=== PATIENT | female | born 1940 | race Caucasian/White ===

== ENCOUNTER 2016-11-10 22:40 | Emergency (ER) | payer MEDICARE ==
[2016-11-10 23:08] VITALS: RESP 18
[2016-11-11 00:11] LABS: Basophils # (A) 0.1 k/uL (0-0.2); Basophils % (A) 1 %; CH 30.5; CHCM 32.9; Eosinophils # (A) 0.1 k/uL (0-0.7); Eosinophils % (A) 1 %; HCT 41.8 % (34.0-46.0); HDW 2.67; HGB 13.3 gm/dL (11.4-16.0); Luc # (Auto) 0.13; Luc % (Auto) 1; Lymphocytes # (A) 2.3 k/uL (1.0-4.8); Lymphocytes % (A) 25 %; MCH 29.6 pg (25.0-35.0); MCHC 31.8 g/dL (31.0-37.0); MCV 93.1 fL (80.0-100.0); Mean Platelet Volume 7.9; Monocytes # (A) 0.7 k/uL (0-1.0); Monocytes % (A) 7 %; Neutrophils % (A) 65 %; RBC 4.49 m/uL (3.80-5.40); RDW 15.8 % (11.5-15.5); WBC 9.3 k/uL (3.8-10.6); WBC (Perox) 9.52
[2016-11-11 00:19] LABS: Appearance,Urine Clear (Clear); Bilirubin,Urine Negative (Negative); Glucose,Urine (UA) Negative (Negative); Ketones,Urine 1+ (Negative); Leukocyte Esterase,Urine Moderate (Negative); Mucus,Urine Rare /hpf; Nitrite,Urine Negative (Negative); PH, Urine 5.5 (5.0-8.0); Particle Count 470; Protein,Urine Negative (Negative); RBC,Urine <1 /hpf (0-5); Specific Gravity,Urine 1.011 (1.001-1.035); Squamous Epithelial Cell,Urine <1 /hpf (0-4); UA Billing (MACRO vs. MICRO) MICRO; Urobilinogen,Urine <2.0 mg/dL (<2.0); WBC,Urine 10 /hpf (0-5)
[2016-11-11 00:20] LABS: ALT 35 U/L (9-52); AST 20 U/L (14-36); Alkaline Phosphatase 92 U/L (38-126); Anion Gap 10 mmol/L; Blood Urea Nitrogen 16 mg/dL (7-17); Calcium 9.2 mg/dL (8.4-10.2); Carbon Dioxide 26 mmol/L (22-30); Chloride 103 mmol/L (98-107); Glucose 209 mg/dL (74-99); Non-African American GFR(MDRD) >60 (>60 ml/min/1.73 sqM); Potassium 4.8 mmol/L (3.5-5.1); Sodium 139 mmol/L (137-145); Total Bilirubin 0.3 mg/dL (0.2-1.3); Total Protein 6.2 g/dL (6.3-8.2)
[2016-11-11 00:30] LABS: Creatine Kinase 25 U/L (30-135)
[2016-11-11 00:43] LABS: Creatine Kinase MB 0.5 ng/mL (0.0-2.4); Troponin I <0.012 ng/mL (0.000-0.034)
--- NOTE | 2016-11-11 00:57 | XR ---
EXAM: XR Chest, 2 Views CLINICAL HISTORY: Reason: Pain TECHNIQUE: Frontal and lateral views of the chest. COMPARISON: 10/11/16 FINDINGS: Cardiac and mediastinal silhouette stable. No evidence for edema, consolidation or other acute cardiopulmonary process. IMPRESSION: No acute cardiopulmonary findings.
--- NOTE | 2016-11-11 01:38 | ED ---
Psych HPI - General Chief Complaint: Psychiatric Symptoms Stated Complaint: poss med reaction Time Seen by Provider: 11/10/16 23:21 Source: patient, family Mode of arrival: wheelchair - History of Present Illness Initial Comments: 76-year-old female patient presents with for evaluation of increased anxiety and restlessness today. Patient states that she feels very "uptight "and she feels like she is going to "explode". states that she has had episodes similar to this in the past. States that she has a history of anxiety and depression. States that she is taking medications for this however he feels that they are not right for her symptoms. Patient states that she is having increased anxiety and nervousness. She did ask her to hide the guns from her because she did not want to know where they're located. When asked if she was feeling suicidal or homicidal she denied having these feelings. She denies drinking alcohol or doing any drugs. She states that she has been taking her medications as directed. She states that she is unable to sleep at night, states that she falls asleep around 0400 and sleeps through the day. She states that she does hear voices late at night, states that it sounds like many people. She states that they don't tell her to do things or see anything specific it just sounds like noise. Patient states he does have some mild left-sided chest discomfort however feels like it is in her breast. She states that it does increase when she becomes more nervous. Patient denies any recent fever, chills, shortness breath, abdominal pain, nausea, vomiting, diarrhea, constipation, back pain, numbness, tingling, dizziness, weakness, hematuria, dysuria, urinary urgency, urinary frequency, headache, visual changes , or any other complaints. - Related Data Home Medications Medication Instructions Recorded Confirmed Atorvastatin [Lipitor] 40 mg PO HS 10/16/13 11/10/16 Divalproex [Depakote] 500 mg PO BID 10/16/13 11/10/16 Omeprazole [PriLOSEC] 20 mg PO AC-BRKFST 10/16/13 11/10/16 metFORMIN HCL [Glucophage] 1,000 tab PO BID 10/16/13 11/10/16 Glimepiride [Amaryl] 4 mg PO DAILY 06/30/16 11/10/16 Linagliptin [Tradjenta] 5 mg PO DAILY 06/30/16 11/10/16 Citalopram Hydrobromide [CeleXA] 20 mg PO DAILY 11/10/16 11/10/16 Levothyroxine Sodium [Synthroid] 137 mcg PO DAILY 11/10/16 11/10/16 Spironolactone [Aldactone] 12.5 mg PO DAILY 11/10/16 11/10/16 Zolpidem [Ambien] 10 mg PO HS PRN 11/10/16 11/10/16 Previous Rx's Medication Instructions Recorded ALPRAZolam [Xanax] 0.5 mg PO DAILY PRN #1 tablet 11/11/16 Allergies Allergy/AdvReac Type Severity Reaction Status Date / Time budesonide [From Symbicort] AdvReac Unknown Verified 11/10/16 23:25 codeine AdvReac Unknown Verified 11/10/16 23:25 fluoxetine [From Prozac] AdvReac Unknown Verified 11/10/16 23:25 formoterol [From Symbicort] AdvReac Unknown Verified 11/10/16 23:25 Review of Systems ROS Statement: Those systems with pertinent positive or pertinent negative responses have been documented in the HPI. ROS Other: All systems not noted in ROS Statement are negative. Past Medical History Past Medical History: Cancer, Diabetes Mellitus, GERD/Reflux, Hyperlipidemia, Thyroid Disorder Additional Past Medical History / Comment(s): emotional disorder History of Any Multi-Drug Resistant Organisms: None Reported Past Surgical History: Breast Surgery, Cholecystectomy, Hysterectomy Past Anesthesia/Blood Transfusion Reactions: No Reported Reaction Past Psychological History: Anxiety, Depression, PTSD Smoking Status: Never smoker General Exam Limitations: no limitations General appearance: alert, anxious, other (This is a well-developed, well- nourished female in no acute distress. Vital signs upon presentation were temperature 90.7F, pulse 82, respirations 18, blood pressure 136/66, pulse ox 96% on room air.) Head exam: Present: atraumatic, normocephalic, normal inspection Eye exam: Present: normal appearance, PERRL, EOMI. Absent: scleral icterus, conjunctival injection, periorbital swelling ENT exam: Present: normal exam, normal oropharynx, mucous membranes moist Neck exam: Present: normal inspection. Absent: tenderness, meningismus, lymphadenopathy Respiratory exam: Present: normal lung sounds bilaterally, chest wall tenderness (Over the sternum; over the left breast). Absent: respiratory distress, wheezes, rales, rhonchi, stridor Cardiovascular Exam: Present: regular rate, normal rhythm, normal heart sounds. Absent: systolic murmur, diastolic murmur, rubs, gallop, clicks GI/Abdominal exam: Present: soft, normal bowel sounds. Absent: distended, tenderness, guarding, rebound, rigid Back exam: Present: normal inspection Neurological exam: Present: alert, oriented X3, CN II-XII intact Psychiatric exam: Present: normal affect, normal mood Skin exam: Present: warm, dry, intact, normal color. Absent: rash Course Vital Signs 11/10/16 11/11/16 23:00 04:28 Temperature 97 F L 97.4 F L Pulse Rate 82 75 Respiratory 18 18 Rate Blood Pressure 136/66 158/70 O2 Sat by Pulse 96 95 Oximetry - Reevaluation(s) Reevaluation #1: 11/11/16 01:37 Patient labs, x-ray, and EKG reviewed. Patient has been cleared medically and will have an evaluation from emergency psych services. 11/11/16 03:51 Medical Decision Making - Medical Decision Making 76-year-old female patient presented for evaluation of increased anxiety and panic. Physical examination was unremarkable. Lab work, EKG, and chest x-ray were performed for medical clearance. Blood work was unremarkable. Urine did show 1+ ketones, moderate leukocyte esterase, 10 white blood cells, and rare mucous this has been sent for culture. EKG was unremarkable. Chest x-ray was negative for any acute cardiopulmonary process. Patient was evaluated by emergency psych services who state that she does not meet admission criteria. They state that she has increased anxiety, does have an appointment with her primary care physician who recommends her seeing a psychiatrist. They recommend that she be given Xanax a dose for tonight and a dose for tomorrow. Patient will be discharged home with a list of outpatient referrals. She is instructed to follow-up with her primary care physician for recheck in 1-2 days. She is instructed to return here immediately for any new, worsening, or concerning symptoms. Patient and verbalize understanding and agree with this plan. - Lab Data Result diagrams: 11/11/16 00:00 11/11/16 00:00 Lab Results 11/11/16 11/11/16 11/11/16 Range/Units 00:00 00:00 00:00 WBC 9.3 (3.8-10.6) k/uL RBC 4.49 (3.80-5.40) m/uL Hgb 13.3 (11.4-16.0) gm/dL Hct 41.8 (34.0-46.0) % MCV 93.1 (80.0-100.0) fL MCH 29.6 (25.0-35.0) pg MCHC 31.8 (31.0-37.0) g/dL RDW 15.8 H (11.5-15.5) % Plt Count 239 (150-450) k/uL Neutrophils % 65 % Lymphocytes % 25 % Monocytes % 7 % Eosinophils % 1 % Basophils % 1 % Neutrophils # 6.0 (1.3-7.7) k/uL Lymphocytes # 2.3 (1.0-4.8) k/uL Monocytes # 0.7 (0-1.0) k/uL Eosinophils # 0.1 (0-0.7) k/uL Basophils # 0.1 (0-0.2) k/uL Sodium (137-145) mmol/L Potassium (3.5-5.1) mmol/L Chloride (98-107) mmol/L Carbon Dioxide (22-30) mmol/L Anion Gap mmol/L BUN (7-17) mg/dL Creatinine (0.52-1.04) mg/dL Est GFR (MDRD) Af Amer (>60 ml/min/1.73 sqM) Est GFR (MDRD) Non-Af (>60 ml/min/1.73 sqM) Glucose (74-99) mg/dL Calcium (8.4-10.2) mg/dL Total Bilirubin (0.2-1.3) mg/dL AST (14-36) U/L ALT (9-52) U/L Alkaline Phosphatase (38-126) U/L Total Creatine Kinase 25 L (30-135) U/L CK-MB (CK-2) 0.5 (0.0-2.4) ng/mL CK-MB (CK-2) Rel Index 2.0 Troponin I <0.012 (0.000-0.034) ng/mL Total Protein (6.3-8.2) g/dL Albumin (3.5-5.0) g/dL Urine Color Yellow Urine Appearance Clear (Clear) Urine pH 5.5 (5.0-8.0) Ur Specific [place] 1.011 (1.001-1.035) Urine Protein Negative (Negative) Urine Glucose (UA) Negative (Negative) Urine Ketones 1+ H (Negative) Urine Blood Negative (Negative) Urine Nitrite Negative (Negative) Urine Bilirubin Negative (Negative) Urine Urobilinogen <2.0 (<2.0) mg/dL Ur Leukocyte Esterase Moderate H (Negative) Urine RBC <1 (0-5) /hpf Urine WBC 10 H (0-5) /hpf Ur Squamous Epith Cells <1 (0-4) /hpf Urine Mucus Rare H (None) /hpf Urine Opiates Screen Not Detected (NotDetected) Ur Oxycodone Screen Not Detected (NotDetected) Urine Methadone Screen Not Detected (NotDetected) Ur Propoxyphene Screen Not Detected (NotDetected) Ur Barbiturates Screen Not Detected (NotDetected) U Tricyclic Antidepress Not Detected (NotDetected) Ur Phencyclidine Scrn Not Detected (NotDetected) Ur Amphetamines Screen Not Detected (NotDetected) U Methamphetamines Scrn Not Detected (NotDetected) U Benzodiazepines Scrn Detected H (NotDetected) Urine Cocaine Screen Not Detected (NotDetected) U Marijuana (THC) Screen Not Detected (NotDetected) 11/11/16 Range/Units 00:00 WBC (3.8-10.6) k/uL RBC (3.80-5.40) m/uL Hgb (11.4-16.0) gm/dL Hct (34.0-46.0) % MCV (80.0-100.0) fL MCH (25.0-35.0) pg MCHC (31.0-37.0) g/dL RDW (11.5-15.5) % Plt Count (150-450) k/uL Neutrophils % % Lymphocytes % % Monocytes % % Eosinophils % % Basophils % % Neutrophils # (1.3-7.7) k/uL Lymphocytes # (1.0-4.8) k/uL Monocytes # (0-1.0) k/uL Eosinophils # (0-0.7) k/uL Basophils # (0-0.2) k/uL Sodium 139 (137-145) mmol/L Potassium 4.8 (3.5-5.1) mmol/L Chloride 103 (98-107) mmol/L Carbon Dioxide 26 (22-30) mmol/L Anion Gap 10 mmol/L BUN 16 (7-17) mg/dL Creatinine 0.70 (0.52-1.04) mg/dL Est GFR (MDRD) Af Amer >60 (>60 ml/min/1.73 sqM) Est GFR (MDRD) Non-Af >60 (>60 ml/min/1.73 sqM) Glucose 209 H (74-99) mg/dL Calcium 9.2 (8.4-10.2) mg/dL Total Bilirubin 0.3 (0.2-1.3) mg/dL AST 20 (14-36) U/L ALT 35 (9-52) U/L Alkaline Phosphatase 92 (38-126) U/L Total Creatine Kinase (30-135) U/L CK-MB (CK-2) (0.0-2.4) ng/mL CK-MB (CK-2) Rel Index Troponin I (0.000-0.034) ng/mL Total Protein 6.2 L (6.3-8.2) g/dL Albumin 3.5 (3.5-5.0) g/dL Urine Color Urine Appearance (Clear) Urine pH (5.0-8.0) Ur Specific [place] (1.001-1.035) Urine Protein (Negative) Urine Glucose (UA) (Negative) Urine Ketones (Negative) Urine Blood (Negative) Urine Nitrite (Negative) Urine Bilirubin (Negative) Urine Urobilinogen (<2.0) mg/dL Ur Leukocyte Esterase (Negative) Urine RBC (0-5) /hpf Urine WBC (0-5) /hpf Ur Squamous Epith Cells (0-4) /hpf Urine Mucus (None) /hpf Urine Opiates Screen (NotDetected) Ur Oxycodone Screen (NotDetected) Urine Methadone Screen (NotDetected) Ur Propoxyphene Screen (NotDetected) Ur Barbiturates Screen (NotDetected) U Tricyclic Antidepress (NotDetected) Ur Phencyclidine Scrn (NotDetected) Ur Amphetamines Screen (NotDetected) U Methamphetamines Scrn (NotDetected) U Benzodiazepines Scrn (NotDetected) Urine Cocaine Screen (NotDetected) U Marijuana (THC) Screen (NotDetected) - Radiology Data Radiology results: report reviewed, image reviewed Frontal and lateral views of the chest are obtained and show the cardiac and mediastinal silhouette is stable. No evidence for edema, consolidation or other acute cardiopulmonary process. Impression by Dr. Bob shows no acute cardiopulmonary findings. Disposition Clinical Impression: Generalized anxiety disorder Disposition: HOME SELF-CARE Condition: Good Instructions: Anxiety (ED) Additional Instructions: Take medication as directed. Follow-up with primary care physician for recheck in 1-2 days. Return here immediately for any new, worsening, or concerning symptoms. Prescriptions: ALPRAZolam [Xanax] 0.5 mg PO DAILY PRN #1 tablet PRN Reason: Anxiety Referrals: Tammi Rosenberg III, MD [Primary Care Provider] - 1-2 days Time of Disposition: 03:57
[2016-11-11] MEDS ORDERED: ALPRAZolam 0.5 MG TAB PO STA (04:07)
[2016-11-11 04:30] VITALS: BP 158/70; PULSE 75; TEMP 97.4
== END 2016-11-11 04:28 | disposition home or self-care (01) ==
LOC: EC 22:40
DX: F41.1 Generalized anxiety disorder (principal); R07.89 Other chest pain; R44.0 Auditory hallucinations; E78.5 Hyperlipidemia, unspecified; K21.9 Gastro-esophageal reflux disease without esophagitis; E11.9 Type 2 diabetes mellitus without complications; E07.9 Disorder of thyroid, unspecified; F32.9 Major depressive disorder, single episode, unspecified; Z79.84 Long term (current) use of oral hypoglycemic drugs; Z79.899 Other long term (current) drug therapy; Z88.5 Allergy status to narcotic agent; Z88.8 Allergy status to other drugs, medicaments and biological substances
CPT/HCPCS: 36415; 71020; 80053; 80306; 81001; 82075; 82550; 82553; 84484; 85025; 87086; 93005; 99284

== ENCOUNTER 2017-09-10 15:29 | Emergency (ER) | payer MEDICARE ==
[2017-09-10 15:37] VITALS: RESP 18
[2017-09-10] MEDS ORDERED: IBUPROFEN 600 MG TAB PO STA (15:47)
--- NOTE | 2017-09-10 15:52 | ED ---
Fall HPI - General Chief Complaint: Fall Stated Complaint: Fall/Back Pain Time Seen by Provider: 09/10/17 15:38 Source: patient, family Mode of arrival: wheelchair - History of Present Illness Initial Comments: 77 yoF presenting after a mechanical fall that occurred on Monday. Patient normally ambulates with a walker secondary to chronic balance problems. She let go of the walker to reach up to grab something and fell backwards landing on her bottom. She denies striking her head or neck and denies LOC or anticoagulation use. She was able to ambulate after but since then has been having worsening tailbone pain and bilateral lumbar paraspinal pain. She has been using a massage chair at home as well as Advil and Tylenol with some improvement but no relief. She denies bowel or bladder incontinence, lower extremity weakness or numbness, or saddle anesthesia. - Related Data Home Medications Medication Instructions Recorded Confirmed Atorvastatin [Lipitor] 40 mg PO HS 10/16/13 11/10/16 Divalproex [Depakote] 500 mg PO BID 10/16/13 11/10/16 Omeprazole [PriLOSEC] 20 mg PO AC-BRKFST 10/16/13 11/10/16 metFORMIN HCL [Glucophage] 1,000 tab PO BID 10/16/13 11/10/16 Glimepiride [Amaryl] 4 mg PO DAILY 06/30/16 11/10/16 Linagliptin [Tradjenta] 5 mg PO DAILY 06/30/16 11/10/16 Citalopram Hydrobromide [CeleXA] 20 mg PO DAILY 11/10/16 11/10/16 Levothyroxine Sodium [Synthroid] 137 mcg PO DAILY 11/10/16 11/10/16 Spironolactone [Aldactone] 12.5 mg PO DAILY 11/10/16 11/10/16 Zolpidem [Ambien] 10 mg PO HS PRN 11/10/16 11/10/16 Previous Rx's Medication Instructions Recorded ALPRAZolam [Xanax] 0.5 mg PO DAILY PRN #1 tablet 11/11/16 Allergies Allergy/AdvReac Type Severity Reaction Status Date / Time trazodone Allergy Unknown Verified 09/10/17 15:33 budesonide [From Symbicort] AdvReac Unknown Verified 11/10/16 23:25 codeine AdvReac Unknown Verified 11/10/16 23:25 fluoxetine [From Prozac] AdvReac Unknown Verified 11/10/16 23:25 formoterol [From Symbicort] AdvReac Unknown Verified 11/10/16 23:25 Review of Systems ROS Statement: Those systems with pertinent positive or pertinent negative responses have been documented in the HPI. Review of Systems Constitutional: Denies fever, chills Eyes: Denies change in vision, Denies pain Ears, nose, mouth, throat: Denies headaches, Denies sore throat Cardiovascular: Denies chest pain. Denies palpitations Respiratory: Denies shortness of breath, Denies cough Gastrointestinal: Denies abdominal pain. Denies nausea, vomiting, diarrhea. Genitourinary: Denies hematuria, Denies infections Musculoskeletal: Positive tailbone pain and lumbar pain Denies swelling Integumentary: Denies rash Neurological: Denies headache, focal weakness, focal numbness Psychiatric: Denies anxiety, Denies depression Hematologic/Lymphatic: Denies easy bleeding or bruising ROS Other: All systems not noted in ROS Statement are negative. Past Medical History Past Medical History: Cancer, Diabetes Mellitus, GERD/Reflux, Hyperlipidemia, Thyroid Disorder Additional Past Medical History / Comment(s): emotional disorder, tremors History of Any Multi-Drug Resistant Organisms: None Reported Past Surgical History: Breast Surgery, Cholecystectomy, Hysterectomy Past Anesthesia/Blood Transfusion Reactions: No Reported Reaction Past Psychological History: Anxiety, Depression, PTSD Smoking Status: Never smoker Past Alcohol Use History: None Reported Past Drug Use History: None Reported General Exam - General Exam Comments Initial Comments: General: Awake, alert, No acute Distress HENT: Normocephalic. Atraumatic Eyes: PERRL. EOMI. No scleral icterus. No injected conjunctiva Neck: Full ROM Chest/Lungs: Clear to auscultation bilaterally. No wheezing, rhonchi, or rales Cardiac: Regular rate, rhythm. No murmurs or rubs Abdomen/GI: Soft, nontender, nondistended. No rebound, guarding, or rigidity. Musculoskeletal: Full ROM. TTP of midline of sacrum and sacroiliac area. No cervical or thoracic midline tenderness. L3-S1 intact bilaterally. Skin: Warm, dry, intact Neurologic: A/Ox3, no weakness, no sensory deficit, no abdnormal gait, no coordination deficit Limitations: no limitations Course Vital Signs 09/10/17 15:34 Temperature 97.8 F Pulse Rate 70 Respiratory 18 Rate Blood Pressure 131/59 O2 Sat by Pulse 93 L Oximetry Medical Decision Making - Medical Decision Making 77 yoF presenting after a fall on Monday. On initial exam the patient is awake , alert, and in NAD. VSS. She is not on blood thinners and had no head injury. She has been ambulating at home without issue. Patient's XRs here are negative. Her pain improved while in the department. Offered the patient CT imaging for her pain in case a fracture was missed by XR. They declined and would prefer to follow up with her primary care doctor later this week for a recheck. She was instructed to discuss physical therapy with her primary care doctor as the patient and her state they are concerned about her slowly worsening generalized weakness. They were agreeable to plan. No further emergent workup indicated. The patient was given return to ED instructions. They were instructed to follow up with their primary care provider. Stable for discharge at this time. Disposition Clinical Impression: Fall, Coccygeal pain, acute Disposition: HOME SELF-CARE Condition: Good Instructions: Fall Prevention for Older Adults (ED), Coccyx Injury (ED) Is patient prescribed a controlled substance at d/c from ED?: No
--- NOTE | 2017-09-10 16:42 | XR ---
Pelvis single view. History fall. Pain. Comparison 03/22/2009. FINDINGS: Pelvic ring is intact. There is some osteosclerosis in the left femoral head. Sacroiliac joints are i ntact. I see no acute fracture. 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 No change. No acute fract ure seen.
--- NOTE | 2017-09-10 16:49 | XR ---
EXAMINATION TYPE: XR lumbar spine 2 or 3V DATE OF EXAM: 09/10/2017 COMPARISON: NONE HISTORY: Fall and back pain TECHNIQUE: 3 views FINDINGS: Vertebra have normal alignment. There is 10% anterior wedging of T12 that is probably old. Sacroiliac joints are intact. Abdominal aorta is atheromatous. IMPRESSION: No acute around the of the lumbar spine. Mild spondylotic changes.
--- NOTE | 2017-09-10 16:50 | XR ---
EXAMINATION TYPE: XR sacrum coccyx DATE OF EXAM: 09/10/2017 COMPARISON: NONE HISTORY: Pain TECHNIQUE: 3 views FINDINGS: Segments have normal alignment. Sacroiliac joints are intact. I see no fracture. IMPRESSION: Negative sacrum and coccyx exam.
[2017-09-10 17:47] VITALS: BP 157/74; PULSE 68; TEMP 98
== END 2017-09-10 17:47 | disposition home or self-care (01) ==
LOC: EC 15:29
DX: M53.3 Sacrococcygeal disorders, not elsewhere classified (principal); M54.5 Low back pain; E11.9 Type 2 diabetes mellitus without complications; K21.9 Gastro-esophageal reflux disease without esophagitis; E78.5 Hyperlipidemia, unspecified; E07.9 Disorder of thyroid, unspecified; F41.9 Anxiety disorder, unspecified; F32.9 Major depressive disorder, single episode, unspecified; F43.10 Post-traumatic stress disorder, unspecified; Z85.9 Personal history of malignant neoplasm, unspecified; Z79.84 Long term (current) use of oral hypoglycemic drugs; Z79.899 Other long term (current) drug therapy; Z88.5 Allergy status to narcotic agent; Z88.8 Allergy status to other drugs, medicaments and biological substances; W18.39XA Other fall on same level, initial encounter; Y92.000 Kitchen of unspecified non-institutional (private) residence as the place of occurrence of the external cause
CPT/HCPCS: 72100; 72220; 99283

== ENCOUNTER 2017-09-19 03:56 | Inpatient (IN) | payer MEDICARE ==
[2017-09-19] MEDS ORDERED: IPRATROPIUM-ALBUTEROL 3 ML NEB INHALATION STA (04:19)
[2017-09-19] MEDS ORDERED: methylPREDNISolone SOD SUCCI 125 MG/2 ML VIAL IV STA (04:19)
--- NOTE | 2017-09-19 04:22 | ED ---
General Adult HPI - General Chief complaint: Fall Stated complaint: fall,LOKSEH Time Seen by Provider: 09/19/17 04:11 Source: patient, family, RN notes reviewed Mode of arrival: wheelchair Limitations: no limitations - History of Present Illness Initial comments: Patient is a pleasant 77-year-old female presenting to the emergency department with complaints of difficulty breathing. Patient has known history of COPD. Patient did have a fall 1 week ago and has been more short of breath since that time. Patient has continued discomfort in her tailbone. Patient did have x- rays done. Patient has had an upset stomach. Patient has had some tightness in her chest. - Related Data Home Medications Medication Instructions Recorded Confirmed Atorvastatin [Lipitor] 40 mg PO HS 10/16/13 09/19/17 Divalproex [Depakote] 500 mg PO BID 10/16/13 09/19/17 Omeprazole [PriLOSEC] 20 mg PO AC-BRKFST 10/16/13 09/19/17 metFORMIN HCL [Glucophage] 1,000 tab PO BID 10/16/13 09/19/17 Glimepiride [Amaryl] 4 mg PO DAILY 06/30/16 09/19/17 Linagliptin [Tradjenta] 5 mg PO DAILY 06/30/16 09/19/17 Citalopram Hydrobromide [CeleXA] 20 mg PO DAILY 11/10/16 09/19/17 Levothyroxine Sodium [Synthroid] 137 mcg PO DAILY 11/10/16 09/19/17 Spironolactone [Aldactone] 12.5 mg PO DAILY 11/10/16 09/19/17 Zolpidem [Ambien] 10 mg PO HS PRN 11/10/16 09/19/17 Previous Rx's Medication Instructions Recorded ALPRAZolam [Xanax] 0.5 mg PO DAILY PRN #1 tablet 11/11/16 Allergies Allergy/AdvReac Type Severity Reaction Status Date / Time trazodone Allergy Unknown Verified 09/19/17 04:05 budesonide [From Symbicort] AdvReac Unknown Verified 09/19/17 04:05 codeine AdvReac Unknown Verified 09/19/17 04:05 fluoxetine [From Prozac] AdvReac Unknown Verified 09/19/17 04:05 formoterol [From Symbicort] AdvReac Unknown Verified 09/19/17 04:05 Review of Systems ROS Statement: Those systems with pertinent positive or pertinent negative responses have been documented in the HPI. ROS Other: All systems not noted in ROS Statement are negative. Constitutional: Denies: fever Eyes: Denies: eye pain ENT: Denies: ear pain Respiratory: Reports: cough, dyspnea Cardiovascular: Reports: chest pain Endocrine: Reports: fatigue Gastrointestinal: Reports: abdominal pain, nausea. Denies: vomiting Genitourinary: Denies: dysuria Musculoskeletal: Reports: other (Pain in her tailbone) Skin: Denies: rash Neurological: Denies: weakness Past Medical History Past Medical History: Cancer, Diabetes Mellitus, GERD/Reflux, Hyperlipidemia, Thyroid Disorder Additional Past Medical History / Comment(s): emotional disorder, tremors History of Any Multi-Drug Resistant Organisms: None Reported Past Surgical History: Breast Surgery, Cholecystectomy, Hysterectomy Past Anesthesia/Blood Transfusion Reactions: No Reported Reaction Past Psychological History: Anxiety, Depression, PTSD Smoking Status: Never smoker Past Alcohol Use History: None Reported Past Drug Use History: None Reported General Exam Limitations: no limitations General appearance: alert, in no apparent distress Head exam: Present: atraumatic Eye exam: Present: normal appearance, PERRL ENT exam: Present: normal oropharynx Neck exam: Present: normal inspection Respiratory exam: Present: rhonchi, decreased breath sounds Cardiovascular Exam: Present: regular rate, normal rhythm GI/Abdominal exam: Present: soft. Absent: distended, tenderness Extremities exam: Present: normal inspection Back exam: Present: other (Mild tenderness in the sacrum). Absent: vertebral tenderness Neurological exam: Present: alert. Absent: motor sensory deficit Psychiatric exam: Present: normal affect, normal mood Skin exam: Present: normal color Course Vital Signs 09/19/17 09/19/17 09/19/17 04:02 04:52 05:02 Temperature 98.3 F Pulse Rate 84 75 75 Respiratory 20 Rate Blood Pressure 136/83 O2 Sat by Pulse 92 L Oximetry EKG Findings - EKG Comments: EKG Findings:: Normal sinus rhythm 77. OH 150. QRS 64. QT 370. QTc 418. Left axis. Inferior Q waves. Nonspecific T waves. Medical Decision Making - Medical Decision Making Patient reevaluated and somewhat improved. Lung sounds have improved. Patient and family updated on results and plan. Case discussed with practitioner Byrno , covering for Dr. Hill, who will admit for Dr. Rosenberg. - Lab Data Result diagrams: 09/19/17 04:30 09/19/17 04:30 Lab Results 09/19/17 09/19/17 09/19/17 Range/Units 04:30 04:30 04:30 WBC 13.2 H (3.8-10.6) k/uL RBC 5.24 (3.80-5.40) m/uL Hgb 14.6 (11.4-16.0) gm/dL Hct 46.7 H (34.0-46.0) % MCV 89.0 (80.0-100.0) fL MCH 27.9 (25.0-35.0) pg MCHC 31.3 (31.0-37.0) g/dL RDW 14.8 (11.5-15.5) % Plt Count 329 (150-450) k/uL Neutrophils % 64 % Lymphocytes % 24 % Monocytes % 9 % Eosinophils % 1 % Basophils % 0 % Neutrophils # 8.4 H (1.3-7.7) k/uL Lymphocytes # 3.2 (1.0-4.8) k/uL Monocytes # 1.2 H (0-1.0) k/uL Eosinophils # 0.1 (0-0.7) k/uL Basophils # 0.1 (0-0.2) k/uL PT (9.0-12.0) sec INR (<1.2) APTT (22.0-30.0) sec Sodium 135 L (137-145) mmol/L Potassium 5.3 H (3.5-5.1) mmol/L Chloride 101 (98-107) mmol/L Carbon Dioxide 23 (22-30) mmol/L Anion Gap 11 mmol/L BUN 21 H (7-17) mg/dL Creatinine 0.60 (0.52-1.04) mg/dL Est GFR (CKD-EPI)AfAm >90 (>60 ml/min/1.73 sqM) Est GFR (CKD-EPI)NonAf 89 (>60 ml/min/1.73 sqM) Glucose 237 H (74-99) mg/dL Calcium 9.3 (8.4-10.2) mg/dL Total Bilirubin 0.7 (0.2-1.3) mg/dL AST 18 (14-36) U/L ALT 30 (9-52) U/L Alkaline Phosphatase 125 (38-126) U/L Total Creatine Kinase 23 L (30-135) U/L CK-MB (CK-2) 0.6 (0.0-2.4) ng/mL CK-MB (CK-2) Rel Index 2.6 Troponin I <0.012 (0.000-0.034) ng/mL Total Protein 7.0 (6.3-8.2) g/dL Albumin 4.2 (3.5-5.0) g/dL 09/19/17 Range/Units 04:30 WBC (3.8-10.6) k/uL RBC (3.80-5.40) m/uL Hgb (11.4-16.0) gm/dL Hct (34.0-46.0) % MCV (80.0-100.0) fL MCH (25.0-35.0) pg MCHC (31.0-37.0) g/dL RDW (11.5-15.5) % Plt Count (150-450) k/uL Neutrophils % % Lymphocytes % % Monocytes % % Eosinophils % % Basophils % % Neutrophils # (1.3-7.7) k/uL Lymphocytes # (1.0-4.8) k/uL Monocytes # (0-1.0) k/uL Eosinophils # (0-0.7) k/uL Basophils # (0-0.2) k/uL PT 10.7 (9.0-12.0) sec INR 1.1 (<1.2) APTT 23.4 (22.0-30.0) sec Sodium (137-145) mmol/L Potassium (3.5-5.1) mmol/L Chloride (98-107) mmol/L Carbon Dioxide (22-30) mmol/L Anion Gap mmol/L BUN (7-17) mg/dL Creatinine (0.52-1.04) mg/dL Est GFR (CKD-EPI)AfAm (>60 ml/min/1.73 sqM) Est GFR (CKD-EPI)NonAf (>60 ml/min/1.73 sqM) Glucose (74-99) mg/dL Calcium (8.4-10.2) mg/dL Total Bilirubin (0.2-1.3) mg/dL AST (14-36) U/L ALT (9-52) U/L Alkaline Phosphatase (38-126) U/L Total Creatine Kinase (30-135) U/L CK-MB (CK-2) (0.0-2.4) ng/mL CK-MB (CK-2) Rel Index Troponin I (0.000-0.034) ng/mL Total Protein (6.3-8.2) g/dL Albumin (3.5-5.0) g/dL - Radiology Data Radiology results: image reviewed (Chest x-ray shows no acute process. Abdominal x-ray shows no acute process.) Disposition Clinical Impression: Sacral contusion, Chest pain Disposition: ADMITTED IP TO THIS HOSP Is patient prescribed a controlled substance at d/c from ED?: No Referrals: Tammi Rosenberg III, MD [Primary Care Provider] - 1-2 days Decision Time: 06:40
[2017-09-19] MEDS ORDERED: MORPHINE SULFATE 4 MG/ML SYRINGE IVP STA (04:57)
[2017-09-19 05:14] LABS: Basophils # (A) 0.1 k/uL (0-0.2); Basophils % (A) 0 %; Eosinophils # (A) 0.1 k/uL (0-0.7); Eosinophils % (A) 1 %; HCT 46.7 % (34.0-46.0); HGB 14.6 gm/dL (11.4-16.0); Lymphocytes # (A) 3.2 k/uL (1.0-4.8); Lymphocytes % (A) 24 %; MCH 27.9 pg (25.0-35.0); MCHC 31.3 g/dL (31.0-37.0); Mean Platelet Volume 6.8; Monocytes # (A) 1.2 k/uL (0-1.0); Monocytes % (A) 9 %; Neutrophils # (A) 8.4 k/uL (1.3-7.7); Neutrophils % (A) 64 %; Platelet Count 329 k/uL (150-450); RBC 5.24 m/uL (3.80-5.40); RDW 14.8 % (11.5-15.5); WBC 13.2 k/uL (3.8-10.6)
[2017-09-19 05:25] LABS: ALT 30 U/L (9-52); AST 18 U/L (14-36); Albumin 4.2 g/dL (3.5-5.0); Alkaline Phosphatase 125 U/L (38-126); Anion Gap 11 mmol/L; Blood Urea Nitrogen 21 mg/dL (7-17); Calcium 9.3 mg/dL (8.4-10.2); Carbon Dioxide 23 mmol/L (22-30); Chloride 101 mmol/L (98-107); Glucose 237 mg/dL (74-99); Potassium 5.3 mmol/L (3.5-5.1); Sodium 135 mmol/L (137-145); Total Bilirubin 0.7 mg/dL (0.2-1.3)
[2017-09-19 05:38] LABS: INR 1.1 (<1.2); Partial Thromboplastin Time 23.4 sec (22.0-30.0); Prothrombin Time 10.7 sec (9.0-12.0)
--- NOTE | 2017-09-19 05:41 | XR ---
EXAM: XR Abdomen, 2 Views CLINICAL HISTORY: Pain TECHNIQUE: Supine views of the abdomen. COMPARISON: CT January 2016. FINDINGS/IMPRESSION: Flanks are clipped. Bowel gas pattern is nonobstructive. Postop changes. There are calcified densities in pelvis likely phleboliths. On the previous study there was a nonobstructive renal stone. To the right of the superior L3 vertebral body density which may represent calcification though suspect this is more lateral than the right ureter. Difficult to exclude urinary tract calculi on this exam given limited sensitivity of plain film and summation. If there is hematuria/suspicion for urolithiasis, ultrasound and/or CT could be obtained, as indicated. Findings suggesting femoral avascular necrosis which has been demonstrated on previous exams, as well.
--- NOTE | 2017-09-19 05:48 | XR ---
EXAM: XR Chest, 2 Views CLINICAL HISTORY: ITS.REASON XR Reason: difficulty breathing TECHNIQUE: Frontal and lateral views of the chest. COMPARISON: 11/11/16 FINDINGS: Stable cardiac and mediastinal silhouette. No evidence for overt edema, consolidation or other acute cardiopulmonary process. Age indeterminate compression L1 without retropulsion. IMPRESSION: No acute cardiopulmonary findings.
[2017-09-19 06:04] LABS: Creatine Kinase 23 U/L (30-135)
[2017-09-19 06:17] LABS: Creatine Kinase MB 0.6 ng/mL (0.0-2.4); Troponin I <0.012 ng/mL (0.000-0.034)
[2017-09-19] MEDS ORDERED: NITROGLYCERIN SL TABS 0.4 MG TAB SUBLINGUAL PRN (06:40)
[2017-09-19] MEDS ORDERED: ASPIRIN 81 MG PO STA (06:40)
[2017-09-19] MEDS ORDERED: IPRATROPIUM-ALBUTEROL 3 ML NEB INHALATION PRN (06:40)
[2017-09-19 08:09] VITALS: BMI 29.1
[2017-09-19] MEDS: IPRATROPIUM-ALBUTEROL 3 ML NEB INHALATION SCH ×4 (08:26→18:59)
--- NOTE | 2017-09-19 09:53 | CONS ---
CONSULTATION CHIEF COMPLAINT: Chest pain. This is a 77-year-old lady with multiple medical problems including hypothyroidism, non- insulin-dependent diabetes and dyslipidemia who presented to hospital having had a fall at home. She states that she was standing and fell backwards, did not lose consciousness, did not have bladder or bowel incontinence. Did not have focal neurological deficits. She subsequently felt achy all over her body and felt unwell. Patient also has history of anxiety and currently is on Prozac and Klonopin. Since being admitted to the hospital, she is doing well. Did not have any documented cardiac arrhythmia. EKG shows sinus rhythm with evidence of prior inferior wall myocardial infarction with nonspecific ST-T wave changes. One set of troponin is negative. Her creatinine is normal at 0.6 potassium is 5.3. White cell count is mildly elevated. Patient's chest discomfort seems atypical and probably musculoskeletal. I am going to obtain cardiac enzymes to rule out myocardial infarction, obtain a 2D echo and obtain a stress test on her tomorrow. Some of her symptoms seem to be related to anxiety and if she has any documented tachyarrhythmias, I will start her on beta blockers. PAST MEDICAL HISTORY: Significant for non-insulin diabetes, hypertension, hypothyroidism and dyslipidemia. MEDICATIONS: Include metformin, Ambien, Klonopin, Synthroid, Prilosec, Amaryl, Prozac, Depakote, Lipitor, Fosamax. Patient is allergic to TRAZODONE, SYMBICORT, CODEINE, and PROZAC. FAMILY HISTORY: Negative for premature coronary artery disease. SOCIAL HISTORY: Negative for smoking, EtOH abuse or drug abuse. REVIEW OF SYSTEMS: HEENT: Unremarkable. CARDIAC: As described above. RESPIRATORY: As described above. GI: Negative. GENITOURINARY: Negative. ALLERGY/IMMUNOLOGY: Negative. SKIN: Negative. MUSCULOSKELETAL: Significant for fall. PSYCHOSOCIAL: Negative. ENDOCRINE: Negative. HEMATOLOGIC: Negative. DERM: Negative. CONSTITUTIONAL: Negative. ONCOLOGICAL: Negative. Rest of the system review is not relevant. PHYSICAL EXAM: Heart rate is 76 beats per minute. Blood pressure is 148/76, respiratory rate is 18. There is no jugular venous distention. Carotid upstroke is normal. There is no bruit. Chest exam reveals diminished air entry at the bases. Heart exam reveals first and second heart sounds. No gallop. No murmur. No rub. Abdomen is soft, nontender. Exam of extremities did not reveal any edema. Peripheral pulses are felt. INSTRUMENT AND CONTROL TECHNICIAN exam did not reveal focal neurological deficits. LABS: Show that the hemoglobin is 14.6, creatinine is 0.6, potassium is 5.3. First set of troponin is negative. ASSESSMENT: 1. Atypical chest pain. 2. History of non-insulin diabetes. 3. Palpitations. PLAN: I am going to obtain a 2D echo, feed her, ambulate her and consider a dobutamine echo on her tomorrow. MMODL / IJN: [id number] /
--- NOTE | 2017-09-19 10:51 | ECHOF ---
Referral Reason: MEASUREMENTS -------- HEIGHT: 165.1 cm WEIGHT: 79.4 kg BP: 148/68 IVSd: 1.4 cm (0.6 - 1.1) LVIDd: 4.1 cm (3.9 - 5.3) LVPWd: 1.3 cm (0.6 - 1.1) IVSs: 1.6 cm LVIDs: 2.9 cm LVPWs: 1.1 cm LA Diam: 3.8 cm (2.7 - 3.8) LAESV Index (A-L): 30.55 ml/m Ao Diam: 3.0 cm (2.0 - 3.7) AV Cusp: 1.6 cm (1.5 - 2.6) LA Diam: 3.7 cm (2.7 - 3.8) MV EXCURSION: 20.130 mm (> 18.000) MV EF SLOPE: 90 mm/s (70 - 150) EPSS: 1.2 cm MV E Antonio: 0.81 m/s MV DecT: 182 ms MV A Antonio: 0.84 m/s MV E/A Ratio: 0.97 RAP: 5.00 mmHg RVSP: 35.44 mmHg FINDINGS -------- Sinus rhythm. This was a technically adequate study. The left ventricular size is normal. There is borderline concentric left ventricular hypertrophy. Overall left ventricular systolic function is low-normal with, an EF between 50 - 55 %. The right ventricle is normal in size. The left atrial size is normal. LA is midly dilated 29-33ml/m2. The right atrial size is normal. The aortic valve is trileaflet, and appears structurally normal. No aortic stenosis or regurgitation. Mild mitral regurgitation is present. Mild tricuspid regurgitation present. There is no evidence of pulmonary hypertension. The right v entricular systolic pressure, as measured by Doppler, is 35.44mmHg. There is no pulmonic regurgitation present. The aortic root size is normal. There is no pericardial effusion. CONCLUSIONS -------- 1. The left ventricular size is normal. 2. There is borderline concentric left ventricular hypertrophy. 3. Overall left ventricular systolic function is low-normal with, an EF between 50 - 55 %. 4. The right ventricle is normal in size. 5. The left atrial size is normal. 6. LA is midly dilated 29-33ml/m2. 7. The right atrial size is normal. 8. The aortic valve is trileaflet, and appears structurally normal. No aortic stenosis or regurgitati on. 9. Mild mitral regurgitation is present. 10. Mild tricuspid regurgitation present. 11. There is no evidence of pulmonary hypertension. 12. The right ventricular systolic pressure, as measured by Doppler, is 35.44mmHg. 13. There is no pulmonic regurgitation present. 14. The aortic root size is normal. 15. There is no pericardial effusion. SURVEILLANCE SENSOR OPERATOR: Rina Albright RDCS
[2017-09-19] MEDS ORDERED: ALBUTEROL NEBULIZED 2.5 MG/3 ML INHALATION PRN (11:02)
[2017-09-19 11:03] LABS: Creatine Kinase <20 U/L (30-135)
[2017-09-19] MEDS ORDERED: DIVALPROEX 500 MG TABLET.DR PO SCH (11:15)
[2017-09-19 11:16] LABS: Creatine Kinase MB 0.6 ng/mL (0.0-2.4); Troponin I <0.012 ng/mL (0.000-0.034)
[2017-09-19] MEDS: FLUoxetine HCL 20 MG CAP PO SCH ×2 (11:33→20:29)
[2017-09-19] MEDS: HYDROcodone/APAP 5-325MG 1 EACH TAB PO PRN ×3 (11:35→23:15)
[2017-09-19] MEDS: PANTOPRAZOLE 40 MG/10 ML VIAL IVP SCH (11:38)
[2017-09-19] MEDS ORDERED: ZOLPIDEM 10 MG TAB PO PRN (11:45)
[2017-09-19] MEDS ORDERED: clonazePAM 0.5 MG TAB PO PRN (11:45)
[2017-09-19] MEDS ORDERED: methylPREDNISolone SOD SUCCI 125 MG/2 ML VIAL IV SCH (12:00)
[2017-09-19 12:19] VITALS: RESP 18
[2017-09-19 12:25] LABS: Glucose,Whole Blood 398 mg/dL (75-99)
--- NOTE | 2017-09-19 12:46 | P.CONS ---
History of Present Illness - Reason for Consult Consult date: 09/19/17 Dysphagia Requesting physician: Ann Willis - History of Present Illness 77 year old female the history of dysphagia, sigmoid diverticulosis, diabetes, internal hemorrhoids, Zenker's diverticulum, and GERD. EGD colonoscopy October 2013 reported findings of proximal cervical esophagus Zenker's diverticulum 1-1.5 cm as well as scattered sigmoid diverticulosis small internal hemorrhoids and cecal polypectomy. She saw a surgeon in the past in regards to the Zenker's diverticulum but chose not to pursue with surgical removal. Admitted status post fall generalized achiness. Troponin negative. Consult requested for dysphagia. Patient states over the last few weeks she's had decreased appetite and difficulty with more solid foods. Experiencing foods medications being stuck in the upper esophageal region as well as distally without violent emesis. She intermittently gags regurgitates thin phlegm-like fluid. She has been on a mostly liquid soft pured diet since her diagnosis of Zenker's diverticulum in 2013. Denies hematemesis hematochezia melena. She is lost about 20 pounds over the last few years gradually. No fever or chills. Seen by cardiology earlier today albumin stress test ordered tomorrow. White count 13.2. Hemoglobin 14.6. INR 1.1. Platelet 329. Review of Systems Constitutional: Denies fever, chills, sweats, weight gain, or loss. Admitted with weakness fell. HEENT: Negative for migraines, blurred vision or loss, earaches, drainage, tinnitus, oral mucosal lesions, dysphagia, or odynophagia. CARDIAC: Negative for chest pain, arrhythmias, or palpitation. RESPIRATORY: Negative for shortness of breath, hemoptysis, cough, or sputum production. GI: See HPI for pertinent findings. : Negative for hematuria, urgency, frequency, polyuria, or dysuria. GYNc: Negative vaginal discharge. MUSCULOSKELETAL: Negative for muscle aches, swelling, arthritis, and arthralgias. NEUROLOGIC: Negative for stroke or TIA. ENDOCRINE: Negative for thyroid problems. SKIN: Negative for rash or itching. PSYCHIATRIC: Negative history for depression and anxiety Past Medical History Past Medical History: Cancer, COPD, Diabetes Mellitus, GERD/Reflux, Hyperlipidemia, Thyroid Disorder Additional Past Medical History / Comment(s): emotional disorder, tremors, type 2 DM, osteitis left leg, hypothyroid, IBS, right breast CA with radiation, chemo , partial mastectomy, bilat catarcts removal, insomnia. History of Any Multi-Drug Resistant Organisms: None Reported Past Surgical History: Breast Surgery, Cholecystectomy, Hysterectomy Additional Past Surgical History / Comment(s): bladder suspension Past Anesthesia/Blood Transfusion Reactions: No Reported Reaction Past Psychological History: Anxiety, Depression, Panic Disorder Smoking Status: Never smoker Past Alcohol Use History: None Reported Past Drug Use History: None Reported Medications and Allergies Home Medications Medication Instructions Recorded Confirmed Type Atorvastatin [Lipitor] 40 mg PO HS 10/16/13 09/19/17 History Divalproex [Depakote] 500 mg PO BID 10/16/13 09/19/17 History Omeprazole [PriLOSEC] 20 mg PO DAILY 10/16/13 09/19/17 History metFORMIN HCL [Glucophage] 1,000 tab PO BID 10/16/13 09/19/17 History Levothyroxine Sodium [Synthroid] 137 mcg PO DAILY 11/10/16 09/19/17 History Zolpidem [Ambien] 10 mg PO HS PRN 11/10/16 09/19/17 History Albuterol Sulfate [Proair Hfa] 2 puff INHALATION RT-Q4H PRN 09/19/17 09/19/17 History Alendronate Sodium [Fosamax] 70 mg PO TH 09/19/17 09/19/17 History FLUoxetine HCL [PROzac] 20 mg PO BID 09/19/17 09/19/17 History Glimepiride [Amaryl] 2 mg PO BID 09/19/17 09/19/17 History HYDROcodone/APAP 5-325MG [Allamuchy 0.5 tab PO Q6H PRN 09/19/17 09/19/17 History 5-325] clonazePAM [KlonoPIN] 0.5 mg PO HS 09/19/17 09/19/17 History metFORMIN HCL [Glucophage] 500 mg PO DAILY@1200 09/19/17 09/19/17 History Allergies Allergy/AdvReac Type Severity Reaction Status Date / Time trazodone Allergy PSYCHOSIS Verified 09/19/17 07:16 budesonide [From Symbicort] AdvReac Unknown Verified 09/19/17 07:16 codeine AdvReac angry/mad Verified 09/19/17 07:16 formoterol [From Symbicort] AdvReac Chest Pain Verified 09/19/17 07:16 Physical Exam Vitals: Vital Signs Temp Pulse Pulse Resp BP BP Pulse Ox 09/19/17 12:00 97.3 F L 80 18 158/91 93 L 09/19/17 08:34 76 09/19/17 08:25 76 09/19/17 08:00 77 14 09/19/17 07:43 97.5 F L 77 14 148/76 97 09/19/17 07:18 97.4 F L 09/19/17 06:41 68 18 175/75 98 09/19/17 05:02 75 09/19/17 04:52 75 09/19/17 04:02 98.3 F 84 20 136/83 92 L Intake and Output 09/18/17 09/19/17 09/19/17 22:59 06:59 14:59 Other: Voiding Method Toilet Weight 79.379 kg 79.379 kg General appearance: The patient is alert, oriented, in no acute distress. HET: Head is normocephalic and atraumatic. Pupils are equal and reactive. Oropharynx is clear without lesions. Neck: Supple without lymphadenopathy. Trachea midline. Heart: S1 S2. Regular rate and rhythm. Lungs: No crackles or wheezes are heard. Abdomen: Soft, nontender, nondistended with bowel sounds. No peritoneal signs. No palpable organomegaly or masses. Extremities: Normal skin color and turgor. No cyanosis, rash, ulceration, clubbing, or edema. Radial and pedal pulses are 2/4 bilaterally. Neurological: No focal deficits. Strength and sensation are grossly intact. Results CBC & Chem 7: 09/19/17 04:30 09/19/17 04:30 Labs: Abnormal Lab Results - Last 24 Hours (Table) 09/19/17 09/19/17 09/19/17 Range/Units 04:30 04:30 04:30 WBC 13.2 H (3.8-10.6) k/uL Hct 46.7 H (34.0-46.0) % Neutrophils # 8.4 H (1.3-7.7) k/uL Monocytes # 1.2 H (0-1.0) k/uL Sodium 135 L (137-145) mmol/L Potassium 5.3 H (3.5-5.1) mmol/L BUN 21 H (7-17) mg/dL Glucose 237 H (74-99) mg/dL POC Glucose (mg/dL) (75-99) mg/dL Total Creatine Kinase 23 L (30-135) U/L 09/19/17 09/19/17 Range/Units 10:12 12:22 WBC (3.8-10.6) k/uL Hct (34.0-46.0) % Neutrophils # (1.3-7.7) k/uL Monocytes # (0-1.0) k/uL Sodium (137-145) mmol/L Potassium (3.5-5.1) mmol/L BUN (7-17) mg/dL Glucose (74-99) mg/dL POC Glucose (mg/dL) 398 H (75-99) mg/dL Total Creatine Kinase <20 L (30-135) U/L Assessment and Plan (1) Dysphagia Current Visit: Yes Status: Acute Code(s): R13.10 - DYSPHAGIA, UNSPECIFIED SNOMED Code(s): 17303971 (2) Zenkers diverticulum Current Visit: Yes Status: Acute Code(s): K22.5 - DIVERTICULUM OF ESOPHAGUS , ACQUIRED SNOMED Code(s): 432660761 (3) GERD (gastroesophageal reflux disease) Current Visit: Yes Status: Acute Code(s): K21.9 - GASTRO-ESOPHAGEAL REFLUX DISEASE WITHOUT ESOPHAGITIS SNOMED Code(s): 565597909 (4) Fall Current Visit: No Status: Acute Code(s): W19.XXXA - UNSPECIFIED FALL, INITIAL ENCOUNTER SNOMED Code(s): 9059753 Plan: 1. EGD evaluation tomorrow after dobutamine stress test rule out stricture disease. 2. Liquid diet tonight and nothing by mouth after midnight. The telemetry registered nurse has discussed the risks, benefits and alternative therapies for the above-mentioned procedure and for both sedation/analgesia as well as necessary blood product administration, if indicated, as they pertain to this patient. The patient has indicated understanding and acceptance of the risks and procedures discussed. Thank you for this kind referral and the opportunity to participate in the care of your patient. This consultation was discussed with Dr. Osman. The impression and plan of care have been directed as dictated.
[2017-09-19] MEDS: VALPROIC ACID ORAL SOLN 250 MG/5 ML CUP PO SCH ×2 (13:14→20:32)
--- NOTE | 2017-09-19 13:29 | P.HPIM ---
History of Present Illness 77-year-old pleasant female came in because of her back pain after a fall did not lose consciousness quite weak. Her other main symptom is dysphagia and acid reflux. Patient was admitted to rule out a concurrent syndromes patient was already evaluated by cardiology please refer to the dictation regarding their assessment. Patient does have history of seizure disorder and stopped taking her antiseizure medications as she is unable to swallow. Patient does have history of Zenker's diverticulum. Patient will be started on Protonix gastroneurology will be consulted. We will also consult PT and OT as patient is quite weak and the we'll do pain management for her back pain. Patient was started on systemic steroids as have history of asthma patient is not wheezing at this time systemic steroids will be discontinued and patient will continued on inhalational treatments. Patient will be given house and twice a day of Depakote liquid today followed by find it twice a day which she takes normally and will also order Depakote levels tomorrow morning patient wanted to defer stress test if she can. We will discuss with cardiology regarding this and probably can get an outpatient stress test down the line. Review of Systems REVIEW OF SYSTEMS: CONSTITUTIONAL: No fever, no malaise, no fatigue. HEENT: No recent visual problems or hearing problems. Denied any sore throat. CARDIOVASCULAR: No orthopnea, PND, no palpitations, no syncope. PULMONARY: No shortness of breath, no cough, no hemoptysis. GASTROINTESTINAL: As mentioned in HPI NEUROLOGICAL: No headaches, no weakness, no numbness. HEMATOLOGICAL: Denies any bleeding or petechiae. GENITOURINARY: Denies any burning micturition, frequency, or urgency. MUSCULOSKELETAL/RHEUMATOLOGICAL: Denies any joint pain, swelling, or any muscle pain. ENDOCRINE: Denies any polyuria or polydipsia. The rest of the 14-point review of systems is negative. Past Medical History Past Medical History: Cancer, COPD, Diabetes Mellitus, GERD/Reflux, Hyperlipidemia, Thyroid Disorder Additional Past Medical History / Comment(s): emotional disorder, tremors, type 2 DM, osteitis left leg, hypothyroid, IBS, right breast CA with radiation, chemo , partial mastectomy, bilat catarcts removal, insomnia. History of Any Multi-Drug Resistant Organisms: None Reported Past Surgical History: Breast Surgery, Cholecystectomy, Hysterectomy Additional Past Surgical History / Comment(s): bladder suspension Past Anesthesia/Blood Transfusion Reactions: No Reported Reaction Past Psychological History: Anxiety, Depression, Panic Disorder Smoking Status: Never smoker Past Alcohol Use History: None Reported Past Drug Use History: None Reported Medications and Allergies Home Medications Medication Instructions Recorded Confirmed Type Atorvastatin [Lipitor] 40 mg PO HS 10/16/13 09/19/17 History Divalproex [Depakote] 500 mg PO BID 10/16/13 09/19/17 History Omeprazole [PriLOSEC] 20 mg PO DAILY 10/16/13 09/19/17 History metFORMIN HCL [Glucophage] 1,000 tab PO BID 10/16/13 09/19/17 History Levothyroxine Sodium [Synthroid] 137 mcg PO DAILY 11/10/16 09/19/17 History Zolpidem [Ambien] 10 mg PO HS PRN 11/10/16 09/19/17 History Albuterol Sulfate [Proair Hfa] 2 puff INHALATION RT-Q4H PRN 09/19/17 09/19/17 History Alendronate Sodium [Fosamax] 70 mg PO TH 09/19/17 09/19/17 History FLUoxetine HCL [PROzac] 20 mg PO BID 09/19/17 09/19/17 History Glimepiride [Amaryl] 2 mg PO BID 09/19/17 09/19/17 History HYDROcodone/APAP 5-325MG [[place] 0.5 tab PO Q6H PRN 09/19/17 09/19/17 History 5-325] clonazePAM [KlonoPIN] 0.5 mg PO HS 09/19/17 09/19/17 History metFORMIN HCL [Glucophage] 500 mg PO DAILY@1200 09/19/17 09/19/17 History Allergies Allergy/AdvReac Type Severity Reaction Status Date / Time trazodone Allergy PSYCHOSIS Verified 09/19/17 07:16 budesonide [From Symbicort] AdvReac Unknown Verified 09/19/17 07:16 codeine AdvReac angry/mad Verified 09/19/17 07:16 formoterol [From Symbicort] AdvReac Chest Pain Verified 09/19/17 07:16 Physical Exam Vitals: Vital Signs Temp Pulse Pulse Resp BP BP Pulse Ox 09/19/17 12:00 97.3 F L 80 18 158/91 93 L 09/19/17 08:34 76 07/31/18 08:25 76 09/19/17 08:00 77 14 09/19/17 07:43 97.5 F L 77 14 148/76 97 09/19/17 07: 97.4 F L 09/19/17 06:41 68 18 175/75 98 09/19/17 05:02 75 09/19/17 04:52 75 09/19/17 04:02 98.3 F 84 20 136/83 92 L Intake and Output 09/18/17 09/19/17 09/19/17 22:59 06:59 14:59 Other: Voiding Method Toilet Weight 79.379 kg 79.379 kg PHYSICAL EXAMINATION: GENERAL: The patient is alert and oriented x3, not in any acute distress. Well developed, well nourished. HEENT: Pupils are round and equally reacting to light. EOMI. No scleral icterus. No conjunctival pallor. Normocephalic, atraumatic. No pharyngeal erythema. No thyromegaly. CARDIOVASCULAR: S1 and S2 present. No murmurs, rubs, or gallops. PULMONARY: Chest is clear to auscultation, no wheezing or crackles. ABDOMEN: Soft, nontender, nondistended, normoactive bowel sounds. No palpable organomegaly. MUSCULOSKELETAL: No joint swelling or deformity. EXTREMITIES: No cyanosis, clubbing, or pedal edema. NEUROLOGICAL: Gross neurological examination did not reveal any focal deficits. SKIN: No rashes. Results CBC & Chem 7: 09/19/17 04:30 09/19/17 04:30 Labs: Abnormal Lab Results - Last 24 Hours (Table) 09/19/17 09/19/17 09/19/17 Range/Units 04:30 04:30 04:30 WBC 13.2 H (3.8-10.6) k/uL Hct 46.7 H (34.0-46.0) % Neutrophils # 8.4 H (1.3-7.7) k/uL Monocytes # 1.2 H (0-1.0) k/uL Sodium 135 L (137-145) mmol/L Potassium 5.3 H (3.5-5.1) mmol/L BUN 21 H (7-17) mg/dL Glucose 237 H (74-99) mg/dL POC Glucose (mg/dL) (75-99) mg/dL Total Creatine Kinase 23 L (30-135) U/L 09/19/17 09/19/17 Range/Units 10:12 12:22 WBC (3.8-10.6) k/uL Hct (34.0-46.0) % Neutrophils # (1.3-7.7) k/uL Monocytes # (0-1.0) k/uL Sodium (137-145) mmol/L Potassium (3.5-5.1) mmol/L BUN (7-17) mg/dL Glucose (74-99) mg/dL POC Glucose (mg/dL) 398 H (75-99) mg/dL Total Creatine Kinase <20 L (30-135) U/L Thrombosis Risk Factor Assmnt - Choose All That Apply Any of the Below Risk Factors Present?: No Other Risk Factors: No Thrombosis Risk Factor Assessment Level: Very Low Risk Assessment and Plan Plan: -Chest pain: Appears to be noncardiac ruled out acute coronary syndromes, echo cardiac murmur essentially within normal limits secondary to gastroesophageal reflux disease -Gastroesophageal reflux disease and dysphagia: Patient does have history of Zenker's diverticulum, consult and gastroenterology patient was started on Protonix. -COPD without any acute exacerbation: Systemic steroids will be discontinued -Type 2 diabetes mellitus #Hypothyroidism -Hyperlipidemia -Seizure disorder: Patient will be resumed on liquid Depakote For above-mentioned chronic medical problems patient will resumed and continued on appropriate home medications.
[2017-09-19 17:06] LABS: Creatine Kinase 22 U/L (30-135)
[2017-09-19 17:08] LABS: Glucose,Whole Blood 295 mg/dL (75-99)
[2017-09-19 17:15] LABS: Creatine Kinase MB 0.7 ng/mL (0.0-2.4); Troponin I <0.012 ng/mL (0.000-0.034)
[2017-09-19 17:39] LABS: Hemoglobin A1C 8.6 % (4.0-6.0)
[2017-09-19] MEDS: INSULIN ASPART 100 UNIT/ML 1 ML 10 ML VIAL SQ SCH ×2 (18:23→20:31)
[2017-09-19] MEDS ORDERED: ONDANSETRON 4 MG/2 ML VIAL IVP PRN (20:14)
[2017-09-19 20:20] LABS: Glucose,Whole Blood 343 mg/dL (75-99)
[2017-09-19] MEDS: MORPHINE SULFATE 4 MG/ML SYRINGE IV PRN (20:30)
[2017-09-19] MEDS: GLIMEPIRIDE 2 MG TAB PO SCH (20:30)
[2017-09-19] MEDS ORDERED: ATORVASTATIN 40 MG TAB PO SCH (21:00)
[2017-09-19] MEDS ORDERED: FLUoxetine HCL 20 MG CAP PO SCH (21:00)
[2017-09-19 22:14] LABS: Glucose,Whole Blood 257 mg/dL (75-99)
[2017-09-20] MEDS ORDERED: LEVOTHYROXINE 137 MCG TAB PO SCH (06:30)
[2017-09-20 06:50] LABS: Glucose,Whole Blood 147 mg/dL (75-99)
[2017-09-20 07:32] LABS: HCT 42.8 % (34.0-46.0); HGB 13.5 gm/dL (11.4-16.0); MCH 28.1 pg (25.0-35.0); MCHC 31.6 g/dL (31.0-37.0); MCV 89.2 fL (80.0-100.0); Mean Platelet Volume 6.6; Platelet Count 345 k/uL (150-450); WBC 15.6 k/uL (3.8-10.6)
[2017-09-20 07:47] LABS: Anion Gap 12 mmol/L; Blood Urea Nitrogen 21 mg/dL (7-17); Calcium 8.8 mg/dL (8.4-10.2); Carbon Dioxide 26 mmol/L (22-30); Chloride 99 mmol/L (98-107); Cholesterol 113 mg/dL (<200); Glucose 159 mg/dL (74-99); HDL Cholesterol 48 mg/dL (40-60); LDL Cholesterol,Calculated 27 mg/dL (0-99); Potassium 5.9 mmol/L (3.5-5.1); Sodium 137 mmol/L (137-145); Triglycerides 192 mg/dL (<150)
[2017-09-20] MEDS: INSULIN ASPART 100 UNIT/ML 1 ML 10 ML VIAL SQ SCH ×2 (08:15→12:59)
[2017-09-20] MEDS: IPRATROPIUM-ALBUTEROL 3 ML NEB INHALATION SCH ×2 (08:17→12:00)
[2017-09-20] MEDS ORDERED: ASPIRIN 325 MG TAB PO SCH (09:00)
[2017-09-20] MEDS ORDERED: VALPROIC ACID ORAL SOLN 250 MG/5 ML CUP PO SCH (09:00)
[2017-09-20] MEDS ORDERED: DOBUTamine DRIP for NUC MED 500 MG in DEXTROSE/WATER 1 250ML.BAG IV ONE (09:00)
[2017-09-20] MEDS: PANTOPRAZOLE 40 MG/10 ML VIAL IVP SCH (09:27)
[2017-09-20] MEDS: FLUoxetine HCL 20 MG CAP PO SCH (09:27)
[2017-09-20] MEDS: HYDROcodone/APAP 5-325MG 1 EACH TAB PO PRN (09:36)
[2017-09-20] MEDS: GLIMEPIRIDE 2 MG TAB PO SCH (10:17)
[2017-09-20] MEDS: MORPHINE SULFATE 4 MG/ML SYRINGE IV PRN (11:02)
[2017-09-20] MEDS ORDERED: SODIUM POLYSTYRENE SULFONATE 15 GM/60 ML BOTTLE PO STA ×2 (11:16→15:54)
[2017-09-20 11:44] VITALS: TEMP 97.6
[2017-09-20 12:14] LABS: Glucose,Whole Blood 160 mg/dL (75-99)
[2017-09-20] MEDS ORDERED: PROPOFOL 10 MG/ML 20 ML VIAL IV ONE (13:49)
[2017-09-20] MEDS ORDERED: IV FLUID CONTINUATION 1,000 ML IV ONE (13:51)
--- NOTE | 2017-09-20 14:01 | P.PCN ---
Date of Procedure: 09/20/17 Procedure(s) Performed: BRIEF HISTORY: Patient is a 77-year-old, pleasant, white female, scheduled for an upper endoscopy as a part of evaluation of progressive dysphagia to solids for the last few weeks duration. She also complains of epigastric pain and chest pain.. PROCEDURE PERFORMED: Esophagogastroduodenoscopy with biopsy. PREOPERATIVE DIAGNOSIS: Dysphagia/chest pain and epigastric pain. IV sedation per anesthesia. PROCEDURE: After informed consent was obtained, the patient was brought into the endoscopy unit. IV sedation was administered by Anesthesia under continuous monitoring. Initially the Olympus GIF-140 video endoscope was inserted into the mouth. Esophagus intubated without any difficulty. It was gradually advanced into the stomach and duodenum and carefully examined. The bulb and the second part of the duodenum appeared normal. The scope at this time was withdrawn to the stomach, adequately insufflated with air, and upon careful examination, mucosa of the antrum, had a small gastric polyp and this was biopsied. The body , cardia and the fundus appeared normal. The scope was then withdrawn into the esophagus. The GE junction was located at 39 cm from the incisors. The esophagus appeared normal. There were no erosions or ulcerations seen. In the proximal to evaluate the esophagus there was a 1.5 cm Zenker's diverticulum identified and the patient tolerated the procedure well. IMPRESSION: 1. 1.5 cm Zenker's diverticulum in the proximal cervical esophagus. 2. Small gastric polyps status post biopsy. RECOMMENDATIONS: The findings of this examination were discussed with the patient as well as a family. She'll be continued on a soft diet. If she continues to have persistent dysphagia, surgical consultation with Dr. Solorio for Zenker's diverticulectomy can be considered.
--- NOTE | 2017-09-20 14:39 | P.PN ---
Subjective Mrs. Marina is seen and examined. She denies any further symptoms of chest pain or palpitations. Only complaint is of epigastric and abdominal discomfort. We had recommended she undergo dobutamine stress test today once an acute coronary event had been ruled out. She has discussed this with her family and is declining this exam. She is scheduled for upper endoscopy to assess for dysphagia. Blood pressure 146/87 hear rate 67 afebrile and maintaining oxygen saturation on room air. Laboratory data reviewed, WBC 15.6, hemoglobin 13.5, platelets 345, sodium 137, potassium 5.9, creatinine 0.6, LDL 27. Echocardiogram obtained yesterday reveals preserved left ventricular systolic function with low-normal EF 50-55%, mildly dilated left atrium, mild MR and mild TR. She is currently maintained on aspirin and atorvastatin. Objective - Vital Signs Vital signs: Vital Signs Temp 97.6 F 09/20/17 11:30 Pulse 68 09/20/17 12:00 Resp 18 09/20/17 12:00 BP 146/72 09/20/17 11:30 Pulse Ox 92 L 09/20/17 11:30 Intake & Output 09/19/17 09/20/17 09/20/17 18:59 06:59 18:59 Intake Total 340 850 Balance 340 850 Weight 79.379 kg Intake: IV 850 Oral 240 Other 100 Other: Voiding Method Toilet Toilet Toilet # Voids 2 - Exam GENERAL: Well-appearing, well-nourished and in no acute distress. NECK: Supple without JVD or thyromegaly. LUNGS: Breath sounds clear to auscultation bilaterally. Respiration equal and unlabored. No wheezes, rales or rhonchi. HEART: Regular rate and rhythm without murmurs, rubs or gallops. S1 and S2 heard. EXTREMITIES: Normal range of motion, no edema. No clubbing or cyanosis. Peripheral pulses intact. - Labs CBC & Chem 7: 09/20/17 07:11 09/20/17 07:11 Labs: Abnormal Lab Results - Last 24 Hours (Table) 09/19/17 09/19/17 09/19/17 Range/Units 08:28 16:09 17:06 WBC (3.8-10.6) k/uL Potassium (3.5-5.1) mmol/L BUN (7-17) mg/dL Glucose (74-99) mg/dL POC Glucose (mg/dL) 295 H (75-99) mg/dL Hemoglobin A1c 8.6 H (4.0-6.0) % Total Creatine Kinase 22 L (30-135) U/L Triglycerides (<150) mg/dL 09/19/17 09/19/17 09/20/17 Range/Units 20:12 22:12 06:47 WBC (3.8-10.6) k/uL Potassium (3.5-5.1) mmol/L BUN (7-17) mg/dL Glucose (74-99) mg/dL POC Glucose (mg/dL) 343 H 257 H 147 H (75-99) mg/dL Hemoglobin A1c (4.0-6.0) % Total Creatine Kinase (30-135) U/L Triglycerides (<150) mg/dL 09/20/17 09/20/17 09/20/17 Range/Units 07:11 07:11 12:10 WBC 15.6 H (3.8-10.6) k/uL Potassium 5.9 H (3.5-5.1) mmol/L BUN 21 H (7-17) mg/dL Glucose 159 H (74-99) mg/dL POC Glucose (mg/dL) 160 H (75-99) mg/dL Hemoglobin A1c (4.0-6.0) % Total Creatine Kinase (30-135) U/L Triglycerides 192 H (<150) mg/dL Assessment and Plan Assessment: ASSESSMENT Chest pain, atypical. An acute coronary event has been ruled out. Diabetes mellitus Palpitations PLAN Patient has declined any further cardiac testing during this admission. She has gone for an EGD per GI services. She can follow-up as an outpatient for stress testing. Nurse Practitioner note has been reviewed, I agree with a documented findings and plan of care. Patient was seen and examined.
--- NOTE | 2017-09-20 14:58 | P.DS ---
Providers Date of admission: 09/20/17 14:24 Attending physician: Donnie Hill Consults: 09/19/17 06:41 Consult Physician Urgent Consulting Provider: Trisha Damian Consult Reason/Comments: cp Do you want consulting provider notified?: Yes 09/19/17 12:03 Consult Physician Routine Consulting Provider: Sara Osman Consult Reason/Comments: issues swallowing Do you want consulting provider notified?: Yes Primary care physician: Tammi Titus [facility] Course: Patient was admitted mostly for dysphagia and gastroesophageal reflux disease rule out acute coronary syndromes patient declined any further cardiac workup which I believe is appropriate. Patient underwent upper GI endoscopy found to have Zenker's diverticulum which is probably responsible for her dysphagia. Patient is able to tolerate soft diet patient was cleared for discharge from gastric gastroneurology perspective. Patient had a recent fall due to generalized weakness PT and OT evaluated the recommending a walker and can be discharged home. Patient is hyperkalemic etiology is unclear probably due to elevated blood sugars. Patient was on IV steroids, which I do not believe is necessary which were discontinued yesterday which are responsible for her leukocytosis as well. Patient will be given a dose of Kayexalate and if her potassium comes down patient will be discharged today. PHYSICAL EXAMINATION: GENERAL: The patient is alert and oriented x3, not in any acute distress. Well developed, well nourished. HEENT: Pupils are round and equally reacting to light. EOMI. No scleral icterus. No conjunctival pallor. Normocephalic, atraumatic. No pharyngeal erythema. No thyromegaly. CARDIOVASCULAR: S1 and S2 present. No murmurs, rubs, or gallops. PULMONARY: Chest is clear to auscultation, no wheezing or crackles. ABDOMEN: Soft, nontender, nondistended, normoactive bowel sounds. No palpable organomegaly. MUSCULOSKELETAL: No joint swelling or deformity. EXTREMITIES: No cyanosis, clubbing, or pedal edema. NEUROLOGICAL: Gross neurological examination did not reveal any focal deficits. SKIN: No rashes. Assessment and Plan Plan: -Chest pain: Appears to be noncardiac ruled out acute coronary syndromes, echocardiogram essentially within normal limits secondary to gastroesophageal reflux disease -Gastroesophageal reflux disease and dysphagia: Patient does have history of Zenker's diverticulum, status post upper GI endoscopy which showed Zenker's diverticulum -COPD without any acute exacerbation: Systemic steroids will be discontinued -Type 2 diabetes mellitus #Hypothyroidism -Hyperlipidemia -Seizure disorder: Patient will be discharged on Depakene syrup, her Depakote levels are close to therapeutic Hyperkalemia: Etiology is not clear if her potassium comes down with Rate patient will be discharged today low potassium diet was advised Plan - Discharge Summary Discharge Rx Participant: No New Discharge Prescriptions: New Valproic Acid (As Sodium Salt) [Depakene Syrup] 500 mg PO BID #100 ml Continue Omeprazole [PriLOSEC] 20 mg PO DAILY Atorvastatin [Lipitor] 40 mg PO HS metFORMIN HCL [Glucophage] 1,000 tab PO BID Zolpidem [Ambien] 10 mg PO HS PRN PRN Reason: Insomnia Levothyroxine Sodium [Synthroid] 137 mcg PO DAILY Albuterol Sulfate [Proair Hfa] 2 puff INHALATION RT-Q4H PRN PRN Reason: Shortness Of Breath Alendronate Sodium [Fosamax] 70 mg PO TH clonazePAM [KlonoPIN] 0.5 mg PO HS FLUoxetine HCL [PROzac] 20 mg PO BID Glimepiride [Amaryl] 2 mg PO BID metFORMIN HCL [Glucophage] 500 mg PO DAILY@1200 HYDROcodone/APAP 5-325MG [[place] 5-325] 0.5 tab PO Q6H PRN PRN Reason: Pain Discontinued Divalproex [Depakote] 500 mg PO BID Discharge Medication List Atorvastatin [Lipitor] 40 mg PO HS 10/16/13 [History] Omeprazole [PriLOSEC] 20 mg PO DAILY 10/16/13 [History] metFORMIN HCL [Glucophage] 1,000 tab PO BID 10/16/13 [History] Levothyroxine Sodium [Synthroid] 137 mcg PO DAILY 11/10/16 [History] Zolpidem [Ambien] 10 mg PO HS PRN 11/10/16 [History] Albuterol Sulfate [Proair Hfa] 2 puff INHALATION RT-Q4H PRN 09/19/17 [History] Alendronate Sodium [Fosamax] 70 mg PO TH 09/19/17 [History] FLUoxetine HCL [PROzac] 20 mg PO BID 09/19/17 [History] Glimepiride [Amaryl] 2 mg PO BID 09/19/17 [History] HYDROcodone/APAP 5-325MG [[place] 5-325] 0.5 tab PO Q6H PRN 09/19/17 [History] clonazePAM [KlonoPIN] 0.5 mg PO HS 09/19/17 [History] metFORMIN HCL [Glucophage] 500 mg PO DAILY@1200 09/19/17 [History] Valproic Acid (As Sodium Salt) [Depakene Syrup] 500 mg PO BID #100 ml 09/20/17 [ Rx] Follow up Appointment(s)/Referral(s): Maria Teresa Plunkett MD [STAFF PHYSICIAN] - 2 Weeks Tammi Rosenberg III, MD [Primary Care Provider] - 3 Days Sara Osman MD [STAFF PHYSICIAN] - 1 Week
[2017-09-20 15:49] VITALS: BP 165/72; PULSE 64
[2017-09-21] MEDS ORDERED: ASPIRIN 81 MG PO SCH (09:00)
== END 2017-09-20 16:40 | disposition home or self-care (01) | DRG 313 ==
LOC: EC 03:56 → 3OBS 06:41 → OBSVTOIN 09-20 14:24
PROVIDERS: ADMIT Hospitalist; ATTEND Hospitalist
PROC: 0DB68ZX Excision of Stomach, Via Natural or Artificial Opening Endoscopic, Diagnostic (ICD-10-PCS; principal; 2017-09-20 13:35)
DX: R07.89 Other chest pain (principal); E11.65 Type 2 diabetes mellitus with hyperglycemia; E87.5 Hyperkalemia; J44.9 Chronic obstructive pulmonary disease, unspecified; R13.10 Dysphagia, unspecified; I08.1 Rheumatic disorders of both mitral and tricuspid valves; I25.2 Old myocardial infarction; G40.909 Epilepsy, unspecified, not intractable, without status epilepticus; D72.829 Elevated white blood cell count, unspecified; E03.9 Hypothyroidism, unspecified; E78.5 Hyperlipidemia, unspecified; F32.9 Major depressive disorder, single episode, unspecified; F41.0 Panic disorder [episodic paroxysmal anxiety]; F43.10 Post-traumatic stress disorder, unspecified; I10 Essential (primary) hypertension; K21.9 Gastro-esophageal reflux disease without esophagitis; K22.5 Diverticulum of esophagus, acquired; K31.7 Polyp of stomach and duodenum; K57.30 Diverticulosis of large intestine without perforation or abscess without bleeding; K58.9 Irritable bowel syndrome, unspecified; S30.0XXA Contusion of lower back and pelvis, initial encounter; G47.00 Insomnia, unspecified; K64.8 Other hemorrhoids; R25.1 Tremor, unspecified; M54.9 Dorsalgia, unspecified; R00.2 Palpitations; R53.1 Weakness; Z79.83 Long term (current) use of bisphosphonates; Z79.899 Other long term (current) drug therapy; Z79.890 Hormone replacement therapy; Z79.84 Long term (current) use of oral hypoglycemic drugs; Z88.5 Allergy status to narcotic agent; Z88.8 Allergy status to other drugs, medicaments and biological substances; Z90.710 Acquired absence of both cervix and uterus; Z85.3 Personal history of malignant neoplasm of breast; Z90.11 Acquired absence of right breast and nipple; Z90.49 Acquired absence of other specified parts of digestive tract; Z86.010 Personal history of colon polyps; Z92.21 Personal history of antineoplastic chemotherapy; Z92.3 Personal history of irradiation; W18.30XA Fall on same level, unspecified, initial encounter; Y92.009 Unspecified place in unspecified non-institutional (private) residence as the place of occurrence of the external cause
CPT/HCPCS: 36415; 43239; 71046; 74018; 80048; 80053; 80061; 80164; 82550; 82553; 83036; 84132; 84484; 85025; 85027; 85610; 85730; 88305; 88342; 93306; 94640; 96374; 96375; 99284

== ENCOUNTER 2018-03-13 13:02 | Inpatient (IN) | payer MEDICARE ==
[2018-03-13] MEDS ORDERED: AZITHROMYCIN 500 MG in SODIUM CHLORIDE 0.9% 250 ML IVPB STA (14:42)
[2018-03-13] MEDS ORDERED: PNEUMONIA PROTOCOL UTILIZED 1 EACH MISC PO PRN (14:42)
--- NOTE | 2018-03-13 15:43 | XR ---
EXAMINATION TYPE: XR chest 2V DATE OF EXAM: 03/13/2018 COMPARISON: Chest x-ray September 19, 2017. HISTORY: Pneumonia per order. TECHNIQUE: Frontal and lateral views of the chest are obtained. FINDINGS: The cardiac silhouette size remains enlarged with slightly ectatic thoracic aorta. There i s chronic parenchymal changes bilaterally with new left basilar opacity identified seen best on front al view likely anterior in position on lateral view. No silhouetting of left heart border hemidiaphra gm is seen. No pleural effusion or pneumothorax is noted bilaterally. The osseous structures remain d emineralized. There is interval slight progression of mild to borderline moderate compression fractur e at roughly T12 level felt present. Surgical clip in the abdomen with overlying sutures is noted on lateral view. IMPRESSION: Cardiomegaly and chronic parenchymal changes with suspected developing acute infiltrate and/or atelectasis in the lingula.
[2018-03-13] MEDS ORDERED: ALBUTEROL NEBULIZED 2.5 MG/3 ML INHALATION PRN (15:56)
[2018-03-13] MEDS: IPRATROPIUM-ALBUTEROL 3 ML NEB INHALATION SCH ×3 (15:56→19:57)
[2018-03-13] MEDS ORDERED: ZOLPIDEM 10 MG TAB PO PRN (15:56)
--- NOTE | 2018-03-13 16:06 | P.HPIM ---
History of Present Illness 78-year-old female was seen in Dr. Rosenberg's office for your leg symptoms has been going on for about a week. Patient is found to be hypoxemic with saturations going down to mid to high 80s because of which I received a call from the office for possibility of direct admission. Patient was directly admitted with admitted to the hospital. Patient does have crackles in the left the upper lung luis on exam. Patient is found to have irregular infiltrate possibility of pneumonia does have sinusitis. She denied any body aches although we will obtain influenza testing. Patient denied any clear-cut fever I do not have any other labs available at this time clinically patient appears to have pneumonia with cough with greenish sputum production patient will be started on Rocephin and azithromycin treating for healthcare associated pneumonia. 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 Review of Systems REVIEW OF SYSTEMS: CONSTITUTIONAL: No fever, no malaise, no fatigue. HEENT: No recent visual problems or hearing problems. Does have sore throat denied any odynophagia CARDIOVASCULAR: No chest pain, orthopnea, PND, no palpitations, no syncope. PULMONARY: no hemoptysis. GASTROINTESTINAL: No diarrhea, no nausea, no vomiting, no abdominal pain. NEUROLOGICAL: No headaches, no weakness, no numbness. HEMATOLOGICAL: Denies any bleeding or petechiae. GENITOURINARY: Denies any burning micturition, frequency, or urgency. MUSCULOSKELETAL/RHEUMATOLOGICAL: Denies any joint pain, swelling, or any muscle pain. ENDOCRINE: Denies any polyuria or polydipsia. The rest of the 14-point review of systems is negative. Past Medical History Past Medical History: Cancer, COPD, Diabetes Mellitus, GERD/Reflux, Hyperlipidemia, Thyroid Disorder Additional Past Medical History / Comment(s): tremors, type 2 DM, osteoporosis left leg, hypothyroid, IBS, right breast CA with radiation, chemo, partial mastectomy, bilat catarcts removal, insomnia. History of Any Multi-Drug Resistant Organisms: None Reported Past Surgical History: Breast Surgery, Cholecystectomy, Hysterectomy Additional Past Surgical History / Comment(s): bladder suspension Past Anesthesia/Blood Transfusion Reactions: No Reported Reaction Past Psychological History: Anxiety, Depression, Panic Disorder Additional Psychological History / Comment(s): frontal lobal seizures Smoking Status: Never smoker Past Alcohol Use History: None Reported Past Drug Use History: None Reported Medications and Allergies Home Medications Medication Instructions Recorded Confirmed Type Atorvastatin [Lipitor] 40 mg PO HS 10/16/13 03/13/18 History Omeprazole [PriLOSEC] 20 mg PO DAILY 10/16/13 03/13/18 History metFORMIN HCL [Glucophage] 1,000 tab PO BID 10/16/13 03/13/18 History Levothyroxine Sodium [Synthroid] 137 mcg PO DAILY 11/10/16 03/13/18 History Zolpidem [Ambien] 10 mg PO HS PRN 11/10/16 03/13/18 History Albuterol Sulfate [Proair Hfa] 2 puff INHALATION RT-Q4H PRN 09/19/17 03/13/18 History FLUoxetine HCL [PROzac] 40 mg PO DAILY 09/19/17 03/13/18 History Glimepiride [Amaryl] 2 mg PO BID 09/19/17 03/13/18 History clonazePAM [KlonoPIN] 0.5 mg PO HS 09/19/17 03/13/18 History Valproic Acid (As Sodium Salt) 500 mg PO BID #100 ml 09/20/17 03/13/18 Rx [Depakene Syrup] FLUoxetine HCL 20 mg PO HS 03/13/18 03/13/18 History Allergies Allergy/AdvReac Type Severity Reaction Status Date / Time trazodone Allergy PSYCHOSIS Verified 03/13/18 15:09 budesonide [From Symbicort] AdvReac Unknown Verified 03/13/18 15:09 codeine AdvReac angry/mad Verified 03/13/18 15:09 formoterol [From Symbicort] AdvReac Chest Pain Verified 03/13/18 15:09 Physical Exam Vitals: Vital Signs Temp Pulse Resp BP Pulse Ox 03/13/18 15:12 97.4 F L 84 20 141/59 92 L 03/13/18 14:00 97.4 F L 86 20 132/79 94 L Intake and Output 03/13/18 03/13/18 03/13/18 06:59 14:59 22:59 Other: # Voids 0 # Bowel Movements 0 Weight 77.9 kg PHYSICAL EXAMINATION: GENERAL: The patient is alert and oriented x3, not in any acute distress. Well developed, well nourished. Patient does look tired HEENT: Pupils are round and equally reacting to light. EOMI. No scleral icterus. No conjunctival pallor. Normocephalic, atraumatic. . No thyromegaly. Does have significant oral thrush and posterior pharyngeal erythema along with some sinus tenderness CARDIOVASCULAR: S1 and S2 present. No murmurs, rubs, or gallops. PULMONARY: Crackles on the left upper posterior lung luis no wheezing was appreciated fairly good air entry into bilateral lung luis. ABDOMEN: Soft, nontender, nondistended, normoactive bowel sounds. No palpable organomegaly. MUSCULOSKELETAL: No joint swelling or deformity. EXTREMITIES: No cyanosis, clubbing, or pedal edema. NEUROLOGICAL: Gross neurological examination did not reveal any focal deficits. SKIN: No rashes. Assessment and Plan Plan: -Possible community-acquired pneumonia, left lingular bacterial pneumonia along with upper respiratory infection including bacterial sinusitis most probably pneumococcal: Patient was started on antibiotics Rocephin and azithromycin these antibodies will be started after blood cultures, sputum cultures patient does not have any UTI-like symptoms at this time. -Oral thrush patient will be started on oral antifungal agents -Acute hypoxemia: Possibly secondary to pneumonia denied any history of COPD in the past patient was treated for COPD exacerbation -Type 2 diabetes mellitus patient will be on sliding scale insulin patient will not require any systemic steroids at this time patient doesn't have any significant wheezing -Hypothyroidism -Hyperlipidemia -Seizure disorder -Severe depression for which patient on high-dose of Prozac and requesting psychiatric consultation. -Patient will need pharmacologic GI as well as DVT prophylaxis. GI prophylaxis due to infection.
[2018-03-13] MEDS: SODIUM CHLORIDE 0.9% 1,000 ML IV SCH ×2 (16:41→23:27)
[2018-03-13 17:36] LABS: Glucose,Whole Blood 178 mg/dL (75-99)
[2018-03-13] MEDS: INSULIN ASPART 100 UNIT/ML 1 ML 10 ML VIAL SQ SCH ×2 (17:57→22:16)
[2018-03-13] MEDS: HEPARIN SODIUM,PORCINE 5,000 UNIT/ML 1 ML VIAL SQ SCH ×2 (18:02→23:33)
[2018-03-13] MEDS: CLOTRIMAZOLE TROCHE 10 MG TROCHE MUCOUS MEM SCH ×2 (18:02→20:48)
[2018-03-13] MEDS: ATORVASTATIN 40 MG TAB PO SCH (20:48)
[2018-03-13] MEDS: DIVALPROEX 500 MG TABLET.DR PO SCH (20:48)
[2018-03-13] MEDS ORDERED: FAMOTIDINE 20 MG TAB PO SCH (21:00)
[2018-03-13 22:03] LABS: Glucose,Whole Blood 172 mg/dL (75-99)
[2018-03-14 01:48] LABS: Hemoglobin A1C 6.9 % (4.0-6.0)
[2018-03-14 02:55] LABS: Glucose,Whole Blood 74 mg/dL (75-99)
[2018-03-14 03:12] LABS: Glucose,Whole Blood 84 mg/dL (75-99)
[2018-03-14] MEDS: IPRATROPIUM-ALBUTEROL 3 ML NEB INHALATION PRN (03:14)
[2018-03-14 03:25] LABS: Anion Gap 7 mmol/L; Blood Urea Nitrogen 12 mg/dL (7-17); Calcium 8.8 mg/dL (8.4-10.2); Carbon Dioxide 28 mmol/L (22-30); Chloride 104 mmol/L (98-107); Glucose 84 mg/dL (74-99); Potassium 4.2 mmol/L (3.5-5.1); Sodium 139 mmol/L (137-145)
[2018-03-14 03:30] LABS: HCT 34.3 % (34.0-46.0); HGB 11.1 gm/dL (11.4-16.0); MCHC 32.3 g/dL (31.0-37.0); Mean Platelet Volume 7.1; Platelet Count 210 k/uL (150-450); RBC 3.69 m/uL (3.80-5.40); RDW 15.5 % (11.5-15.5); WBC 12.5 k/uL (3.8-10.6)
[2018-03-14] MEDS: LEVOTHYROXINE 137 MCG TAB PO SCH (06:21)
[2018-03-14 07:37] LABS: Glucose,Whole Blood 178 mg/dL (75-99)
[2018-03-14] MEDS: CLOTRIMAZOLE TROCHE 10 MG TROCHE MUCOUS MEM SCH ×4 (08:18→21:47)
[2018-03-14] MEDS: DIVALPROEX 500 MG TABLET.DR PO SCH ×2 (08:18→21:47)
[2018-03-14] MEDS: HEPARIN SODIUM,PORCINE 5,000 UNIT/ML 1 ML VIAL SQ SCH ×2 (08:18→15:30)
[2018-03-14] MEDS: PANTOPRAZOLE 40 MG TABLET PO SCH (08:18)
[2018-03-14] MEDS: INSULIN ASPART 100 UNIT/ML 1 ML 10 ML VIAL SQ SCH ×4 (08:19→21:40)
[2018-03-14] MEDS: SODIUM CHLORIDE 0.9% 1,000 ML IV SCH ×2 (08:19→21:47)
[2018-03-14] MEDS: IPRATROPIUM-ALBUTEROL 3 ML NEB INHALATION SCH ×4 (08:31→20:37)
[2018-03-14] MEDS ORDERED: FLUoxetine HCL 20 MG CAP PO SCH (09:00)
[2018-03-14 12:29] LABS: Glucose,Whole Blood 151 mg/dL (75-99)
--- NOTE | 2018-03-14 14:28 | P.CN ---
Psychiatric Consult - . Consult date: 03/14/18 Consult:: 03/14/18 09:41 Increased depression Assessment and Plan Assessment: 78-year-old female was seen in Dr. Rosenberg's office for leg symptoms has been going on for about a week. Patient is found to be hypoxemic with saturations going down to mid to high 80s because of which I received a call from the office for possibility of direct admission. Patient was directly admitted with admitted to the hospital. Patient does have crackles in the left the upper lung luis on exam. Patient is found to have irregular infiltrate possibility of pneumonia does have sinusitis. She denied any body aches although we will obtain influenza testing. Patient denied any clear-cut fever I do not have any other labs available at this time clinically patient appears to have pneumonia with cough with greenish sputum production patient will be started on Rocephin and azithromycin treating for healthcare associated pneumonia. 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 Past Medical History Past Medical History: Cancer, COPD, Diabetes Mellitus, GERD/Reflux, Hyperlipidemia, Thyroid Disorder Additional Past Medical History / Comment(s): tremors, type 2 DM, osteoporosis left leg, hypothyroid, IBS, right breast CA with radiation, chemo, partial mastectomy, bilat catarcts removal, insomnia. History of Any Multi-Drug Resistant Organisms: None Reported Past Surgical History: Breast Surgery, Cholecystectomy, Hysterectomy Additional Past Surgical History / Comment(s): bladder suspension Past Anesthesia/Blood Transfusion Reactions: No Reported Reaction Past Psychological History: Anxiety, Depression, Panic Disorder Additional Psychological History / Comment(s): frontal lobal seizures Smoking Status: Never smoker Past Alcohol Use History: None Reported Past Drug Use History: None Reported Medications and Allergies Home Medications Medication Instructions Recorded Confirmed Type Atorvastatin [Lipitor] 40 mg PO HS 10/16/13 03/13/18 History Omeprazole [PriLOSEC] 20 mg PO DAILY 10/16/13 03/13/18 History metFORMIN HCL [Glucophage] 1,000 tab PO BID 10/16/13 03/13/18 History Levothyroxine Sodium [Synthroid] 137 mcg PO DAILY 11/10/16 03/13/18 History Zolpidem [Ambien] 10 mg PO HS PRN 11/10/16 03/13/18 History Albuterol Sulfate [Proair Hfa] 2 puff INHALATION RT-Q4H PRN 09/19/17 03/13/18 History FLUoxetine HCL [PROzac] 40 mg PO DAILY 09/19/17 03/13/18 History Glimepiride [Amaryl] 2 mg PO BID 09/19/17 03/13/18 History clonazePAM [KlonoPIN] 0.5 mg PO HS 09/19/17 03/13/18 History Valproic Acid (As Sodium Salt) 500 mg PO BID #100 ml 09/20/17 03/13/18 Rx [Depakene Syrup] FLUoxetine HCL 20 mg PO HS 03/13/18 03/13/18 History Allergies Allergy/AdvReac Type Severity Reaction Status Date / Time trazodone Allergy PSYCHOSIS Verified 03/13/18 15:09 budesonide [From Symbicort] AdvReac Unknown Verified 03/13/18 15:09 codeine AdvReac angry/mad Verified 03/13/18 15:09 formoterol [From Symbicort] AdvReac Chest Pain Verified 03/13/18 15:09 Mental Status Examination - this is a 78-year-old female with her at bedside. Discussed her long psychiatric history in the past 25 years and her losing her psychiatrist worked with the [facility] for another number years. She today looks lethargic inability to swallow poor communication and not a reliable historian. Most of the history was obtained from the who is very detail oriented. She admits to being depressed and usually sees outlines of objects and people. She had a recent loss of a son and has had prolonged grieving. General Appearance: [disheveled, appears older than stated age Speech/Language: [ slow mumbling, halting, monotone,soft, Attitude/Behavior: [cooperative withdrawn, indifferent Mood: [ depressed 9 out of 10, fearful, hopelessness Affect: [flat, blunted constricted Orientation: [time, person, not to place situation] Thought Content: [wnl, denies delusions, obsessions, phobias, other] Risk Factors: [She is not suicidal (ideations, plan), and/or Homicidal ( ideations, plan)] Perception: [ hallucinations ( visual) Thought Processes: [goal-oriented Concentration/Attention Span: [ impaired] [Per observation and interview with the patient] Recent Memory: [ impaired] [0 out of 3 in 3 minutes] Remote Memory: [wnl [past events, as related history] Intelligence: [ average [based on history, based on vocabulary, syntax, grammar , and content] Judgement: [ fair] [per patient's behavior/history of present illness] Insight: [good] [understanding severity of illness/history of present illness] Psychiatric impression: 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 Rule out hypothyroid Psychiatric recommendations: Deep discontinue Prozac since it Appears List and Elderly and since she 78 Inches Contraindicated, will changed to Zoloft 25 mg by mouth daily at bedtime, DC discontinue Ambien, ammonia level and Depakote level as well as T3-T4 to evaluate her somnolence and decreased activity at home. Will add risperidone 1 mg M tab since she has difficulty swallowing and immediately dissolved under time. I will wait further lab values and make further recommendations after these are obtained at which point I'll return and reevaluate the patient. Thank you for the most interesting consult Saurav Givens D.O. PhD (1) Major depression Current Visit: Yes Status: Acute Code(s): F32.9 - MAJOR DEPRESSIVE DISORDER , SINGLE EPISODE, UNSPECIFIED SNOMED Code(s): 743121326 Time with Patient: Greater than 30
--- NOTE | 2018-03-14 17:04 | FL ---
MODIFIED SWALLOW / DEGLUTITION STUDY EXAMINATION TYPE: FL barium swallow w video DATE OF EXAM: 03/14/2018 CLINICAL HISTORY: 78-year-old female with pneumonia, rule out aspiration. TECHNIQUE: Deglutition study is performed utilizing thin liquid barium, honey and nectar thick liqui d barium. Total fluoroscopy time: 2 minutes 4 seconds. Total images: None. Real-time fluoroscopy support was provided to speech pathology. COMPARISON: None. FINDINGS: There is moderate to severe silent aspiration with thin, nectar, and honey liquid consistencies of ba rium. High risk of aspiration of puree consistency occurring after the swallow. There is a moderate to large Zenker's diverticulum noted opposite C5-C6 which progressively fills dur ing swallows and then spontaneously refluxes material back to fill the piriform sinuses. This results in intermittent aspiration of piriform sinus residuals. Decreased laryngeal excursion is noted. IMPRESSION: 1. Moderate to severe silent aspiration of liquids during the swallow. Additional aspiration occurs o f refluxed material located in the piriform sinuses placing the patient at high risk for aspiration o f pureed consistencies as well. 2. Refluxed material originates from a moderate to large Zenker's diverticulum. Consider GI consultat ion to determine potential surgical management of the Zenker's diverticulum. 3. Decreased laryngeal excursion. 4. Please refer to speech therapist notes for further details if necessary.
[2018-03-14] MEDS: AMPICILLIN-SULBACTAM 3 GM in SODIUM CHLORIDE 0.9% 100 ML IVPB SCH (17:54)
[2018-03-14 18:07] LABS: Glucose,Whole Blood 119 mg/dL (75-99)
[2018-03-14 20:56] LABS: Glucose,Whole Blood 118 mg/dL (75-99)
[2018-03-14] MEDS: ATORVASTATIN 40 MG TAB PO SCH (21:46)
[2018-03-14] MEDS: risperiDONE ODT 1 MG TAB PO SCH (21:47)
[2018-03-14] MEDS: SERTRALINE 25 MG TAB PO SCH (21:55)
[2018-03-15] MEDS: AMPICILLIN-SULBACTAM 3 GM in SODIUM CHLORIDE 0.9% 100 ML IVPB SCH ×4 (00:53→18:24)
[2018-03-15] MEDS: HEPARIN SODIUM,PORCINE 5,000 UNIT/ML 1 ML VIAL SQ SCH ×3 (00:54→16:31)
[2018-03-15] MEDS: CLOTRIMAZOLE TROCHE 10 MG TROCHE MUCOUS MEM SCH ×5 (01:16→22:17)
[2018-03-15] MEDS: risperiDONE ODT 1 MG TAB PO SCH ×3 (01:17→22:17)
[2018-03-15] MEDS: ATORVASTATIN 40 MG TAB PO SCH ×2 (01:17→22:37)
[2018-03-15] MEDS: DIVALPROEX 500 MG TABLET.DR PO SCH ×3 (01:17→22:38)
[2018-03-15] MEDS: SERTRALINE 25 MG TAB PO SCH ×2 (01:18→22:05)
[2018-03-15] MEDS ORDERED: ACETAMINOPHEN IV (For NPO) 1,000 MG in EMPTY BAG 1 BAG IVPB ONE (04:00)
[2018-03-15] MEDS: SODIUM CHLORIDE 0.9% 1,000 ML IV SCH ×2 (06:22→17:53)
[2018-03-15] MEDS: LEVOTHYROXINE 137 MCG TAB PO SCH (06:22)
[2018-03-15] MEDS: PANTOPRAZOLE 40 MG TABLET PO SCH (07:38)
[2018-03-15 07:57] LABS: Glucose,Whole Blood 144 mg/dL (75-99)
[2018-03-15] MEDS: INSULIN ASPART 100 UNIT/ML 1 ML 10 ML VIAL SQ SCH ×4 (08:49→22:05)
[2018-03-15] MEDS: IPRATROPIUM-ALBUTEROL 3 ML NEB INHALATION SCH ×4 (09:13→20:59)
--- NOTE | 2018-03-15 09:59 | P.CONS ---
Past Medical History Past Medical History: Cancer, COPD, Diabetes Mellitus, GERD/Reflux, Hyperlipidemia, Thyroid Disorder Additional Past Medical History / Comment(s): tremors, type 2 DM, osteoporosis left leg, hypothyroid, IBS, right breast CA with radiation, chemo, partial mastectomy, bilat catarcts removal, insomnia. History of Any Multi-Drug Resistant Organisms: None Reported Past Surgical History: Breast Surgery, Cholecystectomy, Hysterectomy Additional Past Surgical History / Comment(s): bladder suspension Past Anesthesia/Blood Transfusion Reactions: No Reported Reaction Past Psychological History: Anxiety, Depression, Panic Disorder Additional Psychological History / Comment(s): frontal lobal seizures Smoking Status: Never smoker Past Alcohol Use History: None Reported Past Drug Use History: None Reported Medications and Allergies Home Medications Medication Instructions Recorded Confirmed Type Atorvastatin [Lipitor] 40 mg PO HS 10/16/13 03/13/18 History Omeprazole [PriLOSEC] 20 mg PO DAILY 10/16/13 03/13/18 History metFORMIN HCL [Glucophage] 1,000 tab PO BID 10/16/13 03/13/18 History Levothyroxine Sodium [Synthroid] 137 mcg PO DAILY 11/10/16 03/13/18 History Zolpidem [Ambien] 10 mg PO HS PRN 11/10/16 03/13/18 History Albuterol Sulfate [Proair Hfa] 2 puff INHALATION RT-Q4H PRN 09/19/17 03/13/18 History FLUoxetine HCL [PROzac] 40 mg PO DAILY 09/19/17 03/13/18 History Glimepiride [Amaryl] 2 mg PO BID 09/19/17 03/13/18 History clonazePAM [KlonoPIN] 0.5 mg PO HS 09/19/17 03/13/18 History Valproic Acid (As Sodium Salt) 500 mg PO BID #100 ml 09/20/17 03/13/18 Rx [Depakene Syrup] FLUoxetine HCL 20 mg PO HS 03/13/18 03/13/18 History Allergies Allergy/AdvReac Type Severity Reaction Status Date / Time trazodone Allergy PSYCHOSIS Verified 03/13/18 15:09 budesonide [From Symbicort] AdvReac Unknown Verified 03/13/18 15:09 codeine AdvReac angry/mad Verified 03/13/18 15:09 formoterol [From Symbicort] AdvReac Chest Pain Verified 03/13/18 15:09 Physical Exam Vitals: Vital Signs Temp Pulse Pulse Resp BP Pulse Ox 03/15/18 09:20 80 03/15/18 09:14 88 94 L 03/15/18 07:00 98.8 F 86 18 143/66 94 L 03/15/18 05:04 94 18 94 L 03/14/18 22:53 99.0 F 93 20 156/80 91 L 03/14/18 16:09 92 03/14/18 16:00 88 03/14/18 14:45 98.9 F 83 18 132/65 96 Intake and Output 03/14/18 03/15/18 03/15/18 22:59 06:59 14:59 Other: Voiding Method Bedside Commode # Voids 2 5 Results CBC & Chem 7: 03/14/18 03:05 03/14/18 03:05 Labs: Abnormal Lab Results - Last 24 Hours (Table) 03/14/18 03/14/18 03/14/18 Range/Units 12:22 17:44 20:55 POC Glucose (mg/dL) 151 H 119 H 118 H (75-99) mg/dL 03/15/18 Range/Units 07:54 POC Glucose (mg/dL) 144 H (75-99) mg/dL Microbiology - Last 24 Hours (Table) 03/13/18 15:47 Blood Culture - Preliminary Blood No Growth after 24 hours 03/13/18 16:04 Blood Culture - Preliminary Blood No Growth after 24 hours Assessment and Plan (1) Dysphagia Current Visit: No Status: Acute Code(s): R13.10 - DYSPHAGIA, UNSPECIFIED SNOMED Code(s): 43459303
[2018-03-15 12:03] LABS: Glucose,Whole Blood 171 mg/dL (75-99)
[2018-03-15 17:21] LABS: Glucose,Whole Blood 113 mg/dL (75-99)
--- NOTE | 2018-03-15 17:28 | P.GSCN ---
History of Present Illness Consult date: 03/15/18 Reason for Consult: Zenker's diverticulum Requesting physician: Ann Willis History of present illness: This is a 78-year-old female patient who is followed by Dr. Tacho Rosenberg on an outpatient basis. Patient has past medical history significant for Zenker's diverticulum measuring 1-1.5 cm dating back to 2013, diabetes mellitus type 2, gastroesophageal reflux disease, hyperlipidemia, thyroid disorder, depression due to recent loss of her son, chronic obstructive pulmonary disease with remote smoking history quit over 30 years ago, stress incontinence, breast cancer with history of right mastectomy and radiation and chemotherapy treatments. The patient presented to her primary care physician's office with complaints of progressive shortness of breath, persistent cough with green thick mucus production, lethargy and difficulty swallowing. The patient is having trouble forming her words and is a poor historian with most of the history received from the patient's daughter who is at her bedside. The patient denies any fever, chills, nausea or vomiting. On admission a chest x- ray was completed which showed cardiomegaly and chronic parenchymal changes with suspected developing acute infiltrate and/or atelectasis in the lingula. Her initial lab results showed a WBC count of 12.5, hemoglobin 11.1, BUN 12, creatinine 0.54, hemoglobin A1c 6.9% and a C reactive protein of 225.0. She also had an influenza type A and type B test which were not detected. Due to the patient's complaints of difficulty swallowing a video fluoroscopic swallow test was completed which demonstrated moderate to severe silent aspiration of liquids during the swallow, additionally aspiration occurs of refluxed material located in the piriform sinuses. Refluxed material originates from a moderate to large Zenker's diverticulum, decreased laryngeal excursion. Consultation was placed to Dr. Watters for surgical management Review of Systems Review of systems was completed and was negative except as noted in the HPI. Past Medical History Past Medical History: Cancer, COPD, Diabetes Mellitus, GERD/Reflux, Hyperlipidemia, Thyroid Disorder Additional Past Medical History / Comment(s): tremors, type 2 DM, osteoporosis left leg, hypothyroid, IBS, right breast CA with radiation, chemo, partial mastectomy, bilat catarcts removal, insomnia. History of Any Multi-Drug Resistant Organisms: None Reported Past Surgical History: Breast Surgery, Cholecystectomy, Hysterectomy Additional Past Surgical History / Comment(s): bladder suspension Past Anesthesia/Blood Transfusion Reactions: No Reported Reaction Past Psychological History: Anxiety, Depression, Panic Disorder Additional Psychological History / Comment(s): frontal lobal seizures Smoking Status: Never smoker Past Alcohol Use History: None Reported Past Drug Use History: None Reported Medications and Allergies Home Medications Medication Instructions Recorded Confirmed Type Atorvastatin [Lipitor] 40 mg PO HS 10/16/13 03/13/18 History Omeprazole [PriLOSEC] 20 mg PO DAILY 10/16/13 03/13/18 History metFORMIN HCL [Glucophage] 1,000 tab PO BID 10/16/13 03/13/18 History Levothyroxine Sodium [Synthroid] 137 mcg PO DAILY 11/10/16 03/13/18 History Zolpidem [Ambien] 10 mg PO HS PRN 11/10/16 03/13/18 History Albuterol Sulfate [Proair Hfa] 2 puff INHALATION RT-Q4H PRN 09/19/17 03/13/18 History FLUoxetine HCL [PROzac] 40 mg PO DAILY 09/19/17 03/13/18 History Glimepiride [Amaryl] 2 mg PO BID 09/19/17 03/13/18 History clonazePAM [KlonoPIN] 0.5 mg PO HS 09/19/17 03/13/18 History Valproic Acid (As Sodium Salt) 500 mg PO BID #100 ml 09/20/17 03/13/18 Rx [Depakene Syrup] FLUoxetine HCL 20 mg PO HS 03/13/18 03/13/18 History Allergies Allergy/AdvReac Type Severity Reaction Status Date / Time trazodone Allergy PSYCHOSIS Verified 03/13/18 15:09 budesonide [From Symbicort] AdvReac Unknown Verified 03/13/18 15:09 codeine AdvReac angry/mad Verified 03/13/18 15:09 formoterol [From Symbicort] AdvReac Chest Pain Verified 03/13/18 15:09 Surgical - Exam Vital Signs Temp Pulse Resp BP Pulse Ox 97.4 F L 86 20 132/79 94 L 03/13/18 14:00 03/13/18 14:00 03/13/18 14:00 03/13/18 14:00 03/13/18 14:00 - General well developed, well nourished, no distress, no pain - Eyes PERRL, normal ocular movement - ENT no hearing loss - Neck no masses, no bruits, trachea midline - Respiratory She has crackles heard throughout the lung luis. Respirations even, nonlabored. Currently on 3 L nasal cannula with oxygen saturation 91%. Strong productive cough with green tenacious sputum. - Cardiovascular S1, S2 present. No murmurs, rubs, or gallops. Regular rate and rhythm. Palpable peripheral pulses bilaterally. No edema present. No calf pain or tenderness noted. - Abdomen Abdomen: soft, non tender, bowel sounds - Genitourinary Deferred - Rectum Deferred - Integumentary no rash, no growths, no abnormal pigmentation - Neurologic normal coordination, normal sensation - Musculoskeletal Walks with a walker normal posture - Psychiatric oriented to time, oriented to person, oriented to place, speech is normal, memory intact ((She) Results - Labs 03/14/18 03:05 03/14/18 03:05 Abnormal Lab Results - Last 24 Hours (Table) 03/14/18 03/14/18 03/15/18 Range/Units 17:44 20:55 07:54 POC Glucose (mg/dL) 119 H 118 H 144 H (75-99) mg/dL 03/15/18 Range/Units 12:00 POC Glucose (mg/dL) 171 H (75-99) mg/dL Microbiology - Last 24 Hours (Table) 03/13/18 15:47 Blood Culture - Preliminary Blood No Growth after 24 hours 03/13/18 16:04 Blood Culture - Preliminary Blood No Growth after 24 hours Pituitary panel 03/14/18 Range/Units 14:44 Total T3 68.0 (60.0-180.0) ng/dL - Imaging Chest x-ray: report reviewed, image reviewed Additional studies: Video swallow study reviewed Assessment and Plan (1) Hyperlipidemia Current Visit: Yes Status: Chronic Code(s): E78.5 - HYPERLIPIDEMIA, UNSPECIFIED SNOMED Code(s): 53774155 (2) Dysphagia Current Visit: Yes Status: Acute Code(s): R13.10 - DYSPHAGIA, UNSPECIFIED SNOMED Code(s): 73961531 (3) Major depression Current Visit: Yes Status: Chronic Code(s): F32.9 - MAJOR DEPRESSIVE DISORDER, SINGLE EPISODE, UNSPECIFIED SNOMED Code(s): 999642266 (4) Thrush Current Visit: Yes Status: Acute Code(s): B37.0 - CANDIDAL STOMATITIS SNOMED Code(s): 25071916 (5) GERD (gastroesophageal reflux disease) Current Visit: Yes Status: Chronic Code(s): K21.9 - GASTRO-ESOPHAGEAL REFLUX DISEASE WITHOUT ESOPHAGITIS SNOMED Code(s): 401006974 (6) Zenkers diverticulum Current Visit: Yes Status: Chronic Code(s): K22.5 - DIVERTICULUM OF ESOPHAGUS, ACQUIRED SNOMED Code(s): 389343739 Plan: The patient was seen and examined at the bedside. Chart/diagnostics were reviewed. The case was discussed in detail with Dr. Watters. Recommendation at this time is to maximize medical therapy, continue antibiotic treatment, oxygen support, coughing and deep breathing with use of incentive spirometry, maintain nothing by mouth status. Dr. Watters will discuss with the patient and her family members present at the bedside for recommendations on potential surgical intervention Zenker's diverticulectomy. Medical management of comorbidities per primary care service. Thank you Dr. Willis for this consult. We look forward to working with you in the care of your patient. Time with Patient: Greater than 30
[2018-03-15 21:18] LABS: Glucose,Whole Blood 125 mg/dL (75-99)
[2018-03-15] MEDS ORDERED: LORazepam 2 MG/ML INJ IV PRN (21:57)
[2018-03-15] MEDS: VALPROATE SODIUM 500 MG in SODIUM CHLORIDE 0.9% 50 ML IVPB SCH (22:16)
[2018-03-15] MEDS: PANTOPRAZOLE 40 MG/10 ML VIAL IVP SCH (22:18)
[2018-03-16] MEDS: AMPICILLIN-SULBACTAM 3 GM in SODIUM CHLORIDE 0.9% 100 ML IVPB SCH ×5 (00:42→23:46)
--- NOTE | 2018-03-16 00:52 | P.PN ---
Subjective Progress Note Date: 03/14/18 Interval history:78-year-old female was seen in Dr. Rosenberg's office for your leg symptoms has been going on for about a week. Patient is found to be hypoxemic with saturations going down to mid to high 80s because of which I received a call from the office for possibility of direct admission. Patient was directly admitted with admitted to the hospital. Patient does have crackles in the left the upper lung luis on exam. Patient is found to have irregular infiltrate possibility of pneumonia does have sinusitis. She denied any body aches although we will obtain influenza testing. Patient denied any clear-cut fever I do not have any other labs available at this time clinically patient appears to have pneumonia with cough with greenish sputum production patient will be started on Rocephin and azithromycin treating for healthcare associated pneumonia. 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 03/14/2018 . Patient has a significant history for Zenker's diverticulum 1.5cm in the proximal cervical, worked up outpatient with GI-Dr. Osman previously. Dr. Osman recommended surgical consultation with Dr. Watters for possible Zenker's diverticulectomy if patient continued to have persistent dysphagia. Evaluated by speech therapy regarding difficulty swallowing. Underwent video fluoroscopic swallow reporting moderate to severe silent aspiration of liquids during the swallow, noted aspiration of refluxed material in the pyriform sinuses. Reflux material originates from moderate to large Zenker's diverticulum, decreased laryngeal excursion. Productive cough with green tenacious sputum. Evaluated by psychiatry, recommendations noted including medication adjustments. Maintaining O2 sats of 93% on 4 L nasal cannula. Objective - Vital Signs Vital signs: Vital Signs Temp 98.4 F 03/14/18 07:19 Pulse 88 03/14/18 08:46 Resp 24 03/14/18 07:19 BP 137/71 03/14/18 07:19 Pulse Ox 93 L 03/14/18 07:19 Intake & Output 03/13/18 03/14/18 03/14/18 18:59 06:59 18:59 Intake Total 750 Balance 750 Weight 77.9 kg Intake: Oral 750 Other: Voiding Method Bedside Commode # Voids 0 3 1 # Bowel Movements 0 1 - Exam GENERAL: The patient is alert and oriented x3, no acute distress HEENT: Pupils are round and equally reacting to light. EOMI. No scleral icterus. No conjunctival pallor. Normocephalic, atraumatic. Oral thrush CARDIOVASCULAR: S1 and S2 present. No murmurs, rubs, or gallops. PULMONARY: Unlabored , fair air entry , scattered Crackles throughout the left upper lung field ABDOMEN: Soft, nontender, nondistended, normoactive bowel sounds. No palpable organomegaly. EXTREMITIES: No cyanosis, clubbing, or pedal edema. NEUROLOGICAL: Gross neurological examination did not reveal any focal deficits. SKIN: No rashes. - Labs CBC & Chem 7: 03/14/18 03:05 03/14/18 03:05 Labs: Abnormal Lab Results - Last 24 Hours (Table) 03/13/18 03/13/18 03/13/18 Range/Units 15:09 15:09 17:34 WBC (3.8-10.6) k/uL RBC (3.80-5.40) m/uL Hgb (11.4-16.0) gm/dL POC Glucose (mg/dL) 178 H (75-99) mg/dL Hemoglobin A1c 6.9 H (4.0-6.0) % C-Reactive Protein 225.0 H (<10.0) mg/L 03/13/18 03/14/18 03/14/18 Range/Units 21:56 02:39 03:05 WBC 12.5 H (3.8-10.6) k/uL RBC 3.69 L (3.80-5.40) m/uL Hgb 11.1 L (11.4-16.0) gm/dL POC Glucose (mg/dL) 172 H 74 L (75-99) mg/dL Hemoglobin A1c (4.0-6.0) % C-Reactive Protein (<10.0) mg/L 03/14/18 03/14/18 Range/Units 07:21 12:22 WBC (3.8-10.6) k/uL RBC (3.80-5.40) m/uL Hgb (11.4-16.0) gm/dL POC Glucose (mg/dL) 178 H 151 H (75-99) mg/dL Hemoglobin A1c (4.0-6.0) % C-Reactive Protein (<10.0) mg/L Assessment and Plan Assessment: -Possible community-acquired pneumonia, left lingular bacterial pneumonia, upper respiratory infection, including bacterial sinusitis, most probably pneumococcal: -Oral thrush -Dysphagia, grossly failed MBS, silent aspiration -History of Zenker's diverticulum -Acute hypoxemia: Possibly secondary to pneumonia -Type 2 diabetes mellitus -Hypothyroidism -Hyperlipidemia -Seizure disorder -Severe depression Plan: Continue on current medication regime ,monitoring and symptomatic treatment. Psychiatry recommendations noted and appreciated. Maintain IV antibiotics, nebulized bronchodilators. Aggressive pulmonary toileting with incentive spirometer. NPO. Strict aspiration precautions. Surgery-Dr. Watters consulted. Prognosis guarded given multiple complex medical issues. The impression and plan of care has been dictated as directed. : I performed a history and examination of this patient, discussed the same with the dictator. I agree with the dictator's note ,documented as a scribe. Any additional findings or plans will be noted.
--- NOTE | 2018-03-16 01:04 | P.PN ---
Subjective Progress Note Date: 03/14/18 Interval history:78-year-old female was seen in Dr. Rosenberg's office for your leg symptoms has been going on for about a week. Patient is found to be hypoxemic with saturations going down to mid to high 80s because of which I received a call from the office for possibility of direct admission. Patient was directly admitted with admitted to the hospital. Patient does have crackles in the left the upper lung luis on exam. Patient is found to have irregular infiltrate possibility of pneumonia does have sinusitis. She denied any body aches although we will obtain influenza testing. Patient denied any clear-cut fever I do not have any other labs available at this time clinically patient appears to have pneumonia with cough with greenish sputum production patient will be started on Rocephin and azithromycin treating for healthcare associated pneumonia. 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 03/14/2018 . Patient has a significant history for Zenker's diverticulum 1.5cm in the proximal cervical, worked up outpatient with GI-Dr. Osman previously. Dr. Osman recommended surgical consultation with Dr. Watters for possible Zenker's diverticulectomy if patient continued to have persistent dysphagia. Evaluated by speech therapy regarding difficulty swallowing. Underwent video fluoroscopic swallow reporting moderate to severe silent aspiration of liquids during the swallow, noted aspiration of refluxed material in the pyriform sinuses. Reflux material originates from moderate to large Zenker's diverticulum, decreased laryngeal excursion. Productive cough with green tenacious sputum. Evaluated by psychiatry, recommendations noted including medication adjustments. Maintaining O2 sats of 93% on 4 L nasal cannula. 03/15/2018 antibiotics adjusted, changed to Unasyn yesterday status post MBS results. T-max 99.4.Surgical evaluation in progress regarding potential Zenker' s diverticulectomy. NPO status discussed with significant other. Patient denies chest pain or palpitations. Maintaining O2 sats of 96% on 3 L nasal cannula. Objective - Vital Signs Vital signs: Vital Signs Temp 99.4 F 03/15/18 15:00 Pulse 87 03/15/18 15:00 Resp 18 03/15/18 15:00 BP 138/66 03/15/18 15:00 Pulse Ox 91 L 03/15/18 15:00 Intake & Output 03/14/18 03/15/18 03/15/18 18:59 06:59 18:59 Other: Voiding Method Bedside Commode Toilet # Voids 1 5 3 # Bowel Movements 1 - Exam GENERAL: The patient is alert and oriented x3, no acute distress HEENT: Pupils are round and equally reacting to light. EOMI. No scleral icterus. No conjunctival pallor. Normocephalic, atraumatic. Oral thrush CARDIOVASCULAR: S1 and S2 present. No murmurs, rubs, or gallops. PULMONARY: Unlabored , bilateral bases diminished with scattered Crackles throughout bilateral lungs. ABDOMEN: Soft, nontender, nondistended, normoactive bowel sounds. No palpable organomegaly. EXTREMITIES: No cyanosis, clubbing, or pedal edema. NEUROLOGICAL: Gross neurological examination did not reveal any focal deficits. SKIN: No rashes. - Labs CBC & Chem 7: 03/14/18 03:05 03/14/18 03:05 Labs: Abnormal Lab Results - Last 24 Hours (Table) 03/14/18 03/14/18 03/15/18 Range/Units 17:44 20:55 07:54 POC Glucose (mg/dL) 119 H 118 H 144 H (75-99) mg/dL 03/15/18 Range/Units 12:00 POC Glucose (mg/dL) 171 H (75-99) mg/dL Microbiology - Last 24 Hours (Table) 03/13/18 15:47 Blood Culture - Preliminary Blood No Growth after 24 hours 03/13/18 16:04 Blood Culture - Preliminary Blood No Growth after 24 hours Assessment and Plan Assessment: -Possible community-acquired pneumonia, left lingular bacterial pneumonia, upper respiratory infection, including bacterial sinusitis, most probably pneumococcal: -Oral thrush -Dysphagia, grossly failed MBS, silent aspiration -History of Zenker's diverticulum -Acute hypoxemia: Possibly secondary to pneumonia -Type 2 diabetes mellitus -Hypothyroidism -Hyperlipidemia -Seizure disorder -Severe depression Plan: Continue on current medication regime ,monitoring and symptomatic treatment. Strict NPO, aspiration precautions. As mentioned above surgical consult in place regarding potential Zenker's diverticulectomy. GI consult, regarding potential peg tube. Close monitoring of electrolytes and renal function with repeat labs ordered for a.m. maintain IV antibiotics, follow cultures closely. The impression and plan of care has been dictated as directed. : I performed a history and examination of this patient, discussed the same with the dictator. I agree with the dictator's note ,documented as a scribe. Any additional findings or plans will be noted.
[2018-03-16] MEDS: HEPARIN SODIUM,PORCINE 5,000 UNIT/ML 1 ML VIAL SQ SCH ×4 (04:44→23:45)
[2018-03-16] MEDS: SODIUM CHLORIDE 0.9% 1,000 ML IV SCH ×3 (04:44→21:31)
[2018-03-16] MEDS: LEVOTHYROXINE 137 MCG TAB PO SCH (04:45)
[2018-03-16 07:11] LABS: Glucose,Whole Blood 136 mg/dL (75-99)
[2018-03-16] MEDS: IPRATROPIUM-ALBUTEROL 3 ML NEB INHALATION SCH ×4 (07:15→18:58)
[2018-03-16] MEDS: CLOTRIMAZOLE TROCHE 10 MG TROCHE MUCOUS MEM SCH ×5 (07:25→22:11)
[2018-03-16] MEDS: PANTOPRAZOLE 40 MG/10 ML VIAL IVP SCH (07:36)
[2018-03-16] MEDS: VALPROATE SODIUM 500 MG in SODIUM CHLORIDE 0.9% 50 ML IVPB SCH ×2 (08:03→21:29)
[2018-03-16] MEDS: risperiDONE ODT 1 MG TAB PO SCH ×2 (08:14→21:29)
[2018-03-16] MEDS: INSULIN ASPART 100 UNIT/ML 1 ML 10 ML VIAL SQ SCH ×4 (08:15→21:49)
--- NOTE | 2018-03-16 10:48 | P.CONS ---
History of Present Illness - Reason for Consult Consult date: 03/16/18 Dysphagia Requesting physician: Ann Willis - Chief Complaint Hypoxia - History of Present Illness 78-year-old female admitted with hypoxia possible pneumonia with a history of Zenker's diverticulum confirmed via EGD September 2017. Consultation requested for dysphagia. Patient failed her MBS silent aspiration noted. CV surgery evaluated patient at this time recommending nonsurgical management; outpatient follow-up advised. Presently nothing by mouth. Discussion of PEG tube has been forward. Review of Systems Constitutional: Denies fever, chills, sweats, weight gain, or loss. HEENT: Negative for migraines, blurred vision or loss, earaches, drainage, tinnitus, oral mucosal lesions, dysphagia, or odynophagia. CARDIAC: Negative for chest pain, arrhythmias, or palpitation. RESPIRATORY: Admitted with shortness of breath hypoxia denies, hemoptysis, cough , or sputum production. GI: See HPI for pertinent findings. : Negative for hematuria, urgency, frequency, polyuria, or dysuria. GYNc: Denies possibility of . Negative vaginal discharge. MUSCULOSKELETAL: Negative for muscle aches, swelling, arthritis, and arthralgias. NEUROLOGIC: Negative for stroke or TIA. ENDOCRINE: Negative for thyroid problems. SKIN: Negative for rash or itching. PSYCHIATRIC: Negative history for depression and anxiety Past Medical History Past Medical History: Cancer, COPD, Diabetes Mellitus, GERD/Reflux, Hyperlipidemia, Thyroid Disorder Additional Past Medical History / Comment(s): tremors, type 2 DM, osteoporosis left leg, hypothyroid, IBS, right breast CA with radiation, chemo, partial mastectomy, bilat catarcts removal, insomnia. History of Any Multi-Drug Resistant Organisms: None Reported Past Surgical History: Breast Surgery, Cholecystectomy, Hysterectomy Additional Past Surgical History / Comment(s): bladder suspension Past Anesthesia/Blood Transfusion Reactions: No Reported Reaction Past Psychological History: Anxiety, Depression, Panic Disorder Additional Psychological History / Comment(s): frontal lobal seizures Smoking Status: Never smoker Past Alcohol Use History: None Reported Past Drug Use History: None Reported Medications and Allergies Home Medications Medication Instructions Recorded Confirmed Type Atorvastatin [Lipitor] 40 mg PO HS 10/16/13 03/13/18 History Omeprazole [PriLOSEC] 20 mg PO DAILY 10/16/13 03/13/18 History metFORMIN HCL [Glucophage] 1,000 tab PO BID 10/16/13 03/13/18 History Levothyroxine Sodium [Synthroid] 137 mcg PO DAILY 11/10/16 03/13/18 History Zolpidem [Ambien] 10 mg PO HS PRN 11/10/16 03/13/18 History Albuterol Sulfate [Proair Hfa] 2 puff INHALATION RT-Q4H PRN 09/19/17 03/13/18 History FLUoxetine HCL [PROzac] 40 mg PO DAILY 09/19/17 03/13/18 History Glimepiride [Amaryl] 2 mg PO BID 09/19/17 03/13/18 History clonazePAM [KlonoPIN] 0.5 mg PO HS 09/19/17 03/13/18 History Valproic Acid (As Sodium Salt) 500 mg PO BID #100 ml 09/20/17 03/13/18 Rx [Depakene Syrup] FLUoxetine HCL 20 mg PO HS 03/13/18 03/13/18 History Allergies Allergy/AdvReac Type Severity Reaction Status Date / Time trazodone Allergy PSYCHOSIS Verified 03/13/18 15:09 budesonide [From Symbicort] AdvReac Unknown Verified 03/13/18 15:09 codeine AdvReac angry/mad Verified 03/13/18 15:09 formoterol [From Symbicort] AdvReac Chest Pain Verified 03/13/18 15:09 Physical Exam Vitals: Vital Signs Temp Pulse Pulse Pulse Resp BP BP 03/16/18 07:28 74 03/16/18 07:16 70 03/16/18 05:59 98.2 F 76 20 127/72 03/16/18 02:19 03/15/18 22:52 99.7 F H 86 20 128/70 03/15/18 21:09 82 03/15/18 21:00 77 03/15/18 20:40 78 03/15/18 15:00 99.4 F 87 18 138/66 03/15/18 12:25 80 03/15/18 12:20 84 03/15/18 09:20 80 03/15/18 09:14 88 Pulse Ox 03/16/18 07:28 03/16/18 07:16 03/16/18 05:59 92 L 03/16/18 02:19 91 L 03/15/18 22:52 91 L 03/15/18 21:09 03/15/18 21:00 96 03/15/18 20:40 03/15/18 15:00 91 L 03/15/18 12:25 03/15/18 12:20 03/15/18 09:20 03/15/18 09:14 94 L Intake and Output 03/15/18 03/16/18 03/16/18 22:59 06:59 14:59 Other: # Voids 1 1 General appearance: The patient is alert, oriented, in no acute distress. HET: Head is normocephalic and atraumatic. Pupils are equal and reactive. Oropharynx is clear without lesions. Neck: Supple without lymphadenopathy. Trachea midline. Heart: S1 S2. Regular rate and rhythm. Lungs: No crackles or wheezes are heard. Abdomen: Soft, nontender, nondistended with bowel sounds. No peritoneal signs. No palpable organomegaly or masses. Extremities: Normal skin color and turgor. No cyanosis, rash, ulceration, clubbing, or edema. Radial and pedal pulses are 2/4 bilaterally. Neurological: No focal deficits. Strength and sensation are grossly intact. Results CBC & Chem 7: 03/14/18 03:05 03/14/18 03:05 Labs: Abnormal Lab Results - Last 24 Hours (Table) 03/15/18 03/15/18 03/15/18 Range/Units 12:00 17:19 21:16 POC Glucose (mg/dL) 171 H 113 H 125 H (75-99) mg/dL 03/16/18 Range/Units 07:09 POC Glucose (mg/dL) 136 H (75-99) mg/dL Microbiology - Last 24 Hours (Table) 03/15/18 11:30 Gram Stain - Preliminary Sputum Sputum Culture - Preliminary 03/13/18 15:47 Blood Culture - Preliminary Blood No Growth after 48 hours 03/13/18 16:04 Blood Culture - Preliminary Blood No Growth after 48 hours Comments: MBS results reviewed by Dr. Zavala Assessment and Plan (1) Dysphagia Current Visit: Yes Status: Acute Code(s): R13.10 - DYSPHAGIA, UNSPECIFIED SNOMED Code(s): 03800766 (2) Zenkers diverticulum Current Visit: Yes Status: Acute Code(s): K22.5 - DIVERTICULUM OF ESOPHAGUS , ACQUIRED SNOMED Code(s): 975069071 Plan: 1. GI prophylaxis. CV surgery recommendations appreciated. At this time patient like to speak with her about a PEG tube. No consent has been obtained at this time. We'll be available for PEG tube insertion if patient consents. Thank you for this kind referral and the opportunity to participate in the care of your patient. This consultation was discussed with Dr. Zavala. The impression and plan of care have been directed as dictated.
[2018-03-16 12:17] LABS: Glucose,Whole Blood 127 mg/dL (75-99)
[2018-03-16] MEDS ORDERED: IV FLUID CONTINUATION 1,000 ML IV ONE (16:22)
[2018-03-16] MEDS ORDERED: PROPOFOL 10 MG/ML 20 ML VIAL IV ONE (16:25)
[2018-03-16] MEDS ORDERED: KETAMINE 10 MG/ML 20 ML VIAL ONE (16:25)
[2018-03-16] MEDS ORDERED: MIDAZOLAM 2 MG/2 ML VIAL ONE (16:25)
[2018-03-16] MEDS ORDERED: SODIUM CHLORIDE 0.9% 500 ML IV ONE (16:40)
[2018-03-16 17:28] LABS: Glucose,Whole Blood 123 mg/dL (75-99)
--- NOTE | 2018-03-16 17:31 | P.PCN ---
Date of Procedure: 03/16/18 Description of Procedure: BRIEF HISTORY: 78-year-old female admitted with hypoxia possible pneumonia with a history of Zenker's diverticulum confirmed via EGD September 2017. Consultation requested for dysphagia. Patient failed her MBS silent aspiration noted. CV surgery evaluated patient at this time recommending nonsurgical management; outpatient follow-up advised. Presently nothing by mouth. . PROCEDURE PERFORMED: Aborted Esophagogastroduodenoscopy. PREOPERATIVE DIAGNOSIS: Zenker's diverticulum, aspiration pneumonia. ESTIMATED BLOOD LOSS: Minimal. IV sedation per anesthesia. PROCEDURE: After informed consent was obtained, the patient was brought into the endoscopy unit. IV sedation was administered by Anesthesia under continuous monitoring. Initially the Olympus GIF-190 video endoscope was inserted into the mouth. Esophagus intubated with a Zenker's diverticulum noted in the proximal esophagus measuring approximately 1.5 cm's as previously seen on EGD. At this time the patient was noted to have a desaturation of oxygen level. The procedure was stopped and the patient was given supplemental oxygen with improvement of her saturation. However given the location of the Zenker diverticulum, the size of the esophagus at the level of the diverticulum and the nature of endoscopic PEG tube placement where the internal bumper was pulled through the esophagus, it was decided to abort the procedure due to the risk of perforation. IMPRESSION: 1. Aborted EGD. 2. Zenker diverticulum. RECOMMENDATIONS: The findings of this examination were discussed with the patient and her . At this time would recommend patient remains nothing by mouth. As stated above given the location of the Zenker diverticulum, the size of the esophagus at the level of the diverticulum and the nature of endoscopic PEG tube placement it is felt that the risk of perforation for this procedure is high, and that the patient would benefit from consideration for either TPN therapy or surgical placement of a feeding tube as safer alternatives.
[2018-03-16 18:00] VITALS: BMI 27.7
[2018-03-16 20:58] LABS: Glucose,Whole Blood 128 mg/dL (75-99)
[2018-03-16] MEDS: SERTRALINE 25 MG TAB PO SCH (21:30)
--- NOTE | 2018-03-17 00:20 | P.PN ---
Subjective Progress Note Date: 03/16/18 Interval history:78-year-old female was seen in Dr. Rosenberg's office for your leg symptoms has been going on for about a week. Patient is found to be hypoxemic with saturations going down to mid to high 80s because of which I received a call from the office for possibility of direct admission. Patient was directly admitted with admitted to the hospital. Patient does have crackles in the left the upper lung luis on exam. Patient is found to have irregular infiltrate possibility of pneumonia does have sinusitis. She denied any body aches although we will obtain influenza testing. Patient denied any clear-cut fever I do not have any other labs available at this time clinically patient appears to have pneumonia with cough with greenish sputum production patient will be started on Rocephin and azithromycin treating for healthcare associated pneumonia. 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 03/14/2018 . Patient has a significant history for Zenker's diverticulum 1.5cm in the proximal cervical, worked up outpatient with GI-Dr. Osman previously. Dr. Osman recommended surgical consultation with Dr. Watters for possible Zenker's diverticulectomy if patient continued to have persistent dysphagia. Evaluated by speech therapy regarding difficulty swallowing. Underwent video fluoroscopic swallow reporting moderate to severe silent aspiration of liquids during the swallow, noted aspiration of refluxed material in the pyriform sinuses. Reflux material originates from moderate to large Zenker's diverticulum, decreased laryngeal excursion. Productive cough with green tenacious sputum. Evaluated by psychiatry, recommendations noted including medication adjustments. Maintaining O2 sats of 93% on 4 L nasal cannula. 03/15/2018 antibiotics adjusted, changed to Unasyn yesterday status post MBS results. T-max 99.4.Surgical evaluation in progress regarding potential Zenker' s diverticulectomy. NPO status discussed with significant other. Patient denies chest pain or palpitations. Maintaining O2 sats of 96% on 3 L nasal cannula. 03/16/2018 Dr. Watters CV/thoracic surgeon at bedside, met with both patient and spouse, options discussed. Surgery explained. Currently recommending optimizing patient's respiratory status/ pulmonary function, nutritional support via PEG tube placement, outpatient follow-up with thoracic surgery at [facility], [facility]. Both patient and consented to peg tube placement. Scheduled for today with GI, Dr. Zavala.Maintain NPO. Blood sugars controlled. Continue on IV antibiotics. Afebrile. Objective - Vital Signs Vital signs: Vital Signs Temp 98.2 F 03/16/18 05:59 Pulse 72 03/16/18 11:09 Resp 20 03/16/18 05:59 BP 127/72 03/16/18 05:59 Pulse Ox 92 L 03/16/18 05:59 Intake & Output 03/15/18 03/16/18 03/16/18 18:59 06:59 18:59 Other: Voiding Method Toilet Bedside Commode # Voids 3 1 - Exam GENERAL: The patient is alert and oriented x3, no acute distress HEENT: Pupils are round and equally reacting to light. EOMI. No scleral icterus. No conjunctival pallor. Normocephalic, atraumatic. CARDIOVASCULAR: S1 and S2 present. No murmurs, rubs, or gallops. PULMONARY: Bilateral bases diminished ABDOMEN: Soft, nontender, nondistended, normoactive bowel sounds. No palpable organomegaly. EXTREMITIES: No cyanosis, clubbing, or pedal edema. NEUROLOGICAL: Gross neurological examination did not reveal any focal deficits. SKIN: No rashes. - Microbiology 03/13/18 15:47 Blood Blood Culture - Preliminary No Growth after 72 hours 03/13/18 16:04 Blood Blood Culture - Preliminary No Growth after 72 hours 03/16/18 07:30 Urine,Voided Urine Culture - Preliminary 03/15/18 11:30 Sputum Gram Stain - Preliminary 03/15/18 11:30 Sputum Sputum Culture - Preliminary - Labs CBC & Chem 7: 03/14/18 03:05 03/14/18 03:05 Labs: Abnormal Lab Results - Last 24 Hours (Table) 03/15/18 03/15/18 03/16/18 Range/Units 17:19 21:16 07:09 POC Glucose (mg/dL) 113 H 125 H 136 H (75-99) mg/dL U Random Total Protein (<12) mg/dL 03/16/18 03/16/18 Range/Units 07:30 12:15 POC Glucose (mg/dL) 127 H (75-99) mg/dL U Random Total Protein 15 H (<12) mg/dL Microbiology - Last 24 Hours (Table) 03/16/18 07:30 Urine Culture - Preliminary Urine,Voided 03/15/18 11:30 Gram Stain - Preliminary Sputum Sputum Culture - Preliminary 03/13/18 15:47 Blood Culture - Preliminary Blood No Growth after 48 hours 03/13/18 16:04 Blood Culture - Preliminary Blood No Growth after 48 hours Assessment and Plan Assessment: -Possible community-acquired pneumonia, left lingular bacterial pneumonia, upper respiratory infection, including bacterial sinusitis, most probably pneumococcal: -Oral thrush -Dysphagia, grossly failed MBS, silent aspiration -History of Zenker's diverticulum -Acute hypoxemia: Possibly secondary to pneumonia -Type 2 diabetes mellitus -Hypothyroidism -Hyperlipidemia -Seizure disorder -Severe depression Plan: Continue on current medication regime , GI/DVT prophylaxis ,monitoring and symptomatic treatment. CVA/thoracic surgery recommendations appreciated. Strict NPO, aspiration precautions. GI notified, scheduled for PEG tube placement today. Patient wishes to follow up OP with Jason regarding Zenker' s diverticulectomy. Close monitoring of electrolytes and renal function with repeat labs ordered for a.m. maintain IV antibiotics, follow cultures closely. The impression and plan of care has been dictated as directed. : I performed a history and examination of this patient, discussed the same with the dictator. I agree with the dictator's note ,documented as a scribe. Any additional findings or plans will be noted.
[2018-03-17] MEDS: IPRATROPIUM-ALBUTEROL 3 ML NEB INHALATION PRN (04:13)
[2018-03-17] MEDS: LEVOTHYROXINE 137 MCG TAB PO SCH ×2 (05:17→05:20)
[2018-03-17] MEDS: AMPICILLIN-SULBACTAM 3 GM in SODIUM CHLORIDE 0.9% 100 ML IVPB SCH (05:17)
[2018-03-17 07:42] LABS: Glucose,Whole Blood 164 mg/dL (75-99)
[2018-03-17] MEDS: IPRATROPIUM-ALBUTEROL 3 ML NEB INHALATION SCH ×2 (08:06→12:01)
[2018-03-17] MEDS: INSULIN ASPART 100 UNIT/ML 1 ML 10 ML VIAL SQ SCH (08:10)
[2018-03-17] MEDS: risperiDONE ODT 1 MG TAB PO SCH (08:11)
[2018-03-17 08:12] VITALS: BP 187/121; RESP 22; TEMP 97
[2018-03-17] MEDS: CLOTRIMAZOLE TROCHE 10 MG TROCHE MUCOUS MEM SCH (08:12)
[2018-03-17 08:24] LABS: Basophils % (A) 1 %; Eosinophils # (A) 0.2 k/uL (0-0.7); Eosinophils % (A) 2 %; HCT 38.4 % (34.0-46.0); HGB 11.7 gm/dL (11.4-16.0); Hypochromasia Marked; Lymphocytes # (A) 0.8 k/uL (1.0-4.8); Lymphocytes % (A) 10 %; MCHC 30.4 g/dL (31.0-37.0); Macrocytosis Slight; Mean Platelet Volume 7.2; Monocytes # (A) 0.6 k/uL (0-1.0); Monocytes % (A) 9 %; Neutrophils # (A) 5.7 k/uL (1.3-7.7); Neutrophils % (A) 76 %; Platelet Count 260 k/uL (150-450); RBC 3.89 m/uL (3.80-5.40); RDW 15.2 % (11.5-15.5); WBC 7.5 k/uL (3.8-10.6)
[2018-03-17 08:34] LABS: MCV 98.8 fL (80.0-100.0)
[2018-03-17 08:39] LABS: Anion Gap 9 mmol/L; Blood Urea Nitrogen 11 mg/dL (7-17); Calcium 9.1 mg/dL (8.4-10.2); Carbon Dioxide 30 mmol/L (22-30); Chloride 107 mmol/L (98-107); Glucose 156 mg/dL (74-99); Potassium 3.7 mmol/L (3.5-5.1); Sodium 146 mmol/L (137-145)
[2018-03-17] MEDS: SODIUM CHLORIDE 0.9% 1,000 ML IV SCH (08:48)
[2018-03-17] MEDS: PANTOPRAZOLE 40 MG/10 ML VIAL IVP SCH (08:49)
[2018-03-17] MEDS: HEPARIN SODIUM,PORCINE 5,000 UNIT/ML 1 ML VIAL SQ SCH (08:59)
[2018-03-17] MEDS: VALPROATE SODIUM 500 MG in SODIUM CHLORIDE 0.9% 50 ML IVPB SCH (09:00)
[2018-03-17 12:13] LABS: Glucose,Whole Blood 135 mg/dL (75-99)
[2018-03-17 18:47] LABS: Glucose,Whole Blood 152 mg/dL (75-99)
[2018-03-18 10:25] VITALS: PULSE 88
--- NOTE | 2018-03-18 11:26 | P.DS ---
Providers Date of admission: 03/13/18 13:28 Expected date of discharge: 03/17/18 Attending physician: Ann Willis Consults: 03/13/18 16:06 Consult Physician Routine Consulting Provider: Saurav Givens Consult Reason/Comments: increased depression Do you want consulting provider notified?: Yes 03/14/18 14:05 Consult Physician Routine Consulting Provider: Berny Zavala Consult Reason/Comments: aspiration pne failed swallow study Do you want consulting provider notified?: Yes 03/15/18 12:00 Consult Physician Routine Consulting Provider: Shawn Watters Consult Reason/Comments: zenkers diverticulum Do you want consulting provider notified?: Yes Primary care physician: Tammi Titus [facility] Course: 78-year-old female admitted the for aspiration pneumonia patient is on Zosyn. Patient does has increased diverticulum patient failed swallow evaluation patient remained nothing by mouth for about 5 days patient was evaluated by general surgery as well as a gastroenterology. Initially it was believed that patient is not a surgical candidate for fixing centers diverticulum PEG tube was planned but the with the concerns of rupture of the Zenker's gastroneurology is recommending higher-level facility where the Zenker's diverticulum can be fixed endoscopically. Discussed case with hospitalist in [facility] who agreed and accepted the patient. Patient is quite weak. Thyroid fatigue and hungry. - Exam GENERAL: The patient is alert and oriented x3, no acute distress, fatigued HEENT: Pupils are round and equally reacting to light. EOMI. No scleral icterus. No conjunctival pallor. Normocephalic, atraumatic. CARDIOVASCULAR: S1 and S2 present. No murmurs, rubs, or gallops. PULMONARY: As in right lower lung bases ABDOMEN: Soft, nontender, nondistended, normoactive bowel sounds. No palpable organomegaly. EXTREMITIES: No cyanosis, clubbing, or pedal edema. NEUROLOGICAL: Gross neurological examination did not reveal any focal deficits. SKIN: No rashes. -Aspiration pneumonia leading to acute hypoxic respiratory failure improved now patient is on Unasyn -Oral thrush -Zenker's diverticulum, failed swallow evaluation patient remains nothing by mouth -Type 2 diabetes mellitus -Hypothyroidism -hyperlipidemia -Seizure disorder -Severe depression with recent demise of close family members Plan - Discharge Summary New Discharge Prescriptions: No Action Omeprazole [PriLOSEC] 20 mg PO DAILY Atorvastatin [Lipitor] 40 mg PO HS metFORMIN HCL [Glucophage] 1,000 tab PO BID Zolpidem [Ambien] 10 mg PO HS PRN PRN Reason: Insomnia Levothyroxine Sodium [Synthroid] 137 mcg PO DAILY Albuterol Sulfate [Proair Hfa] 2 puff INHALATION RT-Q4H PRN PRN Reason: Shortness Of Breath clonazePAM [KlonoPIN] 0.5 mg PO HS FLUoxetine HCL [PROzac] 40 mg PO DAILY Glimepiride [Amaryl] 2 mg PO BID Valproic Acid (As Sodium Salt) [Depakene Syrup] 500 mg PO BID #100 ml FLUoxetine HCL 20 mg PO HS Discharge Medication List Atorvastatin [Lipitor] 40 mg PO HS 10/16/13 [History] Omeprazole [PriLOSEC] 20 mg PO DAILY 10/16/13 [History] metFORMIN HCL [Glucophage] 1,000 tab PO BID 10/16/13 [History] Levothyroxine Sodium [Synthroid] 137 mcg PO DAILY 11/10/16 [History] Zolpidem [Ambien] 10 mg PO HS PRN 11/10/16 [History] Albuterol Sulfate [Proair Hfa] 2 puff INHALATION RT-Q4H PRN 09/19/17 [History] FLUoxetine HCL [PROzac] 40 mg PO DAILY 09/19/17 [History] Glimepiride [Amaryl] 2 mg PO BID 09/19/17 [History] clonazePAM [KlonoPIN] 0.5 mg PO HS 09/19/17 [History] Valproic Acid (As Sodium Salt) [Depakene Syrup] 500 mg PO BID #100 ml 09/20/17 [ Rx] FLUoxetine HCL 20 mg PO HS 03/13/18 [History] Activity/Diet/Wound Care/Special Instructions: Follow up with Thoracic Surgeon at [facility], Please call Jason Find a Physician Referral Line @ . Discharge Disposition: TRANSFER TO [facility]
== END 2018-03-17 18:30 | DRG 177 ==
LOC: 4MS4W 13:28
PROVIDERS: ADMIT Internal Medicine; ATTEND Internal Medicine
PROC: 0DJ08ZZ Inspection of Upper Intestinal Tract, Via Natural or Artificial Opening Endoscopic (ICD-10-PCS; principal; 2018-03-16 08:45)
DX: J69.0 Pneumonitis due to inhalation of food and vomit (principal); J96.01 Acute respiratory failure with hypoxia; B37.0 Candidal stomatitis; E03.9 Hypothyroidism, unspecified; E11.9 Type 2 diabetes mellitus without complications; E78.5 Hyperlipidemia, unspecified; F32.9 Major depressive disorder, single episode, unspecified; F41.0 Panic disorder [episodic paroxysmal anxiety]; G40.909 Epilepsy, unspecified, not intractable, without status epilepticus; J44.9 Chronic obstructive pulmonary disease, unspecified; K21.9 Gastro-esophageal reflux disease without esophagitis; K22.5 Diverticulum of esophagus, acquired; K58.9 Irritable bowel syndrome, unspecified; M81.0 Age-related osteoporosis without current pathological fracture; Z79.84 Long term (current) use of oral hypoglycemic drugs; Z79.890 Hormone replacement therapy; Z79.899 Other long term (current) drug therapy; Z85.3 Personal history of malignant neoplasm of breast; Z87.891 Personal history of nicotine dependence; Z90.13 Acquired absence of bilateral breasts and nipples; Z90.710 Acquired absence of both cervix and uterus; Z90.49 Acquired absence of other specified parts of digestive tract; Z88.5 Allergy status to narcotic agent; Z88.8 Allergy status to other drugs, medicaments and biological substances; Z53.09 Procedure and treatment not carried out because of other contraindication
CPT/HCPCS: 43235; 71046; 74230; 80048; 80165; 82140; 83036; 84134; 84156; 84480; 85025; 85027; 86140; 87040; 87070; 87086; 87205; 87502; 94640; 94664; 94760

== ENCOUNTER → 2018-08-17 | Outpatient (CLI) | payer MEDICARE ==
--- NOTE | 2018-08-17 12:42 | US ---
EXAMINATION TYPE: US abdomen complete DATE OF EXAM: 08/17/2018 COMPARISON: None CLINICAL HISTORY: 78-year-old female R10.9 ABD PAIN. RLQ pain noted after turning and twisting body p er patient history; surgery 2019 for Zenker's diverticuli; cholecystectomy; BR CA TECHNIQUE: Multiple sonographic images of the abdomen are obtained. FINDINGS: EXAM MEASUREMENTS: Liver Length: 16.7 cm Gallbladder: surgically removed CBD: 0.4 cm Spleen: 10.2 cm Right Kidney: 10.2 x 6.2 x 4.5 cm Left Kidney: 12.6 x 5.1 x 5.1 cm Pancreas: No gross abnormality. Liver: No focal lesion seen. Gallbladder: surgically absent Evidence for sonographic [place]'s sign: no CBD: wnl Spleen: wnl Right Kidney: Parapelvic cysts are noted measuring up to 1.7 cm. No renal calculi is observed today b y US. Left Kidney: Parapelvic cyst measuring up to 1.6 cm are demonstrated. No hydronephrosis. Upper IVC: wnl Abd Aorta: size is wnl; irregular intimal wall thickening noted mid and distally suggesting atherosc lerotic change. Bowel is seen in RLQ at area of pain. IMPRESSION: 1. Status post cholecystectomy. Bilateral renal parapelvic cyst. No biliary ductal dilatation. 2. Scanning along the right lower quadrant site of patient's pain shows scattered bowel.
== END ==
LOC: RADUSWWP 09:41
PROVIDERS: ATTEND Family Medicine
DX: R10.31 Right lower quadrant pain (principal); Z90.49 Acquired absence of other specified parts of digestive tract
CPT/HCPCS: 76700

== ENCOUNTER 2019-01-19 15:31 | Emergency (ER) | payer MEDICARE ==
[2019-01-19 15:39] VITALS: BP 150/71; PULSE 74; RESP 18; TEMP 97.8
--- NOTE | 2019-01-19 15:51 | ED ---
Upper Extremity HPI - General Source: patient, family Mode of arrival: wheelchair Limitations: no limitations <Chantell Sheridan - Last Filed: 01/19/19 21:18> <Andrea Carroll - Last Filed: 01/20/19 19:23> - General Chief Complaint: Extremity Injury, Upper Stated Complaint: LEFT ARM SWELLING Time Seen by Provider: 01/19/19 15:41 - History of Present Illness Initial Comments: 79-year-old female patient presents to the emergency department today for evaluation of pain and swelling to the left elbow. Patient states that she's been having pain to the area for the last week however started to have swelling 2 days ago. Patient denies any redness, fever, or chills with this. Patient denies any known injury but states she has been using her left arm more since she had surgery 4 weeks ago. States that she's been using it to pull herself in and out of bed. States she also lays on that side. Denies any numbness or tingling to the arm. Denies history of DVT. Does not take any blood thinning medications. States her IV was in the other arm for her procedure. Patient denies any recent rash, shortness breath, chest pain, abdominal pain, nausea, vomiting, diarrhea, constipation, back pain, numbness, tingling, dizziness, weakness, hematuria, dysuria, urinary urgency, urinary frequency, headache, visual changes, or any other complaints. (Chantell Sheridan) - Related Data Home Medications Medication Instructions Recorded Confirmed Atorvastatin [Lipitor] 40 mg PO HS 10/16/13 05/01/18 Levothyroxine Sodium [Synthroid] 137 mcg PO DAILY 11/10/16 05/01/18 Zolpidem [Ambien] 10 mg PO HS PRN 11/10/16 05/01/18 Albuterol Sulfate [Proair Hfa] 2 puff INHALATION RT-Q4H PRN 09/19/17 05/01/18 FLUoxetine HCL [PROzac] 40 mg PO BID 09/19/17 05/01/18 clonazePAM [KlonoPIN] 0.5 mg PO HS 09/19/17 05/01/18 FLUoxetine HCL 20 mg PO HS 03/13/18 03/13/18 Previous Rx's Medication Instructions Recorded Valproic Acid (As Sodium Salt) 500 mg PO BID #100 ml 09/20/17 [Depakene Syrup] Allergies Allergy/AdvReac Type Severity Reaction Status Date / Time trazodone Allergy PSYCHOSIS Verified 01/19/19 15:35 budesonide [From Symbicort] AdvReac Unknown Verified 01/19/19 15:35 codeine AdvReac angry/mad Verified 01/19/19 15:35 formoterol [From Symbicort] AdvReac Chest Pain Verified 01/19/19 15:35 Review of Systems ROS Other: All systems not noted in ROS Statement are negative. <Chantell Sheridan - Last Filed: 01/19/19 21:18> ROS Other: All systems not noted in ROS Statement are negative. <Andrea Carroll - Last Filed: 01/20/19 19:23> ROS Statement: Those systems with pertinent positive or pertinent negative responses have been documented in the HPI. Past Medical History Past Medical History: Cancer, COPD, Diabetes Mellitus, GERD/Reflux, Hyperlipidemia, Thyroid Disorder Additional Past Medical History / Comment(s): tremors, type 2 DM, osteoporosis left leg, hypothyroid, IBS, right breast CA with radiation, chemo, partial mastectomy, bilat catarcts removal, insomnia. History of Any Multi-Drug Resistant Organisms: None Reported Past Surgical History: Breast Surgery, Cholecystectomy, Hysterectomy Additional Past Surgical History / Comment(s): bladder suspension Past Anesthesia/Blood Transfusion Reactions: No Reported Reaction Past Psychological History: Anxiety, Depression, Panic Disorder Smoking Status: Never smoker Past Alcohol Use History: None Reported Past Drug Use History: None Reported <Chantell Sheridan - Last Filed: 01/19/19 21:18> General Exam Limitations: no limitations General appearance: alert, in no apparent distress, other (Is a well-developed, well-nourished elderly female patient in no acute distress. Vital signs upon presentation are temperature 97.8F, pulse 74, respirations 18, blood pressure 150/71, pulse ox 95% on room air.) Respiratory exam: Present: normal lung sounds bilaterally. Absent: respiratory distress, wheezes, rales, rhonchi, stridor Cardiovascular Exam: Present: regular rate, normal rhythm, normal heart sounds. Absent: systolic murmur, diastolic murmur, rubs, gallop, clicks Extremities exam: Present: full ROM, normal capillary refill, other (Swelling over the left elbow. Skin is pink, warm, and dry. Cap refills less than 3 seconds. Radial pulses are 2+ and equal bilaterally.). Absent: tenderness, pedal edema, joint swelling, calf tenderness Neurological exam: Present: alert, oriented X3, CN II-XII intact Psychiatric exam: Present: normal affect, normal mood Skin exam: Present: warm, dry, intact, normal color. Absent: rash <Chantell Sheridan - Last Filed: 01/19/19 21:18> Course <Andrea Carroll - Last Filed: 01/20/19 19:23> Vital Signs 01/19/19 15:35 Temperature 97.8 F Pulse Rate 74 Respiratory 18 Rate Blood Pressure 150/71 O2 Sat by Pulse 95 Oximetry - Reevaluation(s) Reevaluation #1: 01/20/19 19:23 And P supervision: I personally did evaluate this case patient did present with complaints of left elbow pain. She's been using her left upper extremity to pull himself out of bed and putting more strain of the usual. Evaluation is negative for acute fractures. Patient will be discharged to follow-up with her doctor. I do agree with the assessment and plan (Andrea Carroll) Medical Decision Making - Radiology Data Radiology results: report reviewed, image reviewed <Chantell Sheridan - Last Filed: 01/19/19 21:18> - Medical Decision Making 79-year-old female patient presents to the emergency department today for evaluation of left elbow pain and swelling. Physical examination did reveal swelling distal to the left elbow and the upper forearm. No erythema or bursal swelling or tenderness noted. Neurovascular status intact. X-ray was obtained and showed no acute abnormality. Ultrasound of the upper extremity was obtained and showed no evidence for DVT. We did discuss strain as a cause for her symptoms. She was placed in an Aj wrap. She is instructed take Tylenol Motrin for pain control. She is instructed to follow-up with her primary care physician for recheck in 1-2 days. Return parameters discussed in detail. She verbalizes understanding and agrees with this plan. (Chantell Sheridan) - Radiology Data Ultrasound of the left upper extremity was obtained. Report was reviewed in its entirety. Impression by Dr. Ramon shows no ultrasound evidence for acute deep or superficial venous thrombosis in the left upper extremity. 3 views of the left elbow are obtained. Report was reviewed in its entirety. Impression by Dr. Ramon shows no acute fracture./Dislocation evident in the left elbow. No abnormal fat pad signs are seen. (Chantell Sheridan) Disposition Is patient prescribed a controlled substance at d/c from ED?: No Time of Disposition: 17:34 <Chantell Sheridan - Last Filed: 01/19/19 21:18> <Andrea Carroll - Last Filed: 01/20/19 19:23> Clinical Impression: Strain of left elbow Disposition: HOME SELF-CARE Condition: Good Instructions (If sedation given, give patient instructions): Elbow Sprain (ED) Additional Instructions: Wear Aj wrap for comfort and support. Continue Tylenol Motrin for pain control. Follow-up through primary care physician for recheck in 1-2 days. Return to the emergency department immediately for any new, worsening, or concerning symptoms. Referrals: Tammi Rosenberg III, MD [Primary Care Provider] - 1-2 days
--- NOTE | 2019-01-19 16:21 | XR ---
EXAMINATION TYPE: XR elbow complete LT DATE OF EXAM: 01/19/2019 CLINICAL HISTORY: Pain. TECHNIQUE: Frontal, lateral and oblique images of the left elbow are obtained. COMPARISON: None FINDINGS: There is no acute fracture/dislocation evident in the left elbow. No abnormal fat pad sig ns are seen. Overlying blanket material is thought present. IMPRESSION: As above.
--- NOTE | 2019-01-19 17:10 | US ---
EXAMINATION TYPE: US venous doppler duplex UE LT DATE OF EXAM: 01/19/2019 COMPARISON: NONE CLINICAL HISTORY: Pain/swelling. SIDE PERFORMED: Left upper extremity. Left Arm: Negative for DVT Grayscale, color doppler, spectral doppler imaging performed of the deep veins of the left upper extr emity. There is normal flow, compressibility, and vascular waveforms. IMPRESSION: No ultrasound evidence for acute deep or superficial venous thrombosis in the left upper extremity.
== END 2019-01-19 17:40 | disposition home or self-care (01) ==
LOC: EC 15:31
DX: S56.912A Strain of unspecified muscles, fascia and tendons at forearm level, left arm, initial encounter (principal); J44.9 Chronic obstructive pulmonary disease, unspecified; E78.5 Hyperlipidemia, unspecified; E03.9 Hypothyroidism, unspecified; F32.9 Major depressive disorder, single episode, unspecified; F41.0 Panic disorder [episodic paroxysmal anxiety]; Z88.5 Allergy status to narcotic agent; Z88.8 Allergy status to other drugs, medicaments and biological substances; Z79.890 Hormone replacement therapy; Z79.899 Other long term (current) drug therapy; Z85.3 Personal history of malignant neoplasm of breast; Z92.21 Personal history of antineoplastic chemotherapy; Z92.3 Personal history of irradiation; Z90.11 Acquired absence of right breast and nipple; X50.9XXA Other and unspecified overexertion or strenuous movements or postures, initial encounter; Y93.89 Activity, other specified
CPT/HCPCS: 99284

== ENCOUNTER 2019-09-04 23:07 | Emergency (ER) | payer MEDICARE ==
[2019-09-04 23:17] VITALS: BP 188/82; PULSE 78; RESP 16; TEMP 97.4
--- NOTE | 2019-09-04 23:41 | XR ---
EXAMINATION TYPE: XR wrist complete RT DATE OF EXAM: 09/04/2019 COMPARISON: NONE HISTORY: Fall. Pain. TECHNIQUE: 4 views FINDINGS: There is impacted comminuted transverse fracture distal radial metaphysis. Fracture is 1 cm from the wrist joint. There is mild impaction. There is no dislocation. Scaphoid is intact. Carpal b ones appear intact. There is some osteoarthritis at the first carpometacarpal joint. There is possibl e small chip fracture of the ulnar styloid process. IMPRESSION: Impacted acute comminuted distal radius fracture without significant overall displacement .
--- NOTE | 2019-09-04 23:44 | ED ---
Fall HPI - General Chief Complaint: Fall Stated Complaint: Fall Time Seen by Provider: 09/04/19 23:16 Source: patient Mode of arrival: wheelchair - History of Present Illness Initial Comments: Radha is a pleasant 79-year-old female who presents to ER today for right wrist pain. Patient reports she was bending over to pick something up when she lost her balance falling forward onto an outstretched right hand. She immediately felt pain in her right wrist and noted some swelling. He did not lose consciousness she denies other injuries. - Related Data Home Medications Medication Instructions Recorded Confirmed Atorvastatin [Lipitor] 40 mg PO HS 10/16/13 05/01/18 Levothyroxine Sodium [Synthroid] 137 mcg PO DAILY 11/10/16 05/01/18 Zolpidem [Ambien] 10 mg PO HS PRN 11/10/16 05/01/18 Albuterol Sulfate [Proair Hfa] 2 puff INHALATION RT-Q4H PRN 09/19/17 05/01/18 FLUoxetine HCL [PROzac] 40 mg PO BID 09/19/17 05/01/18 clonazePAM [KlonoPIN] 0.5 mg PO HS 09/19/17 05/01/18 FLUoxetine HCL 20 mg PO HS 03/13/18 03/13/18 Previous Rx's Medication Instructions Recorded Valproic Acid (As Sodium Salt) 500 mg PO BID #100 ml 09/20/17 [Depakene Syrup] Allergies Allergy/AdvReac Type Severity Reaction Status Date / Time trazodone Allergy PSYCHOSIS Verified 09/04/19 23:17 budesonide [From Symbicort] AdvReac Unknown Verified 09/04/19 23:17 codeine AdvReac angry/mad Verified 09/04/19 23:17 formoterol [From Symbicort] AdvReac Chest Pain Verified 09/04/19 23:17 Review of Systems ROS Statement: Those systems with pertinent positive or pertinent negative responses have been documented in the HPI. ROS Other: All systems not noted in ROS Statement are negative. Past Medical History Past Medical History: Cancer, COPD, Diabetes Mellitus, GERD/Reflux, Hyperlipidemia, Thyroid Disorder Additional Past Medical History / Comment(s): tremors, type 2 DM, osteoporosis left leg, hypothyroid, IBS, right breast CA with radiation, chemo, partial mastectomy, bilat catarcts removal, insomnia. History of Any Multi-Drug Resistant Organisms: None Reported Past Surgical History: Breast Surgery, Cholecystectomy, Hysterectomy Additional Past Surgical History / Comment(s): bladder suspension Past Anesthesia/Blood Transfusion Reactions: No Reported Reaction Past Psychological History: Anxiety, Depression, Panic Disorder Past Alcohol Use History: None Reported Past Drug Use History: None Reported General Exam - General Exam Comments Initial Comments: Physical Exam GENERAL: Patient is well-developed and well-nourished. Patient is nontoxic and well-hydrated and is in no distress. HENT: Normocephalic, Atraumatic. EYES: PERRL, EOMI PULMONARY: Unlabored respirations. CARDIOVASCULAR: RRR Warm and well perfused extremities ABDOMEN: Non-distended SKIN: No rashes or bruising : Deferred NEUROLOGIC: Alert and oriented Normal speech Normal gait MUSCULOSKELETAL: Deformity of the right wrist, pain to palpation, ROM limited by pain PSYCHIATRIC: No SI/HI Limitations: no limitations Course Vital Signs 09/04/19 23:15 Temperature 97.4 F L Pulse Rate 78 Respiratory 16 Rate Blood Pressure 188/82 O2 Sat by Pulse 98 Oximetry Medical Decision Making - Medical Decision Making Patient seen and evaluated history obtained from patient is an 79-year-old female with an isolated right wrist fracture after a mechanical fall on outstretched hand x-ray confirms an impacted distal radius fracture possible ulnar styloid fracture Patient's neurovascularly intact motion of the wrist is limited by pain but she has normal sensation and range of motion of fingers Patient was placed in a sugar tong splint remained neurovascularly intact after spotting She was given a sling for comfort Patient be discharged home advised to continue taking Motrin or Tylenol at home. Follow-up with orthopedics in next week for casting Disposition Clinical Impression: Closed fracture distal radius and ulna Disposition: HOME SELF-CARE Condition: Stable Instructions (If sedation given, give patient instructions): Splint Care (ED) Is patient prescribed a controlled substance at d/c from ED?: No Referrals: Tammi Rosenberg III, MD [Primary Care Provider] - 1-2 days [facility] [Provider Group] - 1-2 days [facility] [Provider Group] - 1-2 days
== END 2019-09-05 00:12 | disposition home or self-care (01) ==
LOC: EC 23:07
DX: S52.591A Other fractures of lower end of right radius, initial encounter for closed fracture (principal); S52.614A Nondisplaced fracture of right ulna styloid process, initial encounter for closed fracture; E78.5 Hyperlipidemia, unspecified; E07.9 Disorder of thyroid, unspecified; G47.00 Insomnia, unspecified; F41.9 Anxiety disorder, unspecified; F32.9 Major depressive disorder, single episode, unspecified; F41.0 Panic disorder [episodic paroxysmal anxiety]; J44.9 Chronic obstructive pulmonary disease, unspecified; Z79.890 Hormone replacement therapy; Z79.899 Other long term (current) drug therapy; Z85.3 Personal history of malignant neoplasm of breast; Z90.11 Acquired absence of right breast and nipple; Z98.42 Cataract extraction status, left eye; Z98.41 Cataract extraction status, right eye; Z92.3 Personal history of irradiation; Z92.21 Personal history of antineoplastic chemotherapy; Z88.5 Allergy status to narcotic agent; Z88.6 Allergy status to analgesic agent; Z88.8 Allergy status to other drugs, medicaments and biological substances; W01.0XXA Fall on same level from slipping, tripping and stumbling without subsequent striking against object, initial encounter
CPT/HCPCS: 29125; 99283

== ENCOUNTER → 2019-12-30 | Outpatient (CLI) | payer MEDICARE ==
[~2019-12-30] MED LIST: REGADENOSON 0.4 MG/5 ML SYRINGE IV ONE
--- NOTE | 2019-12-30 11:23 | NM ---
EXAMINATION TYPE: NM stress lexiscan cardiolite DATE OF EXAM: 12/30/2019 COMPARISON: NONE HISTORY: History of diabetes and hypercholesterolemia along with COPD presents with chest pain TECHNIQUE: After the intravenous administration of 9.93 mCi Tc 99m Sestamibi - Cardiolite resting SP ECT images acquired 45 minutes post injection. The patient received 0.4mg Lexiscan, 26.2 mCi Tc 99m Sestamibi - Stress images obtained [address] injection FINDINGS: Review of stress and rest SPECT images demonstrates no distinct perfusion abnormality. Gated analysi s shows normal wall motion with an estimated left ventricular ejection fraction of 64 %. IMPRESSION: No scintigraphic evidence for reversible ischemia.
--- NOTE | 2019-12-30 15:46 | P.STRESS ---
- Stress Test Note Stress Test Results/Findings: Exam Performed: NM stress lexiscan cardiolite Exam Date: 12/30/19 Reason for Exam: CHEST PAIN Height: 5 ft 6 in Weight: 81.2 kg Protocol: LEXISCAN Stage: N/A Duration of Exercise: 6 MINUTES Resting Heart Rate: 74 Resting Blood Pressure: 155/78 Maximum Achieved Heart Rate: 104 Maximum Achieved Blood Pressure: 170/68 85% PMHR: 121 100% PMHR: 142 METS: N/A Technologist Comment: Stress Test Results/Findings: Baseline heart rate 74 beats a minute, Baseline blood pressure 155/78 mmHg Baseline 12-lead ECG shows sinus rhythm with nonspecific ST segment abnormalities inferolaterally Patient received Lexiscan infusion per protocol Change in heart rate and blood pressure No definite ECG was for ischemia, no arrhythmias Nuclear portion will be reported separately
== END | disposition home or self-care (01) ==
LOC: RADNMMAIN 08:03
PROVIDERS: ATTEND Family Medicine
DX: R94.31 Abnormal electrocardiogram [ECG] [EKG] (principal); I50.32 Chronic diastolic (congestive) heart failure; R07.9 Chest pain, unspecified; Z88.5 Allergy status to narcotic agent; Z88.8 Allergy status to other drugs, medicaments and biological substances
CPT/HCPCS: 93017; 78452; A9500; J2785

== ENCOUNTER 2020-02-13 22:17 | Emergency (ER) | payer MEDICARE ==
[2020-02-13 22:25] VITALS: RESP 18; TEMP 98.4
--- NOTE | 2020-02-13 22:46 | ED ---
Fall HPI - General Chief Complaint: Fall Stated Complaint: Fall Time Seen by Provider: 02/13/20 22:40 Source: patient, EMS, RN notes reviewed, old records reviewed Mode of arrival: EMS Limitations: no limitations - History of Present Illness Initial Comments: This is a 80-year-old female DF for evaluation patient presents to the ER status post fall. Patient is complaining of right shoulder pain. Patient's brought in by EMS did administer pain control. Patient denies any significant current pain. No loss of consciousness no head or back pain no head and neck pain no hip pain able ambulate without difficulty MD Complaint: fall -: hour(s) Fall From: standing When Fall Occurred: 1 hour [employer] Fall Witnessed: no Place Fall Occurred: home Loss of Consciousness: none Prolonged Down Time?: no Symptoms Prior to Fall: none Location - Extremities: Right: Shoulder Severity: moderate Severity scale (1-10): 4 Quality: sharp Context: tripped/slipped Associated Symptoms: denies - Related Data Home Medications Medication Instructions Recorded Confirmed Atorvastatin [Lipitor] 40 mg PO HS 10/16/13 05/01/18 Levothyroxine Sodium [Synthroid] 137 mcg PO DAILY 11/10/16 05/01/18 Zolpidem [Ambien] 10 mg PO HS PRN 11/10/16 05/01/18 Albuterol Sulfate [Proair Hfa] 2 puff INHALATION RT-Q4H PRN 09/19/17 05/01/18 FLUoxetine HCL [PROzac] 40 mg PO BID 09/19/17 05/01/18 clonazePAM [KlonoPIN] 0.5 mg PO HS 09/19/17 05/01/18 FLUoxetine HCL 20 mg PO HS 03/13/18 03/13/18 Previous Rx's Medication Instructions Recorded Valproic Acid (As Sodium Salt) 500 mg PO BID #100 ml 09/20/17 [Depakene Syrup] Allergies Allergy/AdvReac Type Severity Reaction Status Date / Time trazodone Allergy PSYCHOSIS Verified 02/13/20 22:25 budesonide [From Symbicort] AdvReac Unknown Verified 02/13/20 22:25 codeine AdvReac angry/mad Verified 02/13/20 22:25 formoterol [From Symbicort] AdvReac Chest Pain Verified 02/13/20 22:25 Review of Systems ROS Statement: Those systems with pertinent positive or pertinent negative responses have been documented in the HPI. ROS Other: All systems not noted in ROS Statement are negative. Past Medical History Past Medical History: Cancer, COPD, Diabetes Mellitus, GERD/Reflux, Hyperlipidemia, Thyroid Disorder Additional Past Medical History / Comment(s): tremors, type 2 DM, osteoporosis left leg, hypothyroid, IBS, right breast CA with radiation, chemo, partial mastectomy, bilat catarcts removal, insomnia. History of Any Multi-Drug Resistant Organisms: None Reported Past Surgical History: Breast Surgery, Cholecystectomy, Hysterectomy Additional Past Surgical History / Comment(s): bladder suspension Past Anesthesia/Blood Transfusion Reactions: No Reported Reaction Past Psychological History: Anxiety, Depression, Panic Disorder Smoking Status: Former smoker Past Alcohol Use History: None Reported Past Drug Use History: None Reported General Exam - General Exam Comments Initial Comments: Right shoulder pain, no neurovascular abnormalities, positive deformity of the humerus General appearance: alert, in no apparent distress Head exam: Present: atraumatic, normocephalic, normal inspection Eye exam: Present: normal appearance, PERRL, EOMI. Absent: scleral icterus, conjunctival injection, periorbital swelling ENT exam: Present: normal exam, mucous membranes moist Neck exam: Present: normal inspection. Absent: tenderness, meningismus, lymphadenopathy Respiratory exam: Present: normal lung sounds bilaterally. Absent: respiratory distress, wheezes, rales, rhonchi, stridor Cardiovascular Exam: Present: regular rate, normal rhythm, normal heart sounds. Absent: systolic murmur, diastolic murmur, rubs, gallop, clicks GI/Abdominal exam: Present: soft, normal bowel sounds. Absent: distended, tenderness, guarding, rebound, rigid Extremities exam: Present: normal inspection, full ROM, normal capillary refill. Absent: tenderness, pedal edema, joint swelling, calf tenderness Back exam: Present: normal inspection Neurological exam: Present: alert, oriented X3, CN II-XII intact Psychiatric exam: Present: normal affect, normal mood Skin exam: Present: warm, dry, intact, normal color. Absent: rash Course Vital Signs 02/13/20 22:21 Temperature 98.4 F Pulse Rate 77 Respiratory 18 Rate Blood Pressure 139/93 - Reevaluation(s) Reevaluation #1: 02/13/20 23:46 Medical records reviewed Reevaluation #2: 02/13/20 23:46 Patient family spoke with, given results, questions answered Procedures - Orthopedic Splinting/Casting Injury #1 Side: right Upper Extremity Injury Location: shoulder Upper Extremity Immobilizer: sling/shoulder immobilizer Medical Decision Making - Medical Decision Making 71 female status post trip and fall, patient does have right humerus fracture which is placed in sling. Patient can be discharged home - Radiology Data Radiology results: report reviewed (Chest x-ray x-ray of right shoulder and right humerus show positive right humerus fracture), image reviewed Disposition Clinical Impression: Fall, Right humeral fracture Disposition: HOME SELF-CARE Condition: Good Instructions (If sedation given, give patient instructions): Fall Prevention for Older Adults (ED), Proximal Humerus Fracture (ED) Is patient prescribed a controlled substance at d/c from ED?: No Referrals: Tammi Rosenberg III, MD [Primary Care Provider] - 1-2 days
--- NOTE | 2020-02-13 23:38 | XR ---
EXAM: XR Chest, 1 View CLINICAL HISTORY: ITS.REASON XR Reason: fall TECHNIQUE: Frontal view of the chest. COMPARISON: No previous studies. FINDINGS: Lungs: Unremarkable. No consolidation. Pleural space: Unremarkable. No pneumothorax. Heart: Cardiomegaly. Mediastinum: Unremarkable. Bones/joints: Osteopenia. Soft tissues: Soft tissues are unremarkable. Other findings: Mild hypoaeration. IMPRESSION: 1. Cardiomegaly. 2. Osteopenia.
--- NOTE | 2020-02-13 23:39 | XR ---
EXAM: XR Right Humerus, 2 or More Views CLINICAL HISTORY: ITS.REASON XR Reason: fall TECHNIQUE: Frontal and lateral views of the right humerus. COMPARISON: No previous study. FINDINGS: Bones/joints: Acute spiral fracture of the mid to distal diaphysis of the right humerus. There is anterior medial angulation of the fracture site. Mild to moderate osteoarthritic changes about the right shoulder joint. Mild to moderate osteoarthritic changes about the right sacroiliac joints. Ribs are unremarkable. No dislocation. Soft tissues: Unremarkable. IMPRESSION: 1. Acute fracture of the mid to distal right humerus. 2. Osteopenia.
--- NOTE | 2020-02-13 23:41 | XR ---
EXAM: XR Right Shoulder Complete, 2 or More Views CLINICAL HISTORY: ITS.REASON XR Reason: fall TECHNIQUE: Two or more views of the right shoulder. COMPARISON: No previous studies. FINDINGS: Bones/joints: Mild hypertrophic changes right acromial clavicular joint. Mild to moderate osteoarthritic changes about the right shoulder joint. Calcific tendinopathy of the right shoulder joint. Regional ribs and soft tissues are unremarkable. Osteopenia. No acute fracture. No dislocation. Soft tissues: See above. IMPRESSION: 1. Osteopenia. 2. Osteoarthritic and hypertrophic changes about the right shoulder joint. 3. Calcific tendinopathy of the right shoulder rotator cuff tendon. 4. Magnetic resonance imaging of the right shoulder joint is advised to follow-up for further assessment.
[2020-02-13 23:51] VITALS: BP 153/68; PULSE 78
== END 2020-02-14 00:14 | disposition home or self-care (01) ==
LOC: EC 22:17
DX: S42.491A Other displaced fracture of lower end of right humerus, initial encounter for closed fracture (principal); F41.9 Anxiety disorder, unspecified; F32.9 Major depressive disorder, single episode, unspecified; F41.0 Panic disorder [episodic paroxysmal anxiety]; J44.9 Chronic obstructive pulmonary disease, unspecified; E78.5 Hyperlipidemia, unspecified; E03.9 Hypothyroidism, unspecified; Z79.890 Hormone replacement therapy; Z79.899 Other long term (current) drug therapy; Z88.5 Allergy status to narcotic agent; Z88.8 Allergy status to other drugs, medicaments and biological substances; Z85.3 Personal history of malignant neoplasm of breast; Z90.11 Acquired absence of right breast and nipple; Z98.42 Cataract extraction status, left eye; Z98.41 Cataract extraction status, right eye; Z92.21 Personal history of antineoplastic chemotherapy; Z92.3 Personal history of irradiation; Z87.891 Personal history of nicotine dependence; Z90.49 Acquired absence of other specified parts of digestive tract; Z90.710 Acquired absence of both cervix and uterus; W18.30XA Fall on same level, unspecified, initial encounter; Y92.009 Unspecified place in unspecified non-institutional (private) residence as the place of occurrence of the external cause
CPT/HCPCS: 71045; 99284

== ENCOUNTER 2022-05-09 20:24 | Inpatient (IN) | payer MEDICARE ==
--- NOTE | 2022-05-09 21:11 | ED ---
Recheck HPI - General Chief Complaint: Recheck/Abnormal Lab/Rx Stated Complaint: Abn Labs,Sent by Dr Emerson Time Seen by Provider: 05/09/22 20:44 Source: patient, family Mode of arrival: wheelchair - History of Present Illness Initial Comments: This 82-year-old female presents for hyperkalemia. She apparently just was discharged from the rehabilitation facility today. She has been there for the past several weeks after admission for atrial fibrillation. She had laboratory drawn and her doctor called and told them to come directly to the emergency department as her potassium was 6.6. She overall has been doing well. She is asymptomatic currently. There is no fevers, chills, chest pain, or shortness of breath. No other complaints or modifying factors. The relates that she just recently had COVID while at the rehabilitation facility and is still finishing up medications and that regard. She has had occasional slight cough. She states that she feels very anxious upon arrival and states that they put her on Xanax which doesn't work as well as her normal Klonopin. She is requesting Klonopin. - Related Data Home Medications Medication Instructions Recorded Confirmed Atorvastatin [Lipitor] 40 mg PO HS 10/16/13 04/18/22 Levothyroxine Sodium [Synthroid] 137 mcg PO MOTUWETHFRSA 11/10/16 04/18/22 Albuterol Sulfate [Proair Hfa] 2 puff INHALATION RT-Q4H PRN 09/19/17 04/18/22 FLUoxetine HCL [PROzac] 40 mg PO DAILY 09/19/17 04/18/22 Glimepiride [Amaryl] 2 mg PO AC-BRKFST 12/02/20 04/18/22 Omeprazole 20 mg PO AC-LUNCH 12/02/20 04/18/22 sitaGLIPtin [Januvia] 100 mg PO DAILY 12/02/20 04/18/22 Divalproex Sodium [Divalproex 500 mg PO BID 04/18/22 04/18/22 Sodium ER] Fluticasone Nasal [place] [Flonase 1 spray EA NOSTRIL BID 04/18/22 04/18/22 Nasal [place]] Levothyroxine Sodium 68.5 mcg PO PETERS 04/18/22 04/18/22 Olmesartan [Benicar] 5 mg PO DAILY 04/18/22 04/18/22 metFORMIN HCL 1,000 mg PO BID 04/18/22 04/18/22 Previous Rx's Medication Instructions Recorded Acetaminophen Tab [Tylenol] 650 mg PO Q6HR PRN tab 04/20/22 Apixaban [Eliquis] 2.5 mg PO BID #60 tab 04/20/22 Furosemide [Lasix] 40 mg PO DAILY tab 04/20/22 INSULIN ASPART (NovoLOG) [NovoLOG 0 unit SQ ACHS each 04/20/22 (formulary)] Metoprolol Succinate (ER) [Toprol 100 mg PO DAILY tab 04/20/22 XL] clonazePAM [KlonoPIN] 0.5 mg PO Q12H PRN #4 tab 04/20/22 Allergies Allergy/AdvReac Type Severity Reaction Status Date / Time trazodone Allergy PSYCHOSIS Verified 05/09/22 20:34 budesonide [From Symbicort] AdvReac Unknown Verified 05/09/22 20:34 codeine AdvReac angry/mad Verified 05/09/22 20:34 fluticasone furoate AdvReac tachycardia Verified 05/09/22 20:34 [From Trelegy Ellipta] formoterol [From Symbicort] AdvReac Chest Pain Verified 05/09/22 20:34 mirabegron [From Myrbetriq] AdvReac "didn't Verified 05/09/22 20:34 work" tiotropium AdvReac "felt Verified 05/09/22 20:34 [From Spiriva with wirey" HandiHaler] umeclidinium AdvReac tachycardia Verified 05/09/22 20:34 [From Trelegy Ellipta] vilanterol AdvReac tachycardia Verified 05/09/22 20:34 [From Trelegy Ellipta] Review of Systems ROS Statement: Those systems with pertinent positive or pertinent negative responses have been documented in the HPI. ROS Other: All systems not noted in ROS Statement are negative. Past Medical History Past Medical History: Cancer, COPD, Diabetes Mellitus, GERD/Reflux, Hyperlipidem ia, Seizure Disorder, Thyroid Disorder Additional Past Medical History / Comment(s): tremors, type 2 DM, osteoporosis left leg, hypothyroid, IBS, right breast CA with radiation, chemo, partial rt mastectomy with lymph nodes , bilat catarcts removal, insomnia, kidney stones, frontal lobe seizure- last siezure 30 years ago. History of Any Multi-Drug Resistant Organisms: None Reported Past Surgical History: Bladder Surgery, Breast Surgery, Cholecystectomy, Hysterectomy Additional Past Surgical History / Comment(s): bladder suspension Past Anesthesia/Blood Transfusion Reactions: No Reported Reaction Past Psychological History: Anxiety, Depression, Panic Disorder Smoking Status: Former smoker Past Alcohol Use History: None Reported Past Drug Use History: None Reported - Past Family History Brother(s) Additional Family Medical History / Comment(s): crohns General Exam - General Exam Comments Initial Comments: GENERAL: The patient is well nourished and well hydrated. VITAL SIGNS: Heart rate, blood pressure, respiratory rate reviewed as recorded in nurse's notes. EYES: Pupils are round and reactive. Extraocular movements are intact. No con junctival / lid redness or swelling. ENT: No external evidence of injury, swelling, or ecchymosis. Airway is patent. Throat is clear. NECK: Nontender. No swelling or evidence of injury. No subcutaneous emphysema. Trachea is midline. No thyroid mass. HEART: Regular rate and rhythm. Good peripheral pulses. LUNGS/CHEST: Breath sounds clear and equal bilaterally. No rales, rhonchi, or wheezes. No ecchymosis, subcutaneous emphysema, or tenderness. ABDOMEN: Abdomen soft without tenderness. No palpable masses or organomegaly. No peritoneal signs. No abdominal wall swelling or ecchymosis. EXTREMITIES: No extremity tenderness. Normal muscle tone and function. No thoracolumbar tenderness. NEUROLOGIC: Sensation is grossly intact. Cranial nerve exam reveals face is symmetrical, tongue is midline, speech is clear. SKIN: No abrasions or ecchymosis is noted. No induration or masses noted. PSYCHIATRIC: Alert and oriented. Appropriate behavior and judgment. Course Vital Signs 05/09/22 20:30 Temperature 97.5 F L Pulse Rate 131 H Respiratory 24 Rate Blood Pressure 136/89 O2 Sat by Pulse 98 Oximetry Medical Decision Making - Medical Decision Making Was pt. sent in by a medical professional or institution (, PA, WOOD WEB WEAVING MACHINE OPERATOR, urgent care, hospital, or [place] [facility] care facility...) When possible be specific @ -The patient apparently talked to primary care and they told him to come to the emergency department for further treatment. Did you speak to anyone other than the patient for history (EMS, parent, family, police, friend...)? What history was obtained from this source @ - is present and does give additional history. Did you review nursing and triage notes (agree or disagree)? Why? @ -I reviewed and agree with nursing and triage notes Were old charts reviewed (outside hosp., previous admission, EMS record, old EKG, old radiological studies, urgent care reports/EKG's, [place] [facility] facility records)? Report findings @ -Old records were reviewed and it appears as though patient was just admitted here on April 20 with atrial fibrillation with rapid ventricular response. Differential Diagnosis (chest pain, altered mental status, abdominal pain women, abdominal pain men, vaginal bleeding, weakness, fever, dyspnea, syncope, headache, dizziness, GI bleed, back pain, seizure, CVA, palpatations, mental health, musculoskeletal)? @ -Atrial fibrillation with rapid ventricular response, recent coronavirus, hyperkalemia, anxiety EKG interpreted by me (3pts min.). @ -EKG is interpreted by myself and does show atrial fibrillation with rapid ventricular response at a heart rate of 106. There is nonspecific ST and T wave changes noted primarily in the lateral leads. Intervals do show a QRS duration of 79, and QTc interval of 395. X-rays interpreted by me (1pt min.). @ -X-rays interpreted by myself and this does show some pneumonia in the right upper lobe. Radiologist also agrees. They relate that this is similar slightly worse than the last exam. There is no evidence of heart failure. CT interpreted by me (1pt min.). @ -None done U/S interpreted by me (1pt. min.). @ -None done What testing was considered but not performed or refused? (CT, X-rays, U/S, labs)? Why? @ -None What meds were considered but not given or refused? Why? @ -Antibiotics were considered but it is felt as though they're not necessary at this time as the patient was just diagnosed with coronavirus at the rehabilitation facility and this is likely a viral pneumonia. Did you discuss the management of the patient with other professionals (professionals i.e. , PA, WOOD WEB WEAVING MACHINE OPERATOR, lab, RT, psych nurse, geriatric social work professor, digital circuit designer, teacher, learning officer, clinical case manager)? Give summary @ -Case is discussed with internal medicine advanced practice provider and they agree with admission. Was smoking cessation discussed for >3mins.? @ -No Was critical care preformed (if so, how long)? @ -35 minutes of critical care time was utilized and the treatment of the patient. Were there social determinants of health that impacted care today? How? (Homelessness, low income, unemployed, alcoholism, drug addiction, transportation, low edu. Level, literacy, decrease access to med. care, correction, rehab)? @ -No Was there de-escalation of care discussed even if they declined (Discuss DNR or withdrawal of care, Hospice)? DNR status @ -No What co-morbidities impacted this encounter? (DM, HTN, Smoking, COPD, CAD, Cancer, CVA, ARF, Chemo, Hep., AIDS, mental health diagnosis, sleep apnea, morb id obesity)? @ -Atrial fibrillation, anxiety, cancer Was patient admitted / discharged? Hospital course, mention meds given and route, prescriptions, significant lab abnormalities, going to OR and other pertinent info. @ -The patient was seen and examined. She was placed on the equipment monitor phototypesetting and this does show that her heart rate is going up to 125 or so regularly. It appears to be in a regular rhythm consistent with atrial fibrillation. Her EKG also shows atrial fibrillation with rapid ventricular response. She is placed on a Cardizem drip. The potassium came back significantly elevated at 7.2. She does receive bicarbonate, lokelma, insulin, and glucose. It is felt as though the patient would require admission for further treatment. Patient and are agreeable. She initially appears anxious but this resolves with giving her the Klonopin. Undiagnosed new problem with uncertain prognosis? @ -No Drug Therapy requiring intensive monitoring for toxicity (Heparin, Nitro, Insulin, Cardizem)? @ -No Were any procedures done? @ -No Diagnosis/symptom? @ -Hyperkalemia, atrial fibrillation with rapid ventricular response, pneumonia, coronavirus Acute, or Chronic, or Acute on Chronic? @ -Acute Uncomplicated (without systemic symptoms) or Complicated (systemic symptoms)? @ -Uncomplicated Side effects of treatment? @ -No Exacerbation, Progression, or Severe Exacerbation? @ -Exacerbation Poses a threat to life or bodily function? How? (Chest pain, [place], [place], pneumonia, PE, COPD, DKA, ARF, appy, cholecystitis, CVA, Diverticulitis, Homicidal, Suicidal, threat to staff... and all critical care pts) @ -The hyperkalemia does pose a threat to life. - Lab Data Result diagrams: 05/09/22 20:48 05/09/22 20:49 Lab Results 05/09/22 05/09/22 05/09/22 Range/Units 20:48 20:49 21:11 WBC 8.0 (3.8-10.6) k/uL RBC 4.07 (3.80-5.40) m/uL Hgb 11.9 (11.4-16.0) gm/dL Hct 37.6 (34.0-46.0) % MCV 92.4 (80.0-100.0) fL MCH 29.1 (25.0-35.0) pg MCHC 31.5 (31.0-37.0) g/dL RDW 15.9 H (11.5-15.5) % Plt Count 269 (150-450) k/uL MPV 8.9 Neutrophils % 65 % Lymphocytes % 21 % Monocytes % 10 % Eosinophils % 1 % Basophils % 0 % Neutrophils # 5.2 (1.3-7.7) k/uL Lymphocytes # 1.7 (1.0-4.8) k/uL Monocytes # 0.8 (0-1.0) k/uL Eosinophils # 0.1 (0-0.7) k/uL Basophils # 0.0 (0-0.2) k/uL Sodium 138 (137-145) mmol/L Potassium 7.2 H* (3.5-5.1) mmol/L Chloride 99 (98-107) mmol/L Carbon Dioxide 32 H (22-30) mmol/L Anion Gap 7 mmol/L BUN 45 H (7-17) mg/dL Creatinine 0.77 (0.52-1.04) mg/dL Est GFR (CKD-EPI)AfAm 84 (>60 ml/min/1.73 sqM) Est GFR (CKD-EPI)NonAf 73 (>60 ml/min/1.73 sqM) Glucose 207 H (74-99) mg/dL Calcium 9.3 (8.4-10.2) mg/dL Troponin I 0.014 (0.000-0.034) ng/mL Disposition Clinical Impression: Atrial fibrillation with rapid ventricular response, Hyperkalemia, Anxiety, History of COVID-19, Pneumonia due to COVID-19 virus Disposition: ADMITTED IP TO THIS HOSP Condition: Fair Is patient prescribed a controlled substance at d/c from ED?: No Referrals: Tammi Rosenberg III, MD [Primary Care Provider] - 1-2 days Time of Disposition: 22:06 Decision Date: 05/09/22 Decision Time: 22:06
[2022-05-09] MEDS ORDERED: clonazePAM 0.5 MG TAB PO STA (21:13)
[2022-05-09 21:32] LABS: Basophils % (A) 0 %; Eosinophils # (A) 0.1 k/uL (0-0.7); Eosinophils % (A) 1 %; HCT 37.6 % (34.0-46.0); HGB 11.9 gm/dL (11.4-16.0); Lymphocytes # (A) 1.7 k/uL (1.0-4.8); Lymphocytes % (A) 21 %; MCH 29.1 pg (25.0-35.0); MCHC 31.5 g/dL (31.0-37.0); MCV 92.4 fL (80.0-100.0); Mean Platelet Volume 8.9; Monocytes # (A) 0.8 k/uL (0-1.0); Monocytes % (A) 10 %; Neutrophils # (A) 5.2 k/uL (1.3-7.7); Neutrophils % (A) 65 %; Platelet Count 269 k/uL (150-450); RBC 4.07 m/uL (3.80-5.40); RDW 15.9 % (11.5-15.5)
[2022-05-09 21:37] LABS: Calcium 9.3 mg/dL (8.4-10.2)
[2022-05-09 21:41] LABS: Potassium 7.2 mmol/L (3.5-5.1)
[2022-05-09] MEDS ORDERED: DEXTROSE 50% SYRINGE 50 ML IVP ONE (21:47)
[2022-05-09] MEDS ORDERED: SODIUM BICARB 8.4% 50 ML SYR (1 MEQ/ML) IV ONE (21:47)
[2022-05-09] MEDS ORDERED: INSULIN REGULAR 100 UNIT/ML VIAL (IV) IV ONE (21:47)
[2022-05-09] MEDS ORDERED: SODIUM ZIRCONIUM CYCLOSILICATE 10 GM PACKET PO ONE (21:48)
--- NOTE | 2022-05-09 22:14 | XR ---
EXAMINATION TYPE: XR chest 1V portable DATE OF EXAM: 05/09/2022 COMPARISON: 04/18/2022 HISTORY: Short of breath TECHNIQUE: Single view FINDINGS: Heart is normal. There is some interstitial infiltrate right upper lobe. The other lung fie lds are fairly clear. There is slight coarsening of interstitial markings. There are chest leads. IMPRESSION: There is some pneumonia right upper lobe which is the same or slightly worse than last ex am. No heart failure.
[2022-05-09] MEDS ORDERED: DILTIAZEM 125 MG in SODIUM CHLORIDE 0.9% 100 ML IV SCH ×2 (22:15→22:45)
[2022-05-09 22:21] LABS: Glucose,Whole Blood 179 mg/dL (70-110)
[2022-05-09] MEDS ORDERED: MELATONIN 3 MG TABLET PO PRN (22:24)
[2022-05-09] MEDS ORDERED: ALBUTEROL NEBULIZED 2.5 MG/3 ML INHALATION PRN (22:24)
[2022-05-09] MEDS ORDERED: ZOLPIDEM 5 MG TAB PO PRN (22:24)
[2022-05-09] MEDS ORDERED: LEVOTHYROXINE 137 MCG TAB PO SCH (22:30)
[2022-05-10 05:30] LABS: African American GFR (CKD) >90 (>60 ml/min/1.73 sqM); Anion Gap 3 mmol/L; Blood Urea Nitrogen 40 mg/dL (7-17); Calcium 8.8 mg/dL (8.4-10.2); Carbon Dioxide 39 mmol/L (22-30); Chloride 98 mmol/L (98-107); Glucose 72 mg/dL (74-99); Non-African American GFR(CKD) 84 (>60 ml/min/1.73 sqM); Potassium 5.3 mmol/L (3.5-5.1); Sodium 140 mmol/L (137-145)
[2022-05-10 05:41] LABS: Glucose,Whole Blood 75 mg/dL (70-110)
[2022-05-10] MEDS: GLIMEPIRIDE 2 MG TAB PO SCH (06:41)
[2022-05-10] MEDS: LEVOTHYROXINE 137 MCG TAB PO SCH (06:41)
[2022-05-10] MEDS: DIVALPROEX ER 250 MG TAB.ER.24H PO SCH ×2 (08:48→20:19)
[2022-05-10] MEDS: LINAGLIPTIN 5 MG TABLET PO SCH (08:48)
[2022-05-10] MEDS: FUROSEMIDE 40 MG TAB PO SCH (08:48)
[2022-05-10] MEDS: ASCORBIC ACID 500 MG TAB PO SCH (08:48)
[2022-05-10] MEDS: CHOLECALCIFEROL 25 MCG (1000 IU) TABLET PO SCH (08:49)
[2022-05-10] MEDS: ZINC SULFATE 220 MG CAP PO SCH (08:49)
[2022-05-10] MEDS: metFORMIN 500 MG TAB PO SCH ×2 (08:49→20:18)
[2022-05-10] MEDS: METOPROLOL SUCCINATE (ER) 100 MG TAB.ER.24H PO SCH (08:49)
[2022-05-10] MEDS: APIXABAN 2.5 MG TABLET PO SCH ×2 (08:49→20:18)
[2022-05-10] MEDS: FLUoxetine HCL 20 MG CAP PO SCH (08:49)
[2022-05-10] MEDS: methylPREDNISolone SOD SUCCI 125 MG/2 ML VIAL IV SCH ×3 (08:50→20:19)
[2022-05-10] MEDS: FLUTICASONE 50MCG/SPRAY NASAL 16GM EA NOSTRIL SCH ×2 (08:50→20:19)
[2022-05-10] MEDS ORDERED: LOSARTAN 25 MG TAB PO SCH (09:00)
--- NOTE | 2022-05-10 11:32 | P.CRDCN ---
History of Present Illness Consult date: 05/10/22 History of present illness: HISTORY OF PRESENT ILLNESS: This is a 82-year-old female with a past medical history significant for atrial fibrillation, hypertension, hyperlipidemia, and diabetes, and COPD on home oxygen. Patient follows in the office with Dr. Plunkett. We have been asked to see the patient in consultation for afib with RVR. Patient examined at the bedside. Patient was called by her PCP and notified of abnormal blood work and told to come to the hospital. Patient was found to be hyperkalemic with a potassium of 7.2. Her repeat is 5.3. The patient was also found to be in atrial fibrillation with mild RVR. She was started on IV Cardizem. Patient's heart rates are well controlled this morning. According to ER documentation, the patient was recently diagnosed with Covid while at [facility]. * EKG reveals atrial fibrillation with a heart rate of 106 * Chest xray pneumonia right upper lobe is the same or slightly worse than last exam. No heart failure.. * Laboratory data: WBC 8.0. Hemoglobin 11.9. Platelet count 269. Sodium 140. Potassium 5.3. BUN 40. Creatinine 0.64. Troponin negative 3. * Current home cardiac medications include Eliquis 2.mg BID, Benicar 5mg daily, Lipitor 40 mg at night, Lasix 40 mg daily, metoprolol succinate 100 mg daily * Most recent echocardiogram obtained in March 2022 revealed ejection fr action 50%, [id number] mitral and tricuspid regurgitation. * Cardiac catheterization history: 2001 revealing no obstructive coronary artery disease REVIEW OF SYSTEMS: At the time of my exam: CONSTITUTIONAL: Denies fever or chills. HEENT: Denies blurred vision, vision changes, or eye pain. Denies hemoptysis CARDIOVASCULAR: Denies chest pain. Denies orthopnea. Denies PND. Denies palpitations RESPIRATORY: Denies shortness of breath. GASTROINTESTINAL: Denies abdominal pain. Denies nausea or vomiting. HEMATOLOGIC: Denies bleeding disorders. GENITOURINARY: Denies any blood in urine. SKIN: Denies pruitis. Denies rash. PHYSICAL EXAM: VITAL SIGNS: Reviewed. GENERAL: Well-developed in no acute distress. HEENT: Head is normocephalic. Pupils are equal, round. Sclerae anicteric. Mucous membranes of the mouth are moist. Neck supple. No JVD or thyromegaly LUNGS: Respirations even and unlabored. Lungs essentially clear to auscultation bilaterally. HEART: Irregular rate and rhythm. S1 and S2 heard. ABDOMEN: Soft. Nondistended. Nontender. EXTREMITIES: Normal range of motion. No clubbing or cyanosis. Peripheral pulses intact. No lower extremity edema NEUROLOGIC: Awake and alert. Oriented x 3. ASSESSMENT: Hyperkalemia Persistent atrial fibrillation with mild RVR, recently diagnosed, on Eliquis Recent Covid infection Hypertension Hyperlipidemia Diabetes COPD with home oxygen use PLAN: No need to repeat echocardiogram Discontinue IV Cardizem Continue home cardiac medications Continue telemetry monitoring Monitor potassium Losartan has been DC per nephrology Further recommendations pending patient course Nurse practitioner note has been reviewed by physician. Signing provider agrees with the documented findings, assessment, and plan of care. Past Medical History Past Medical History: Cancer, COPD, Diabetes Mellitus, GERD/Reflux, Hyperlipidemia, Seizure Disorder, Thyroid Disorder Additional Past Medical History / Comment(s): tremors, type 2 DM, osteoporosis left leg, hypothyroid, IBS, right breast CA with radiation, chemo, partial rt mastectomy with lymph nodes , bilat catarcts removal, insomnia, kidney stones, frontal lobe seizure- last siezure 30 years ago. History of Any Multi-Drug Resistant Organisms: None Reported Past Surgical History: Bladder Surgery, Breast Surgery, Cholecystectomy, Hysterectomy Additional Past Surgical History / Comment(s): bladder suspension Past Anesthesia/Blood Transfusion Reactions: No Reported Reaction Past Psychological History: Anxiety, Depression, Panic Disorder Smoking Status: Former smoker Past Alcohol Use History: None Reported Past Drug Use History: None Reported - Past Family History Brother(s) Additional Family Medical History / Comment(s): crohns Medications and Allergies Home Medications Medication Instructions Recorded Confirmed Type Atorvastatin [Lipitor] 40 mg PO HS 10/16/13 05/09/22 History Levothyroxine Sodium [Synthroid] 137 mcg PO MOTUWETHFRSA 11/10/16 05/09/22 History Albuterol Sulfate [Proair Hfa] 2 puff INHALATION RT-Q4H PRN 09/19/17 05/09/22 History FLUoxetine HCL [PROzac] 40 mg PO DAILY 09/19/17 05/09/22 History Glimepiride [Amaryl] 2 mg PO AC-BRKFST 12/02/20 05/09/22 History Omeprazole 20 mg PO AC-LUNCH 12/02/20 05/09/22 History sitaGLIPtin [Januvia] 100 mg PO DAILY 12/02/20 05/09/22 History Divalproex Sodium [Divalproex 500 mg PO BID 04/18/22 05/09/22 History Sodium ER] Fluticasone Nasal [place] [Flonase 1 spray EA NOSTRIL BID 04/18/22 05/09/22 History Nasal [place]] Levothyroxine Sodium 68.5 mcg PO BROWNE 04/18/22 05/09/22 History Olmesartan [Benicar] 5 mg PO DAILY 04/18/22 05/09/22 History metFORMIN HCL 1,000 mg PO BID 04/18/22 05/09/22 History Acetaminophen Tab [Tylenol] 650 mg PO Q6HR PRN tab 04/20/22 05/09/22 Rx Apixaban [Eliquis] 2.5 mg PO BID #60 tab 04/20/22 05/09/22 Rx Furosemide [Lasix] 40 mg PO DAILY tab 04/20/22 05/09/22 Rx Metoprolol Succinate (ER) [Toprol 100 mg PO DAILY tab 04/20/22 05/09/22 Rx XL] clonazePAM [KlonoPIN] 0.5 mg PO Q12H PRN #4 tab 04/20/22 05/09/22 Rx Ascorbic Acid [Vitamin C] 500 mg PO DAILY 05/09/22 05/09/22 History Cholecalciferol [Vitamin D3 (25 50 mcg PO DAILY 05/09/22 05/09/22 History Mcg = 1000 Iu)] Melatonin 3 mg PO HS PRN 05/09/22 05/09/22 History Zinc Gluconate [Zinc] 50 mg PO DAILY 05/09/22 05/09/22 History Zolpidem [Ambien] 5 mg PO HS PRN 05/09/22 05/09/22 History methylPREDNISolone Dose Pack See Taper PO DIRECTED 05/09/22 05/09/22 History [Medrol Dose Pack] Allergies Allergy/AdvReac Type Severity Reaction Status Date / Time trazodone Allergy PSYCHOSIS Verified 05/09/22 22:14 budesonide [From Symbicort] AdvReac Unknown Verified 05/09/22 22:14 codeine AdvReac angry/mad Verified 05/09/22 22:14 fluticasone furoate AdvReac tachycardia Verified 05/09/22 22:14 [From Trelegy Ellipta] formoterol [From Symbicort] AdvReac Chest Pain Verified 05/09/22 22:14 mirabegron [From Myrbetriq] AdvReac "didn't Verified 05/09/22 22:14 work" tiotropium AdvReac "felt Verified 05/09/22 22:14 [From Spiriva with wirey" HandiHaler] umeclidinium AdvReac tachycardia Verified 05/09/22 22:14 [From Trelegy Ellipta] vilanterol AdvReac tachycardia Verified 05/09/22 22:14 [From Trelegy Ellipta] Physical Exam Vitals: Vital Signs Temp Pulse Pulse Resp BP BP Pulse Ox 05/10/22 08:00 97.4 F L 69 18 122/74 100 05/10/22 04:00 96.8 F L 71 18 135/69 100 05/10/22 00:24 97.5 F L 62 18 121/77 99 05/09/22 23:05 82 16 129/101 95 05/09/22 20:30 97.5 F L 131 H 24 136/89 98 Intake and Output 05/09/22 05/10/22 05/10/22 22:59 06:59 14:59 Other: Voiding Method External Catheter # Voids 1 Weight 70.76 kg 72.6 kg Results 05/09/22 20:48 05/10/22 04:44 Cardiac Enzymes 05/09/22 05/10/22 05/10/22 Range/Units 21:11 00:34 04:44 Troponin I 0.014 <0.012 <0.012 (0.000-0.034) ng/mL CBC 05/09/22 Range/Units 20:48 WBC 8.0 (3.8-10.6) k/uL RBC 4.07 (3.80-5.40) m/uL Hgb 11.9 (11.4-16.0) gm/dL Hct 37.6 (34.0-46.0) % Plt Count 269 (150-450) k/uL Comprehensive Metabolic Panel 05/09/22 05/09/22 05/10/22 Range/Units 20:49 22:08 04:44 Sodium 138 140 (137-145) mmol/L Potassium 7.2 H* 7.1 H* 5.3 H (3.5-5.1) mmol/L Chloride 99 98 (98-107) mmol/L Carbon Dioxide 32 H 39 H (22-30) mmol/L BUN 45 H 40 H (7-17) mg/dL Creatinine 0.77 0.64 (0.52-1.04) mg/dL Glucose 207 H 72 L (74-99) mg/dL Calcium 9.3 8.8 (8.4-10.2) mg/dL Current Medications Generic Name Dose Route Start Last Admin Trade Name Freq PRN Reason Stop Dose Admin Acetaminophen 650 mg 05/09/22 22:24 Acetaminophen Tab 325 Mg Tab PO Q6HR PRN Mild Pain or Fever > 100.5 Albuterol Sulfate 2.5 mg 05/09/22 22:24 Albuterol Nebulized 2.5 Mg/3 Ml INHALATION RT-Q4H PRN Shortness Of Breath Apixaban 2.5 mg 05/10/22 09:00 05/10/22 08:49 Apixaban 2.5 Mg Tablet PO 2.5 mg BID DAMIAN Administration Protocol Ascorbic Acid 500 mg 05/10/22 09:00 05/10/22 08:48 Ascorbic Acid 500 Mg Tab PO 500 mg DAILY DAMIAN Administration Atorvastatin Calcium 40 mg 05/10/22 21:00 Atorvastatin 40 Mg Tab PO HS DAMIAN Cholecalciferol 50 mcg 05/10/22 09:00 05/10/22 08:49 Cholecalciferol 25 Mcg (1000 Iu) Tablet PO 50 mcg DAILY DAMIAN Administration Clonazepam 0.5 mg 05/09/22 22:24 Clonazepam 0.5 Mg Tab PO Q12H PRN Anxiety Divalproex Sodium 500 mg 05/10/22 09:00 05/10/22 08:48 Divalproex Er 250 Mg Tab.Er.24h PO 500 mg BID DAMIAN Administration Fluoxetine HCl 40 mg 05/10/22 09:00 05/10/22 08:49 Fluoxetine Hcl 20 Mg Cap PO 40 mg DAILY DAMIAN Administration Fluticasone Propionate 1 spray 05/10/22 09:00 05/10/22 08:50 Fluticasone 50mcg/[place] Nasal 16gm EA NOSTRIL Not Given BID DAMIAN Furosemide 40 mg 05/10/22 09:00 05/10/22 08:48 Furosemide 40 Mg Tab PO 40 mg DAILY DAMIAN Administration Glimepiride 2 mg 05/10/22 07:30 05/10/22 06:41 Glimepiride 2 Mg Tab PO 2 mg AC-BRKFST DAMIAN Administration Levothyroxine Sodium 68.5 mcg 05/15/22 06:30 Levothyroxine 137 Mcg Tab PO [id number] DAMIAN Levothyroxine Sodium 137 mcg 05/09/22 22:58 05/10/22 06:41 Levothyroxine 137 Mcg Tab PO 137 mcg [id number] [facility] Administration Linagliptin 5 mg 05/10/22 09:00 05/10/22 08:48 Linagliptin 5 Mg Tablet PO 5 mg DAILY DAMIAN Administration Losartan Potassium 25 mg 05/10/22 09:00 05/10/22 08:49 Losartan 25 Mg Tab PO 25 mg DAILY DAMIAN Administration Melatonin 3 mg 05/09/22 22:24 Melatonin 3 Mg Tablet PO HS PRN sleep Metformin HCl 1,000 mg 05/10/22 09:00 05/10/22 08:49 Metformin 500 Mg Tab PO 1,000 mg BID DAMIAN Administration Methylprednisolone Sodium Succinate 60 mg 05/10/22 09:00 05/10/22 08:50 Methylprednisolone Sod Succi 125 Mg/2 Ml Vial IV 60 mg TID DAMIAN Administration Metoprolol Succinate 100 mg 05/10/22 09:00 05/10/22 08:49 Metoprolol Succinate (Er) 100 Mg Tab.Er.24h PO 100 mg DAILY DAMIAN Administration Pantoprazole Sodium 40 mg 05/10/22 12:30 Pantoprazole 40 Mg Tablet PO AC-LUNCH [facility] Zinc Sulfate 220 mg 05/10/22 09:00 05/10/22 08:49 Zinc Sulfate 220 Mg Cap PO 220 mg DAILY DAMIAN Administration Zolpidem Tartrate 5 mg 05/09/22 22:24 Zolpidem 5 Mg Tab PO HS PRN Insomnia Intake and Output 05/09/22 05/10/22 05/10/22 22:59 06:59 14:59 Other: Voiding Method External Catheter # Voids 1 Weight 70.76 kg 72.6 kg 05/09/22 20:48 05/10/22 04:44
[2022-05-10 11:41] LABS: Glucose,Whole Blood 279 mg/dL (70-110)
--- NOTE | 2022-05-10 11:50 | P.NPCON ---
History of Present Illness - Reason for Consult hyperkalemia - History of Present Illness Reason for consultation: Hyperkalemia History of present illness: Patient is 82-year-old female seen in consultation for hyperkalemia. Patient was sent to the hospital from rehab facility due to hyperkalemia. She had blood work done there and potassium level was 6.6. Otherwise patient has no complaints. Patient's potassium on admission yesterday was 7.2 and on repeat was 7.1. This was medically treated with IV insulin, sodium bicarb as well as Lokelma. Potassium level this morning was 5.3. GFR is at baseline. Oral intake is fair. In the hospital she is not eating much as she doesn't have her dentures. Blood pressure is stable. She does take losartan outpatient and also received the dose this morning. She has a history of A. fib. Heart rate is currently controlled. She does have history of diabetes. Blood sugars are controlled. She is also on oral Lasix at this time. No vomiting or diarrhea. Denies personal history of kidney disease. No gross hematuria. Vital signs are stable. General: No acute distress. HEENT: Head exam is unremarkable. On nasal cannula. LUNGS: No audible rhonchi or wheezes. HEART: Rate and Rhythm are regular. ABDOMEN: Abdominal exam reveals no distention. EXTREMITITES: No edema. Past Medical History Past Medical History: Cancer, COPD, Diabetes Mellitus, GERD/Reflux, Hyperlipidemia, Seizure Disorder, Thyroid Disorder Additional Past Medical History / Comment(s): tremors, type 2 DM, osteoporosis left leg, hypothyroid, IBS, right breast CA with radiation, chemo, partial rt mastectomy with lymph nodes , bilat catarcts removal, insomnia, kidney stones, frontal lobe seizure- last siezure 30 years ago. History of Any Multi-Drug Resistant Organisms: None Reported Past Surgical History: Bladder Surgery, Breast Surgery, Cholecystectomy, Hyst erectomy Additional Past Surgical History / Comment(s): bladder suspension Past Anesthesia/Blood Transfusion Reactions: No Reported Reaction Past Psychological History: Anxiety, Depression, Panic Disorder Smoking Status: Former smoker Past Alcohol Use History: None Reported Past Drug Use History: None Reported - Past Family History Brother(s) Additional Family Medical History / Comment(s): crohns Medications and Allergies Home Medications Medication Instructions Recorded Confirmed Type Atorvastatin [Lipitor] 40 mg PO HS 10/16/13 05/09/22 History Levothyroxine Sodium [Synthroid] 137 mcg PO MOTUWETHFRSA 11/10/16 05/09/22 History Albuterol Sulfate [Proair Hfa] 2 puff INHALATION RT-Q4H PRN 09/19/17 05/09/22 History FLUoxetine HCL [PROzac] 40 mg PO DAILY 09/19/17 05/09/22 History Glimepiride [Amaryl] 2 mg PO AC-BRKFST 12/02/20 05/09/22 History Omeprazole 20 mg PO AC-LUNCH 12/02/20 05/09/22 History sitaGLIPtin [Januvia] 100 mg PO DAILY 12/02/20 05/09/22 History Divalproex Sodium [Divalproex 500 mg PO BID 04/18/22 05/09/22 History Sodium ER] Fluticasone Nasal [place] [Flonase 1 spray EA NOSTRIL BID 04/18/22 05/09/22 History Nasal [place]] Levothyroxine Sodium 68.5 mcg PO PETERS 04/18/22 05/09/22 History Olmesartan [Benicar] 5 mg PO DAILY 04/18/22 05/09/22 History metFORMIN HCL 1,000 mg PO BID 04/18/22 05/09/22 History Acetaminophen Tab [Tylenol] 650 mg PO Q6HR PRN tab 04/20/22 05/09/22 Rx Apixaban [Eliquis] 2.5 mg PO BID #60 tab 04/20/22 05/09/22 Rx Furosemide [Lasix] 40 mg PO DAILY tab 04/20/22 05/09/22 Rx Metoprolol Succinate (ER) [Toprol 100 mg PO DAILY tab 04/20/22 05/09/22 Rx XL] clonazePAM [KlonoPIN] 0.5 mg PO Q12H PRN #4 tab 04/20/22 05/09/22 Rx Ascorbic Acid [Vitamin C] 500 mg PO DAILY 05/09/22 05/09/22 History Cholecalciferol [Vitamin D3 (25 50 mcg PO DAILY 05/09/22 05/09/22 History Mcg = 1000 Iu)] Melatonin 3 mg PO HS PRN 05/09/22 05/09/22 History Zinc Gluconate [Zinc] 50 mg PO DAILY 05/09/22 05/09/22 History Zolpidem [Ambien] 5 mg PO HS PRN 05/09/22 05/09/22 History methylPREDNISolone Dose Pack See Taper PO DIRECTED 05/09/22 05/09/22 History [Medrol Dose Pack] Allergies Allergy/AdvReac Type Severity Reaction Status Date / Time trazodone Allergy PSYCHOSIS Verified 05/09/22 22:14 budesonide [From Symbicort] AdvReac Unknown Verified 05/09/22 22:14 codeine AdvReac angry/mad Verified 05/09/22 22:14 fluticasone furoate AdvReac tachycardia Verified 05/09/22 22:14 [From Trelegy Ellipta] formoterol [From Symbicort] AdvReac Chest Pain Verified 05/09/22 22:14 mirabegron [From Myrbetriq] AdvReac "didn't Verified 05/09/22 22:14 work" tiotropium AdvReac "felt Verified 05/09/22 22:14 [From Spiriva with wirey" HandiHaler] umeclidinium AdvReac tachycardia Verified 05/09/22 22:14 [From Trelegy Ellipta] vilanterol AdvReac tachycardia Verified 05/09/22 22:14 [From Trelegy Ellipta] Physical Exam Vitals: Vital Signs Temp Pulse Pulse Resp BP BP Pulse Ox 05/10/22 08:00 97.4 F L 69 18 122/74 100 05/10/22 04:00 96.8 F L 71 18 135/69 100 05/10/22 00:24 97.5 F L 62 18 121/77 99 05/09/22 23:05 82 16 129/101 95 05/09/22 20:30 97.5 F L 131 H 24 136/89 98 Intake and Output 05/09/22 05/10/22 05/10/22 22:59 06:59 14:59 Other: Voiding Method External Catheter # Voids 1 Weight 70.76 kg 72.6 kg Results - Lab Results Most recent lab results Calcium 8.8 mg/dL (8.4-10.2) 05/10/22 04:44 05/09/22 20:48 05/10/22 04:44 Assessment and Plan Plan: Assessment: 1. Hyperkalemia secondary to losartan. Also concern for underlying RTA from diabetes. Improved with medical management. Rule out urinary retention. 2. Diabetes mellitus. 3. Chronic systolic CHF with ejection fraction of 45-50% with mild to moderate mitral and tricuspid regurgitation. Plan: Hold losartan for now. Renal diet. Blood sugar control. Maintain Lasix. Repeat labs in the morning. Check bladder scan to make sure no urinary retention. No evidence of obstructive uropathy noted on CAT scan done 03/29/2022. Thank you for the consultation. I will continue to follow the patient with you during her hospital stay.
[2022-05-10] MEDS: PANTOPRAZOLE 40 MG TABLET PO SCH (13:09)
[2022-05-10] MEDS: clonazePAM 0.5 MG TAB PO PRN ×2 (13:09→20:18)
--- NOTE | 2022-05-10 14:50 | HP ---
HISTORY AND PHYSICAL CHIEF COMPLAINT: Abnormal labs. HISTORY OF PRESENT ILLNESS: This is an 82-year-old woman with a past medical history of multiple medical problems including COPD, diabetes mellitus, GERD, being followed by Dr. Emerson in the outpatient, found to have hyperkalemia outpatient. The patient was sent to the ER. The potassium was 7.1. After Lokelma and other measures, the potassium is improving to 5.8 today. The patient also had atrial ablation and fast ventricular rate on admission. There is no history of any fever, rigors, or chills. PAST MEDICAL HISTORY: Reviewed include diabetes mellitus, hypertension, hyperlipidemia, seizure disorder. Rest of the history and rest of the chart is reviewed. HOME MEDICATIONS: Reviewed include Januvia. Dose and rest of medication noted. ALLERGIES: Reviewed include trazodone, rest of the allergies noted. FAMILY HISTORY: History of Crohn's disease. SOCIAL HISTORY: Previous history of smoking. No history of alcohol intake. REVIEW OF SYSTEMS: A 14-point review is negative except as mentioned. PHYSICAL EXAMINATION: VITAL SIGNS: Pulse is 62, blood pressure 120/77, respirations 18. HEENT: Conjunctivae normal. NECK: No JVD. CARDIOVASCULAR: S1, S2 muffled. RESPIRATIONS: Breath sounds diminished at the bases. No rhonchi. No crackles. ABDOMEN: Soft, nontender. LEGS: No edema. NERVOUS SYSTEM: No focal deficits. SKIN: No ulcer, rash, or bleeding. JOINTS: No active deforming arthropathy. LABORATORY DATA: Reviewed. ASSESSMENT: 1. Severe hyperkalemia. 2. Atrial fibrillation with fast ventricular rate. 3. Diabetes mellitus, type 2. 4. Chronic obstructive pulmonary disease. 5. Hyperlipidemia. 6. History of seizures. 7. Multiple medical issues. RECOMMENDATIONS: This is an 82-year-old woman, who presented with multiple complex medical issues. We will monitor the patient closely. Continue the current medications, symptomatic treatment. Avoid MARCELLA inhibitors. Low-potassium diet. Otherwise, Cardiology and Nephrology consultations. Guarded prognosis because of the multiple complex medical issues and further recommendations to follow. We will monitor renal functions closely. MMODL / IJN: [id number] /
[2022-05-10 16:15] LABS: Glucose,Whole Blood 399 mg/dL (70-110)
[2022-05-10] MEDS: INSULIN ASPART (NovoLOG) 100 UNIT/ML VIAL SQ SCH ×2 (17:19→20:20)
[2022-05-10 20:07] LABS: Glucose,Whole Blood 369 mg/dL (70-110)
[2022-05-10] MEDS: ATORVASTATIN 40 MG TAB PO SCH (20:18)
[2022-05-11 05:54] LABS: Glucose,Whole Blood 217 mg/dL (70-110)
[2022-05-11] MEDS: GLIMEPIRIDE 2 MG TAB PO SCH (06:06)
[2022-05-11] MEDS: LEVOTHYROXINE 137 MCG TAB PO SCH (06:06)
[2022-05-11] MEDS: INSULIN ASPART (NovoLOG) 100 UNIT/ML VIAL SQ SCH ×5 (06:06→20:14)
[2022-05-11 09:16] LABS: ALT 22 U/L (4-34); AST 24 U/L (14-36); African American GFR (CKD) >90 (>60 ml/min/1.73 sqM); Albumin 3.6 g/dL (3.5-5.0); Anion Gap 9 mmol/L; Blood Urea Nitrogen 43 mg/dL (7-17); Calcium 9.2 mg/dL (8.4-10.2); Carbon Dioxide 26 mmol/L (22-30); Chloride 98 mmol/L (98-107); Glucose 192 mg/dL (74-99); Magnesium 1.8 mg/dL (1.6-2.3); Non-African American GFR(CKD) 86 (>60 ml/min/1.73 sqM); Sodium 133 mmol/L (137-145); Total Bilirubin 0.6 mg/dL (0.2-1.3); Total Protein 6.5 g/dL (6.3-8.2)
[2022-05-11 09:20] LABS: Alkaline Phosphatase 73 U/L (38-126)
[2022-05-11] MEDS: methylPREDNISolone SOD SUCCI 125 MG/2 ML VIAL IV SCH ×3 (09:29→20:12)
[2022-05-11] MEDS: FLUoxetine HCL 20 MG CAP PO SCH (09:29)
[2022-05-11] MEDS: METOPROLOL SUCCINATE (ER) 100 MG TAB.ER.24H PO SCH (09:29)
[2022-05-11] MEDS: CHOLECALCIFEROL 25 MCG (1000 IU) TABLET PO SCH (09:30)
[2022-05-11] MEDS: LINAGLIPTIN 5 MG TABLET PO SCH (09:30)
[2022-05-11] MEDS: ASCORBIC ACID 500 MG TAB PO SCH (09:30)
[2022-05-11] MEDS: FUROSEMIDE 40 MG TAB PO SCH (09:30)
[2022-05-11] MEDS: APIXABAN 2.5 MG TABLET PO SCH ×2 (09:30→20:13)
[2022-05-11] MEDS: ZINC SULFATE 220 MG CAP PO SCH (09:30)
[2022-05-11] MEDS: metFORMIN 500 MG TAB PO SCH ×2 (09:30→20:13)
[2022-05-11] MEDS: FLUTICASONE 50MCG/SPRAY NASAL 16GM EA NOSTRIL SCH ×2 (09:31→20:14)
[2022-05-11] MEDS: DIVALPROEX ER 250 MG TAB.ER.24H PO SCH ×2 (09:32→20:13)
--- NOTE | 2022-05-11 10:49 | P.PN ---
Subjective Progress Note Date: 05/11/22 HISTORY OF PRESENT ILLNESS: This is a 82-year-old female with a past medical history significant for atrial fibrillation, hypertension, hyperlipidemia, and diabetes, and COPD on home oxygen. Patient follows in the office with Dr. Plunkett. We have been asked to see the patient in consultation for afib with RVR. Patient examined at the bedside. Patient was called by her PCP and notified of abnormal blood work and told to come to the hospital. Patient was found to be hyperkalemic with a potassium of 7.2. Her repeat is 5.3. The patient was also found to be in atrial fibrillation with mild RVR. She was started on IV Cardizem. Patient's heart rates are well controlled this morning. According to ER documentation, the patient was recently diagnosed with Covid while at [facility]. * EKG reveals atrial fibrillation with a heart rate of 106 * Chest xray pneumonia right upper lobe is the same or slightly worse than last exam. No heart failure.. * Laboratory data: WBC 8.0. Hemoglobin 11.9. Platelet count 269. Sodium 140. Potassium 5.3. BUN 40. Creatinine 0.64. Troponin negative 3. * Current home cardiac medications include Eliquis 2.mg BID, Benicar 5mg daily, Lipitor 40 mg at night, Lasix 40 mg daily, metoprolol succinate 100 mg daily * Most recent echocardiogram obtained in March 2022 revealed ejection fraction 50%, [id number] mitral and tricuspid regurgitation. * Cardiac catheterization history: 2001 revealing no obstructive coronary artery disease 05/11/2022 Patient examined this morning at the bedside. Patient denies chest pain or pres sure. Denies SOB. Telemetry reveals atrial fibrillation with controlled ventricular rates. Potassium this morning is 5.0 PHYSICAL EXAM: VITAL SIGNS: Reviewed. GENERAL: Well-developed in no acute distress. HEENT: Head is normocephalic. Pupils are equal, round. Sclerae anicteric. Mucous membranes of the mouth are moist. Neck supple. No JVD or thyromegaly LUNGS: Respirations even and unlabored. Lungs essentially clear to auscultation bilaterally. HEART: Irregular rate and rhythm. S1 and S2 heard. ABDOMEN: Soft. Nondistended. Nontender. EXTREMITIES: Normal range of motion. No clubbing or cyanosis. Peripheral pulses intact. No lower extremity edema NEUROLOGIC: Awake and alert. Oriented x 3. ASSESSMENT: Hyperkalemia Persistent atrial fibrillation with mild RVR, recently diagnosed, on Eliquis Recent Covid infection Hypertension Hyperlipidemia Diabetes COPD with home oxygen use PLAN: Continue current cardiac medications. Losartan on hold secondary to hyperkalemia Continue telemetry monitoring Monitor potassium Further recommendations pending patient course Nurse practitioner note has been reviewed by physician. Signing provider agrees with the documented findings, assessment, and plan of care. Objective - Vital Signs Vital signs: Vital Signs Temp 97.4 F L 05/11/22 07:47 Pulse 78 05/11/22 07:47 Resp 19 05/11/22 07:47 BP 130/48 05/11/22 07:47 Pulse Ox 100 05/11/22 07:47 FiO2 21 05/10/22 19:50 Intake & Output 05/10/22 05/11/22 05/11/22 18:59 06:59 18:59 Intake Total 180 240 Balance 180 240 Intake: Oral 180 240 Other: Voiding Method External Catheter # Voids 2 1 - Labs CBC & Chem 7: 05/09/22 20:48 05/11/22 09:53 Labs: Abnormal Lab Results - Last 24 Hours (Table) 05/10/22 05/10/22 05/10/22 Range/Units 11:40 16:13 20:05 Sodium (137-145) mmol/L Potassium (3.5-5.1) mmol/L BUN (7-17) mg/dL Glucose (74-99) mg/dL POC Glucose (mg/dL) 279 H 399 H 369 H (70-110) mg/dL 05/11/22 05/11/22 Range/Units 05:53 07:22 Sodium 133 L (137-145) mmol/L Potassium 6.0 H (3.5-5.1) mmol/L BUN 43 H (7-17) mg/dL Glucose 192 H (74-99) mg/dL POC Glucose (mg/dL) 217 H (70-110) mg/dL
[2022-05-11 11:42] LABS: Glucose,Whole Blood 305 mg/dL (70-110)
[2022-05-11 11:53] LABS: Basophils # (A) 0.1 k/uL (0-0.2); Basophils % (A) 1 %; Eosinophils % (A) 0 %; HCT 36.7 % (34.0-46.0); HGB 11.9 gm/dL (11.4-16.0); Lymphocytes # (A) 1.2 k/uL (1.0-4.8); Lymphocytes % (A) 14 %; MCH 30.8 pg (25.0-35.0); MCHC 32.5 g/dL (31.0-37.0); MCV 94.7 fL (80.0-100.0); Mean Platelet Volume 10.3; Monocytes # (A) 0.5 k/uL (0-1.0); Monocytes % (A) 6 %; Neutrophils # (A) 6.5 k/uL (1.3-7.7); Neutrophils % (A) 77 %; Platelet Count 219 k/uL (150-450); RBC 3.87 m/uL (3.80-5.40); RDW 15.9 % (11.5-15.5); WBC 8.4 k/uL (3.8-10.6)
[2022-05-11] MEDS: clonazePAM 0.5 MG TAB PO PRN ×2 (12:11→23:44)
[2022-05-11] MEDS: PANTOPRAZOLE 40 MG TABLET PO SCH (12:11)
--- NOTE | 2022-05-11 14:04 | P.PN ---
Subjective Patient is seen in follow-up for hyperkalemia. Potassium level this morning but was hemolyzed. Repeat potassium level normal. Having lunch. No chest pain or shortness of breath. Good urine output. Vital signs are stable. General: No acute distress. HEENT: Head exam is unremarkable. LUNGS: No audible rhonchi or wheezes. HEART: Rate and Rhythm are regular. ABDOMEN: Nontender. EXTREMITITES: No edema. Objective - Vital Signs Vital signs: Vital Signs Temp 97.4 F L 05/11/22 11:44 Pulse 105 H 05/11/22 13:26 Resp 16 05/11/22 11:44 BP 119/67 05/11/22 11:44 Pulse Ox 95 05/11/22 13:26 FiO2 21 05/10/22 19:50 Intake & Output 05/10/22 05/11/22 05/11/22 18:59 06:59 18:59 Intake Total 180 240 Balance 180 240 Intake: Oral 180 240 Other: Voiding Method External Catheter Toilet # Voids 2 1 - Labs CBC & Chem 7: 05/11/22 07:22 05/11/22 09:53 Labs: Abnormal Lab Results - Last 24 Hours (Table) 05/10/22 05/10/22 05/11/22 Range/Units 16:13 20:05 05:53 RDW (11.5-15.5) % Sodium (137-145) mmol/L Potassium (3.5-5.1) mmol/L BUN (7-17) mg/dL Glucose (74-99) mg/dL POC Glucose (mg/dL) 399 H 369 H 217 H (70-110) mg/dL 05/11/22 05/11/22 05/11/22 Range/Units 07:22 07:22 11:38 RDW 15.9 H (11.5-15.5) % Sodium 133 L (137-145) mmol/L Potassium 6.0 H (3.5-5.1) mmol/L BUN 43 H (7-17) mg/dL Glucose 192 H (74-99) mg/dL POC Glucose (mg/dL) 305 H (70-110) mg/dL Assessment and Plan Plan: Assessment: 1. Hyperkalemia secondary to losartan. Also concern for underlying RTA from diabetes. Improved with medical management. 2. Diabetes mellitus. 3. Chronic systolic CHF with ejection fraction of 45-50% with mild to moderate mitral and tricuspid regurgitation. Plan: Continue to hpld losartan for now. Renal diet. Blood sugar control. Maintain Lasix. No evidence of obstructive uropathy noted on CAT scan done 03/29/2022. Follow up outpatient in 1 week post discharge.
[2022-05-11] MEDS ORDERED: DEXTROSE 50% SYRINGE 50 ML IVP PRN ×2 (14:42)
--- NOTE | 2022-05-11 14:45 | P.PN ---
Subjective Progress Note Date: 05/11/22 This is an 82-year-old female who was recently admitted with hyperkalemia and sent here by primary care provider for further evaluation. Potassium was 7.1 and slowly improving after lokelma. Nephrology and cardiology following as patient was also found to be in atrial fibrillation with RVR. Patient's potassium today is 5 after redraw as this morning sample was hemolyzed. Would recommend a low potassium diet and also her ensure supplements are very high in potassium and would recommend discontinuing these. Will continue to hold losartan for now. Patient is maintained on Lasix and will need outpatient follow-up with nephrology. Blood sugars are elevated as patient is diabetic although probably a component of being steroid-induced as well and will add long-acting as well as pre-meal insulins while hospitalized. Patient does take oral diabetic agents as well. Patient is currently afebrile denies chest pain or shortness of breath. Patient chronically wears oxygen the outpatient settin g. Review of systems: Constitutional: No reports of fatigue, fever, or chills Cardiovascular: No reports of chest pain or palpitations Respiratory: No reports of worsening shortness of breath or cough GI: no eports of nausea, no reports of of vomiting, no diarrhea : No reports of dysuria or retention Neurovascular: reports of generalized weakness All medications have been reviewed Active Medications Acetaminophen (Acetaminophen Tab 325 Mg Tab) 650 mg PO Q6HR PRN PRN Reason: Mild Pain or Fever > 100.5 Albuterol Sulfate (Albuterol Nebulized 2.5 Mg/3 Ml) 2.5 mg INHALATION RT-Q4H PRN PRN Reason: Shortness Of Breath Apixaban (Apixaban 2.5 Mg Tablet) 2.5 mg PO BID [facility]; Protocol Last Admin: 05/11/22 09:30 Dose: 2.5 mg Ascorbic Acid (Ascorbic Acid 500 Mg Tab) 500 mg PO DAILY [facility] Last Admin: 05/11/22 09:30 Dose: 500 mg Atorvastatin Calcium (Atorvastatin 40 Mg Tab) 40 mg PO HS [facility] Last Admin: 05/10/22 20:18 Dose: 40 mg Cholecalciferol (Cholecalciferol 25 Mcg (1000 Iu) Tablet) 50 mcg PO DAILY [facility] Last Admin: 05/11/22 09:30 Dose: 50 mcg Clonazepam (Clonazepam 0.5 Mg Tab) 0.5 mg PO Q12H PRN PRN Reason: Anxiety Last Admin: 05/11/22 12:11 Dose: 0.5 mg Divalproex Sodium (Divalproex Er 250 Mg Tab.Er.24h) 500 mg PO BID [facility] Last Admin: 05/11/22 09:32 Dose: 500 mg Fluoxetine HCl (Fluoxetine Hcl 20 Mg Cap) 40 mg PO DAILY [facility] Last Admin: 05/11/22 09:29 Dose: 40 mg Fluticasone Propionate (Fluticasone 50mcg/[place] Nasal 16gm) 1 spray EA NOSTRIL BID [facility] Last Admin: 05/11/22 09:31 Dose: Not Given Furosemide (Furosemide 40 Mg Tab) 40 mg PO DAILY [facility] Last Admin: 05/11/22 09:30 Dose: 40 mg Glimepiride (Glimepiride 2 Mg Tab) 2 mg PO AC-BRKFST [facility] Last Admin: 05/11/22 06:06 Dose: 2 mg Insulin Aspart (Insulin Aspart (Novolog) 100 Unit/Ml Vial) 0 unit SQ ACHS [facility]; Protocol Last Admin: 05/11/22 12:11 Dose: 8 unit Levothyroxine Sodium (Levothyroxine 137 Mcg Tab) 68.5 mcg PO Browne@0630 [facility] Levothyroxine Sodium (Levothyroxine 137 Mcg Tab) 137 mcg PO MoTuWeThFrSa@0630 [facility] Last Admin: 05/11/22 06:06 Dose: 137 mcg Linagliptin (Linagliptin 5 Mg Tablet) 5 mg PO DAILY [facility] Last Admin: 05/11/22 09:30 Dose: 5 mg Melatonin (Melatonin 3 Mg Tablet) 3 mg PO HS PRN PRN Reason: sleep Metformin HCl (Metformin 500 Mg Tab) 1,000 mg PO BID [facility] Last Admin: 05/11/22 09:30 Dose: 1,000 mg Methylprednisolone Sodium Succinate (Methylprednisolone Sod Succi 125 Mg/2 Ml Vial) 60 mg IV TID [facility] Last Admin: 05/11/22 09:29 Dose: 60 mg Metoprolol Succinate (Metoprolol Succinate (Er) 100 Mg Tab.Er.24h) 100 mg PO DAILY [facility] Last Admin: 05/11/22 09:29 Dose: 100 mg Pantoprazole Sodium (Pantoprazole 40 Mg Tablet) 40 mg PO AC-LUNCH [facility] Last Admin: 05/11/22 12:11 Dose: 40 mg Zinc Sulfate (Zinc Sulfate 220 Mg Cap) 220 mg PO DAILY [facility] Last Admin: 05/11/22 09:30 Dose: 220 mg Zolpidem Tartrate (Zolpidem 5 Mg Tab) 5 mg PO HS PRN PRN Reason: Insomnia PHYSICAL EXAMINATION: GENERAL: The patient is alert and oriented x4, Well developed, well nourished. HEENT: Pupils are round and equally reacting to light. EOMI. no scleral icterus. No conjunctival pallor. Normocephalic, atraumatic. No pharyngeal erythema. No thyromegaly. CARDIOVASCULAR: S1 and S2 muffled PULMONARY: diminished breath sounds bilaterally with no wheezing or rhonchi noted. ABDOMEN: soft. Nontender on exam. obese. non-distended, normoactive bowel sounds. No palpable organomegaly. MUSCULOSKELETAL: No joint swelling or deformity. EXTREMITIES: No cyanosis, clubbing, or pedal edema. NEUROLOGICAL: Gross neurological examination did not reveal any focal deficits. Diffuse weakness SKIN: No rashes. Assessment: Severe hyperkalemia Atrial fibrillation with fast ventricular rate Diabetes mellitus, type II, [id number], uncontrolled with hyperglycemia also a component of steroid-induced hyperglycemia Chronic obstructive pulmonary disease, acute exacerbation Chronic hypoxic respiratory failure wears oxygen in the outpatient setting secondary to COPD hyperlipidemia Hypertension History of recent covert infection History of seizures GI prophylaxis DVT prophylaxis Full code Plan: Recommend to continue with current medications and management with cardiology and nephrology following. Patient potassium slightly improved as this morning's specimen was hemolyzed and repeat was 5.0. Recommend continuing holding losartan and continue with low potassium diet. Also found that her ensure supplements have over 300 mg per serving of potassium and will discontinue. Encouraged increased activity as tolerated and will have physical therapy evaluate the patient Cardiology following making medication adjustments and would recommend continue telemetry monitoring Will follow-up with repeat labs in the a.m. Due to multiple couplets medical issues, prognosis is guarded Possible discharge in the next 24-48 hours The impression and plan of care has been dictated by Geetha Davis nurse pract nerisionejamaal as directed. Dr. Sergio MD I have performed a history and examination and MDM of this patient, discussed the same with the dictator, and agree with the dictator's assessment and plan as written ,documented as a scribe. Based on total visit time, I have performed more than 50% of the visit. Any additional findings or plans will be noted. Objective - Vital Signs Vital signs: Vital Signs Temp 97.4 F L 05/11/22 07:47 Pulse 78 05/11/22 07:47 Resp 19 05/11/22 07:47 BP 130/48 05/11/22 07:47 Pulse Ox 100 05/11/22 07:47 FiO2 21 05/10/22 19:50 Intake & Output 05/10/22 05/11/22 05/11/22 18:59 06:59 18:59 Intake Total 180 240 Balance 180 240 Intake: Oral 180 240 Other: Voiding Method External Catheter # Voids 2 1 - Labs CBC & Chem 7: 05/11/22 07:22 05/11/22 09:53 Labs: Abnormal Lab Results - Last 24 Hours (Table) 05/10/22 05/10/22 05/10/22 Range/Units 11:40 16:13 20:05 Sodium (137-145) mmol/L Potassium (3.5-5.1) mmol/L BUN (7-17) mg/dL Glucose (74-99) mg/dL POC Glucose (mg/dL) 279 H 399 H 369 H (70-110) mg/dL 05/11/22 05/11/22 Range/Units 05:53 07:22 Sodium 133 L (137-145) mmol/L Potassium 6.0 H (3.5-5.1) mmol/L BUN 43 H (7-17) mg/dL Glucose 192 H (74-99) mg/dL POC Glucose (mg/dL) 217 H (70-110) mg/dL
[2022-05-11 15:09] LABS: Glucose,Whole Blood 225 mg/dL (70-110)
[2022-05-11] MEDS: INSULIN DETEMIR (LEVEMIR) 100 UNIT/ML SYR SQ SCH ×2 (15:26→20:12)
[2022-05-11 16:34] LABS: Glucose,Whole Blood 157 mg/dL (70-110)
[2022-05-11] MEDS: ACETAMINOPHEN TAB 325 MG TAB PO PRN (18:09)
[2022-05-11 19:50] LABS: Glucose,Whole Blood 275 mg/dL (70-110)
[2022-05-11] MEDS: ATORVASTATIN 40 MG TAB PO SCH (20:13)
[2022-05-12 06:31] LABS: Glucose,Whole Blood 143 mg/dL (70-110)
[2022-05-12] MEDS: INSULIN DETEMIR (LEVEMIR) 100 UNIT/ML SYR SQ SCH (06:31)
[2022-05-12] MEDS: GLIMEPIRIDE 2 MG TAB PO SCH (06:32)
[2022-05-12] MEDS: INSULIN ASPART (NovoLOG) 100 UNIT/ML VIAL SQ SCH ×5 (06:32→12:16)
[2022-05-12] MEDS: LEVOTHYROXINE 137 MCG TAB PO SCH (06:32)
[2022-05-12 08:11] LABS: Calcium 8.9 mg/dL (8.4-10.2)
[2022-05-12] MEDS: FLUoxetine HCL 20 MG CAP PO SCH (09:03)
[2022-05-12] MEDS: methylPREDNISolone SOD SUCCI 125 MG/2 ML VIAL IV SCH ×2 (09:03→16:38)
[2022-05-12] MEDS: ZINC SULFATE 220 MG CAP PO SCH (09:04)
[2022-05-12] MEDS: METOPROLOL SUCCINATE (ER) 100 MG TAB.ER.24H PO SCH (09:04)
[2022-05-12] MEDS: ASCORBIC ACID 500 MG TAB PO SCH (09:04)
[2022-05-12] MEDS: metFORMIN 500 MG TAB PO SCH (09:04)
[2022-05-12] MEDS: CHOLECALCIFEROL 25 MCG (1000 IU) TABLET PO SCH (09:04)
[2022-05-12] MEDS: LINAGLIPTIN 5 MG TABLET PO SCH (09:04)
[2022-05-12] MEDS: FUROSEMIDE 40 MG TAB PO SCH (09:05)
[2022-05-12] MEDS: DIVALPROEX ER 250 MG TAB.ER.24H PO SCH (09:05)
[2022-05-12] MEDS: APIXABAN 2.5 MG TABLET PO SCH (09:05)
[2022-05-12] MEDS: FLUTICASONE 50MCG/SPRAY NASAL 16GM EA NOSTRIL SCH (09:06)
[2022-05-12] MEDS ORDERED: hydroCHLOROthiazide 25 MG TAB PO SCH (10:00)
[2022-05-12] MEDS: ACETAMINOPHEN TAB 325 MG TAB PO PRN (10:16)
--- NOTE | 2022-05-12 11:30 | XR ---
EXAMINATION TYPE: XR chest 1V portable DATE OF EXAM: 05/12/2022 11:25 AM COMPARISON: Chest radiographs from 05/09/2022 TECHNIQUE: XR chest 1V portable Portable AP radiograph of the chest. CLINICAL INDICATION:Female, 82 years old with history of pneumonia; FINDINGS: Lungs/Pleura: Decreased appearance of versus infiltrate within the right upper lobe. No pneumothorax pleural effusion. Pulmonary vascularity: Unremarkable. Heart/mediastinum: Cardiomediastinal silhouette is enlarged and stable. Musculoskeletal: No acute osseous pathology. IMPRESSION: Decreased interstitial infiltrate within the right upper lobe.
[2022-05-12 11:39] LABS: Glucose,Whole Blood 173 mg/dL (70-110)
--- NOTE | 2022-05-12 12:02 | P.PN ---
Subjective Progress Note Date: 05/12/22 HISTORY OF PRESENT ILLNESS: This is a 82-year-old female with a past medical history significant for atrial fibrillation, hypertension, hyperlipidemia, and diabetes, and COPD on home oxygen. Patient follows in the office with Dr. Plunkett. We have been asked to see the patient in consultation for afib with RVR. Patient examined at the bedside. Patient was called by her PCP and notified of abnormal blood work and told to come to the hospital. Patient was found to be hyperkalemic with a potassium of 7.2. Her repeat is 5.3. The patient was also found to be in atrial fibrillation with mild RVR. She was started on IV Cardizem. Patient's heart rates are well controlled this morning. According to ER documentation, the patient was recently diagnosed with Covid while at [facility]. * EKG reveals atrial fibrillation with a heart rate of 106 * Chest xray pneumonia right upper lobe is the same or slightly worse than last exam. No heart failure.. * Laboratory data: WBC 8.0. Hemoglobin 11.9. Platelet count 269. Sodium 140. Potassium 5.3. BUN 40. Creatinine 0.64. Troponin negative 3. * Current home cardiac medications include Eliquis 2.mg BID, Benicar 5mg daily, Lipitor 40 mg at night, Lasix 40 mg daily, metoprolol succinate 100 mg daily * Most recent echocardiogram obtained in March 2022 revealed ejection fraction 50%, [id number] mitral and tricuspid regurgitation. * Cardiac catheterization history: 2001 revealing no obstructive coronary artery disease 05/11/2022 Patient examined this morning at the bedside. Patient denies chest pain or pres sure. Denies SOB. Telemetry reveals atrial fibrillation with controlled ventricular rates. Potassium this morning is 5.0 05/12/2022 Patient examined this morning at the bedside. Patient denies chest pain or pressure. She denies shortness of breath. Telemetry reveals atrial for relation with controlled ventricular rates. Patient's potassium this morning is 5.0. Her losartan remains on hold. PHYSICAL EXAM: VITAL SIGNS: Reviewed. GENERAL: Well-developed in no acute distress. HEENT: Head is normocephalic. Pupils are equal, round. Sclerae anicteric. Mucous membranes of the mouth are moist. Neck supple. No JVD or thyromegaly LUNGS: Respirations even and unlabored. Lungs essentially clear to auscultation bilaterally. HEART: Irregular rate and rhythm. S1 and S2 heard. ABDOMEN: Soft. Nondistended. Nontender. EXTREMITIES: Normal range of motion. No clubbing or cyanosis. Peripheral pulses intact. No lower extremity edema NEUROLOGIC: Awake and alert. Oriented x 3. ASSESSMENT: Hyperkalemia Persistent atrial fibrillation with mild RVR, recently diagnosed, on Eliquis Recent Covid infection Hypertension Hyperlipidemia Diabetes COPD with home oxygen use PLAN: Continue current cardiac medications. Losartan on hold secondary to hyperkalemia Continue telemetry monitoring Monitor potassium Stable for discharge home today from a cardiac standpoint Further recommendations pending patient course Nurse practitioner note has been reviewed by physician. Signing provider agrees with the documented findings, assessment, and plan of care. Objective - Vital Signs Vital signs: Vital Signs Temp 97.4 F L 05/12/22 11:25 Pulse 104 H 05/12/22 11:25 Resp 20 05/12/22 11:25 BP 121/71 05/12/22 11:25 Pulse Ox 100 05/12/22 11:25 FiO2 21 05/10/22 19:50 Intake & Output 05/11/22 05/12/22 05/12/22 18:59 06:59 18:59 Intake Total 358 240 Balance 358 240 Intake: Oral 358 240 Other: Voiding Method Toilet Toilet # Voids 2 2 - Labs CBC & Chem 7: 05/11/22 07:22 05/12/22 06:58 Labs: Abnormal Lab Results - Last 24 Hours (Table) 05/11/22 05/11/22 05/11/22 Range/Units 15:07 16:31 19:48 Sodium (137-145) mmol/L Chloride (98-107) mmol/L Carbon Dioxide (22-30) mmol/L BUN (7-17) mg/dL Glucose (74-99) mg/dL POC Glucose (mg/dL) 225 H 157 H 275 H (70-110) mg/dL 05/12/22 05/12/22 05/12/22 Range/Units 06:29 06:58 11:37 Sodium 135 L (137-145) mmol/L Chloride 94 L (98-107) mmol/L Carbon Dioxide 35 H (22-30) mmol/L BUN 49 H (7-17) mg/dL Glucose 146 H (74-99) mg/dL POC Glucose (mg/dL) 143 H 173 H (70-110) mg/dL
[2022-05-12] MEDS: clonazePAM 0.5 MG TAB PO PRN (12:17)
[2022-05-12] MEDS: PANTOPRAZOLE 40 MG TABLET PO SCH (12:17)
--- NOTE | 2022-05-12 12:28 | P.PN ---
Subjective Patient is seen in follow-up for hyperkalemia. Potassium level normal today. No chest pain or shortness of breath. Good urine output. Blood pressure stable. Vital signs are stable. General: No acute distress. HEENT: Head exam is unremarkable. LUNGS: No audible rhonchi or wheezes. HEART: Rate and Rhythm are regular. ABDOMEN: Nontender. EXTREMITITES: No edema. Objective - Vital Signs Vital signs: Vital Signs Temp 97.4 F L 05/12/22 11:25 Pulse 104 H 05/12/22 11:25 Resp 20 05/12/22 11:25 BP 121/71 05/12/22 11:25 Pulse Ox 100 05/12/22 11:25 FiO2 21 05/10/22 19:50 Intake & Output 05/11/22 05/12/22 05/12/22 18:59 06:59 18:59 Intake Total 358 240 Balance 358 240 Intake: Oral 358 240 Other: Voiding Method Toilet Toilet # Voids 2 2 - Labs CBC & Chem 7: 05/11/22 07:22 05/12/22 06:58 Labs: Abnormal Lab Results - Last 24 Hours (Table) 05/11/22 05/11/22 05/11/22 Range/Units 15:07 16:31 19:48 Sodium (137-145) mmol/L Chloride (98-107) mmol/L Carbon Dioxide (22-30) mmol/L BUN (7-17) mg/dL Glucose (74-99) mg/dL POC Glucose (mg/dL) 225 H 157 H 275 H (70-110) mg/dL 05/12/22 05/12/22 05/12/22 Range/Units 06:29 06:58 11:37 Sodium 135 L (137-145) mmol/L Chloride 94 L (98-107) mmol/L Carbon Dioxide 35 H (22-30) mmol/L BUN 49 H (7-17) mg/dL Glucose 146 H (74-99) mg/dL POC Glucose (mg/dL) 143 H 173 H (70-110) mg/dL Assessment and Plan Plan: Assessment: 1. Hyperkalemia secondary to losartan. Also concern for underlying RTA from diabetes. Improved with medical management. 2. Diabetes mellitus. 3. Chronic systolic CHF with ejection fraction of 45-50% with mild to moderate mitral and tricuspid regurgitation. Plan: Continue to hpld losartan for now. Renal diet. Blood sugar control. Maintain Lasix. No evidence of obstructive uropathy noted on CAT scan done 03/29/2022. Follow up outpatient in 1 week post discharge.
[2022-05-12 16:38] VITALS: BP 124/75; PULSE 69; RESP 18; TEMP 97.7
[2022-05-15] MEDS ORDERED: LEVOTHYROXINE 137 MCG TAB PO SCH (06:30)
--- NOTE | 2022-05-15 16:55 | P.DS ---
Providers Date of admission: 05/09/22 22:33 Expected date of discharge: 05/12/22 Attending physician: David Esteban MD Consults: 05/09/22 22:29 Consult Physician Routine Consulting Provider: Tc Garza Consult Reason/Comments: a-fib Do you want consulting provider notified?: Yes 05/10/22 10:33 Consult Physician Routine Consulting Provider: Chalino Higgins Consult Reason/Comments: hyperkalemia Do you want consulting provider notified?: Yes Primary care physician: Tammi Rosenberg Hospital Course: Final diagnosis Severe hyperkalemia Atrial fibrillation with fast ventricular rate Diabetes mellitus, type II, [id number], uncontrolled with hyperglycemia also a component of steroid-induced hyperglycemia Chronic obstructive pulmonary disease, acute exacerbation Chronic hypoxic respiratory failure wears oxygen in the outpatient setting secondary to COPD hyperlipidemia Hypertension History of recent covid infection History of seizures GI prophylaxis DVT prophylaxis Full code Discharge disposition Patient is being discharged in a stable condition with guarded prognosis to home . Patient will follow-up with Dr. Rosenberg in the outpatient setting upon discharge. Patient is to follow-up with cardiology outpatient as scheduled as scheduled. Total time taken is greater than 35 minutes. Hospital course This is a 64-year-old male who was recently admitted with hyperkalemia abnormal lab values and also found to have atrial fibrillation with RVR. Patient was being monitored closely with cardiology following and has been cleared to continue on current regimen as mentioned below. Recommend tight glycemic control and monitoring of blood sugars and follow-up with primary care provider this week. Patient with some weakness recently left from [facility] for rehab and refusing to return. Patient will be going home. Please refer to other consultation notes for further HPI. Currently no reports of chest pain, shortness of breath, or palpitations. Patient is afebrile. No reports of nausea or vomiting and patient is tolerating diet. Patient will be discharged home today. Guarded prognosis Physical exam: Gen: This is a 82-year-old female is awake, alert and oriented 3, well- developed, well-nourished HEENT: Head is atraumatic, normocephalic. Pupils equal, round. Sclerae is anicteric. NECK: Supple. No JVD. No lymphadenopathy. No thyromegaly. LUNGS: Diminished breath sounds bilaterally with some scattered rhonchi. No intercostal retractions. HEART: S1, S2 are muffled, regular ABDOMEN: Soft. Bowel sounds are present. No masses. No tenderness. EXTREMITIES: No pedal edema. No calf tenderness. Generalized edema noted NEUROLOGICAL: Patient is awake, alert and oriented x3. Cranial nerves 2 through 12 are grossly intact. Please refer to medication reconciliation sheet for a list of medications. The impression and plan of care has been dictated by Geetha Davis, Nurse Practitioner as directed. Dr. Sergio MD I have performed a history and examination and MDM of this patient, discussed the same with the dictator, and agree with the dictator's assessment and plan as written ,documented as a scribe. Based on total visit time, I have performed more than 50% of the visit. Patient Condition at Discharge: Fair Plan - Discharge Summary Discharge Rx Participant: No New Discharge Prescriptions: New hydroCHLOROthiazide [Hydrodiuril] 25 mg PO DAILY #30 tab Continue Atorvastatin [Lipitor] 40 mg PO HS Levothyroxine Sodium [Synthroid] 137 mcg PO MOTUWETHFRSA Albuterol Sulfate [Proair Hfa] 2 puff INHALATION RT-Q4H PRN PRN Reason: Shortness Of Breath FLUoxetine HCL [PROzac] 40 mg PO DAILY Glimepiride [Amaryl] 2 mg PO AC-BRKFST metFORMIN HCL 1,000 mg PO BID Olmesartan [Benicar] 5 mg PO DAILY Levothyroxine Sodium 68.5 mcg PO PETERS Fluticasone Nasal [place] [Flonase Nasal Oxford] 1 spray EA NOSTRIL BID Furosemide [Lasix] 40 mg PO DAILY tab Metoprolol Succinate (ER) [Toprol XL] 100 mg PO DAILY tab Acetaminophen Tab [Tylenol] 650 mg PO Q6HR PRN tab PRN Reason: Mild Pain Or Fever > 100.5 Ascorbic Acid [Vitamin C] 500 mg PO DAILY Cholecalciferol [Vitamin D3 (25 Mcg = 1000 Iu)] 50 mcg PO DAILY sitaGLIPtin [Januvia] 100 mg PO DAILY Omeprazole 20 mg PO AC-LUNCH Divalproex Sodium [Divalproex Sodium ER] 500 mg PO BID Apixaban [Eliquis] 2.5 mg PO BID #60 tab clonazePAM [KlonoPIN] 0.5 mg PO Q12H PRN #4 tab PRN Reason: Anxiety Zolpidem [Ambien] 5 mg PO HS PRN PRN Reason: Insomnia Melatonin 3 mg PO HS PRN PRN Reason: sleep Zinc Gluconate [Zinc] 50 mg PO DAILY Discontinued methylPREDNISolone Dose Pack [Medrol Dose Pack] See Taper PO DIRECTED Discharge Medication List Atorvastatin [Lipitor] 40 mg PO HS 10/16/13 [History] Levothyroxine Sodium [Synthroid] 137 mcg PO MOTUWETHFRSA 11/10/16 [History] Albuterol Sulfate [Proair Hfa] 2 puff INHALATION RT-Q4H PRN 09/19/17 [History] FLUoxetine HCL [PROzac] 40 mg PO DAILY 09/19/17 [History] Glimepiride [Amaryl] 2 mg PO AC-BRKFST 12/02/20 [History] Omeprazole 20 mg PO AC-LUNCH 12/02/20 [History] sitaGLIPtin [Januvia] 100 mg PO DAILY 12/02/20 [History] Divalproex Sodium [Divalproex Sodium ER] 500 mg PO BID 04/18/22 [History] Fluticasone Nasal [place] [Flonase Nasal [place]] 1 spray EA NOSTRIL BID 04/18/22 [History] Levothyroxine Sodium 68.5 mcg PO PETERS 04/18/22 [History] Olmesartan [Benicar] 5 mg PO DAILY 04/18/22 [History] metFORMIN HCL 1,000 mg PO BID 04/18/22 [History] Acetaminophen Tab [Tylenol] 650 mg PO Q6HR PRN tab 04/20/22 [Rx] Apixaban [Eliquis] 2.5 mg PO BID #60 tab 04/20/22 [Rx] Furosemide [Lasix] 40 mg PO DAILY tab 04/20/22 [Rx] Metoprolol Succinate (ER) [Toprol XL] 100 mg PO DAILY tab 04/20/22 [Rx] clonazePAM [KlonoPIN] 0.5 mg PO Q12H PRN #4 tab 04/20/22 [Rx] Ascorbic Acid [Vitamin C] 500 mg PO DAILY 05/09/22 [History] Cholecalciferol [Vitamin D3 (25 Mcg = 1000 Iu)] 50 mcg PO DAILY 05/09/22 [History] Melatonin 3 mg PO HS PRN 05/09/22 [History] Zinc Gluconate [Zinc] 50 mg PO DAILY 05/09/22 [History] Zolpidem [Ambien] 5 mg PO HS PRN 05/09/22 [History] hydroCHLOROthiazide [Hydrodiuril] 25 mg PO DAILY #30 tab 05/12/22 [Rx] Follow up Appointment(s)/Referral(s): Tammi Rosenberg III, MD [Primary Care Provider] - 1-2 days (Your appointment has been made for May 17 @1:00.) Chalino Higgins DO [STAFF PHYSICIAN] - 1 Week (The office will be contacing you to schedule your follow up appointment. If you do not hear from them, please reach out at the number listed above.) [facility] Visiting Nurse, [NON-STAFF] - (The office will reach out to you. If you do not hear from them, please contact them at the number listed above.) Ambulatory/Diagnostic Orders: Basic Metabolic Panel [LAB.AMB] Time Frame: 3 Days, Location: None Selected Patient Instructions/Handouts: A-fib (Atrial Fibrillation) (DC), Viral Pneumonia (DC), COVID-19 (Coronavirus Disease 2019) (DC) Activity/Diet/Wound Care/Special Instructions: Activity Limited until follow-up Follow-up with primary care provider on discharge Follow-up cardiology outpatient in 1-2 weeks Follow-up nephrology outpatient in one week Recommend repeat labs in 2-3 days Continue heart healthy low potassium low phosphorus diet Continue holding losartan Discharge Disposition: HOME WITH HOME HEALTH SERVICES
== END 2022-05-12 17:12 | disposition home health service (06) | DRG 640 ==
LOC: EC 20:24 → 3SCARD 22:33
PROVIDERS: ADMIT Internal Medicine; ATTEND Internal Medicine
DX: E87.5 Hyperkalemia (principal); J12.82 Pneumonia due to coronavirus disease 2019; J96.21 Acute and chronic respiratory failure with hypoxia; U07.1 COVID-19; I48.19 Other persistent atrial fibrillation; I50.22 Chronic systolic (congestive) heart failure; J44.1 Chronic obstructive pulmonary disease with (acute) exacerbation; T46.5X5A Adverse effect of other antihypertensive drugs, initial encounter; F41.0 Panic disorder [episodic paroxysmal anxiety]; G40.909 Epilepsy, unspecified, not intractable, without status epilepticus; I08.1 Rheumatic disorders of both mitral and tricuspid valves; I11.0 Hypertensive heart disease with heart failure; E78.5 Hyperlipidemia, unspecified; E03.9 Hypothyroidism, unspecified; G47.00 Insomnia, unspecified; K58.9 Irritable bowel syndrome, unspecified; Z87.01 Personal history of pneumonia (recurrent); M81.0 Age-related osteoporosis without current pathological fracture; Z85.3 Personal history of malignant neoplasm of breast; Z99.81 Dependence on supplemental oxygen; Z92.21 Personal history of antineoplastic chemotherapy; E11.65 Type 2 diabetes mellitus with hyperglycemia; Z92.3 Personal history of irradiation; Z90.11 Acquired absence of right breast and nipple; K21.9 Gastro-esophageal reflux disease without esophagitis; T38.0X5A Adverse effect of glucocorticoids and synthetic analogues, initial encounter; Z79.84 Long term (current) use of oral hypoglycemic drugs; Z79.4 Long term (current) use of insulin; Z79.01 Long term (current) use of anticoagulants; Z79.890 Hormone replacement therapy; Z79.899 Other long term (current) drug therapy; Z87.442 Personal history of urinary calculi; Z90.710 Acquired absence of both cervix and uterus; Z87.891 Personal history of nicotine dependence; Z88.5 Allergy status to narcotic agent; Z88.8 Allergy status to other drugs, medicaments and biological substances
CPT/HCPCS: 36415; 71045; 80048; 80053; 80164; 83735; 84132; 84145; 84484; 85025; 87635; 93005; 94760; 96365; 96375; 99285

== ENCOUNTER 2022-06-14 20:18 | Inpatient (IN) | payer MEDICARE ==
[2022-06-14] MEDS ORDERED: ALBUTEROL HFA INHALER INHALATION STA (20:35)
--- NOTE | 2022-06-14 20:37 | ED ---
General Adult HPI - General Chief complaint: Shortness of Breath Stated complaint: Dyspnea Time Seen by Provider: 06/14/22 20:27 Source: patient, family, RN notes reviewed Mode of arrival: wheelchair Limitations: no limitations - History of Present Illness Initial comments: Patient is a pleasant 82-year-old female presenting to the emergency department with concerns with shortness of breath. Onset of symptoms was over a week ago. Patient does have occasional cough. Patient has mild chest discomfort. Patient has had some leg swelling, no calf pain. Patient does have history of COPD with somewhat similar symptoms previously. Patient is on home oxygen 3 L nasal cannula. - Related Data Home Medications Medication Instructions Recorded Confirmed Atorvastatin [Lipitor] 40 mg PO HS 10/16/13 06/14/22 Levothyroxine Sodium [Synthroid] 137 mcg PO DAILY 11/10/16 06/14/22 Albuterol Sulfate [Proair Hfa] 2 puff INHALATION RT-Q4H PRN 09/19/17 06/14/22 FLUoxetine HCL [PROzac] 40 mg PO DAILY 09/19/17 06/14/22 Glimepiride [Amaryl] 4 mg PO [id number] 12/02/20 06/14/22 sitaGLIPtin [Januvia] 100 mg PO DAILY 12/02/20 06/14/22 Divalproex Sodium [Divalproex 500 mg PO BID 04/18/22 06/14/22 Sodium ER] Fluticasone Nasal [place] [Flonase 1 spray EA NOSTRIL BID 04/18/22 06/14/22 Nasal [place]] Olmesartan [Benicar] 5 mg PO DAILY 04/18/22 06/14/22 metFORMIN HCL 1,000 mg PO BID 04/18/22 06/14/22 Amiodarone [Cordarone] 200 mg PO BID 06/14/22 06/14/22 Apixaban [Eliquis] See Taper PO BID 06/14/22 06/14/22 Metoprolol Tartrate [Lopressor] 25 mg PO BID 06/14/22 06/14/22 Pantoprazole Sodium [Protonix] 40 mg PO BID 06/14/22 06/14/22 Zolpidem [Ambien] 10 mg PO HS 06/14/22 06/14/22 clonazePAM [KlonoPIN] 0.5 mg PO BID@1600,2100 06/14/22 06/14/22 Allergies Allergy/AdvReac Type Severity Reaction Status Date / Time trazodone Allergy PSYCHOSIS Verified 06/14/22 22:36 budesonide [From Symbicort] AdvReac Unknown Verified 06/14/22 22:36 codeine AdvReac angry/mad Verified 06/14/22 22:36 fluticasone furoate AdvReac tachycardia Verified 06/14/22 22:36 [From Trelegy Ellipta] formoterol [From Symbicort] AdvReac Chest Pain Verified 06/14/22 22:36 mirabegron [From Myrbetriq] AdvReac "didn't Verified 06/14/22 22:36 work" tiotropium AdvReac "felt Verified 06/14/22 22:36 [From Spiriva with wirey" HandiHaler] umeclidinium AdvReac tachycardia Verified 06/14/22 22:36 [From Trelegy Ellipta] vilanterol AdvReac tachycardia Verified 06/14/22 22:36 [From Trelegy Ellipta] Review of Systems ROS Statement: Those systems with pertinent positive or pertinent negative responses have been documented in the HPI. ROS Other: All systems not noted in ROS Statement are negative. Constitutional: Denies: fever Eyes: Denies: eye pain ENT: Denies: ear pain Respiratory: Reports: as per HPI, dyspnea Cardiovascular: Reports: as per HPI Endocrine: Reports: fatigue Gastrointestinal: Denies: abdominal pain Genitourinary: Denies: dysuria Musculoskeletal: Denies: back pain Skin: Denies: rash Neurological: Denies: weakness Past Medical History Past Medical History: Atrial Fibrillation, Cancer, COPD, Diabetes Mellitus, GERD/Reflux, Hyperlipidemia, Seizure Disorder, Thyroid Disorder Additional Past Medical History / Comment(s): tremors, type 2 DM, osteoporosis left leg, hypothyroid, IBS, right breast CA with radiation, chemo, partial rt mastectomy with lymph nodes , bilat catarcts removal, insomnia, kidney stones, frontal lobe seizure- last siezure 30 years ago. History of Any Multi-Drug Resistant Organisms: None Reported Past Surgical History: Bladder Surgery, Breast Surgery, Cholecystectomy, Hysterectomy Additional Past Surgical History / Comment(s): bladder suspension Past Anesthesia/Blood Transfusion Reactions: No Reported Reaction Past Psychological History: Anxiety, Depression, Panic Disorder Smoking Status: Former smoker Past Alcohol Use History: None Reported Past Drug Use History: None Reported - Past Family History Brother(s) Additional Family Medical History / Comment(s): crohns General Exam Limitations: no limitations General appearance: alert Head exam: Present: normocephalic Eye exam: Present: normal appearance Neck exam: Present: normal inspection Respiratory exam: Present: respiratory distress, decreased breath sounds Cardiovascular Exam: Present: tachycardia GI/Abdominal exam: Present: soft. Absent: tenderness Extremities exam: Present: pedal edema. Absent: calf tenderness Neurological exam: Present: alert Psychiatric exam: Present: normal affect, normal mood Skin exam: Present: normal color Course Vital Signs 06/14/22 06/14/22 20:22 22:46 Temperature 97.5 F L Pulse Rate 108 H 52 L Respiratory 26 H 20 Rate Blood Pressure 149/68 148/81 O2 Sat by Pulse 94 L 98 Oximetry EKG Findings - EKG Results: EKG: interpreted by ERMD (Left axis. Q wave in V1.), sinus rhythm, normal ST/T EKG shows: bradycardia Medical Decision Making - Medical Decision Making Was pt. sent in by a medical professional or institution (, PA, [facility], urgent care, hospital, or [facility]...) When possible be specific @ -No Did you speak to anyone other than the patient for history (EMS, parent, family, police, friend...)? What history was obtained from this source @ - is present and helps provide majority of history is patient is somewhat a poor historian Did you review nursing and triage notes (agree or disagree)? Why? @ -I reviewed and agree with nursing and triage notes Were old charts reviewed (outside hosp., previous admission, EMS record, old EKG, old radiological studies, urgent care reports/EKG's, [facility] records)? Report findings @ -No old charts were reviewed Differential Diagnosis (chest pain, altered mental status, abdominal pain women, abdominal pain men, vaginal bleeding, weakness, fever, dyspnea, syncope, headache, dizziness, GI bleed, back pain, seizure, CVA, palpatations, mental health)? @ -Differential Dyspnea: Coronary syndrome, arrhythmia, tamponade, asthma, COPD, pulmonary embolism, pneumonia, pneumothorax, pulmonary effusion, anaphylaxis, diabetic ketoacidosis, flailed chest, pulmonary contusion, diaphragmatic rupture, anemia, neuromuscular, this is not meant to be an all-inclusive list. EKG interpreted by me (3pts min.). @ -As above X-rays interpreted by me (1pt min.). @ -Chest x-ray does show some increased interstitial markings and pleural effusions, correlate for CHF. CT interpreted by me (1pt min.). @ -Report reviewed U/S interpreted by me (1pt. min.). @ -None done What testing was considered but not performed or refused? (CT, X-rays, U/S, labs)? Why? @ -None What meds were considered but not given or refused? Why? @ -None Did you discuss the management of the patient with other professionals (pr ofessionals i.e. , PA, [facility], lab, RT, psych nurse, social media manager, coverage specialist rn, teacher, earth science technical officer, counseling case manager)? Give summary @ -Case discussed with practitioner Anila, who will admit with Dr. Hill, who covers for Dr. Rosenberg Was smoking cessation discussed for >3mins.? @ -No Was critical care preformed (if so, how long)? @ -No Were there social determinants of health that impacted care today? How? (Homelessness, low income, unemployed, alcoholism, drug addiction, transportation, low edu. Level, literacy, decrease access to med. care, usp, rehab)? @ -No Was there de-escalation of care discussed even if they declined (Discuss DNR or withdrawal of care, Hospice)? DNR status @ -No What co-morbidities impacted this encounter? (DM, HTN, Smoking, COPD, CAD, Cancer, CVA, ARF, Chemo, Hep., AIDS, mental health diagnosis, sleep apnea, morbid obesity)? @ -None Was patient admitted / discharged? Hospital course, mention meds given and route, prescriptions, significant lab abnormalities, going to OR and other pertinent info. @ -Patient reevaluated and somewhat improved. Patient will be admitted. Patient did have COVID-19 infection less than a month ago and test results may be reflective of that, rather than true current infection. Patient will need consults and diuresis Undiagnosed new problem with uncertain prognosis? @ -No Drug Therapy requiring intensive monitoring for toxicity (Heparin, Nitro, Insulin, Cardizem)? @ -No Were any procedures done? @ -No Diagnosis/symptom? @ -CHF Acute, or Chronic, or Acute on Chronic? @ -Acute Uncomplicated (without systemic symptoms) or Complicated (systemic symptoms)? @ -default Side effects of treatment? @ -No Exacerbation, Progression, or Severe Exacerbation? @ -No Poses a threat to life or bodily function? How? (Chest pain, [place], [place], pneumonia, PE, COPD, DKA, ARF, appy, cholecystitis, CVA, Diverticulitis, Homicidal, Suicidal, threat to staff... and all critical care pts) @ -No - Lab Data Result diagrams: 06/14/22 20:38 06/14/22 20:38 Lab Results 06/14/22 06/14/22 06/14/22 Range/Units 20:38 20:38 20:38 WBC 6.4 (3.8-10.6) k/uL RBC 3.32 L (3.80-5.40) m/uL Hgb 10.4 L (11.4-16.0) gm/dL Hct 32.9 L (34.0-46.0) % MCV 99.2 (80.0-100.0) fL MCH 31.3 (25.0-35.0) pg MCHC 31.5 (31.0-37.0) g/dL RDW 20.3 H (11.5-15.5) % Plt Count 223 (150-450) k/uL MPV 9.2 Neutrophils % 60 % Lymphocytes % 24 % Monocytes % 11 % Eosinophils % 1 % Basophils % 1 % Neutrophils # 3.9 (1.3-7.7) k/uL Lymphocytes # 1.6 (1.0-4.8) k/uL Monocytes # 0.7 (0-1.0) k/uL Eosinophils # 0.1 (0-0.7) k/uL Basophils # 0.0 (0-0.2) k/uL Manual Slide Review Performed Hypochromasia Slight Poikilocytosis (manual Present Anisocytosis Moderate Macrocytosis Moderate PT 12.2 H (9.0-12.0) sec INR 1.2 H (<1.2) APTT 29.1 (22.0-30.0) sec D-Dimer 1.38 H (<0.60) mg/L FEU Sodium 137 (137-145) mmol/L Potassium 6.0 H (3.5-5.1) mmol/L Chloride 99 (98-107) mmol/L Carbon Dioxide 31 H (22-30) mmol/L Anion Gap 7 mmol/L BUN 21 H (7-17) mg/dL Creatinine 0.62 (0.52-1.04) mg/dL Est GFR (CKD-EPI)AfAm >90 (>60 ml/min/1.73 sqM) Est GFR (CKD-EPI)NonAf 85 (>60 ml/min/1.73 sqM) Glucose 162 H (74-99) mg/dL Plasma Lactic Acid Jarrett (0.7-2.0) mmol/L Calcium 8.8 (8.4-10.2) mg/dL Magnesium 1.5 L (1.6-2.3) mg/dL Total Bilirubin 1.3 (0.2-1.3) mg/dL AST 25 (14-36) U/L ALT 13 (4-34) U/L Alkaline Phosphatase 81 (38-126) U/L Troponin I (0.000-0.034) ng/mL NT-Pro-B Natriuret Pep pg/mL Total Protein 7.0 (6.3-8.2) g/dL Albumin 3.5 (3.5-5.0) g/dL Coronavirus (PCR) (Not Detectd) 06/14/22 06/14/22 06/14/22 Range/Units 20:38 20:38 20:47 WBC (3.8-10.6) k/uL RBC (3.80-5.40) m/uL Hgb (11.4-16.0) gm/dL Hct (34.0-46.0) % MCV (80.0-100.0) fL MCH (25.0-35.0) pg MCHC (31.0-37.0) g/dL RDW (11.5-15.5) % Plt Count (150-450) k/uL MPV Neutrophils % % Lymphocytes % % Monocytes % % Eosinophils % % Basophils % % Neutrophils # (1.3-7.7) k/uL Lymphocytes # (1.0-4.8) k/uL Monocytes # (0-1.0) k/uL Eosinophils # (0-0.7) k/uL Basophils # (0-0.2) k/uL Manual Slide Review Hypochromasia Poikilocytosis (manual Anisocytosis Macrocytosis PT (9.0-12.0) sec INR (<1.2) APTT (22.0-30.0) sec D-Dimer (<0.60) mg/L FEU Sodium (137-145) mmol/L Potassium (3.5-5.1) mmol/L Chloride (98-107) mmol/L Carbon Dioxide (22-30) mmol/L Anion Gap mmol/L BUN (7-17) mg/dL Creatinine (0.52-1.04) mg/dL Est GFR (CKD-EPI)AfAm (>60 ml/min/1.73 sqM) Est GFR (CKD-EPI)NonAf (>60 ml/min/1.73 sqM) Glucose (74-99) mg/dL Plasma Lactic Acid Jarrett 2.9 H* (0.7-2.0) mmol/L Calcium (8.4-10.2) mg/dL Magnesium (1.6-2.3) mg/dL Total Bilirubin (0.2-1.3) mg/dL AST (14-36) U/L ALT (4-34) U/L Alkaline Phosphatase (38-126) U/L Troponin I 0.025 (0.000-0.034) ng/mL NT-Pro-B Natriuret Pep 2940 pg/mL Total Protein (6.3-8.2) g/dL Albumin (3.5-5.0) g/dL Coronavirus (PCR) (Not Detectd) 06/14/22 Range/Units 20:47 WBC (3.8-10.6) k/uL RBC (3.80-5.40) m/uL Hgb (11.4-16.0) gm/dL Hct (34.0-46.0) % MCV (80.0-100.0) fL MCH (25.0-35.0) pg MCHC (31.0-37.0) g/dL RDW (11.5-15.5) % Plt Count (150-450) k/uL MPV Neutrophils % % Lymphocytes % % Monocytes % % Eosinophils % % Basophils % % Neutrophils # (1.3-7.7) k/uL Lymphocytes # (1.0-4.8) k/uL Monocytes # (0-1.0) k/uL Eosinophils # (0-0.7) k/uL Basophils # (0-0.2) k/uL Manual Slide Review Hypochromasia Poikilocytosis (manual Anisocytosis Macrocytosis PT (9.0-12.0) sec INR (<1.2) APTT (22.0-30.0) sec D-Dimer (<0.60) mg/L FEU Sodium (137-145) mmol/L Potassium (3.5-5.1) mmol/L Chloride (98-107) mmol/L Carbon Dioxide (22-30) mmol/L Anion Gap mmol/L BUN (7-17) mg/dL Creatinine (0.52-1.04) mg/dL Est GFR (CKD-EPI)AfAm (>60 ml/min/1.73 sqM) Est GFR (CKD-EPI)NonAf (>60 ml/min/1.73 sqM) Glucose (74-99) mg/dL Plasma Lactic Acid [place]rett (0.7-2.0) mmol/L Calcium (8.4-10.2) mg/dL Magnesium (1.6-2.3) mg/dL Total Bilirubin (0.2-1.3) mg/dL AST (14-36) U/L ALT (4-34) U/L Alkaline Phosphatase (38-126) U/L Troponin I (0.000-0.034) ng/mL NT-Pro-B Natriuret Pep pg/mL Total Protein (6.3-8.2) g/dL Albumin (3.5-5.0) g/dL Coronavirus (PCR) Detected A (Not Detectd) Disposition Clinical Impression: Congestive heart failure Disposition: ADMITTED IP TO THIS HOSP Is patient prescribed a controlled substance at d/c from ED?: No Referrals: Tammi Rosenberg III, MD [Primary Care Provider] - 1-2 days Time of Disposition: 23:39
--- NOTE | 2022-06-14 21:11 | XR ---
EXAMINATION TYPE: XR chest 2V DATE OF EXAM: 06/14/2022 8:58 PM COMPARISON: Chest radiographs from 05/12/2022 TECHNIQUE: XR chest 2V Frontal and lateral views of the chest. CLINICAL INDICATION:Female, 82 years old with history of difficulty breathing; FINDINGS: Lungs/Pleura: No evidence of focal consolidation or pneumothorax. Blunting of the costophrenic angles is present. Pulmonary vascularity: Pulmonary vascular congestion. Heart/mediastinum: Cardiomediastinal silhouette is enlarged and stable. Musculoskeletal: No acute osseous pathology. IMPRESSION: 1. Right upper lobes interstitial infiltrate is increased from prior. 2. Cardiomegaly, pulmonary vascular congestion and bilateral pleural effusions. Correlate with BNP f or congestive heart failure.
[2022-06-14 21:45] LABS: ALT 13 U/L (4-34); AST 25 U/L (14-36); African American GFR (CKD) >90 (>60 ml/min/1.73 sqM); Albumin 3.5 g/dL (3.5-5.0); Alkaline Phosphatase 81 U/L (38-126); Anion Gap 7 mmol/L; Blood Urea Nitrogen 21 mg/dL (7-17); Calcium 8.8 mg/dL (8.4-10.2); Carbon Dioxide 31 mmol/L (22-30); Chloride 99 mmol/L (98-107); Glucose 162 mg/dL (74-99); Magnesium 1.5 mg/dL (1.6-2.3); Non-African American GFR(CKD) 85 (>60 ml/min/1.73 sqM); Sodium 137 mmol/L (137-145); Total Bilirubin 1.3 mg/dL (0.2-1.3)
[2022-06-14 21:55] LABS: INR 1.2 (<1.2); Partial Thromboplastin Time 29.1 sec (22.0-30.0); Prothrombin Time 12.2 sec (9.0-12.0)
[2022-06-14 22:37] LABS: Anisocytosis Moderate; Basophils % (A) 1 %; Eosinophils # (A) 0.1 k/uL (0-0.7); Eosinophils % (A) 1 %; HCT 32.9 % (34.0-46.0); HGB 10.4 gm/dL (11.4-16.0); Hypochromasia Slight; Lymphocytes # (A) 1.6 k/uL (1.0-4.8); Lymphocytes % (A) 24 %; MCH 31.3 pg (25.0-35.0); MCHC 31.5 g/dL (31.0-37.0); MCV 99.2 fL (80.0-100.0); Macrocytosis Moderate; Mean Platelet Volume 9.2; Monocytes # (A) 0.7 k/uL (0-1.0); Monocytes % (A) 11 %; Neutrophils # (A) 3.9 k/uL (1.3-7.7); Neutrophils % (A) 60 %; Platelet Count 223 k/uL (150-450); RBC 3.32 m/uL (3.80-5.40); RDW 20.3 % (11.5-15.5); WBC 6.4 k/uL (3.8-10.6)
[2022-06-14 22:47] LABS: Poikilocytosis (M) Present
--- NOTE | 2022-06-14 23:23 | CT ---
EXAM: CT Angiography Chest With Intravenous Contrast CLINICAL HISTORY: ITS.REASON CT Reason: dyspnea TECHNIQUE: Axial computed tomographic angiography images of the chest with intravenous contrast. CTDI is 11.9 mGy and DLP is 275.7 mGy-cm. This CT exam was performed using one or more of the following dose reduction techniques: automated exposure control, adjustment of the mA and/or kV according to patient size, and/or use of iterative reconstruction technique. MIP reconstructed images were created and reviewed. COMPARISON: 04/18/2022 FINDINGS: Pulmonary arteries: Unremarkable. No pulmonary embolus. Aorta: No acute findings. No thoracic aortic aneurysm. Lungs: Groundglass opacity scattered throughout the lungs bilaterally with subtle interlobular septal thickening. Patchy nodularity of the upper lobes bilaterally. Compressive atelectasis of both lower lobes. Pleural space: Bilateral pleural effusions right greater than left. No pneumothorax. Heart: Unremarkable. No cardiomegaly. No significant pericardial effusion. No evidence of RV dysfunction. Mediastinum: Mediastinal lymphadenopathy measuring up to 1.2 cm in short axis diameter in the precarinal region. Bones/joints: No acute fracture. No dislocation. Soft tissues: Unremarkable. Lymph nodes: Lymph gallbladder surgically absent. IMPRESSION: 1. No pulmonary embolus 2. Bilateral pleural effusions 3. Moderate congestive failure.
[2022-06-14] MEDS ORDERED: ASPIRIN 325 MG TAB PO STA (23:39)
[2022-06-15] MEDS: NITROGLYCERIN OINT 1 INCH/GM PACKET TOPICAL SCH ×4 (02:22→17:11)
[2022-06-15] MEDS: FUROSEMIDE 10 MG/ML 4 ML VIAL IV SCH ×3 (02:22→17:12)
[2022-06-15] MEDS ORDERED: ALBUTEROL HFA INHALER INHALATION PRN (07:20)
[2022-06-15] MEDS ORDERED: DEXTROSE 50% SYRINGE 50 ML IVP PRN ×2 (07:25)
[2022-06-15] MEDS ORDERED: GLIMEPIRIDE 2 MG TAB PO SCH (07:30)
[2022-06-15] MEDS ORDERED: hydrALAZINE HCL 20 MG/ML 1 ML VIAL IVP PRN (07:33)
[2022-06-15 08:08] LABS: Glucose,Whole Blood 56 mg/dL (70-110)
[2022-06-15] MEDS: INSULIN ASPART (NovoLOG) 100 UNIT/ML VIAL SQ SCH ×4 (08:28→20:24)
[2022-06-15] MEDS: GLIMEPIRIDE 2 MG TAB PO SCH (08:30)
[2022-06-15 08:47] LABS: Glucose,Whole Blood 66 mg/dL (70-110)
--- NOTE | 2022-06-15 08:50 | P.HPIM ---
History of Present Illness This is a pleasant 82 years old female with past medical history of Atrial Fibrillation, Cancer, COPD, Diabetes Mellitus, GERD/Reflux, Hyperlipidemia, Seizure Disorder, hypothyroidism, history of osteoporosis, irritable bowel syndrome, right breast cancer status post chemoradiotherapy and mastectomy Presents because of a breathing difficulty for a few days, she could not specify with no significant chest pain, she has occasional dry cough with no phlegm Also complains from increased swelling in her legs. At baseline she works to the bathroom on she got exertional dyspnea. On exam she has extensive leg edema and bilateral basal crepitation She has little headache but denies dizziness weakness or numbness. No blurred vision or slurred speech Patient denies acute GI or urinary symptoms, no abdominal pain or vomiting, no dysuria urgency, patient expressed she has diarrhea and irritable bowel syndrome No smoking alcohol or illicit tracts by patient Patient looks little bit weak all over and looked lethargic but she is awake oriented to time place and person, she knows she is in [facility] she thought it is May is going to be next week but she knew the year 2022 and she knew the name of the president This patient is afebrile, markedly tachypneic and bradycardic, blood pressure is elevated 177/72. She is saturating 98%. Oxygen via nasal cannula Coronavirus detected CBC showed mild anemia with hemoglobin 10.4. INR is 1.2, elevated d-dimer 1.38. ProBNP is 2940. Troponin 2 are negative physical 0.012. Potassium was elevated at 6.0 with slight phimosis sample. Creatinine is normal 0.6. Glucose 162. Elevated lactic acid 2.9 came back to normal 1.5. Liver enzymes elevated. CTA of the chest: No pulmonary embolism, bilateral pleural effusion and moderate congestive heart failure EKG showing sinus bradycardia at [address]-T changes. Chest x-ray: Both upper lobe interstitial infiltrate is increased from prior. Cardiomegaly and pulmonary vascular congestion and bilateral pleural effusions. In the emergency room received aspirin 325 mg started on IV Lasix 40 mg every 8 hours. Echocardiogram from 03/2022: Ejection fraction 45-50% with [id number] mitral and tricuspid regurgitation Review of Systems Review of systems CONSTITUTIONAL: No fever, no malaise, no fatigue. HEENT: No recent visual problems or hearing problems. Denied any sore throat. CARDIOVASCULAR: No orthopnea, PND, no palpitations, no syncope. PULMONARY: No chest wall tenderness , no hemoptysis. GASTROINTESTINAL: No diarrhea, no nausea, no vomiting, no abdominal pain. Normoactive bowel sounds. NEUROLOGICAL: No headaches, no weakness, no numbness. HEMATOLOGICAL: Denies any bleeding or petechiae. GENITOURINARY: Denies any burning micturition, frequency, or urgency. MUSCULOSKELETAL/RHEUMATOLOGICAL: Denies any joint pain, swelling, or any muscle pain. ENDOCRINE: Denies any polyuria or polydipsia. Past Medical History Past Medical History: Atrial Fibrillation, Cancer, COPD, Diabetes Mellitus, GERD/Reflux, Hyperlipidemia, Seizure Disorder, Thyroid Disorder Additional Past Medical History / Comment(s): tremors, type 2 DM, osteoporosis left leg, hypothyroid, IBS, right breast CA with radiation, chemo, partial rt mastectomy with lymph nodes , bilat catarcts removal, insomnia, kidney stones, frontal lobe seizure- last siezure 30 years ago. History of Any Multi-Drug Resistant Organisms: None Reported Past Surgical History: Bladder Surgery, Breast Surgery, Cholecystectomy, Hysterectomy Additional Past Surgical History / Comment(s): bladder suspension Past Anesthesia/Blood Transfusion Reactions: No Reported Reaction Past Psychological History: Anxiety, Depression, Panic Disorder Smoking Status: Former smoker Past Alcohol Use History: None Reported Past Drug Use History: None Reported - Past Family History Brother(s) Additional Family Medical History / Comment(s): crohns Medications and Allergies Home Medications Medication Instructions Recorded Confirmed Type Atorvastatin [Lipitor] 40 mg PO HS 10/16/13 06/14/22 History Levothyroxine Sodium [Synthroid] 137 mcg PO DAILY 11/10/16 06/14/22 History Albuterol Sulfate [Proair Hfa] 2 puff INHALATION RT-Q4H PRN 09/19/17 06/14/22 History FLUoxetine HCL [PROzac] 40 mg PO DAILY 09/19/17 06/14/22 History Glimepiride [Amaryl] 4 mg PO AC-BRKFST 12/02/20 06/14/22 History sitaGLIPtin [Januvia] 100 mg PO DAILY 12/02/20 06/14/22 History Divalproex Sodium [Divalproex 500 mg PO BID 04/18/22 06/14/22 History Sodium ER] Fluticasone Nasal [place] [Flonase 1 spray EA NOSTRIL BID 04/18/22 06/14/22 History Nasal [place]] Olmesartan [Benicar] 5 mg PO DAILY 04/18/22 06/14/22 History metFORMIN HCL 1,000 mg PO BID 04/18/22 06/14/22 History Amiodarone [Cordarone] 200 mg PO BID 06/14/22 06/14/22 History Apixaban [Eliquis] See Taper PO BID 06/14/22 06/14/22 History Metoprolol Tartrate [Lopressor] 25 mg PO BID 06/14/22 06/14/22 History Pantoprazole Sodium [Protonix] 40 mg PO BID 06/14/22 06/14/22 History Zolpidem [Ambien] 10 mg PO HS 06/14/22 06/14/22 History clonazePAM [KlonoPIN] 0.5 mg PO BID@1600,2100 06/14/22 06/14/22 History Allergies Allergy/AdvReac Type Severity Reaction Status Date / Time trazodone Allergy PSYCHOSIS Verified 06/14/22 22:36 budesonide [From Symbicort] AdvReac Unknown Verified 06/14/22 22:36 codeine AdvReac angry/mad Verified 06/14/22 22:36 fluticasone furoate AdvReac tachycardia Verified 06/14/22 22:36 [From Trelegy Ellipta] formoterol [From Symbicort] AdvReac Chest Pain Verified 06/14/22 22:36 mirabegron [From Myrbetriq] AdvReac "didn't Verified 06/14/22 22:36 work" tiotropium AdvReac "felt Verified 06/14/22 22:36 [From Spiriva with wirey" HandiHaler] umeclidinium AdvReac tachycardia Verified 06/14/22 22:36 [From Trelegy Ellipta] vilanterol AdvReac tachycardia Verified 06/14/22 22:36 [From Trelegy Ellipta] Physical Exam Vitals: Vital Signs Temp Pulse Resp BP Pulse Ox 06/15/22 06:42 52 L 18 177/72 98 06/15/22 02:28 58 L 18 176/74 96 06/15/22 01:18 53 L 16 189/74 98 06/14/22 22:46 52 L 20 148/81 98 06/14/22 20:22 97.5 F L 108 H 26 H 149/68 94 L Intake and Output 06/14/22 06/15/22 06/15/22 22:59 06:59 14:59 Other: Weight 72.575 kg GENERAL: The patient is alert and oriented x3, not in any acute distress. Well developed, well nourished. HEENT: Pupils are round and equally reacting to light. EOMI. No scleral icterus. No conjunctival pallor. Normocephalic, atraumatic. No pharyngeal erythema. No thyromegaly. CARDIOVASCULAR: S1 and S2 present. No murmurs, rubs, or gallops. -PULMONARY: Chest is clear to auscultation, no wheezing , bilateral basal crepitation ABDOMEN: Soft, nontender, nondistended, normoactive bowel sounds. No palpable organomegaly. MUSCULOSKELETAL: No joint swelling or deformity. -EXTREMITIES: No cyanosis, clubbing, 3+ bilateral pitting leg edema NEUROLOGICAL: Gross neurological examination did not reveal any focal deficits. SKIN: No rashes. no petechiae. Results CBC & Chem 7: 06/14/22 20:38 06/14/22 20:38 Labs: Abnormal Lab Results - Last 24 Hours (Table) 06/14/22 06/14/22 06/14/22 Range/Units 20:38 20:38 20:38 RBC 3.32 L (3.80-5.40) m/uL Hgb 10.4 L (11.4-16.0) gm/dL Hct 32.9 L (34.0-46.0) % RDW 20.3 H (11.5-15.5) % PT 12.2 H (9.0-12.0) sec INR 1.2 H (<1.2) D-Dimer 1.38 H (<0.60) mg/L FEU Potassium 6.0 H (3.5-5.1) mmol/L Carbon Dioxide 31 H (22-30) mmol/L BUN 21 H (7-17) mg/dL Glucose 162 H (74-99) mg/dL Plasma Lactic Acid Jarrett (0.7-2.0) mmol/L Magnesium 1.5 L (1.6-2.3) mg/dL Coronavirus (PCR) (Not Detectd) 06/14/22 06/14/22 Range/Units 20:47 20:47 RBC (3.80-5.40) m/uL Hgb (11.4-16.0) gm/dL Hct (34.0-46.0) % RDW (11.5-15.5) % PT (9.0-12.0) sec INR (<1.2) D-Dimer (<0.60) mg/L FEU Potassium (3.5-5.1) mmol/L Carbon Dioxide (22-30) mmol/L BUN (7-17) mg/dL Glucose (74-99) mg/dL Plasma Lactic Acid Jarrett 2.9 H* (0.7-2.0) mmol/L Magnesium (1.6-2.3) mg/dL Coronavirus (PCR) Detected A (Not Detectd) Assessment and Plan Assessment: Acute on chronic CHF , mildly reduced ejection fraction, systolic with valvular heart disease [id number] TRICUSPID REGURGITATION Right upper lobe infiltrate, increased from prior Covid infection without pneumonia Hypertension with urgency, present on admission COPD, no acute exacerbation Diabetes mellitus Hyperlipidemia Hypothyroidism History of seizure disorder History of osteoporosis History of tremor History of irritable bowel syndrome History of right breast cancer status post surgical chemotherapy and mastectomy. History of bilateral cataract removal Plan: Check inflammatory markers Check pro-Calcitonin , especially in view INCREASED right upper lobe infiltrate, also in view COVID positive test Continue with IV Lasix and monitor output and creatinine and electrolytes Cardiology consult Continue with aspirin Resume liquids and metoprolol, probably due to the amount of cartilage team as patient is mildly tachycardic Hold olmasrtan for high k on admission decreased dose of Amaryl 4 mg of Coumadin and insulin sliding scale and diabetic diet. Continue with metformin. Check hemoglobin A1c Check TSH Start vitamin C, vitamin D zinc Labs and medication were reviewed.. Continue same treatment. Continue with symptomatic treatment. Resume home medication. Monitor labs and vitals. DVT and GI prophylaxis. Further recommendations as per clinical course of the patient DVT prophylaxis: Eliquis GI Prophylaxis: Ppi PT/OT: Pending Prognosis is guarded
[2022-06-15] MEDS: CHOLECALCIFEROL 25 MCG (1000 IU) TABLET PO SCH (08:57)
[2022-06-15] MEDS: FLUoxetine HCL 20 MG CAP PO SCH (08:58)
[2022-06-15] MEDS: DIVALPROEX ER 500 MG TAB.ER.24H PO SCH ×2 (08:58→20:38)
[2022-06-15] MEDS: ASPIRIN 325 MG TAB PO SCH (08:58)
[2022-06-15] MEDS: ASCORBIC ACID 500 MG TAB PO SCH (08:59)
[2022-06-15] MEDS: APIXABAN 5 MG TAB PO SCH ×2 (08:59→20:38)
[2022-06-15] MEDS: LEVOTHYROXINE 137 MCG TAB PO SCH (09:00)
[2022-06-15] MEDS: FLUTICASONE 50MCG/SPRAY NASAL 16GM EA NOSTRIL SCH ×2 (10:17→20:38)
[2022-06-15] MEDS: metFORMIN 500 MG TAB PO SCH ×2 (10:23→20:38)
[2022-06-15] MEDS: ZINC SULFATE 220 MG CAP PO SCH (10:23)
[2022-06-15] MEDS: METOPROLOL TARTRATE 25 MG TAB PO SCH ×2 (10:23→20:38)
[2022-06-15] MEDS: PANTOPRAZOLE 40 MG TABLET PO SCH ×2 (10:23→17:12)
[2022-06-15 11:25] LABS: Glucose,Whole Blood 222 mg/dL (70-110)
[2022-06-15 13:30] VITALS: BMI 27.4
[2022-06-15 13:30] LABS: Anisocytosis Moderate; Basophils % (A) 0 %; Eosinophils # (A) 0.1 k/uL (0-0.7); Eosinophils % (A) 2 %; HCT 30.6 % (34.0-46.0); HGB 9.6 gm/dL (11.4-16.0); Hypochromasia Moderate; Lymphocytes # (A) 1.3 k/uL (1.0-4.8); Lymphocytes % (A) 22 %; MCH 31.7 pg (25.0-35.0); MCHC 31.4 g/dL (31.0-37.0); MCV 100.9 fL (80.0-100.0); Macrocytosis Moderate; Mean Platelet Volume 8.6; Monocytes # (A) 0.8 k/uL (0-1.0); Monocytes % (A) 13 %; Neutrophils # (A) 3.6 k/uL (1.3-7.7); Neutrophils % (A) 60 %; Platelet Count 195 k/uL (150-450); RBC 3.04 m/uL (3.80-5.40); RDW 20.5 % (11.5-15.5); WBC 6.1 k/uL (3.8-10.6)
[2022-06-15 15:47] LABS: African American GFR (CKD) 84 (>60 ml/min/1.73 sqM); Anion Gap 10 mmol/L; Blood Urea Nitrogen 18 mg/dL (7-17); C Reactive Protein 1.7 mg/dL (<1.0); Carbon Dioxide 33 mmol/L (22-30); Chloride 97 mmol/L (98-107); Glucose 182 mg/dL (74-99); LDH 210 U/L (120-246); Non-African American GFR(CKD) 73 (>60 ml/min/1.73 sqM); Potassium 5.3 mmol/L (3.5-5.1); Sodium 140 mmol/L (137-145)
[2022-06-15 16:21] LABS: Glucose,Whole Blood 99 mg/dL (70-110)
[2022-06-15] MEDS: clonazePAM 0.5 MG TAB PO SCH ×3 (16:44→20:38)
[2022-06-15 20:26] LABS: Glucose,Whole Blood 149 mg/dL (70-110)
[2022-06-15] MEDS: ATORVASTATIN 40 MG TAB PO SCH (20:38)
[2022-06-16] MEDS: FUROSEMIDE 10 MG/ML 4 ML VIAL IV SCH ×3 (00:23→16:50)
[2022-06-16] MEDS: NITROGLYCERIN OINT 1 INCH/GM PACKET TOPICAL SCH (00:28)
[2022-06-16 06:18] LABS: Glucose,Whole Blood 68 mg/dL (70-110)
[2022-06-16] MEDS: GLIMEPIRIDE 2 MG TAB PO SCH (06:27)
[2022-06-16] MEDS: INSULIN ASPART (NovoLOG) 100 UNIT/ML VIAL SQ SCH ×4 (06:27→21:50)
[2022-06-16] MEDS: PANTOPRAZOLE 40 MG TABLET PO SCH ×2 (06:35→16:50)
[2022-06-16] MEDS: LEVOTHYROXINE 137 MCG TAB PO SCH (06:35)
[2022-06-16 06:41] LABS: Glucose,Whole Blood 75 mg/dL (70-110)
[2022-06-16 08:06] LABS: Anisocytosis Moderate; Basophils % (A) 0 %; Eosinophils # (A) 0.1 k/uL (0-0.7); Eosinophils % (A) 1 %; HCT 30.3 % (34.0-46.0); HGB 9.6 gm/dL (11.4-16.0); Hypochromasia Slight; Lymphocytes # (A) 2.3 k/uL (1.0-4.8); Lymphocytes % (A) 29 %; MCH 31.3 pg (25.0-35.0); MCHC 31.7 g/dL (31.0-37.0); MCV 98.8 fL (80.0-100.0); Macrocytosis Moderate; Mean Platelet Volume 8.7; Monocytes # (A) 0.9 k/uL (0-1.0); Monocytes % (A) 12 %; Neutrophils # (A) 4.3 k/uL (1.3-7.7); Neutrophils % (A) 54 %; Platelet Count 195 k/uL (150-450); RBC 3.07 m/uL (3.80-5.40); WBC 7.9 k/uL (3.8-10.6)
[2022-06-16 09:16] LABS: Calcium 8.5 mg/dL (8.4-10.2); Potassium 4.6 mmol/L (3.5-5.1)
[2022-06-16] MEDS: APIXABAN 5 MG TAB PO SCH ×2 (09:36→21:48)
[2022-06-16] MEDS: DIVALPROEX ER 500 MG TAB.ER.24H PO SCH ×2 (09:36→21:48)
[2022-06-16] MEDS: ASCORBIC ACID 500 MG TAB PO SCH (09:36)
[2022-06-16] MEDS: ASPIRIN 325 MG TAB PO SCH (09:36)
[2022-06-16] MEDS: ZINC SULFATE 220 MG CAP PO SCH (09:37)
[2022-06-16] MEDS: FLUoxetine HCL 20 MG CAP PO SCH (09:37)
[2022-06-16] MEDS: metFORMIN 500 MG TAB PO SCH ×2 (09:37→21:55)
[2022-06-16] MEDS: METOPROLOL TARTRATE 25 MG TAB PO SCH ×2 (09:37→21:48)
[2022-06-16] MEDS: CHOLECALCIFEROL 25 MCG (1000 IU) TABLET PO SCH (09:37)
[2022-06-16] MEDS: FLUTICASONE 50MCG/SPRAY NASAL 16GM EA NOSTRIL SCH ×2 (09:38→21:49)
[2022-06-16 11:29] LABS: Glucose,Whole Blood 194 mg/dL (70-110)
--- NOTE | 2022-06-16 13:28 | P.CRDCN ---
History of Present Illness Consult date: 06/16/22 Consult reason: congestive heart failure, shortness of breath History of present illness: History of present illness: Patient is a pleasant 82-year-old female with significant past medical history of atrial fibrillation on [place], breast cancer, COPD, diabetes, hyperlipidemia, seizure who presented with complaints of worsening shortness of breath and edema. He follows with Dr. Plunkett in the office. Of note she did have a recent cardioversion at [facility] on 06/09/22. She does report feeling better after this. However, over the past few days she has noticed increasing shortness of breath, limiting her activities. She was diagnosed with COVID-19 infection upon admission. She denies any cough, fever, chills, chest pain, dizziness. She reports compliance with her medications. EKG shows sinus bradycardia 54 bpm, no significant ST or T wave changes. CTA chest was negative for PE, showed bilateral pleural effusions and a moderate CHF. Chest x-ray shows right upper lobe interstitial infiltrates, cardiomegaly, pulmonary vascular changes and bilateral pleural effusions. She had a prior echocardiogram 03/2022 that showed ejection fraction 4550 percent, mild to moderate mitral regurgitation and tricuspid regurgitation. Labs reviewed: Troponin negative 2, WBC 7.9, hemoglobin 9.6, platelets 195, BNP 2940, cr eatinine 0.77, TSH normal. She was started on Lasix 40 mg IV every 8 hours. She reports that she is feeling better breathing robert this morning and that her swelling has improved. Denies any chest pain or pressure. REVIEW OF SYSTEMS: No fever or chills. No cough or expectoration. No diaphoresis. Reports shortness of breath. Patient denies headache, dizziness, blurred vision, double vision. Patient denies any stomach discomfort. No nausea, vomiting. No hematochezia. No hematemesis. Denies any black stools or blood in his stools. Denies dysuria or hematuria. No muscle weakness or numbness. No chest pain or pressure. PHYSICAL EXAMINATION: This is a 82-year-old female in no apparent distress at the time of my examination. HEENT: Head is atraumatic, normocephalic. Pupils are equal, round. Sclerae anicteric. Conjunctivae are clear. Mucous membranes of the mouth are moist. Neck is supple. There is no jugular venous distention. No carotid bruit is heard. CHEST EXAMINATION: Lungs are clear to auscultation. No chest wall tenderness is noted on palpation or with deep breathing. HEART EXAMINATION: Heart regular rate and rhythm. S1, S2 heard. No murmurs, gallops or rub. ABDOMEN: Soft, nontender. Bowel sounds are heard. EXTREMITIES: 2+ peripheral pulses, +1 pitting edema BLE. NEUROLOGIC EXAMINATION: Patient is awake, alert and oriented x3. IMPRESSION AND PLAN: Atrial fibrillation, status post cardioversion 06/09/22, currently sinus bradycardia on telemetry COPD Diabetes Hyperlipidemia Shortness of breath Systolic heart failure Lower extremity edema COVID-19 infection PLAN: Continue with IV diuretics, monitor intake and output, monitor renal function. Continue current regimen. We will reassess tomorrow. I am dictating on behalf of Dr. Cuco Wooten's history/physical and assessment/plan. Past Medical History Past Medical History: Atrial Fibrillation, Cancer, COPD, Diabetes Mellitus, GERD/Reflux, Hyperlipidemia, Seizure Disorder, Thyroid Disorder Additional Past Medical History / Comment(s): tremors, type 2 DM, osteoporosis left leg, hypothyroid, IBS, right breast CA with radiation, chemo, partial rt mastectomy with lymph nodes , bilat catarcts removal, insomnia, kidney stones, frontal lobe seizure- last siezure 30 years ago. History of Any Multi-Drug Resistant Organisms: None Reported Past Surgical History: Bladder Surgery, Breast Surgery, Cholecystectomy, Hysterectomy Additional Past Surgical History / Comment(s): bladder suspension Past Anesthesia/Blood Transfusion Reactions: No Reported Reaction Past Psychological History: Anxiety, Depression, Panic Disorder Additional Psychological History / Comment(s): frontal lobal seizures Smoking Status: Former smoker Past Alcohol Use History: None Reported Past Drug Use History: None Reported - Past Family History Brother(s) Additional Family Medical History / Comment(s): crohns Medications and Allergies Home Medications Medication Instructions Recorded Confirmed Type Atorvastatin [Lipitor] 40 mg PO HS 10/16/13 06/14/22 History Levothyroxine Sodium [Synthroid] 137 mcg PO DAILY 11/10/16 06/14/22 History Albuterol Sulfate [Proair Hfa] 2 puff INHALATION RT-Q4H PRN 09/19/17 06/14/22 History FLUoxetine HCL [PROzac] 40 mg PO DAILY 09/19/17 06/14/22 History Glimepiride [Amaryl] 4 mg PO AC-BRKFST 12/02/20 06/14/22 History sitaGLIPtin [Januvia] 100 mg PO DAILY 12/02/20 06/14/22 History Divalproex Sodium [Divalproex 500 mg PO BID 04/18/22 06/14/22 History Sodium ER] Fluticasone Nasal [place] [Flonase 1 spray EA NOSTRIL BID 04/18/22 06/14/22 History Nasal [place]] Olmesartan [Benicar] 5 mg PO DAILY 04/18/22 06/14/22 History metFORMIN HCL 1,000 mg PO BID 04/18/22 06/14/22 History Amiodarone [Cordarone] 200 mg PO BID 06/14/22 06/14/22 History Apixaban [Eliquis] See Taper PO BID 06/14/22 06/14/22 History Metoprolol Tartrate [Lopressor] 25 mg PO BID 06/14/22 06/14/22 History Pantoprazole Sodium [Protonix] 40 mg PO BID 06/14/22 06/14/22 History Zolpidem [Ambien] 10 mg PO HS 06/14/22 06/14/22 History clonazePAM [KlonoPIN] 0.5 mg PO BID@1600,2100 06/14/22 06/14/22 History Furosemide [Lasix] 40 mg PO DAILY 06/15/22 06/15/22 History Olmesartan [Benicar] 5 mg PO DAILY 06/15/22 06/15/22 History hydroCHLOROthiazide [Hydrodiuril] 25 mg PO DAILY 06/15/22 06/15/22 History Allergies Allergy/AdvReac Type Severity Reaction Status Date / Time trazodone Allergy PSYCHOSIS Verified 06/14/22 22:36 budesonide [From Symbicort] AdvReac Unknown Verified 06/14/22 22:36 codeine AdvReac angry/mad Verified 06/14/22 22:36 fluticasone furoate AdvReac tachycardia Verified 06/14/22 22:36 [From Trelegy Ellipta] formoterol [From Symbicort] AdvReac Chest Pain Verified 06/14/22 22:36 mirabegron [From Myrbetriq] AdvReac "didn't Verified 06/14/22 22:36 work" tiotropium AdvReac "felt Verified 06/14/22 22:36 [From Spiriva with wirey" HandiHaler] umeclidinium AdvReac tachycardia Verified 06/14/22 22:36 [From Trelegy Ellipta] vilanterol AdvReac tachycardia Verified 06/14/22 22:36 [From Trelegy Ellipta] Physical Exam Vitals: Vital Signs Temp Pulse Resp BP Pulse Ox 06/16/22 08:39 95 06/16/22 08:00 97.5 F L 51 L 16 108/66 99 06/16/22 04:00 47 L 16 121/62 94 L 06/16/22 01:39 52 L 18 06/16/22 00:00 52 L 18 128/53 97 06/15/22 20:00 97.7 F 51 L 18 123/69 97 06/15/22 17:05 97.6 F 50 L 16 128/57 96 Intake and Output 06/15/22 06/16/22 06/16/22 22:59 06:59 14:59 Intake Total 240 Output Total 300 2000 Balance Intake: Oral 240 Output: Urine 300 2000 Other: Voiding Method External Catheter External Catheter External Catheter # Bowel Movements 1 Weight 76.4 kg Results 06/16/22 07:14 06/16/22 07:14 Cardiac Enzymes 06/15/22 06/15/22 Range/Units 12: 12:23 Lactate Dehydrogenase 210 (120-246) U/L Troponin I <0.012 (0.000-0.034) ng/mL CBC 06/15/22 06/16/22 Range/Units 12:23 07:14 WBC 6.1 7.9 (3.8-10.6) k/uL RBC 3.04 L 3.07 L (3.80-5.40) m/uL Hgb 9.6 L 9.6 L (11.4-16.0) gm/dL Hct 30.6 L 30.3 L (34.0-46.0) % Plt Count 195 195 (150-450) k/uL Comprehensive Metabolic Panel 06/15/22 06/16/22 Range/Units 12:23 07:14 Sodium 140 137 (137-145) mmol/L Potassium 5.3 H 4.6 (3.5-5.1) mmol/L Chloride 97 L 93 L (98-107) mmol/L Carbon Dioxide 33 H 39 H (22-30) mmol/L BUN 18 H 17 (7-17) mg/dL Creatinine 0.77 0.77 (0.52-1.04) mg/dL Glucose 182 H 95 (74-99) mg/dL Calcium 9.0 8.5 (8.4-10.2) mg/dL Current Medications Generic Name Dose Route Start Last Admin Trade Name Freq PRN Reason Stop Dose Admin Albuterol Sulfate 2 puff 06/15/22 07:20 Albuterol Hfa Inhaler INHALATION RT-Q4H PRN Shortness Of Breath Apixaban 5 mg 06/15/22 09:00 06/16/22 09:36 Apixaban 5 Mg Tab PO 5 mg BID DAMIAN Administration Protocol Ascorbic Acid 1,000 mg 06/15/22 09:00 06/16/22 09:36 Ascorbic Acid 500 Mg Tab PO 1,000 mg DAILY DAMIAN Administration Aspirin 325 mg 06/15/22 09:00 06/16/22 09:36 Aspirin 325 Mg Tab PO 325 mg DAILY DAMIAN Administration Atorvastatin Calcium 40 mg 06/15/22 21:00 06/15/22 20:38 Atorvastatin 40 Mg Tab PO 40 mg HS DAMIAN Administration Cholecalciferol 50 mcg 06/15/22 09:00 06/16/22 09:37 Cholecalciferol 25 Mcg (1000 Iu) Tablet PO 50 mcg DAILY DAMIAN Administration Clonazepam 0.5 mg 06/15/22 16:00 06/15/22 20:38 Clonazepam 0.5 Mg Tab PO 0.5 mg BID@1600,2100 DAMIAN Administration Dextrose/Water 25 ml 06/15/22 07:25 Dextrose 50% Syringe 50 Ml IVP PER PROTOCOL PRN Hypoglycemia Protocol Dextrose/Water 50 ml 06/15/22 07:25 Dextrose 50% Syringe 50 Ml IVP PER PROTOCOL PRN Hypoglycemia Protocol Divalproex Sodium 500 mg 06/15/22 09:00 06/16/22 09:36 Divalproex Er 500 Mg Tab.Er.24h PO 500 mg BID DAMIAN Administration Fluoxetine HCl 40 mg 06/15/22 09:00 06/16/22 09:37 Fluoxetine Hcl 20 Mg Cap PO 40 mg DAILY DAMIAN Administration Fluticasone Propionate 1 spray 06/15/22 09:00 06/16/22 09:38 Fluticasone 50mcg/[place] Nasal 16gm EA NOSTRIL 1 spray BID DAMIAN Administration Furosemide 40 mg 06/15/22 00:00 06/16/22 09:38 Furosemide 10 Mg/Ml 4 Ml Vial IV 40 mg Q8H DAMIAN Administration Glimepiride 1 mg 06/17/22 07:30 Glimepiride 1 Mg Tab PO AC-BRKFST [facility] Hydralazine HCl 10 mg 06/15/22 07:33 Hydralazine Hcl 20 Mg/Ml 1 Ml Vial IVP Q6HR PRN Blood Pressure - High Insulin Aspart 0 unit 06/15/22 07:30 06/16/22 06:27 Insulin Aspart (Novolog) 100 Unit/Ml Vial SQ Not Given ACHS [facility] Protocol Levothyroxine Sodium 137 mcg 06/15/22 09:00 06/16/22 06:35 Levothyroxine 137 Mcg Tab PO 137 mcg DAILY@0630 DAMIAN Administration Metformin HCl 1,000 mg 06/15/22 09:00 06/16/22 09:37 Metformin 500 Mg Tab PO 1,000 mg BID DAMIAN Administration Metoprolol Tartrate 25 mg 06/15/22 09:00 06/16/22 09:37 Metoprolol Tartrate 25 Mg Tab PO 25 mg BID DAMIAN Administration Pantoprazole Sodium 40 mg 06/15/22 09:00 06/16/22 06:35 Pantoprazole 40 Mg Tablet PO 40 mg BID@0730,1730 DAMIAN Administration Zinc Sulfate 220 mg 06/15/22 09:00 06/16/22 09:37 Zinc Sulfate 220 Mg Cap PO 220 mg DAILY DAMIAN Administration Intake and Output 06/15/22 06/16/22 06/16/22 22:59 06:59 14:59 Intake Total 240 Output Total 300 1999 Intake: Oral 240 Output: Urine 300 1999 Other: Voiding Method External Catheter External Catheter External Catheter # Bowel Movements 1 Weight 76.4 kg 06/16/22 07:14 06/16/22 07:14
--- NOTE | 2022-06-16 14:59 | P.PN ---
Subjective This is a pleasant 82 years old female with past medical history of Atrial Fibrillation, Cancer, COPD, Diabetes Mellitus, GERD/Reflux, Hyperlipidemia, Seizure Disorder, hypothyroidism, history of osteoporosis, irritable bowel syndrome, right breast cancer status post chemoradiotherapy and mastectomy Presents because of a breathing difficulty for a few days, she could not specify with no significant chest pain, she has occasional dry cough with no phlegm Also complains from increased swelling in her legs. At baseline she works to the bathroom on she got exertional dyspnea. On exam she has extensive leg edema and bilateral basal crepitation She has little headache but denies dizziness weakness or numbness. No blurred vision or slurred speech Patient denies acute GI or urinary symptoms, no abdominal pain or vomiting, no dysuria urgency, patient expressed she has diarrhea and irritable bowel syndrome No smoking alcohol or illicit tracts by patient Patient looks little bit weak all over and looked lethargic but she is awake oriented to time place and person, she knows she is in [facility] she thought it is May is going to be next week but she knew the year 2022 and she knew the name of the president This patient is afebrile, markedly tachypneic and bradycardic, blood pressure is elevated 177/72. She is saturating 98%. Oxygen via nasal cannula Coronavirus detected CBC showed mild anemia with hemoglobin 10.4. INR is 1.2, elevated d-dimer 1.38. ProBNP is 2940. Troponin 2 are negative physical 0.012. Potassium was elevated at 6.0 with slight phimosis sample. Creatinine is normal 0.6. Glucose 162. Elevated lactic acid 2.9 came back to normal 1.5. Liver enzymes elevated. CTA of the chest: No pulmonary embolism, bilateral pleural effusion and moderate congestive heart failure EKG showing sinus bradycardia at [address]-T changes. Chest x-ray: Both upper lobe interstitial infiltrate is increased from prior. Cardiomegaly and pulmonary vascular congestion and bilateral pleural effusions. In the emergency room received aspirin 325 mg started on IV Lasix 40 mg every 8 hours. Echocardiogram from 03/2022: Ejection fraction 45-50% with [id number] mitral and tricuspid regurgitation 06/16/2022 Patient improving, less basal crepitation, less dyspnea, less leg edema. Patient kept on IV Lasix 40 mg 3 times a day. We will add fluid restriction. Cardiology will reassess tomorrow for possible discharge PT/OT pending Glucose was on the low side so Amaryl dose was lowered from 4 mg down to 2 mg on admission this morning from 2 down to 1 mg but she states she did not eat well yesterday and today she is eating better so we might increased again to 2 mg area currently glucose control. Objective - Vital Signs Vital signs: Vital Signs Temp 97.9 F 06/16/22 12:00 Pulse 53 L 06/16/22 12:00 Resp 17 06/16/22 12:00 BP 119/66 06/16/22 12:00 Pulse Ox 99 06/16/22 12:00 FiO2 Intake & Output 06/15/22 06/16/22 06/16/22 18:59 06:59 18:59 Intake Total 480 Output Total 300 2000 Balance 180 -2000 Weight 72.575 kg 76.4 kg Intake: Oral 480 Output: Urine 300 2000 Other: Voiding Method External Catheter External Catheter External Catheter # Bowel Movements 1 - Exam GENERAL: The patient is alert and oriented x3, not in any acute distress. Well developed, well nourished. HEENT: Pupils are round and equally reacting to light. EOMI. No scleral icterus. No conjunctival pallor. Normocephalic, atraumatic. No pharyngeal erythema. No thyromegaly. CARDIOVASCULAR: S1 and S2 present. No murmurs, rubs, or gallops. -PULMONARY: Chest is clear to auscultation, no wheezing . Improving bilateral basal crepitation ABDOMEN: Soft, nontender, nondistended, normoactive bowel sounds. No palpable organomegaly. MUSCULOSKELETAL: No joint swelling or deformity. -EXTREMITIES: No cyanosis, clubbing, improving bilateral pitting leg edema. NEUROLOGICAL: Gross neurological examination did not reveal any focal deficits. SKIN: No rashes. no petechiae. - Labs CBC & Chem 7: 06/16/22 07:14 06/16/22 07:14 Labs: Abnormal Lab Results - Last 24 Hours (Table) 06/15/22 06/15/22 06/15/22 Range/Units 12:23 12:23 20:23 RBC 3.04 L (3.80-5.40) m/uL Hgb 9.6 L (11.4-16.0) gm/dL Hct 30.6 L (34.0-46.0) % MCV 100.9 H (80.0-100.0) fL RDW 20.5 H (11.5-15.5) % Potassium 5.3 H (3.5-5.1) mmol/L Chloride 97 L (98-107) mmol/L Carbon Dioxide 33 H (22-30) mmol/L BUN 18 H (7-17) mg/dL Glucose 182 H (74-99) mg/dL POC Glucose (mg/dL) 149 H (70-110) mg/dL C-Reactive Protein 1.7 H (<1.0) mg/dL 06/16/22 06/16/22 06/16/22 Range/Units 06:17 07:14 07:14 RBC 3.07 L (3.80-5.40) m/uL Hgb 9.6 L (11.4-16.0) gm/dL Hct 30.3 L (34.0-46.0) % MCV (80.0-100.0) fL RDW 21.0 H (11.5-15.5) % Potassium (3.5-5.1) mmol/L Chloride 93 L (98-107) mmol/L Carbon Dioxide 39 H (22-30) mmol/L BUN (7-17) mg/dL Glucose (74-99) mg/dL POC Glucose (mg/dL) 68 L (70-110) mg/dL C-Reactive Protein (<1.0) mg/dL 06/16/22 Range/Units 11:27 RBC (3.80-5.40) m/uL Hgb (11.4-16.0) gm/dL Hct (34.0-46.0) % MCV (80.0-100.0) fL RDW (11.5-15.5) % Potassium (3.5-5.1) mmol/L Chloride (98-107) mmol/L Carbon Dioxide (22-30) mmol/L BUN (7-17) mg/dL Glucose (74-99) mg/dL POC Glucose (mg/dL) 194 H (70-110) mg/dL C-Reactive Protein (<1.0) mg/dL Assessment and Plan Assessment: Acute on chronic CHF , mildly reduced ejection fraction, systolic with valvular heart disease [id number] TRICUSPID REGURGITATION Right upper lobe infiltrate, increased from prior Covid infection without pneumonia Hypertension with urgency, present on admission COPD, no acute exacerbation Diabetes mellitus Hyperlipidemia Hypothyroidism History of seizure disorder History of osteoporosis History of tremor History of irritable bowel syndrome History of right breast cancer status post surgical chemotherapy and mastectomy. History of bilateral cataract removal Plan: Check inflammatory markers Check pro-Calcitonin , especially in view INCREASED right upper lobe infiltrate, also in view COVID positive test Continue with IV Lasix and monitor output and creatinine and electrolytes Cardiology consult Continue with aspirin Resume liquids and metoprolol, probably due to the amount of cartilage team as patient is mildly tachycardic Hold olmasrtan for high k on admission decreased dose of Amaryl 4 mg of Coumadin and insulin sliding scale and diabetic diet. Continue with metformin. Check hemoglobin A1c Check TSH Start vitamin C, vitamin D zinc Labs and medication were reviewed.. Continue same treatment. Continue with symptomatic treatment. Resume home medication. Monitor labs and vitals. DVT and GI prophylaxis. Further recommendations as per clinical course of the patient DVT prophylaxis: Eliquis GI Prophylaxis: Ppi PT/OT: Pending Prognosis is guarded
[2022-06-16 16:35] LABS: Glucose,Whole Blood 132 mg/dL (70-110)
[2022-06-16] MEDS: clonazePAM 0.5 MG TAB PO SCH ×2 (16:50→21:48)
[2022-06-16 20:08] LABS: Glucose,Whole Blood 131 mg/dL (70-110)
[2022-06-16] MEDS: ATORVASTATIN 40 MG TAB PO SCH (21:48)
[2022-06-17] MEDS: FUROSEMIDE 10 MG/ML 4 ML VIAL IV SCH ×3 (00:23→17:32)
[2022-06-17 05:59] LABS: Glucose,Whole Blood 75 mg/dL (70-110)
[2022-06-17 06:03] VITALS: RESP 20
[2022-06-17] MEDS: INSULIN ASPART (NovoLOG) 100 UNIT/ML VIAL SQ SCH ×3 (06:48→17:29)
[2022-06-17] MEDS: LEVOTHYROXINE 137 MCG TAB PO SCH (06:51)
[2022-06-17] MEDS: PANTOPRAZOLE 40 MG TABLET PO SCH ×2 (06:51→17:32)
[2022-06-17] MEDS ORDERED: GLIMEPIRIDE 1 MG TAB PO SCH (07:30)
[2022-06-17] MEDS: CHOLECALCIFEROL 25 MCG (1000 IU) TABLET PO SCH (08:48)
[2022-06-17] MEDS: metFORMIN 500 MG TAB PO SCH (08:49)
[2022-06-17] MEDS: FLUoxetine HCL 20 MG CAP PO SCH (08:49)
[2022-06-17] MEDS: ASPIRIN 325 MG TAB PO SCH (08:49)
[2022-06-17] MEDS: DIVALPROEX ER 500 MG TAB.ER.24H PO SCH (08:49)
[2022-06-17] MEDS: ZINC SULFATE 220 MG CAP PO SCH (08:49)
[2022-06-17] MEDS: METOPROLOL TARTRATE 25 MG TAB PO SCH (08:49)
[2022-06-17] MEDS: ASCORBIC ACID 500 MG TAB PO SCH (08:49)
[2022-06-17] MEDS: APIXABAN 5 MG TAB PO SCH (08:49)
[2022-06-17] MEDS: FLUTICASONE 50MCG/SPRAY NASAL 16GM EA NOSTRIL SCH (09:03)
[2022-06-17 11:25] LABS: Calcium 8.1 mg/dL (8.4-10.2)
[2022-06-17 11:46] LABS: Glucose,Whole Blood 155 mg/dL (70-110)
[2022-06-17 11:52] LABS: Potassium 4.8 mmol/L (3.5-5.1)
[2022-06-17 16:23] VITALS: BP 101/61; PULSE 53; TEMP 97.6
--- NOTE | 2022-06-17 16:36 | P.PN ---
Subjective Progress Note Date: 06/17/22 Patient is a pleasant 82-year-old female with significant past medical history of atrial fibrillation on [place], breast cancer, COPD, diabetes, hyperlipidemia, seizure who presented with complaints of worsening shortness of breath and edema. He follows with Dr. Plunkett in the office. Of note she did hav e a recent cardioversion at [facility] on 06/09/22. She does report feeling better after this. However, over the past few days she has noticed increasing shortness of breath, limiting her activities. She was diagnosed with COVID-19 infection upon admission. She denies any cough, fever, chills, chest pain, dizziness. She reports compliance with her medications. EKG shows sinus bradycardia 54 bpm, no significant ST or T wave changes. CTA chest was negative for PE, showed bilateral pleural effusions and a moderate CHF. Chest x-ray shows right upper lobe interstitial infiltrates, cardiomegaly, pulmonary vascular changes and bilateral pleural effusions. She had a prior ech ocardiogram 03/2022 that showed ejection fraction 4550 percent, mild to moderate mitral regurgitation and tricuspid regurgitation. Labs reviewed: Troponin negative 2, WBC 7.9, hemoglobin 9.6, platelets 195, BNP 2940, creatinine 0.77, TSH normal. She was started on Lasix 40 mg IV every 8 hours. She reports that she is feeling better breathing robert this morning and that her swelling has improved. Denies any chest pain or pressure. 06/17 She is out of bed in chair. LLE edema improving. She feels mild shortness of breath. She is worried about going home and her breathing and swelling getting worse again. Denies any chest pains. PHYSICAL EXAMINATION: This is a 82-year-old female in no apparent distress at the time of my examination. HEENT: Head is atraumatic, normocephalic. Pupils are equal, round. Sclerae anicteric. Conjunctivae are clear. Mucous membranes of the mouth are moist. Neck is supple. There is no jugular venous distention. No carotid bruit is heard. CHEST EXAMINATION: Lungs are clear to auscultation. No chest wall tenderness is noted on palpation or with deep breathing. HEART EXAMINATION: Heart regular rate and rhythm. S1, S2 heard. No murmurs, gallops or rub. ABDOMEN: Soft, nontender. Bowel sounds are heard. EXTREMITIES: 2+ peripheral pulses, +1 pitting edema BLE. NEUROLOGIC EXAMINATION: Patient is awake, alert and oriented x3. IMPRESSION AND PLAN: Atrial fibrillation, status post cardioversion 06/09/22, currently sinus bradycardia on telemetry COPD Diabetes Hyperlipidemia Shortness of breath Systolic heart failure Lower extremity edema COVID-19 infection PLAN: Continue with diuretics, monitor intake and output, monitor renal function. Continue current regimen. Objective - Vital Signs Vital signs: Vital Signs Temp 98.2 F 06/17/22 11:55 Pulse 52 L 06/17/22 11:55 Resp 20 06/17/22 11:55 BP 113/61 06/17/22 11:55 Pulse Ox 95 06/17/22 11:55 FiO2 Intake & Output 06/16/22 06/17/22 06/17/22 18:59 06:59 18:59 Intake Total 118 Output Total 800 2450 700 Balance -800 -4890 -582 Intake: Oral 118 Output: Urine 800 2450 700 Other: Voiding Method External Catheter External Catheter External Catheter # Voids 1 # Bowel Movements 1 1 - Labs CBC & Chem 7: 06/16/22 07:14 06/17/22 10:35 Labs: Abnormal Lab Results - Last 24 Hours (Table) 06/16/22 06/16/22 06/16/22 Range/Units 07:14 16:33 20:06 Sodium (137-145) mmol/L Chloride (98-107) mmol/L Carbon Dioxide (22-30) mmol/L BUN (7-17) mg/dL Glucose (74-99) mg/dL POC Glucose (mg/dL) 132 H 131 H (70-110) mg/dL Hemoglobin A1c 6.5 H (0.0-6.0) % Calcium (8.4-10.2) mg/dL 06/17/22 06/17/22 Range/Units 10:35 11:44 Sodium 135 L (137-145) mmol/L Chloride 89 L (98-107) mmol/L Carbon Dioxide 39 H (22-30) mmol/L BUN 20 H (7-17) mg/dL Glucose 161 H (74-99) mg/dL POC Glucose (mg/dL) 155 H (70-110) mg/dL Hemoglobin A1c (0.0-6.0) % Calcium 8.1 L (8.4-10.2) mg/dL
[2022-06-17 16:39] LABS: Glucose,Whole Blood 112 mg/dL (70-110)
[2022-06-17] MEDS: clonazePAM 0.5 MG TAB PO SCH (17:32)
--- NOTE | 2022-06-20 01:00 | P.DS ---
Providers Date of admission: 06/14/22 23:41 Attending physician: Donnie Hill Consults: 06/14/22 23:39 Consult Physician Routine Consulting Provider: Tc Garza Consult Reason/Comments: chf Do you want consulting provider notified?: Yes Primary care physician: Tammi Rosenberg Hospital Course: Diagnoses: Acute on chronic CHF , mildly reduced ejection fraction, systolic with valvular heart disease [id number] TRICUSPID REGURGITATION Right upper lobe infiltrate, increased from prior Covid infection without pneumonia Hypertension with urgency, present on admission COPD, no acute exacerbation Diabetes mellitus Hyperlipidemia Hypothyroidism History of seizure disorder History of osteoporosis History of tremor History of irritable bowel syndrome History of right breast cancer status post surgical chemotherapy and mastectomy. History of bilateral cataract removal Hospital course: This is a pleasant 82 years old female with past medical history of Atrial Fibrillation, Cancer, COPD, Diabetes Mellitus, GERD/Reflux, Hyperlipidemia, Seizure Disorder, hypothyroidism, history of osteoporosis, irritable bowel syndrome, right breast cancer status post chemoradiotherapy and mastectomy Presents because of a breathing difficulty for a few days, she could not specify with no significant chest pain, she has occasional dry cough with no phlegm Patient has been found to have acute CHF exacerbation with reduced ejection fraction, cardiology team evaluated the patient. She was treated with IV Lasix. Also she was on liquids for her atrial fibrillation. She is status post cardioversion 06/09/22, currently sinus bradycardia on telemetry Cardiology evaluated the patient in the morning and were monitoring her. However after I talked to Dr. Wooten over the phone who cleared her for discharge. Then I talked to the Mr. Carrillo over the phone and I discussed the case with him including her treatment for that problem, also I made him aware of her lung nodule and both pt and agreed to appointment made for her with the laboratory tester on 06/20 stating they were follow-up. Risks including but not limited to cancer are explained for both and they verbalized understa nding and acceptance with the plan. However patient denies any respiratory symptoms today. No chest pain, no dyspnea. No change in urine or bowel habits. No fever Also patient was sugar was controlled on 1 mg of Amaryl compared to 4 mg at home, patient informed and a new prescription was provided for her and she is agreeable. Patient is instructed to monitor her glucose, C discharge instructi ons Patient will be discharged on Lasix, her dose and multiple vitamins for her Covid infection (no pneumonia or hypoxia) Problems and management plan were discussed with the patient and he verbalized understanding and acceptance Patient was found stable and can be discharged home in guarded prognosis however he needs follow-up as an outpatient. Patient was instructed to follow up with PCP Dr. Rosenberg within one week and patient agrees Patient was instructed to follow up with Dr. 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 Plunkett in 1-2 weeks and patient agrees Physical exam Gen: patient is a AAOx3, no distress CVS: S1-S2, RRR, no murmur Lungs: B/L CTA, no wheezing Abdomen: soft, no distention, no tenderness, positive bowel sounds Extremity: no leg edema or induration Time spent more than 35 minutes Plan - Discharge Summary Discharge Rx Participant: Yes New Discharge Prescriptions: New Zinc Sulfate [Orazinc] 220 mg PO DAILY #30 cap Glimepiride [Amaryl] 1 mg PO AC-BRKFST #30 tab Ascorbic Acid [Vitamin C] 1,000 mg PO DAILY #60 tab Cholecalciferol [Vitamin D3 (25 Mcg = 1000 Iu)] 50 mcg PO DAILY #60 tab Continue Atorvastatin [Lipitor] 40 mg PO HS Levothyroxine Sodium [Synthroid] 137 mcg PO DAILY Albuterol Sulfate [Proair Hfa] 2 puff INHALATION RT-Q4H PRN PRN Reason: Shortness Of Breath FLUoxetine HCL [PROzac] 40 mg PO DAILY metFORMIN HCL 1,000 mg PO BID Fluticasone Nasal [place] [Flonase Nasal [place]] 1 spray EA NOSTRIL BID Pantoprazole Sodium [Protonix] 40 mg PO BID Zolpidem [Ambien] 10 mg PO HS clonazePAM [KlonoPIN] 0.5 mg PO BID@1600,2100 Divalproex Sodium [Divalproex Sodium ER] 500 mg PO BID Metoprolol Tartrate [Lopressor] 25 mg PO BID Olmesartan [Benicar] 5 mg PO DAILY Apixaban [Eliquis] See Taper PO BID #60 tab Changed Furosemide [Lasix] 40 mg PO BID #60 tab Discontinued Glimepiride [Amaryl] 4 mg PO AC-BRKFST Olmesartan [Benicar] 5 mg PO DAILY sitaGLIPtin [Januvia] 100 mg PO DAILY Amiodarone [Cordarone] 200 mg PO BID hydroCHLOROthiazide [Hydrodiuril] 25 mg PO DAILY Discharge Medication List Atorvastatin [Lipitor] 40 mg PO HS 10/16/13 [History] Levothyroxine Sodium [Synthroid] 137 mcg PO DAILY 11/10/16 [History] Albuterol Sulfate [Proair Hfa] 2 puff INHALATION RT-Q4H PRN 09/19/17 [History] FLUoxetine HCL [PROzac] 40 mg PO DAILY 09/19/17 [History] Divalproex Sodium [Divalproex Sodium ER] 500 mg PO BID 04/18/22 [History] Fluticasone Nasal [place] [Flonase Nasal [place]] 1 spray EA NOSTRIL BID 04/18/22 [History] metFORMIN HCL 1,000 mg PO BID 04/18/22 [History] Metoprolol Tartrate [Lopressor] 25 mg PO BID 06/14/22 [History] Pantoprazole Sodium [Protonix] 40 mg PO BID 06/14/22 [History] Zolpidem [Ambien] 10 mg PO HS 06/14/22 [History] clonazePAM [KlonoPIN] 0.5 mg PO BID@1600,2100 06/14/22 [History] Olmesartan [Benicar] 5 mg PO DAILY 06/15/22 [History] Apixaban [Eliquis] See Taper PO BID #60 tab 06/17/22 [Rx] Ascorbic Acid [Vitamin C] 1,000 mg PO DAILY #60 tab 06/17/22 [Rx] Cholecalciferol [Vitamin D3 (25 Mcg = 1000 Iu)] 50 mcg PO DAILY #60 tab 06/17/22 [Rx] Furosemide [Lasix] 40 mg PO BID #60 tab 06/17/22 [Rx] Glimepiride [Amaryl] 1 mg PO AC-BRKFST #30 tab 06/17/22 [Rx] Zinc Sulfate [Orazinc] 220 mg PO DAILY #30 cap 06/17/22 [Rx] Follow up Appointment(s)/Referral(s): Maria Teresa Plunkett MD [STAFF PHYSICIAN] - 1 Week (PLEASE CALL OFFICE WHEN OPEN TO MAKE FOLLOW UP APPOINTMENT) Tammi Rosenberg III, MD [Primary Care Provider] - 1-2 days (PLEASE CALL OFFICE WHEN OPEN TO MAKE FOLLOW UP APPOINTMENT) Deniz Barbour MD [STAFF PHYSICIAN] - 06/20/22 1:30 pm (RUL Lung nodule. the lung doctor) Patient Instructions/Handouts: Heart Healthy Diet (DC), COVID-19 (Coronavirus Disease 2019) (DC) Activity/Diet/Wound Care/Special Instructions: Heart healthy diet activity is restricted till you see your doctor Check your glucose 4 times a day before each meal and at bedtime, keep the results in a log book and bring it to your doctor on your appointment date If you have glucose less than 70 or more than 400 and call 911 and come to emergency room Discharge Disposition: HOME WITH HOME HEALTH SERVICES
== END 2022-06-17 18:46 | disposition home health service (06) | DRG 291 ==
LOC: EC 20:18 → 3SCARD 23:41
PROVIDERS: ADMIT Hospitalist; ATTEND Hospitalist
DX: I11.0 Hypertensive heart disease with heart failure (principal); I50.23 Acute on chronic systolic (congestive) heart failure; U07.1 COVID-19; E11.9 Type 2 diabetes mellitus without complications; J44.9 Chronic obstructive pulmonary disease, unspecified; I16.0 Hypertensive urgency; R00.1 Bradycardia, unspecified; G40.909 Epilepsy, unspecified, not intractable, without status epilepticus; M81.0 Age-related osteoporosis without current pathological fracture; K58.9 Irritable bowel syndrome, unspecified; I08.1 Rheumatic disorders of both mitral and tricuspid valves; E78.5 Hyperlipidemia, unspecified; F41.9 Anxiety disorder, unspecified; E03.9 Hypothyroidism, unspecified; Z88.5 Allergy status to narcotic agent; D64.9 Anemia, unspecified; Z88.8 Allergy status to other drugs, medicaments and biological substances; Z79.890 Hormone replacement therapy; Z85.3 Personal history of malignant neoplasm of breast; Z90.49 Acquired absence of other specified parts of digestive tract; G47.00 Insomnia, unspecified; Z98.42 Cataract extraction status, left eye; Z98.41 Cataract extraction status, right eye; Z87.442 Personal history of urinary calculi; Z87.891 Personal history of nicotine dependence; Z90.710 Acquired absence of both cervix and uterus; Z79.84 Long term (current) use of oral hypoglycemic drugs
CPT/HCPCS: 36415; 71046; 71275; 80048; 80053; 83036; 83605; 83615; 83735; 83880; 84145; 84443; 84484; 85025; 85379; 85610; 85730; 86140; 87635; 93005; 94640; 94760; 96374; 99285

== ENCOUNTER 2022-08-07 02:45 | Inpatient (IN) | payer MEDICARE ==
--- NOTE | 2022-08-07 03:05 | ED ---
General Adult HPI - General Chief complaint: Shortness of Breath Stated complaint: LOKESH Time Seen by Provider: 08/07/22 02:54 Source: EMS Mode of arrival: EMS Limitations: no limitations - History of Present Illness Initial comments: Dictation was produced using [employer] dictation software. please excuse any grammatical, word or spelling errors. Chief Complaint: 82-year-old female presents to the ER for dyspnea History of Present Illness: 82-year-old female she is a poor historian due to altered mental status. She is brought in from home by EMS. Per she woke up. Patient was given 2 DuoNeb's in route. Patient was 85% on 15 L nonrebreather per EMS. Prehospital providers also state the patient was hypertensive and wheezing The ROS documented in this emergency department record has been reviewed and confirmed by me. Those systems with pertinent positive or negative responses have been documented in the HPI. All other systems are other negative and/or noncontributory. - Related Data Home Medications Medication Instructions Recorded Confirmed Atorvastatin [Lipitor] 40 mg PO HS 10/16/13 06/14/22 Levothyroxine Sodium [Synthroid] 137 mcg PO DAILY 11/10/16 06/14/22 Albuterol Sulfate [Proair Hfa] 2 puff INHALATION RT-Q4H PRN 09/19/17 06/14/22 FLUoxetine HCL [PROzac] 40 mg PO DAILY 09/19/17 06/14/22 Divalproex Sodium [Divalproex 500 mg PO BID 04/18/22 06/14/22 Sodium ER] Fluticasone Nasal [place] [Flonase 1 spray EA NOSTRIL BID 04/18/22 06/14/22 Nasal [place]] metFORMIN HCL 1,000 mg PO BID 04/18/22 06/14/22 Metoprolol Tartrate [Lopressor] 25 mg PO BID 06/14/22 06/14/22 Pantoprazole Sodium [Protonix] 40 mg PO BID 06/14/22 06/14/22 Zolpidem [Ambien] 10 mg PO HS 06/14/22 06/14/22 clonazePAM [KlonoPIN] 0.5 mg PO BID@1600,2100 06/14/22 06/14/22 Olmesartan [Benicar] 5 mg PO DAILY 06/15/22 06/15/22 Previous Rx's Medication Instructions Recorded Apixaban [Eliquis] See Taper PO BID #60 tab 06/17/22 Ascorbic Acid [Vitamin C] 1,000 mg PO DAILY #60 tab 06/17/22 Cholecalciferol [Vitamin D3 (25 50 mcg PO DAILY #60 tab 06/17/22 Mcg = 1000 Iu)] Furosemide [Lasix] 40 mg PO BID #60 tab 06/17/22 Glimepiride [Amaryl] 1 mg PO AC-BRKFST #30 tab 06/17/22 Zinc Sulfate [Orazinc] 220 mg PO DAILY #30 cap 06/17/22 Allergies Allergy/AdvReac Type Severity Reaction Status Date / Time trazodone Allergy PSYCHOSIS Verified 06/14/22 22:36 budesonide [From Symbicort] AdvReac Unknown Verified 06/14/22 22:36 codeine AdvReac angry/mad Verified 06/14/22 22:36 fluticasone furoate AdvReac tachycardia Verified 06/14/22 22:36 [From Trelegy Ellipta] formoterol [From Symbicort] AdvReac Chest Pain Verified 06/14/22 22:36 mirabegron [From Myrbetriq] AdvReac "didn't Verified 06/14/22 22:36 work" tiotropium AdvReac "felt Verified 06/14/22 22:36 [From Spiriva with wirey" HandiHaler] umeclidinium AdvReac tachycardia Verified 06/14/22 22:36 [From Trelegy Ellipta] vilanterol AdvReac tachycardia Verified 06/14/22 22:36 [From Trelegy Ellipta] Review of Systems ROS Statement: Those systems with pertinent positive or pertinent negative responses have been documented in the HPI. ROS Other: All systems not noted in ROS Statement are negative. Past Medical History Past Medical History: Atrial Fibrillation, Cancer, COPD, Diabetes Mellitus, GERD/Reflux, Hyperlipidemia, Seizure Disorder, Thyroid Disorder Additional Past Medical History / Comment(s): tremors, type 2 DM, osteoporosis left leg, hypothyroid, IBS, right breast CA with radiation, chemo, partial rt mastectomy with lymph nodes , bilat catarcts removal, insomnia, kidney stones, frontal lobe seizure- last siezure 30 years ago. History of Any Multi-Drug Resistant Organisms: None Reported Past Surgical History: Bladder Surgery, Breast Surgery, Cholecystectomy, Hysterectomy Additional Past Surgical History / Comment(s): bladder suspension Past Anesthesia/Blood Transfusion Reactions: No Reported Reaction Past Psychological History: Anxiety, Depression, Panic Disorder Smoking Status: Former smoker Past Alcohol Use History: None Reported Past Drug Use History: None Reported - Past Family History Brother(s) Additional Family Medical History / Comment(s): crohns General Exam - General Exam Comments Initial Comments: PHYSICAL EXAM: General Impression: Agitated, uncooperative HEENT: Normocephalic atraumatic, extra-ocular movements intact, pupils equal and reactive to light bilaterally, mucous membranes moist. Cardiovascular: Heart regular rate and rhythm Chest: Diffuse lung crackles, no wheezes rubs Rales Abdomen: abdomen soft, non-tender, non-distended, no organomegaly Musculoskeletal: Pulses present and equal in all extremities, no peripheral edema Motor: no focal deficits noted Neurological: CN II-XII grossly intact, no focal motor or sensory deficits noted Skin: Intact with no visualized rashes Psych: Agitated Limitations: no limitations Course Vital Signs 08/07/22 08/07/22 08/07/22 02:48 02:50 03:38 Temperature 101.5 F H Pulse Rate 87 Respiratory 40 H Rate Blood Pressure 120/79 O2 Sat by Pulse Oximetry Fraction of 100 100 Inspired Oxygen (FIO2) 08/07/22 08/07/22 08/07/22 04:55 05:00 05:36 Temperature 101.1 F H Pulse Rate 89 Respiratory 24 Rate Blood Pressure 101/45 O2 Sat by Pulse 100 Oximetry Fraction of 80 60 Inspired Oxygen (FIO2) - Reevaluation(s) Reevaluation #1: 08/07/22 03:04 Patient initially seen and evaluated in trauma bay #1. [id number] bedside ultrasound showed lung rockets seen in bilateral upper lung luis worse in the right compared to the left. Patient's symptoms likely multifactorial however there is predominant component of heart failure. Reevaluation #2: 08/07/22 05:04 More history obtained from patient's . He states that currently her mentation is at baseline. He states that he is more concerned about her breathing issues. His concern that patient condition has been worsening over the last several months given that this is her fourth visit to the ER in the last 6 months Reevaluation #3: 08/07/22 05:31 Clinical presentation concerning for sepsis. Patient also in heart failure. 30-40 mL per KG bolus avoided due to preventing worsening heart failure exacerbation. Procedures - Sepsis Sepsis Focused Exam #1 Time Sepsis Criteria Met: : Sepsis Focused Exam Date: 08/07/22 Sepsis Focused Exam Time: : Sepsis Focused Exam Complete: Yes Vital Signs & RN Notes Reviewed: Yes Capillary Refill: < 2 Seconds: Fingers, Toes Peripheral Pulses: Normal: Radial (R), Radial (L), Posterior Tibialis (R), Pos terior Tibialis (L), Dorsalis Pedis (R), Dorsalis Pedis (L) Skin Color: Normal for Patient Respiratory Exam: respiratory distress, other Cardiovascular Exam: regular rate Medical Decision Making - Medical Decision Making Was pt. sent in by a medical professional or institution (, PA, SUPPOSITORY MOLDING MACHINE OPERATOR, urgent care, hospital, or fdc...) When possible be specific @ -No Did you speak to anyone other than the patient for history (EMS, parent, family, police, friend...)? What history was obtained from this source @ - states that patient mentally appears to be at baseline and he also states that he doesn't know why she is having a fever this did check her temperature at home all the time Did you review nursing and triage notes (agree or disagree)? Why? @ -I reviewed and agree with nursing and triage notes Were old charts reviewed (outside hosp., previous admission, EMS record, old EKG, old radiological studies, urgent care reports/EKG's, fdc records)? Report findings @ -Per chart was reviewed showing the patient was admitted 2 months ago for CHF exacerbation Differential Diagnosis (chest pain, altered mental status, abdominal pain women, abdominal pain men, vaginal bleeding, musculoskeletal, weakness, fever, dyspnea, syncope, headache, dizziness, GI bleed, back pain, seizure, CVA, palpatations, mental health)? @ -Differential Dyspnea: Coronary syndrome, arrhythmia, tamponade, asthma, COPD, pulmonary embolism, pneumonia, pneumothorax, pulmonary effusion, anaphylaxis, diabetic ketoacidosis, flailed chest, pulmonary contusion, diaphragmatic rupture, anemia, n euromuscular, this is not meant to be an all-inclusive list. EKG interpreted by me (3pts min.). @ -My EKG interpretation: Ventricular rate sinus rhythm, W[place] interval 170, QRS 79, QTc 436, sinus rhythm. No W[place] prolongation, no QTC prolongation, no ST or T- wave changes noted. Overall, this EKG is unremarkable X-rays interpreted by me (1pt min.). @ -Chest x-ray shows multifocal pneumonia and heart failure CT interpreted by me (1pt min.). @ -CT scan of the brain shows no acute processes U/S interpreted by me (1pt. min.). @ -None done What testing was considered but not performed or refused? (CT, X-rays, U/S, labs)? Why? @ -None What meds were considered but not given or refused? Why? @ -None Did you discuss the management of the patient with other professionals (professionals i.e. , PA, SUPPOSITORY MOLDING MACHINE OPERATOR, lab, RT, psych nurse, psychiatric social worker, immigration lawyer, teacher, fisheries officer, block and case maker)? Give summary @ -Case discussed with [facility] prescription for admission. Was smoking cessation discussed for >3mins.? @ -No Was critical care preformed (if so, how long)? @ -yes, 33 minutes Were there social determinants of health that impacted care today? How? (Homelessness, low income, unemployed, alcoholism, drug addiction, mims sportation, low edu. Level, literacy, decrease access to med. care, retirement, rehab)? @ -No Was there de-escalation of care discussed even if they declined (Discuss DNR or withdrawal of care, Hospice)? DNR status @ -No What co-morbidities impacted this encounter? (DM, HTN, Smoking, COPD, CAD, Cancer, CVA, ARF, Chemo, Hep., AIDS, mental health diagnosis, sleep apnea, morbid obesity)? @ -None Was patient admitted / discharged? Hospital course, mention meds given and route, prescriptions, significant lab abnormalities, going to OR and other pertinent info. @ -82 Year-old female presents emergency department for respiratory failure. Patient afebrile showing signs of serious bacterial illness. Trace suggest pneumonia and heart failure. Patient started on antibiotics. Patient maintaining good saturations well on BiPAP. She is mildly hypercarbic. Undiagnosed new problem with uncertain prognosis? @ -No Drug Therapy requiring intensive monitoring for toxicity (Heparin, Nitro, Insulin, Cardizem)? @ -No Were any procedures done? @ -No Diagnosis/symptom? Acute, or Chronic, or Acute on Chronic? Uncomplicated (without systemic symptoms) or Complicated (systemic symptoms)? @ -1. Respiratory failure secondary to pneumonia and heart failure Side effects of treatment? @ -No Exacerbation, Progression, or Severe Exacerbation? @ -No Poses a threat to life or bodily function? How? (Chest pain, USA, NH, pneumonia, PE, COPD, DKA, ARF, appy, cholecystitis, CVA, Diverticulitis, Homicidal, Suicidal, threat to staff... and all critical care pts) @ -yes - Lab Data Result diagrams: 08/07/22 03:07 08/07/22 03:07 Lab Results 08/07/22 08/07/22 08/07/22 Range/Units 03:07 03:07 03:07 WBC 14.0 H (3.8-10.6) k/uL RBC 3.29 L (3.80-5.40) m/uL Hgb 10.2 L (11.4-16.0) gm/dL Hct 32.9 L (34.0-46.0) % MCV 99.8 (80.0-100.0) fL MCH 30.9 (25.0-35.0) pg MCHC 31.0 (31.0-37.0) g/dL RDW 17.5 H (11.5-15.5) % Plt Count 251 (150-450) k/uL MPV 8.6 Neutrophils % 63 % Lymphocytes % 21 % Monocytes % 13 % Eosinophils % 2 % Basophils % 0 % Neutrophils # 8.7 H (1.3-7.7) k/uL Lymphocytes # 2.9 (1.0-4.8) k/uL Monocytes # 1.8 H (0-1.0) k/uL Eosinophils # 0.3 (0-0.7) k/uL Basophils # 0.1 (0-0.2) k/uL Hypochromasia Slight Anisocytosis Slight Macrocytosis Slight PT 11.9 (9.0-12.0) sec INR 1.1 (<1.2) APTT 27.3 (22.0-30.0) sec VBG pH (7.31-7.41) VBG pCO2 (37-51) mmHg VBG HCO3 (24-28) mmol/L Sodium 137 (137-145) mmol/L Potassium 6.0 H (3.5-5.1) mmol/L Chloride 102 (98-107) mmol/L Carbon Dioxide 28 (22-30) mmol/L Anion Gap 7 mmol/L BUN 23 H (7-17) mg/dL Creatinine 0.86 (0.52-1.04) mg/dL Est GFR (CKD-EPI)AfAm 74 (>60 ml/min/1.73 sqM) Est GFR (CKD-EPI)NonAf 64 (>60 ml/min/1.73 sqM) Glucose 276 H (74-99) mg/dL Lactic Ac Sepsis Rflx Plasma Lactic Acid Jarrett (0.7-2.0) mmol/L Calcium 8.6 (8.4-10.2) mg/dL Magnesium 1.4 L (1.6-2.3) mg/dL Total Bilirubin 0.9 (0.2-1.3) mg/dL AST 31 (14-36) U/L ALT 19 (4-34) U/L Alkaline Phosphatase 98 (38-126) U/L Troponin I (0.000-0.034) ng/mL NT-Pro-B Natriuret Pep pg/mL Total Protein 7.0 (6.3-8.2) g/dL Albumin 3.4 L (3.5-5.0) g/dL Influenza Type A (PCR) (Not Detectd) Influenza Type B (PCR) (Not Detectd) RSV (PCR) (Not Detectd) SARS-CoV-2 (PCR) (Not Detectd) 08/07/22 08/07/22 08/07/22 Range/Units 03:07 03:07 03:07 WBC (3.8-10.6) k/uL RBC (3.80-5.40) m/uL Hgb (11.4-16.0) gm/dL Hct (34.0-46.0) % MCV (80.0-100.0) fL MCH (25.0-35.0) pg MCHC (31.0-37.0) g/dL RDW (11.5-15.5) % Plt Count (150-450) k/uL MPV Neutrophils % % Lymphocytes % % Monocytes % % Eosinophils % % Basophils % % Neutrophils # (1.3-7.7) k/uL Lymphocytes # (1.0-4.8) k/uL Monocytes # (0-1.0) k/uL Eosinophils # (0-0.7) k/uL Basophils # (0-0.2) k/uL Hypochromasia Anisocytosis Macrocytosis PT (9.0-12.0) sec INR (<1.2) APTT (22.0-30.0) sec VBG pH (7.31-7.41) VBG pCO2 (37-51) mmHg VBG HCO3 (24-28) mmol/L Sodium (137-145) mmol/L Potassium (3.5-5.1) mmol/L Chloride (98-107) mmol/L Carbon Dioxide (22-30) mmol/L Anion Gap mmol/L BUN (7-17) mg/dL Creatinine (0.52-1.04) mg/dL Est GFR (CKD-EPI)AfAm (>60 ml/min/1.73 sqM) Est GFR (CKD-EPI)NonAf (>60 ml/min/1.73 sqM) Glucose (74-99) mg/dL Lactic Ac Sepsis Rflx Plasma Lactic Acid Jarrett 3.0 H* (0.7-2.0) mmol/L Calcium (8.4-10.2) mg/dL Magnesium (1.6-2.3) mg/dL Total Bilirubin (0.2-1.3) mg/dL AST (14-36) U/L ALT (4-34) U/L Alkaline Phosphatase (38-126) U/L Troponin I <0.012 (0.000-0.034) ng/mL NT-Pro-B Natriuret Pep 3460 pg/mL Total Protein (6.3-8.2) g/dL Albumin (3.5-5.0) g/dL Influenza Type A (PCR) (Not Detectd) Influenza Type B (PCR) (Not Detectd) RSV (PCR) (Not Detectd) SARS-CoV-2 (PCR) (Not Detectd) 08/07/22 08/07/22 08/07/22 Range/Units 03:07 03:07 03:40 WBC (3.8-10.6) k/uL RBC (3.80-5.40) m/uL Hgb (11.4-16.0) gm/dL Hct (34.0-46.0) % MCV (80.0-100.0) fL MCH (25.0-35.0) pg MCHC (31.0-37.0) g/dL RDW (11.5-15.5) % Plt Count (150-450) k/uL MPV Neutrophils % % Lymphocytes % % Monocytes % % Eosinophils % % Basophils % % Neutrophils # (1.3-7.7) k/uL Lymphocytes # (1.0-4.8) k/uL Monocytes # (0-1.0) k/uL Eosinophils # (0-0.7) k/uL Basophils # (0-0.2) k/uL Hypochromasia Anisocytosis Macrocytosis PT (9.0-12.0) sec INR (<1.2) APTT (22.0-30.0) sec VBG pH 7.24 L (7.31-7.41) VBG pCO2 65 H (37-51) mmHg VBG HCO3 27 (24-28) mmol/L Sodium (137-145) mmol/L Potassium (3.5-5.1) mmol/L Chloride (98-107) mmol/L Carbon Dioxide (22-30) mmol/L Anion Gap mmol/L BUN (7-17) mg/dL Creatinine (0.52-1.04) mg/dL Est GFR (CKD-EPI)AfAm (>60 ml/min/1.73 sqM) Est GFR (CKD-EPI)NonAf (>60 ml/min/1.73 sqM) Glucose (74-99) mg/dL Lactic Ac Sepsis Rflx Y Plasma Lactic Acid [place] (0.7-2.0) mmol/L Calcium (8.4-10.2) mg/dL Magnesium (1.6-2.3) mg/dL Total Bilirubin (0.2-1.3) mg/dL AST (14-36) U/L ALT (4-34) U/L Alkaline Phosphatase (38-126) U/L Troponin I (0.000-0.034) ng/mL NT-Pro-B Natriuret Pep pg/mL Total Protein (6.3-8.2) g/dL Albumin (3.5-5.0) g/dL Influenza Type A (PCR) Not Detected (Not Detectd) Influenza Type B (PCR) Not Detected (Not Detectd) RSV (PCR) Not Detected (Not Detectd) SARS-CoV-2 (PCR) Not Detected (Not Detectd) Disposition Clinical Impression: Respiratory failure Disposition: ADMITTED IP TO THIS [facility] Condition: Serious Decision Time: 06:00
[2022-08-07 03:19] LABS: VBG PH 7.24 (7.31-7.41)
[2022-08-07 03:30] LABS: ALT 19 U/L (4-34); AST 31 U/L (14-36); African American GFR (CKD) 74 (>60 ml/min/1.73 sqM); Albumin 3.4 g/dL (3.5-5.0); Alkaline Phosphatase 98 U/L (38-126); Anion Gap 7 mmol/L; Blood Urea Nitrogen 23 mg/dL (7-17); Calcium 8.6 mg/dL (8.4-10.2); Carbon Dioxide 28 mmol/L (22-30); Chloride 102 mmol/L (98-107); Glucose 276 mg/dL (74-99); Magnesium 1.4 mg/dL (1.6-2.3); Non-African American GFR(CKD) 64 (>60 ml/min/1.73 sqM); Sodium 137 mmol/L (137-145); Total Bilirubin 0.9 mg/dL (0.2-1.3)
[2022-08-07 03:39] LABS: INR 1.1 (<1.2); Partial Thromboplastin Time 27.3 sec (22.0-30.0); Prothrombin Time 11.9 sec (9.0-12.0)
[2022-08-07 03:42] LABS: Anisocytosis Slight; Basophils # (A) 0.1 k/uL (0-0.2); Basophils % (A) 0 %; Eosinophils # (A) 0.3 k/uL (0-0.7); Eosinophils % (A) 2 %; HCT 32.9 % (34.0-46.0); HGB 10.2 gm/dL (11.4-16.0); Hypochromasia Slight; Lymphocytes # (A) 2.9 k/uL (1.0-4.8); Lymphocytes % (A) 21 %; MCH 30.9 pg (25.0-35.0); MCV 99.8 fL (80.0-100.0); Macrocytosis Slight; Mean Platelet Volume 8.6; Monocytes # (A) 1.8 k/uL (0-1.0); Monocytes % (A) 13 %; Neutrophils # (A) 8.7 k/uL (1.3-7.7); Neutrophils % (A) 63 %; Platelet Count 251 k/uL (150-450); RBC 3.29 m/uL (3.80-5.40); RDW 17.5 % (11.5-15.5)
[2022-08-07] MEDS ORDERED: ACETAMINOPHEN IV (For NPO) 1,000 MG in EMPTY BAG 1 BAG IVPB STA (03:57)
[2022-08-07] MEDS ORDERED: PIPERACILLIN-TAZOBACTAM 3.375 GM in SODIUM CHLORIDE 0.9% 100 ML IVPB STA (04:26)
[2022-08-07] MEDS ORDERED: VANCOMYCIN IV PER PHARMACY 1 EACH MISC MISCELLANE PRN (04:26)
[2022-08-07] MEDS ORDERED: SODIUM CHLORIDE 0.9% 500 ML 500 ML IV STA (04:28)
[2022-08-07] MEDS ORDERED: VANCOMYCIN 1,250 MG in SODIUM CHLORIDE 0.9% 250 ML IVPB STA (04:30)
--- NOTE | 2022-08-07 05:50 | XR ---
EXAM: XR Chest, 1 View CLINICAL HISTORY: ITS.REASON XR Reason: dyspnea TECHNIQUE: Frontal view of the chest. COMPARISON: X-ray dated 06/20/2022 FINDINGS: Lungs: Confluent airspace opacity overlies the right mid to lower lung. Subtle confluent airspace opacity overlies the left upper lobe. Course lung markings are seen bilaterally. Question of a 6.9 mm pulmonary nodule overlying the left midlung. Pleural space: Question of mild blunting of bilateral costophrenic angles. No pneumothorax. Heart: Mild to moderate cardiomegaly. Mediastinum: Unremarkable. Bones/joints: Degenerative changes are seen within the spine and shoulders. IMPRESSION: 1. Multifocal pneumonia. 2. Likely small bilateral pleural effusions. 3. Possible left lung pulmonary nodule, recommend nonemergent outpatient chest CT for further evaluation.
--- NOTE | 2022-08-07 05:55 | CT ---
EXAM: CT Head Without Intravenous Contrast CLINICAL HISTORY: ITS.REASON CT Reason: ams TECHNIQUE: Axial computed tomography images of the head/brain without intravenous contrast. CTDI is 49.1 mGy and DLP is 1319.4 mGy-cm. This CT exam was performed using one or more of the following dose reduction techniques: automated exposure control, adjustment of the mA and/or kV according to patient size, and/or use of iterative reconstruction technique. COMPARISON: None FINDINGS: Brain: Confluent periventricular and deep white matter hypodense changes are visualized. Symmetric benign-appearing calcifications are seen within the basal ganglia. No evidence of intracranial hemorrhage. Ventricles: Mild symmetric widening of the ventricles and sulci consistent with mild cerebral atrophy. No midline shift or hydrocephalus Bones/joints: Hyperostosis frontalis. Soft tissues: Unremarkable. Sinuses: Mild mucosal thickening is seen within the right maxillary sinus. Mucosal thickening and air-fluid levels are seen within the ethmoid sinuses. Mucous retention cyst is seen within the right maxillary sinus. Mastoid air cells: Unremarkable as visualized. No mastoid effusion. IMPRESSION: 1. Chronic small vessel ischemic change, mild cerebral atrophy and no acute intracranial findings. 2. Acute on chronic paranasal sinus disease.
[2022-08-07] MEDS ORDERED: NALOXONE 0.4 MG/ML 1 ML VIAL IV PRN (06:38)
[2022-08-07] MEDS ORDERED: ONDANSETRON 4 MG/2 ML VIAL IVP PRN (06:38)
[2022-08-07] MEDS: SODIUM CHLORIDE 0.9% 1,000 ML IV SCH (07:28)
[2022-08-07] MEDS ORDERED: IPRATROPIUM-ALBUTEROL 3 ML NEB INHALATION PRN (10:42)
[2022-08-07] MEDS ORDERED: FUROSEMIDE 10 MG/ML 4 ML VIAL IV STA (10:44)
--- NOTE | 2022-08-07 10:46 | P.HPIM ---
History of Present Illness 82-year-old pleasant female came in with compensable mental status although patient is able to provide good history to me patient status is at her baseline patient was saturating at 85% and is on BiPAP at this time, saturating well on BiPAP. Patient has diffuse infiltrate on the chest x-ray significant on the right side. Patient does have fever and leukocytosis patient is comparing of cough with sputum production, patient does have history of COPD, former smoker. Patient was given vancomycin and Zosyn. Patient also has elevated BNP of around 3500, previous echo showed EF of around 45-50% patient does have history of atrial fibrillation patient is presently rate controlled patient is febrile with fever of 101.1 patient denied any dysuria patient denied nausea vomiting. Patient does use 2 L of oxygen at home for COPD patient has elevated potassium of 6.0 low magnesium of 1.4. Blood and sputum cultures along with urinary Legionella antigen will be ordered REVIEW OF SYSTEMS: Rest of review of systems is negative except those mentioned above PHYSICAL EXAMINATION: GENERAL: The patient is alert and oriented x3, patient the is on BiPAP saturating well able to provide me history although it appears to be in some respiratory distress HEENT: Pupils are round and equally reacting to light. EOMI. No scleral icterus. No conjunctival pallor. Normocephalic, atraumatic. No pharyngeal erythema. No thyromegaly. CARDIOVASCULAR: S1 and S2 present. No murmurs, rubs, or gallops. PULMONARY: Diffuse crackles inferiorly and posteriorly bilaterally no cigarette in wheezing was appreciated ABDOMEN: Soft, nontender, nondistended, normoactive bowel sounds. No palpable organomegaly. MUSCULOSKELETAL: No joint swelling or deformity. EXTREMITIES: No cyanosis, clubbing, or pedal edema. NEUROLOGICAL: Gross neurological examination did not reveal any focal deficits. SKIN: No rashes. Assessment and plan -Sepsis, severe with lactic acidosis: Possible source is pneumonia because of the nature of the infiltrate I ordered urinary antigen patient will be started on levofloxacin continue with vancomycin awaiting blood cultures today and cultures and urinary Legionella antigen -Congestive heart failure chronic systolic as well as diastolic dysfunction with mild acute exacerbation exacerbation may be due to pneumonia. Will give one dose of Lasix and check the response -hyperkalemia: Repeat labs will be obtained a local will be ordered and Lasix should help as well -Hypomagnesemia magnesium will be replaced -acute on chronic hypoxic and hypercapnic respiratory failure secondary to pneumonia and COPD patient will be started on inhalational treatments, Pulmicort antibiotics as mentioned above. -Atrial fibrillation: Patient is on anticoagulation and rate control medications with resumed once medications are verified -Type 2 diabetes mellitus hold off on home regimen patient was started on sliding scale insulin -Hyperlipidemia -Seizure disorder -Hypothyroidism -Depression DVT prophylaxis: Will be resumed on her home anticoagulation was medications are verified Past Medical History Past Medical History: Atrial Fibrillation, Cancer, COPD, Diabetes Mellitus, SARAH D/Reflux, Hyperlipidemia, Seizure Disorder, Thyroid Disorder Additional Past Medical History / Comment(s): tremors, type 2 DM, osteoporosis left leg, hypothyroid, IBS, right breast CA with radiation, chemo, partial rt mastectomy with lymph nodes , bilat catarcts removal, insomnia, kidney stones, frontal lobe seizure- last siezure 30 years ago. History of Any Multi-Drug Resistant Organisms: None Reported Past Surgical History: Bladder Surgery, Breast Surgery, Cholecystectomy, Hysterectomy Additional Past Surgical History / Comment(s): bladder suspension Past Anesthesia/Blood Transfusion Reactions: No Reported Reaction Past Psychological History: Anxiety, Depression, Panic Disorder Smoking Status: Former smoker Past Alcohol Use History: None Reported Past Drug Use History: None Reported - Past Family History Brother(s) Additional Family Medical History / Comment(s): crohns Medications and Allergies Home Medications Medication Instructions Recorded Confirmed Type Atorvastatin [Lipitor] 40 mg PO HS 10/16/13 06/14/22 History Levothyroxine Sodium [Synthroid] 137 mcg PO DAILY 11/10/16 06/14/22 History Albuterol Sulfate [Proair Hfa] 2 puff INHALATION RT-Q4H PRN 09/19/17 06/14/22 History FLUoxetine HCL [PROzac] 40 mg PO DAILY 09/19/17 06/14/22 History Divalproex Sodium [Divalproex 500 mg PO BID 04/18/22 06/14/22 History Sodium ER] Fluticasone Nasal [place] [Flonase 1 spray EA NOSTRIL BID 04/18/22 06/14/22 History Nasal [place]] metFORMIN HCL 1,000 mg PO BID 04/18/22 06/14/22 History Metoprolol Tartrate [Lopressor] 25 mg PO BID 06/14/22 06/14/22 History Pantoprazole Sodium [Protonix] 40 mg PO BID 06/14/22 06/14/22 History Zolpidem [Ambien] 10 mg PO HS 06/14/22 06/14/22 History clonazePAM [KlonoPIN] 0.5 mg PO BID@1600,2100 06/14/22 06/14/22 History Olmesartan [Benicar] 5 mg PO DAILY 06/15/22 06/15/22 History Apixaban [Eliquis] See Taper PO BID #60 tab 06/17/22 Rx Ascorbic Acid [Vitamin C] 1,000 mg PO DAILY #60 tab 06/17/22 Rx Cholecalciferol [Vitamin D3 (25 50 mcg PO DAILY #60 tab 06/17/22 Rx Mcg = 1000 Iu)] Furosemide [Lasix] 40 mg PO BID #60 tab 06/17/22 Rx Glimepiride [Amaryl] 1 mg PO AC-BRKFST #30 tab 06/17/22 Rx Zinc Sulfate [Orazinc] 220 mg PO DAILY #30 cap 06/17/22 Rx Allergies Allergy/AdvReac Type Severity Reaction Status Date / Time trazodone Allergy PSYCHOSIS Verified 06/14/22 22:36 budesonide [From Symbicort] AdvReac Unknown Verified 06/14/22 22:36 codeine AdvReac angry/mad Verified 06/14/22 22:36 fluticasone furoate AdvReac tachycardia Verified 06/14/22 22:36 [From Trelegy Ellipta] formoterol [From Symbicort] AdvReac Chest Pain Verified 06/14/22 22:36 mirabegron [From Myrbetriq] AdvReac "didn't Verified 06/14/22 22:36 work" tiotropium AdvReac "felt Verified 06/14/22 22:36 [From Spiriva with wirey" HandiHaler] umeclidinium AdvReac tachycardia Verified 06/14/22 22:36 [From Trelegy Ellipta] vilanterol AdvReac tachycardia Verified 06/14/22 22:36 [From Trelegy Ellipta] Physical Exam Vitals: Vital Signs Temp Pulse Resp BP Pulse Ox FiO2 08/07/22 07:10 60 08/07/22 07:00 71 24 100/46 100 08/07/22 05:36 60 08/07/22 05:00 80 06/18/23 04:55 101.1 F H 89 24 101/45 100 08/07/22 03:38 100 08/07/22 02:50 100 08/07/22 02:48 101.5 F H 87 40 H 120/79 Intake and Output 08/06/22 08/07/22 08/07/22 22:59 06:59 14:59 Other: Weight 71.214 kg Results CBC & Chem 7: 08/07/22 03:07 08/07/22 03:07 Labs: Abnormal Lab Results - Last 24 Hours (Table) 08/07/22 08/07/22 08/07/22 Range/Units 03:07 03:07 03:07 WBC 14.0 H (3.8-10.6) k/uL RBC 3.29 L (3.80-5.40) m/uL Hgb 10.2 L (11.4-16.0) gm/dL Hct 32.9 L (34.0-46.0) % RDW 17.5 H (11.5-15.5) % Neutrophils # 8.7 H (1.3-7.7) k/uL Monocytes # 1.8 H (0-1.0) k/uL VBG pH (7.31-7.41) VBG pCO2 (37-51) mmHg Potassium 6.0 H (3.5-5.1) mmol/L BUN 23 H (7-17) mg/dL Glucose 276 H (74-99) mg/dL Plasma Lactic Acid Jarrett 3.0 H* (0.7-2.0) mmol/L Magnesium 1.4 L (1.6-2.3) mg/dL Albumin 3.4 L (3.5-5.0) g/dL 08/07/22 Range/Units 03:07 WBC (3.8-10.6) k/uL RBC (3.80-5.40) m/uL Hgb (11.4-16.0) gm/dL Hct (34.0-46.0) % RDW (11.5-15.5) % Neutrophils # (1.3-7.7) k/uL Monocytes # (0-1.0) k/uL VBG pH 7.24 L (7.31-7.41) VBG pCO2 65 H (37-51) mmHg Potassium (3.5-5.1) mmol/L BUN (7-17) mg/dL Glucose (74-99) mg/dL Plasma Lactic Acid Jarrett (0.7-2.0) mmol/L Magnesium (1.6-2.3) mg/dL Albumin (3.5-5.0) g/dL
[2022-08-07] MEDS: IPRATROPIUM-ALBUTEROL 3 ML NEB INHALATION SCH ×3 (10:59→21:32)
[2022-08-07] MEDS ORDERED: SODIUM ZIRCONIUM CYCLOSILICATE 10 GM PACKET PO ONE (11:00)
[2022-08-07] MEDS ORDERED: LEVOFLOXACIN 750MG-D5W PMX 750 MG in DEXTROSE/WATER 1 150ML.BAG IVPB SCH (11:00)
[2022-08-07 11:55] LABS: Glucose,Whole Blood 201 mg/dL (70-110)
--- NOTE | 2022-08-07 11:57 | P.CNPUL ---
History of Present Illness Consult date: 08/07/22 Requesting physician: Donnie Hill Reason for consult: dyspnea Chief complaint: Altered mental status, shortness of breath, hypoxemia History of present illness: This is an 82-year-old female patient with a known history of atrial fibrillation, diabetes mellitus, hypothyroidism, right-sided breast cancer with radiation, chemotherapy and partial mastectomy, seizures, anxiety/depression, former smoker, COPD. The patient was brought into the emergency room early this morning due to altered mental status and shortness of breath. She was found to be 85% saturation on 15 L nonrebreather breather mask per EMS. She was hypertensive and wheezing. She was placed on BiPAP 10/5 and 60% FiO2. Normal saline at 20 miles per hour. She was febrile with an axillary temperature of 101.1. Chest x-ray revealing multifocal pneumonia and small bilateral pleural effusions with a question of a 6.9 mm pulmonary nodule in the left midlung. Computed tomography scan of the brain revealed chronic small vessel ischemic changes. No acute intracranial findings. Acute on chronic paranasal sinus disease. White count 14.0. Hemoglobin 10.2. Platelets 251. INR 1.1. Sodium 137. Potassium 6.0. Bicarb 28. BUN 23. Creatinine 0.86. Glucose 276. Lactic acid 1.7. AST 31. ALT 19. Troponin negative times one. ProBNP 3460. Influenza screen negative. RSV screen negative. COVID-19 screen negative. She's been initiated on vancomycin and Levaquin. DuoNeb inhalations, Pulmicort inhalations. She is seen today in consultation in the emergency department. She is currently sitting up on the stretcher. Awake and alert. Poor historian. Currently afebrile. Review of Systems ROS unobtainable: due to mental status Past Medical History Past Medical History: Atrial Fibrillation, Cancer, COPD, Diabetes Mellitus, GERD /Reflux, Hyperlipidemia, Seizure Disorder, Thyroid Disorder Additional Past Medical History / Comment(s): tremors, type 2 DM, osteoporosis left leg, hypothyroid, IBS, right breast CA with radiation, chemo, partial rt mastectomy with lymph nodes , bilat catarcts removal, insomnia, kidney stones, frontal lobe seizure- last siezure 30 years ago. History of Any Multi-Drug Resistant Organisms: None Reported Past Surgical History: Bladder Surgery, Breast Surgery, Cholecystectomy, Hysterectomy Additional Past Surgical History / Comment(s): bladder suspension Past Anesthesia/Blood Transfusion Reactions: No Reported Reaction Past Psychological History: Anxiety, Depression, Panic Disorder Smoking Status: Former smoker Past Alcohol Use History: None Reported Past Drug Use History: None Reported - Past Family History Brother(s) Additional Family Medical History / Comment(s): crohns Medications and Allergies Home Medications Medication Instructions Recorded Confirmed Type Atorvastatin [Lipitor] 40 mg PO HS 10/16/13 06/14/22 History Levothyroxine Sodium [Synthroid] 137 mcg PO DAILY 11/10/16 06/14/22 History Albuterol Sulfate [Proair Hfa] 2 puff INHALATION RT-Q4H PRN 09/19/17 06/14/22 History FLUoxetine HCL [PROzac] 40 mg PO DAILY 09/19/17 06/14/22 History Divalproex Sodium [Divalproex 500 mg PO BID 04/18/22 06/14/22 History Sodium ER] Fluticasone Nasal [place] [Flonase 1 spray EA NOSTRIL BID 04/18/22 06/14/22 History Nasal [place]] metFORMIN HCL 1,000 mg PO BID 04/18/22 06/14/22 History Metoprolol Tartrate [Lopressor] 25 mg PO BID 06/14/22 06/14/22 History Pantoprazole Sodium [Protonix] 40 mg PO BID 06/14/22 06/14/22 History Zolpidem [Ambien] 10 mg PO HS 06/14/22 06/14/22 History clonazePAM [KlonoPIN] 0.5 mg PO BID@1600,2100 06/14/22 06/14/22 History Olmesartan [Benicar] 5 mg PO DAILY 06/15/22 06/15/22 History Apixaban [Eliquis] See Taper PO BID #60 tab 06/17/22 Rx Ascorbic Acid [Vitamin C] 1,000 mg PO DAILY #60 tab 06/17/22 Rx Cholecalciferol [Vitamin D3 (25 50 mcg PO DAILY #60 tab 06/17/22 Rx Mcg = 1000 Iu)] Furosemide [Lasix] 40 mg PO BID #60 tab 06/17/22 Rx Glimepiride [Amaryl] 1 mg PO AC-BRKFST #30 tab 06/17/22 Rx Zinc Sulfate [Orazinc] 220 mg PO DAILY #30 cap 06/17/22 Rx Allergies Allergy/AdvReac Type Severity Reaction Status Date / Time trazodone Allergy PSYCHOSIS Verified 06/14/22 22:36 budesonide [From Symbicort] AdvReac Unknown Verified 06/14/22 22:36 codeine AdvReac angry/mad Verified 06/14/22 22:36 fluticasone furoate AdvReac tachycardia Verified 06/14/22 22:36 [From Trelegy Ellipta] formoterol [From Symbicort] AdvReac Chest Pain Verified 06/14/22 22:36 mirabegron [From Myrbetriq] AdvReac "didn't Verified 06/14/22 22:36 work" tiotropium AdvReac "felt Verified 06/14/22 22:36 [From Spiriva with wirey" HandiHaler] umeclidinium AdvReac tachycardia Verified 06/14/22 22:36 [From Trelegy Ellipta] vilanterol AdvReac tachycardia Verified 06/14/22 22:36 [From Trelegy Ellipta] Physical Exam Vitals: Vital Signs Temp Pulse Resp BP Pulse Ox FiO2 08/07/22 11:18 82 08/07/22 11:10 80 08/07/22 10:59 60 08/07/22 10:00 97.1 F L 08/07/22 07:10 60 08/07/22 07:00 71 24 100/46 100 08/07/22 05:36 60 08/07/22 05:00 80 08/07/22 04:55 101.1 F H 89 24 101/45 100 08/07/22 03:38 100 08/07/22 02:50 100 08/07/22 02:48 101.5 F H 87 40 H 120/79 Intake and Output 08/06/22 08/07/22 08/07/22 22:59 06:59 14:59 Other: Weight 71.214 kg GENERAL EXAM: Alert, confused 82-year-old female, on BiPAP 10/5 and 60% FiO2, fairly, comfortable in no apparent distress. HEAD: Normocephalic. EYES: Normal reaction of pupils, equal size. NOSE: Clear with pink turbinates. THROAT: No erythema or exudates. NECK: No masses, no JVD. CHEST: No chest wall deformity. LUNGS: Equal air entry with bilateral scattered rhonchi. CVS: S1 and S2 normal with no audible murmur, regular rhythm. ABDOMEN: No hepatosplenomegaly, normal bowel sounds, no guarding or rigidity. SPINE: No scoliosis or deformity SKIN: No rashes CENTRAL NERVOUS SYSTEM: No focal deficits, tone is normal in all 4 extremities. EXTREMITIES: There is no peripheral edema. No clubbing, no cyanosis. Peripheral pulses are intact. Results - Laboratory Findings CBC and BMP: 08/07/22 03:07 08/07/22 03:07 PT/INR, D-dimer PT 11.9 sec (9.0-12.0) 08/07/22 03:07 INR 1.1 (<1.2) 08/07/22 03:07 Abnormal lab findings: Abnormal Labs 08/07/22 08/07/22 08/07/22 03:07 03:07 03:07 WBC 14.0 H RBC 3.29 L Hgb 10.2 L Hct 32.9 L RDW 17.5 H Neutrophils # 8.7 H Monocytes # 1.8 H VBG pH VBG pCO2 Potassium 6.0 H BUN 23 H Glucose 276 H Plasma Lactic Acid Jarrett 3.0 H* Magnesium 1.4 L Albumin 3.4 L 08/07/22 03:07 WBC RBC Hgb Hct RDW Neutrophils # Monocytes # VBG pH 7.24 L VBG pCO2 65 H Potassium BUN Glucose Plasma Lactic Acid Jarrett Magnesium Albumin - Diagnostic Findings Chest x-ray: image reviewed Assessment and Plan Assessment: Acute hypoxemic respiratory failure secondary to suspected underlying community- acquired pneumonia. Pro-calcitonin pending Acute exacerbation of suspected systolic versus diastolic congestive heart failure Altered mental status secondary to above History of hypertension History of chronic obstructive pulmonary disease Diabetes mellitus Hyperlipidemia Hypothyroidism History of seizure disorder History of right-sided breast cancer status post partial mastectomy, chemo/radiation History of essential tremors Osteoporosis Plan: The patient was seen and evaluated Chest x-ray, medications and labs reviewed Check a pro-calcitonin Discontinue vancomycin Continue Levaquin for now Continue diuretics Continue bronchodilators Follow-up chest x-ray in a.m. We will continue to follow and make further recommendations based on her clinical status I have personally seen and examined the patient, performed the documentation and the assessment and plan as written. Number of minutes spent on the visit: 20.
[2022-08-07] MEDS: INSULIN ASPART (NovoLOG) 100 UNIT/ML VIAL SQ SCH ×3 (12:06→21:15)
[2022-08-07 12:24] LABS: African American GFR (CKD) 66 (>60 ml/min/1.73 sqM); Anion Gap 10 mmol/L; Blood Urea Nitrogen 32 mg/dL (7-17); Calcium 8.7 mg/dL (8.4-10.2); Carbon Dioxide 22 mmol/L (22-30); Chloride 110 mmol/L (98-107); Glucose 206 mg/dL (74-99); Non-African American GFR(CKD) 57 (>60 ml/min/1.73 sqM); Potassium 5.9 mmol/L (3.5-5.1); Sodium 142 mmol/L (137-145)
[2022-08-07 16:08] LABS: Appearance,Urine Clear (Clear); Bilirubin,Urine Negative (Negative); Blood,Urine Negative (Negative); Color,Urine Yellow; Glucose,Urine (UA) Negative (Negative); Ketones,Urine Negative (Negative); Leukocyte Esterase,Urine Negative (Negative); Nitrite,Urine Negative (Negative); Protein,Urine Trace (Negative); Specific Gravity,Urine 1.014 (1.001-1.035); Urobilinogen,Urine <2.0 mg/dL (<2.0)
[2022-08-07] MEDS ORDERED: clonazePAM 0.5 MG TAB PO PRN (18:23)
[2022-08-07] MEDS ORDERED: DEXTROSE 50% SYRINGE 50 ML IVP PRN ×2 (18:25)
[2022-08-07 19:49] VITALS: BP 90/51; TEMP 98.2
[2022-08-07 20:17] LABS: Glucose,Whole Blood 44 mg/dL (70-110)
[2022-08-07 20:19] LABS: Glucose,Whole Blood 45 mg/dL (70-110)
[2022-08-07 20:37] LABS: Glucose,Whole Blood 123 mg/dL (70-110)
[2022-08-07] MEDS ORDERED: DIVALPROEX ER 500 MG TAB.ER.24H PO SCH (21:00)
[2022-08-07] MEDS ORDERED: APIXABAN 2.5 MG TABLET PO SCH (21:00)
[2022-08-07] MEDS ORDERED: ATORVASTATIN 40 MG TAB PO SCH (21:00)
[2022-08-07] MEDS ORDERED: metFORMIN 500 MG TAB PO SCH (21:00)
[2022-08-07] MEDS: BUDESONIDE 0.5 MG/2 ML NEBU INHALATION SCH (21:32)
[2022-08-07] MEDS ORDERED: ATROPINE OPHTH SOLN 1% 5ML BTL SUBLINGUAL PRN (21:42)
[2022-08-07] MEDS ORDERED: GLYCOPYRROLATE 0.2 MG/ML 2 ML VIAL IVP PRN (21:42)
[2022-08-07] MEDS ORDERED: SCOPOLAMINE 1 MG/72 HR PATCH TRANSDERM SCH (21:45)
[2022-08-07] MEDS: MORPHINE SULFATE 4 MG/ML SYRINGE IV PRN (21:48)
[2022-08-07] MEDS: MORPHINE SULFATE (100 MG/2 ML) 100 MG in SODIUM CHLORIDE 0.9% 100 ML IV SCH (22:00)
[2022-08-07] MEDS: FLUTICASONE 50MCG/SPRAY NASAL 16GM EA NOSTRIL SCH (22:48)
[2022-08-07] MEDS: LORazepam 2 MG/ML INJ IV PRN (23:07)
[2022-08-08] MEDS ORDERED: VANCOMYCIN 1,250 MG in SODIUM CHLORIDE 0.9% 250 ML IVPB SCH (06:00)
[2022-08-08] MEDS: MORPHINE SULFATE (100 MG/2 ML) 100 MG in SODIUM CHLORIDE 0.9% 100 ML IV SCH ×4 (06:54→22:44)
[2022-08-08] MEDS ORDERED: LEVOTHYROXINE 137 MCG TAB PO SCH (07:30)
[2022-08-08] MEDS ORDERED: GLIMEPIRIDE 1 MG TAB PO SCH (07:30)
[2022-08-08] MEDS: LORazepam 2 MG/ML INJ IV PRN ×3 (08:09→14:45)
[2022-08-08] MEDS ORDERED: CHOLECALCIFEROL 25 MCG (1000 IU) TABLET PO SCH (09:00)
[2022-08-08] MEDS ORDERED: ZINC SULFATE 220 MG CAP PO SCH (09:00)
[2022-08-08] MEDS ORDERED: ASCORBIC ACID 500 MG TAB PO SCH (09:00)
[2022-08-08] MEDS ORDERED: FLUoxetine HCL 20 MG CAP PO SCH (09:00)
[2022-08-08] MEDS ORDERED: metFORMIN 500 MG TAB PO SCH (09:00)
[2022-08-08] MEDS: SODIUM CHLORIDE 0.9% 1,000 ML IV SCH (09:08)
[2022-08-08] MEDS: FLUTICASONE 50MCG/SPRAY NASAL 16GM EA NOSTRIL SCH ×2 (09:09→21:21)
[2022-08-08] MEDS: BUDESONIDE 0.5 MG/2 ML NEBU INHALATION SCH (09:09)
[2022-08-08] MEDS: IPRATROPIUM-ALBUTEROL 3 ML NEB INHALATION SCH (09:09)
[2022-08-08] MEDS: MORPHINE SULFATE 4 MG/ML SYRINGE IV PRN (10:40)
--- NOTE | 2022-08-08 11:08 | P.PN ---
Subjective Progress Note Date: 08/08/22 This is an 82-year-old female patient with a known history of atrial fibrillation, diabetes mellitus, hypothyroidism, right-sided breast cancer with radiation, chemotherapy and partial mastectomy, seizures, anxiety/depression, former smoker, COPD. The patient was brought into the emergency room early this morning due to altered mental status and shortness of breath. She was found to be 85% saturation on 15 L nonrebreather breather mask per EMS. She was hypertensive and wheezing. She was placed on BiPAP 10/5 and 60% FiO2. Normal saline at 20 miles per hour. She was febrile with an axillary temperature of 101.1. Chest x-ray revealing multifocal pneumonia and small bilateral pleural effusions with a question of a 6.9 mm pulmonary nodule in the left midlung. Computed tomography scan of the brain revealed chronic small vessel ischemic changes. No acute intracranial findings. Acute on chronic paranasal sinus disease. White count 14.0. Hemoglobin 10.2. Platelets 251. INR 1.1. Sodium 137. Potassium 6.0. Bicarb 28. BUN 23. Creatinine 0.86. Glucose 276. Lactic acid 1.7. AST 31. ALT 19. Troponin negative times one. ProBNP 3460. Influenza screen negative. RSV screen negative. COVID-19 screen negative. She's been initiated on vancomycin and Levaquin. DuoNeb inhalations, Pulmicort inhalations. She is seen today in consultation in the emergency department. She is currently sitting up on the stretcher. Awake and alert. Poor historian. Currently afebrile. Today's evaluation of 2022, the patient is undergoing comfort care measures. She is taking a morphine drip for now. He is to be quite unresponsive. Having some agonal breathing she is on high flow oxygen. Family was at the bedside. The decision was made by the patient and her family and end-of-life measures were implemented on this patient. Objective - Vital Signs Vital signs: Vital Signs Temp 98.2 F 08/07/22 19:48 Pulse 73 08/07/22 19:48 Resp 28 H 08/07/22 23:41 BP 90/51 08/07/22 19:48 Pulse Ox 100 08/07/22 19:48 FiO2 50 08/07/22 21:26 Intake & Output 08/07/22 08/08/22 08/08/22 18:59 06:59 18:59 Intake Total 73.355 22.712 Output Total 400 Balance -326.645 22.712 Weight 71.214 kg Intake: Intake, IV Titration 73.355 22.712 Amount Morphine Sulfate (100 mg/ 73.355 22.712 2 ml) 100 mg In Sodium Chloride 0.9% 100 ml @ 1 MG/HR 1.02 mls/hr IV . Q24H [facility] Rx#:[id number] Output: Urine 400 Other: Voiding Method External Catheter - Exam GENERAL EXAM: Alert, confused 82-year-old female, the patient was taken off the BiPAP and the patient is currently undergoing a morphine drip and she is receiving end-of-life care treatment. Clear with pink turbinates. THROAT: No erythema or exudates. NECK: No masses, no JVD. CHEST: No chest wall deformity. LUNGS: Equal air entry with bilateral scattered rhonchi. Agonal breathing CVS: S1 and S2 normal with no audible murmur, regular rhythm. ABDOMEN: No hepatosplenomegaly, normal bowel sounds, no guarding or rigidity. SPINE: No scoliosis or deformity SKIN: No rashes CENTRAL NERVOUS SYSTEM: Unresponsive on a morphine drip EXTREMITIES: There is no peripheral edema. No clubbing, no cyanosis. Peripheral pulses are intact. - Labs CBC & Chem 7: 08/07/22 03:07 08/07/22 10:53 Labs: Abnormal Lab Results - Last 24 Hours (Table) 08/07/22 08/07/22 08/07/22 Range/Units 10:53 11:53 15:55 Potassium 5.9 H (3.5-5.1) mmol/L Chloride 110 H (98-107) mmol/L BUN 32 H (7-17) mg/dL Glucose 206 H (74-99) mg/dL POC Glucose (mg/dL) 201 H (70-110) mg/dL Urine Protein Trace H (Negative) 08/07/22 08/07/22 08/07/22 Range/Units 20:16 20:17 20:35 Potassium (3.5-5.1) mmol/L Chloride (98-107) mmol/L BUN (7-17) mg/dL Glucose (74-99) mg/dL POC Glucose (mg/dL) 44 L 45 L 123 H (70-110) mg/dL Urine Protein (Negative) Assessment and Plan Plan: Acute hypoxemic respiratory failure secondary to suspected underlying community-acquired pneumonia, along with a component of CHF. The patient is having agonal breathing at this point in time. The patient is on a morphine drip receiving end-of-life care. BiPAP has been discontinued. Acutesuspected systolic versus diastolic congestive heart failure Altered mental status secondary to above History of hypertension History of chronic obstructive pulmonary disease Diabetes mellitus Hyperlipidemia Hypothyroidism History of seizure disorder History of right-sided breast cancer status post partial mastectomy, chemo/radiation History of essential tremors Osteoporosis Plan: Proceed with end-of-life care is discussed with the at the bedside. Patient is comfortable. I did answer family's questions to their satisfaction. We will sign off the case and leave the rest of the management up to the medical group
[2022-08-08] MEDS ORDERED: LEVOFLOXACIN 750MG-D5W PMX 750 MG in DEXTROSE/WATER 1 150ML.BAG IVPB SCH (12:00)
--- NOTE | 2022-08-08 12:28 | P.CRDCN ---
History of Present Illness Consult date: 08/08/22 History of present illness: Patient has been transitioned to comfort care. We will cancel the cardiology consult in lieu of this. Past Medical History Past Medical History: Atrial Fibrillation, Cancer, COPD, Diabetes Mellitus, GE RD/Reflux, Hyperlipidemia, Seizure Disorder, Thyroid Disorder Additional Past Medical History / Comment(s): tremors, type 2 DM, osteoporosis left leg, hypothyroid, IBS, right breast CA with radiation, chemo, partial rt mastectomy with lymph nodes , bilat catarcts removal, insomnia, kidney stones, frontal lobe seizure- last siezure 30 years ago, zenkers diverticulitis History of Any Multi-Drug Resistant Organisms: None Reported Past Surgical History: Bladder Surgery, Breast Surgery, Cholecystectomy, Hysterectomy Additional Past Surgical History / Comment(s): bladder suspension Past Anesthesia/Blood Transfusion Reactions: No Reported Reaction Past Psychological History: Anxiety, Depression, Panic Disorder Additional Psychological History / Comment(s): frontal lobal seizures Smoking Status: Former smoker Past Alcohol Use History: None Reported Past Drug Use History: None Reported - Past Family History Brother(s) Additional Family Medical History / Comment(s): crohns Medications and Allergies Home Medications Medication Instructions Recorded Confirmed Type Atorvastatin [Lipitor] 40 mg PO HS 10/16/13 08/07/22 History Levothyroxine Sodium [Synthroid] 137 mcg PO MOTUWETHFRSA 11/10/16 08/07/22 History Albuterol Sulfate [Proair Hfa] 2 puff INHALATION RT-Q4H PRN 09/19/17 08/07/22 History FLUoxetine HCL [PROzac] 40 mg PO DAILY 09/19/17 08/07/22 History Divalproex Sodium [Divalproex 500 mg PO BID 04/18/22 08/07/22 History Sodium ER] Fluticasone Nasal [place] [Flonase 1 spr EA NOSTRIL BID 04/18/22 08/07/22 History Nasal [place]] metFORMIN HCL 1,000 mg PO DAILY 04/18/22 08/07/22 History Metoprolol Tartrate [Lopressor] 25 mg PO BID 06/14/22 08/07/22 History Zolpidem [Ambien] 10 mg PO HS PRN 06/14/22 08/07/22 History clonazePAM [KlonoPIN] 0.5 mg PO Q12H PRN 06/14/22 08/07/22 History Olmesartan [Benicar] 5 mg PO DAILY 06/15/22 08/07/22 History Ascorbic Acid [Vitamin C] 1,000 mg PO DAILY #60 tab 06/17/22 08/07/22 Rx Furosemide [Lasix] 40 mg PO BID #60 tab 06/17/22 08/07/22 Rx Glimepiride [Amaryl] 1 mg PO AC-BRKFST #30 tab 06/17/22 08/07/22 Rx Acetaminophen Tab [Tylenol] 325 mg PO Q4H PRN 08/07/22 08/07/22 History Apixaban [Eliquis] 2.5 mg PO BID 08/07/22 08/07/22 History Cholecalciferol [Vitamin D3 (25 25 mcg PO DAILY 08/07/22 08/07/22 History Mcg = 1000 Iu)] Clotrimazole [Lotrimin AF] 1 applic TOPICAL BID PRN 08/07/22 08/07/22 History Ibuprofen Oral Susp [Motrin Oral 100 mg PO TID PRN 08/07/22 08/07/22 History Susp] Levothyroxine Sodium [Synthroid] 68.5 mcg PO PETERS 08/07/22 08/07/22 History Omeprazole 20 mg PO AC-BRKFST 08/07/22 08/07/22 History Spironolactone [Aldactone] 12.5 mg PO DAILY 08/07/22 08/07/22 History Zinc Gluconate [Zinc] 50 mg PO DAILY 08/07/22 08/07/22 History metFORMIN HCL [Glucophage] 500 mg PO HS 08/07/22 08/07/22 History Allergies Allergy/AdvReac Type Severity Reaction Status Date / Time trazodone Allergy PSYCHOSIS Verified 08/07/22 14:46 budesonide [From Symbicort] AdvReac Unknown Verified 08/07/22 14:46 codeine AdvReac angry/mad Verified 08/07/22 14:46 fluticasone furoate AdvReac tachycardia Verified 08/07/22 14:46 [From Trelegy Ellipta] formoterol [From Symbicort] AdvReac Chest Pain Verified 08/07/22 14:46 mirabegron [From Myrbetriq] AdvReac "didn't Verified 08/07/22 14:46 work" tiotropium AdvReac "felt Verified 08/07/22 14:46 [From Spiriva with wirey" HandiHaler] umeclidinium AdvReac tachycardia Verified 08/07/22 14:46 [From Trelegy Ellipta] vilanterol AdvReac tachycardia Verified 08/07/22 14:46 [From Trelegy Ellipta] Physical Exam Vitals: Vital Signs Temp Pulse Pulse Resp BP BP Pulse Ox 08/07/22 23:41 28 H 08/07/22 22:34 32 H 08/07/22 22:11 36 H 08/07/22 21:26 08/07/22 19:48 98.2 F 73 27 H 90/51 100 08/07/22 17:50 98.1 F 72 25 H 97/45 99 08/07/22 17:00 67 20 92/36 98 08/07/22 16:05 74 20 102/51 94 L 08/07/22 15:17 64 18 86/41 100 08/07/22 15:14 68 08/07/22 15:03 62 08/07/22 15:02 08/07/22 14:26 66 20 110/92 100 08/07/22 11:55 64 18 88/49 99 08/07/22 11:18 82 08/07/22 11:10 80 08/07/22 10:59 08/07/22 10:00 97.1 F L FiO2 08/07/22 23:41 08/07/22 22:34 08/07/22 22:11 08/07/22 21:26 50 08/07/22 19:48 50 08/07/22 17:50 50 08/07/22 17:00 08/07/22 16:05 08/07/22 15:17 08/07/22 15:14 08/07/22 15:03 08/07/22 15:02 50 08/07/22 14:26 08/07/22 11:55 08/07/22 11:18 08/07/22 11:10 08/07/22 10:59 60 08/07/22 10:00 Intake and Output 08/07/22 08/08/22 08/08/22 22:59 06:59 14:59 Intake Total 2.516 70.839 22.712 Output Total 400 Balance 2.516 -329.161 22.2 Intake: Intake, IV Titration 2.516 70.839 22.712 Amount Morphine Sulfate (100 mg/ 2.516 70.839 22.712 2 ml) 100 mg In Sodium Chloride 0.9% 100 ml @ 1 MG/HR 1.02 mls/hr IV . Q24H [facility] Rx#:[id number] Output: Urine 400 Other: Voiding Method External Catheter Weight 71.214 kg Results 08/07/22 03:07 08/07/22 10:53 Comprehensive Metabolic Panel 08/07/22 Range/Units 10:53 Sodium 142 (137-145) mmol/L Potassium 5.9 H (3.5-5.1) mmol/L Chloride 110 H (98-107) mmol/L Carbon Dioxide 22 (22-30) mmol/L BUN 32 H (7-17) mg/dL Creatinine 0.94 (0.52-1.04) mg/dL Glucose 206 H (74-99) mg/dL Calcium 8.7 (8.4-10.2) mg/dL Current Medications Generic Name Dose Route Start Last Admin Trade Name Freq PRN Reason Stop Dose Admin Albuterol/Ipratropium 3 ml 08/07/22 12:00 08/08/22 09:09 Ipratropium-Albuterol 3 Ml Neb INHALATION Not Given RT-QID [facility] Albuterol/Ipratropium 3 ml 08/07/22 10:42 Ipratropium-Albuterol 3 Ml Neb INHALATION RT-QID PRN Shortness Of Breath Or Wheezing Atropine Sulfate 2 drops 08/07/22 21:42 Atropine Ophth Soln 1% 5ml Btl SUBLINGUAL Q4HR PRN Excess Secretions Budesonide 0.5 mg 08/07/22 20:00 08/08/22 09:09 Budesonide 0.5 Mg/2 Ml Nebu INHALATION Not Given RT-BID [facility] Clonazepam 0.5 mg 08/07/22 18:23 08/07/22 20:43 Clonazepam 0.5 Mg Tab PO 0.5 mg Q12H PRN Administration Anxiety Dextrose/Water 25 ml 08/07/22 18:25 Dextrose 50% Syringe 50 Ml IVP PER PROTOCOL PRN Hypoglycemia Protocol Dextrose/Water 50 ml 08/07/22 18:25 08/07/22 20:21 Dextrose 50% Syringe 50 Ml IVP 50 ml PER PROTOCOL PRN Administration Hypoglycemia Protocol Fluticasone Propionate 1 spray 08/07/22 21:00 08/08/22 09:09 Fluticasone 50mcg/[place] Nasal 16gm EA NOSTRIL Not Given BID DAMIAN Glycopyrrolate 0.1 mg 08/07/22 21:42 08/07/22 23:52 Glycopyrrolate 0.2 Mg/Ml 2 Ml Vial IVP 0.1 mg Q6HR PRN Administration Excess Secretions Sodium Chloride 1,000 mls @ 20 mls/hr 08/07/22 06:45 08/08/22 09:08 Saline 0.9% IV Not Given .Q24H [facility]IAN Morphine Sulfate 100 mg/ 102 mls @ 1.02 mls/hr 08/07/22 21:45 08/08/22 09:15 Sodium Chloride IV 11 mg/hr .Q24H DAMIAN 11.22 mls/hr Titration Protocol 1 MG/HR Lorazepam 1 mg 08/07/22 21:42 08/08/22 08:09 Lorazepam 2 Mg/Ml Inj IV 1 mg Q6HR PRN Administration Anxiety Morphine Sulfate 4 mg 08/07/22 21:42 08/07/22 21:48 Morphine Sulfate 4 Mg/Ml Syringe IV 4 mg Q15M PRN Administration Breakthrough Pain Naloxone HCl 0.2 mg 08/07/22 06:38 Naloxone 0.4 Mg/Ml 1 Ml Vial IV Q2M PRN Opioid Reversal Ondansetron HCl 4 mg 08/07/22 06:38 Ondansetron 4 Mg/2 Ml Vial IVP Q8HR PRN Nausea And Vomiting Scopolamine 1 patch 08/07/22 21:45 08/07/22 22:32 Scopolamine 1 Mg/72 Hr Patch TRANSDERM 1 patch Q72H DAMIAN Administration Intake and Output 08/07/22 08/08/22 08/08/22 22:59 06:59 14:59 Intake Total 2.516 70.839 22.712 Output Total 400 Balance 2.516 -329.161 22.712 Intake: Intake, IV Titration 2.516 70.839 22.712 Amount Morphine Sulfate (100 mg/ 2.516 70.839 22.712 2 ml) 100 mg In Sodium Chloride 0.9% 100 ml @ 1 MG/HR 1.02 mls/hr IV . Q24H [facility] Rx#:[id number] Output: Urine 400 Other: Voiding Method External Catheter Weight 71.214 kg 08/07/22 03:07 08/07/22 10:53
[2022-08-08 13:25] VITALS: BMI 26.9
[2022-08-08 14:59] VITALS: PULSE 106; RESP 16
[2022-08-09] MEDS: MORPHINE SULFATE (100 MG/2 ML) 100 MG in SODIUM CHLORIDE 0.9% 100 ML IV SCH (01:25)
--- NOTE | 2022-08-09 02:49 | PN ---
PROGRESS NOTE DATE OF SERVICE: 08/07/2022 SUBJECTIVE: This is an 82-year-old woman who was admitted with sepsis secondary to pneumonia, is on comfort measures at this time. The patient was restless in the morning, but the patient was given increasing dose of morphine drip and addition of some morphine and p.r.n. Ativan. The patient appears to be resting comfortably, some labored breathing is noted. Family at bedside. OBJECTIVE: VITAL SIGNS: Pulse is 110. HEENT: Conjunctivae normal. CARDIOVASCULAR: S1, S2 regular. RESPIRATIONS: Rhonchi. NERVOUS SYSTEM: Deferred, the patient is sedated. LABORATORY DATA: Reviewed. ASSESSMENT: 1. Pneumonia with possible sepsis. 2. CHF with chronic systolic dysfunction. 3. Hyperkalemia. 4. Hypomagnesemia. 5. Multiple medical issues. DISCUSSION AND RECOMMENDATIONS: Continue current management, continue symptomatic treatment. The patient is currently on comfort measures, will continue the comfort measures. Prognosis is guarded. Discuss with family and further recommendations to follow. MMODL / IJN: [id number] / BERENICE
--- NOTE | 2022-08-10 07:09 | P.DS ---
Providers Date of admission: 08/07/22 06:38 Expected date of discharge: 08/09/22 Attending physician: Donnie Hill Consults: 08/07/22 06:38 Consult Physician Routine Consulting Provider: Andrea Titus Consult Reason/Comments: pneumonia Do you want consulting provider notified?: Yes 08/07/22 06:56 Consult Physician Routine Consulting Provider: Cuco Wooten Consult Reason/Comments: heart failure Do you want consulting provider notified?: Yes Primary care physician: Tammi Titus Chet Hospital Course: Preliminary cause of Pneumonia with severe sepsis Final diagnosis -Sepsis, severe with lactic acidosis: Most likely source is pneumonia -Congestive heart failure chronic systolic as well as diastolic dysfunction with mild acute exacerbation -hyperkalemia -Hypomagnesemia -acute on chronic hypoxic and hypercapnic respiratory failure secondary to pneumonia and COPD -Atrial fibrillation: Patient is on anticoagulation and rate control medications -Type 2 diabetes mellitus -Hyperlipidemia -Seizure disorder -Hypothyroidism -Depression -Code Discharge disposition Patient has . According to nursing documentation, time of was 0355 on 08/09/2022. Family was present and patient was on hospice comfort care measures only. Hospital course This was an 82-year-old female who came in with severe shortness of breath placed on BiPAP with diffuse infiltrates on the right along with fever and leukocytosis with features of severe sepsis most likely secondary to pneumonia. Patient was started on treatment including antibiotics and electrolyte corrections will continue to deteriorate. Patient had clinical decline and given patient's significant comorbidities family requested comfort care measures and hospice consulted. Patient was continued on comfort care measures and at 03 55 on 08/09/2022 with family present. Please refer to other documentation and consultations for further HPI. The impression and plan of care has been dictated by Geetha Davis, Nurse Practitioner as directed. Dr. Sergio MD I have performed a history and examination and MDM of this patient, discussed the same with the dictator, and agree with the dictator's assessment and plan as written ,documented as a scribe. Based on total visit time, I have performed more than 50% of the visit. Patient Condition at Discharge: Serious Plan - Discharge Summary Discharge Rx Participant: No New Discharge Prescriptions: No Action Atorvastatin [Lipitor] 40 mg PO HS Levothyroxine Sodium [Synthroid] 137 mcg PO MOTUWETHFRSA Albuterol Sulfate [Proair Hfa] 2 puff INHALATION RT-Q4H PRN PRN Reason: Shortness Of Breath FLUoxetine HCL [PROzac] 40 mg PO DAILY metFORMIN HCL 1,000 mg PO DAILY Fluticasone Nasal [place] [Flonase Nasal [place]] 1 spr EA NOSTRIL BID Zolpidem [Ambien] 10 mg PO HS PRN PRN Reason: Insomnia clonazePAM [KlonoPIN] 0.5 mg PO Q12H PRN PRN Reason: Anxiety Furosemide [Lasix] 40 mg PO BID #60 tab Acetaminophen Tab [Tylenol] 325 mg PO Q4H PRN PRN Reason: Fever And/ Or Pain Apixaban [Eliquis] 2.5 mg PO BID Cholecalciferol [Vitamin D3 (25 Mcg = 1000 Iu)] 25 mcg PO DAILY Clotrimazole [Lotrimin AF] 1 applic TOPICAL BID PRN PRN Reason: Skin Irritation Ibuprofen Oral Susp [Motrin Oral Susp] 100 mg PO TID PRN PRN Reason: Fever And/ Or Pain Levothyroxine Sodium [Synthroid] 68.5 mcg PO PETERS metFORMIN HCL [Glucophage] 500 mg PO HS Spironolactone [Aldactone] 12.5 mg PO DAILY Divalproex Sodium [Divalproex Sodium ER] 500 mg PO BID Metoprolol Tartrate [Lopressor] 25 mg PO BID Olmesartan [Benicar] 5 mg PO DAILY Glimepiride [Amaryl] 1 mg PO AC-BRKFST #30 tab Ascorbic Acid [Vitamin C] 1,000 mg PO DAILY #60 tab Omeprazole 20 mg PO AC-BRKT Zinc Gluconate [Zinc] 50 mg PO DAILY Discharge Medication List Atorvastatin [Lipitor] 40 mg PO HS 10/16/13 [History] Levothyroxine Sodium [Synthroid] 137 mcg PO MOTUWETHFRSA 11/10/16 [History] Albuterol Sulfate [Proair Hfa] 2 puff INHALATION RT-Q4H PRN 09/19/17 [History] FLUoxetine HCL [PROzac] 40 mg PO DAILY 09/19/17 [History] Divalproex Sodium [Divalproex Sodium ER] 500 mg PO BID 04/18/22 [History] Fluticasone Nasal [place] [Flonase Nasal [place]] 1 spr EA NOSTRIL BID 04/18/22 [History] metFORMIN HCL 1,000 mg PO DAILY 04/18/22 [History] Metoprolol Tartrate [Lopressor] 25 mg PO BID 06/14/22 [History] Zolpidem [Ambien] 10 mg PO HS PRN 06/14/22 [History] clonazePAM [KlonoPIN] 0.5 mg PO Q12H PRN 06/14/22 [History] Olmesartan [Benicar] 5 mg PO DAILY 06/15/22 [History] Ascorbic Acid [Vitamin C] 1,000 mg PO DAILY #60 tab 06/17/22 [Rx] Furosemide [Lasix] 40 mg PO BID #60 tab 06/17/22 [Rx] Glimepiride [Amaryl] 1 mg PO AC-BRKFST #30 tab 06/17/22 [Rx] Acetaminophen Tab [Tylenol] 325 mg PO Q4H PRN 08/07/22 [History] Apixaban [Eliquis] 2.5 mg PO BID 08/07/22 [History] Cholecalciferol [Vitamin D3 (25 Mcg = 1000 Iu)] 25 mcg PO DAILY 08/07/22 [History] Clotrimazole [Lotrimin AF] 1 applic TOPICAL BID PRN 08/07/22 [History] Ibuprofen Oral Susp [Motrin Oral Susp] 100 mg PO TID PRN 08/07/22 [History] Levothyroxine Sodium [Synthroid] 68.5 mcg PO PETERS 08/07/22 [History] Omeprazole 20 mg PO AC-BRKFST 08/07/22 [History] Spironolactone [Aldactone] 12.5 mg PO DAILY 08/07/22 [History] Zinc Gluconate [Zinc] 50 mg PO DAILY 08/07/22 [History] metFORMIN HCL [Glucophage] 500 mg PO HS 08/07/22 [History] Follow up Appointment(s)/Referral(s): Mara Bustillos DO [REFERRING] - 1-2 days Discharge Disposition: - Preliminary Cause of Preliminary Cause of : Pneumonia with severe sepsis
--- NOTE | 2022-08-11 11:53 | CDI ---
Documentation Clarification Form Date: 08/11/22 From: Lisbeth Walsh Admit Date: 08/07/2022 06:38:00 AM Patient Name: Radha Marina Visit Number: [id number] Discharge Date: 08/09/2022 07:19:00 AM ATTENTION: The Clinical Documentation Specialists (CDI) and [facility] Coding Staff appreciate your assistance in clarifying documentation. Please respond to the clarification below the line at the bottom and electronically sign. The CDI & [facility] Coding staff will review the response and follow-up if needed. Please note: Queries are made part of the Legal Health Record. If you have any questions, please contact the author of this message via ITS. Dr. Donnie Hill, Atrial Fibrillation is documented in the ED Note, H&P, both consults, PN & DS. Additional clarification regarding the type of atrial fibrillation is requested. History/Risk Factors: Sepsis with severe sepsis, pneumonia and COPD with lower respiratory infection, acute and chronic hypoxia & hypercapnia respiratory failure, HTN w chronic systolic CHF Clinical Indicators: Previous echo showed EF of around 45-50% patient does have history of atrial fibrillationpatient is presently rate controlled. EKG/telemetry: Ventricular rate sinusrhythm, VT interval 170, QRS 79, QTc 436, sinusrhythm .NoPRprolongation,noQTCprolongation, no ST or T-wave changes Treatment: Eliquis 5 mg tab 2.5 mg PO BID Please clarify the type of atrial fibrillation, if known: [ ] Chronic [ ] Permanent [ ] Paroxysmal [ ] Persistent [ ] Other, please specify [ ] Unable to determine Paroxysmal MTDD
[2022-08-14] MEDS ORDERED: LEVOTHYROXINE 137 MCG TAB PO SCH (07:30)
== END 2022-08-09 07:19 | disposition expired | DRG 871 ==
LOC: EC 02:45 → 3SCARD 06:38
PROVIDERS: ADMIT Hospitalist; ATTEND Hospitalist
PROC: 5A09357 Assistance with Respiratory Ventilation, Less than 24 Consecutive Hours, Continuous Positive Airway Pressure (ICD-10-PCS; principal; 2022-08-07)
DX: A41.9 Sepsis, unspecified organism (principal); I50.43 Acute on chronic combined systolic (congestive) and diastolic (congestive) heart failure; J18.9 Pneumonia, unspecified organism; J96.21 Acute and chronic respiratory failure with hypoxia; J96.22 Acute and chronic respiratory failure with hypercapnia; J44.0 Chronic obstructive pulmonary disease with (acute) lower respiratory infection; I11.0 Hypertensive heart disease with heart failure; R65.20 Severe sepsis without septic shock; E11.9 Type 2 diabetes mellitus without complications; G40.909 Epilepsy, unspecified, not intractable, without status epilepticus; Z66 Do not resuscitate; Z51.5 Encounter for palliative care; Z20.822 Contact with and (suspected) exposure to COVID-19; E03.9 Hypothyroidism, unspecified; M81.0 Age-related osteoporosis without current pathological fracture; G47.00 Insomnia, unspecified; K21.9 Gastro-esophageal reflux disease without esophagitis; K58.9 Irritable bowel syndrome, unspecified; E83.42 Hypomagnesemia; E87.5 Hyperkalemia; G25.0 Essential tremor; F41.0 Panic disorder [episodic paroxysmal anxiety]; F32.A Depression, unspecified; E78.5 Hyperlipidemia, unspecified; Z79.01 Long term (current) use of anticoagulants; I48.0 Paroxysmal atrial fibrillation; Z79.84 Long term (current) use of oral hypoglycemic drugs; Z79.890 Hormone replacement therapy; Z79.899 Other long term (current) drug therapy; Z87.891 Personal history of nicotine dependence; Z87.442 Personal history of urinary calculi; Z85.3 Personal history of malignant neoplasm of breast
CPT/HCPCS: 36415; 70450; 71045; 80048; 80053; 81003; 82803; 83605; 83735; 83880; 84145; 84484; 85025; 85610; 85730; 87040; 87449; 87636; 93005; 94640; 94660; 96361; 96365; 96366; 96367; 96375; 99285; 99291